=== PATIENT | female | born 1960 | race Caucasian/White ===

== ENCOUNTER → 2016-04-07 | Outpatient (CLI) | payer OTHER ==
[~2016-04-07] MED LIST: ALBU1AER9 INH; ASPI81TA28 PO; ATV1 PO; CYNI1000 IM; DICY10CA12 PO; HYDR12.56 PO; MELO7.5T5 PO; ONDA4TAB10 SL; POLY335019 PO; POLY335040 PO; SUCR1TAB PO; TOPI50TA16 PO; TRAZ50TA35 PO; VNTHFA/IN INH; WLLSR/200 PO; ZOLP10TA6 PO
--- NOTE | 2016-04-08 12:36 | MAMMOGRAPHY REPORT ---
BILATERAL DIGITAL SCREENING MAMMOGRAM TOMOSYNTHESIS WITH CAD: 04/07/2016 CLINICAL HISTORY: Routine screening examination. During this exam the patient reported intermittent soreness in the left breast to the wood technologist. TECHNIQUE: Breast tomosynthesis in addition to standard 2D mammography was performed. Current study was also evaluated with a Computer Aided Detection (CAD) system. COMPARISON: Comparison is made to exams dated: 08/13/2014 mammogram, 06/20/2013 mammogram, 03/17/2012 ma mmogram, 02/24/2010 mammogram, 08/23/2009 mammogram - [facility], and 04/14/2007. BREAST COMPOSITION: There are scattered areas of fibroglandular density in both breasts. FINDINGS: There are a few stable punctate microcode calcifications in the left breast, and a stable 8 mm focal asymmetry in the right upper outer quadrant, that appears similar dating back to at as t 04/14/2007, therefore likely benign. No new suspicious mass, architectural distortion or cluster of microcalcifications is seen. IMPRESSION: ACR BI-RADS CATEGORY 1: NEGATIVE There is no mammographic evidence of malignancy. A 1 year screening mammogram is recommended. The p atient will receive written notification of the results. Approximately 10% of breast cancers are not detected with mammography. A negative mammographic repor t should not delay biopsy if a clinically suggestive mass is present. Daylin Freeman M.D. ay/:04/07/2016 18:09:41 Professor Of Law: Divine LOPEZ)([place]), [facility] letter sent: Normal 1/2 BI-RADS Code: ACR BI-RADS Category 1: Negative
== END | disposition home or self-care (01) ==
LOC: C.MAMM 14:58
PROVIDERS: ATTEND Family Medicine
DX: Z12.31 Encounter for screening mammogram for malignant neoplasm of breast (principal)

== ENCOUNTER 2016-06-29 03:03 | Emergency (ER) | payer OTHER ==
[~2016-06-29] VITALS: Ht 160 cm; Wt 111.4 kg
[~2016-06-29 03:03] MED LIST changes: -ASPI81TA28 PO; -POLY335019 PO; -VNTHFA/IN INH
[2016-06-29 03:09] VITALS: TEMP 36.7; Ht 160 cm; Wt 111.4 kg
[2016-06-29] MEDS ORDERED: ONDANSETRON INJ 2 MG/ML 2 ML VIAL IV STA (03:29)
[2016-06-29] MEDS ORDERED: SODIUM CHLORIDE 0.9% 1000ML 1,000 ML IV ONE (03:30)
[2016-06-29] MEDS ORDERED: MoRPHine SULFATE 4 MG/ML 1 ML CARP\\VIAL IV ONE (03:30)
[2016-06-29 03:41] LABS: BASO % 0.4 %; BASO ABS # 0.03 K/uL (0-0.2); COMPLETE YES; EOS % 2.4 %; HEMATOCRIT 45.4 % (37-47); IG% 0.2 %; LYMPH ABS # 2.08 K/uL (1.2-3.4); MEAN CORPUSCULAR HEMOGLOBIN 29.1 pg (25-34); MEAN PLATELET VOLUME 9.1 fL (7.4-10.4); MONO % 7.7 %; NEUT % 64.3 %; PLATELET COUNT 287 K/uL (130-400); RED BLOOD COUNT 5.16 M/uL (4.2-5.4); WHITE BLOOD COUNT 8.32 K/uL (4.8-10.8)
[2016-06-29 03:57] LABS: URINE APPEARANCE CLEAR (CLEAR); URINE BILIRUBIN NEG (NEG); URINE COLOR YELLOW; URINE NITRITE NEG (NEG); URINE SPECIFIC GRAVITY 1.023 (1.000-1.030); UROBILINOGEN NEG (NEG); ZZUR CULT IF INDIC CLEAN CATCH NO
[2016-06-29 04:23] LABS: MANUAL MICROSCOPIC REQUIRED? NO; REVIEW REQ? NO
[2016-06-29 04:29] LABS: ALB/GLOB RATIO 0.8 (0.9-2); BUN/CREATININE RATIO 16.9 (10-20); CALCIUM 8.8 mg/dl (8.5-10.1); CREATININE 1.5 mg/dl (0.60-1.20); POTASSIUM 4.1 mmol/L (3.5-5.1)
[2016-06-29] MEDS ORDERED: POLY335019 PO (04:29)
[2016-06-29] MEDS ORDERED: VNTHFA/IN INH (04:29)
[2016-06-29] MEDS ORDERED: ASPI81TA28 PO (04:30)
[2016-06-29] MEDS ORDERED: IBUPROFEN 600 MG TAB PO STA (05:04)
[2016-06-29] MEDS ORDERED: ACETAMINOPHEN 500 MG TAB PO STA (05:04)
[2016-06-29 05:09] VITALS: BP 148/90; PULSE 78; O2SAT 96
--- NOTE | 2016-06-29 06:08 | EMERGENCY ROOM VISIT NOTE ---
History First contact with patient: 03:14 Chief Complaint: ABDOMINAL PAIN Stated Complaint: SHARP LOWER ABD PAIN Nursing Triage Summary: pt c/o lower sharp abd pain, started around 0030 it woke her up. History of Present Illness The patient is a 56 year old female who presents to the Emergency Room with complaints of low abdominal pain that began about 2 hours prior to arrival. The patient states that her discomfort woke her from sleep. He used the bathroom without difficulty, but this did not improve her symptoms. She has not had fever or chills. No chest pain, chest tightness, shortness of breath, or upper abdominal pain. She has been without nausea or vomiting. The patient relates a past history of diverticulitis, but her symptoms do not feel similar to this episode. She has not taken anything [id number] for her discomfort which she currently rates a 7/10. She does not relate any aggravating or alleviating factors. Review of Systems More than 10 systems were reviewed and otherwise negative with the exception of history of present illness. Past Medical/Surgical History Medical Problems: (1) Cholecystectomy (2) Chronic urinary tract infection (3) Constipation (4) Deliveries by (5) DIS OF GALLBLADDER NOS (6) Diverticulitis (7) DIVERTICULITIS COLON (W/O MENT OF HEMORRHAGE) (8) History of - bilateral oophorectomy (9) History of total hysterectomy (10) Partial hysterectomy (11) skin problems (12) stomach problems Family History Cancer Diabetes mellitus Gallbladder disease Heart disease Hypertension Social History Smoking Status: Never Smoker Alcohol Use: none Marital Status: Housing Status: lives with family Occupation Status: employed Current/Historical Medications Scheduled Aspirin (Aspirin Ec), 81 MG PO DAILY Bupropion Hcl (Wellbutrin Sr), 200 MG PO BID Cyanocobalamin (Cyanocobalamin), 1,000 MCG IM MONTHLY Hydrochlorothiazide (Hctz), 12.5 MG PO DAILY Meloxicam (Mobic), 7.5 MG PO QPM Meloxicam (Mobic), 15 MG PO QAM Sucralfate (Sucralfate), 1 GM PO BID Topiramate (Topamax), 50 MG PO BID Zolpidem Tartrate (Zolpidem Tartrate), 10 MG PO HS Scheduled PRN Albuterol Hfa (Ventolin Hfa), 2 PUFFS INH Q6H PRN for SOB/Wheezing Ondasetron Odt (Zofran Odt), 4 MG SL Q4H PRN for Nausea or Vomiting Polyethylene Glycol 3350 (Miralax), 17 GM PO DAILY PRN for Constipation Allergies Coded Allergies: Chocolate (Verified Allergy, Unknown, GI SYMPTOMS, 06/29/16) Honey (Verified Allergy, Unknown, HIVES, 06/29/16) Uncoded Allergies: MOST FRUITS (Allergy, Severe, BLOATING,SHARP STOMACH PAINS, 11/22/13) SOY, DAIRY, GLUTEN (Allergy, Severe, GI SYMPTOMS, 11/22/13) ARTIFICIAL SWEETENERS (Allergy, Unknown, unk, 05/01/14) CORN SURUP (Allergy, Unknown, UNKNOWN, 11/22/13) MOST VEGETABLES (Allergy, Unknown, GI SYMPTOMS, 05/01/14) Physical Exam Vital Signs Date Time Temp Pulse Resp B/P Pulse Ox O2 Delivery O2 Flow Rate FiO2 06/29/16 05:09 78 18 148/90 96 Room Air 06/29/16 03:51 76 16 165/84 98 Room Air 06/29/16 03:09 36.7 76 18 127/88 97 Room Air Pain Rating (0-10): 7.0 Physical Exam VITALS: Vitals are noted on the nurse's note and reviewed by myself. Vital signs stable. GENERAL: Well-developed, well-nourished, white female, who is in no acute distress and resting comfortably. Patient is cooperative with the examination. HEAD: Normocephalic atraumatic. HEART: Regular rate and rhythm without murmurs gallops or rubs. LUNGS: Clear to auscultation bilaterally without wheezes, rales or rhonchi. No retractions or accessory muscle use. ABDOMEN: Positive normal bowel sounds x 4. Soft, nontender, without masses or organomegaly. No guarding or rebound tenderness. MUSCULOSKELETAL: No muscle atrophy, erythema, or edema noted. Full range of motion without joint tenderness in all extremities. Medical Decision & Procedures ER Provider Diagnostic Interpretation: Preliminary Findings Only See Final Report For Complete Findings CT ABDOMEN & PELVIS: Comparison 08/13/15. Portions of the colon underdistended limiting evaluation for wall thickening. Diverticulosis. No diverticulitis appreciated. Gastric distention. No bowel obstruction. No evidence for acute pancreatitis. No evidence for appendicitis. Unchanged incidental findings include L5 pars defects with mild anterolisthesis L5 on S1 and cholecystectomy. Laboratory Results 06/29/16 03:28 Red Blood Count 5.16, Mean Corpuscular Volume 88.0, Mean Corpuscular Hemoglobin 29.1, Mean Corpuscular Hemoglobin Concent 33.0, Mean Platelet Volume 9.1, Neutrophils (%) (Auto) 64.3, Lymphocytes (%) (Auto) 25.0, Monocytes (%) (Auto) 7.7, Eosinophils (%) (Auto) 2.4, Basophils (%) (Auto) 0.4, Neutrophils # (Auto) 5.35, Lymphocytes # (Auto) 2.08, Monocytes # (Auto) 0.64, Eosinophils # (Auto) 0.20, Basophils # (Auto) 0.03 06/29/16 03:28 Test 06/29/16 03:25 06/29/16 03:28 Urine Color YELLOW Urine Appearance CLEAR (CLEAR) Urine pH 7.0 (4.5-7.5) Urine Specific [place] 1.023 (1.000-1.030) Urine Protein NEG (NEG) Urine Glucose (UA) NEG (NEG) Urine Ketones TRACE (NEG) Urine Occult Blood NEG (NEG) Urine Nitrite NEG (NEG) Urine Bilirubin NEG (NEG) Urine Urobilinogen NEG (NEG) Urine Leukocyte Esterase NEG (NEG) White Blood Count 8.32 K/uL (4.8-10.8) Red Blood Count 5.16 M/uL (4.2-5.4) Hemoglobin 15.0 g/dL (12.0-16.0) Hematocrit 45.4 % (37-47) Mean Corpuscular Volume 88.0 fL (80-100) Mean Corpuscular Hemoglobin 29.1 pg (25-34) Mean Corpuscular Hemoglobin Concent 33.0 g/dl (32-36) Platelet Count 287 K/uL (130-400) Mean Platelet Volume 9.1 fL (7.4-10.4) Neutrophils (%) (Auto) 64.3 % Lymphocytes (%) (Auto) 25.0 % Monocytes (%) (Auto) 7.7 % Eosinophils (%) (Auto) 2.4 % Basophils (%) (Auto) 0.4 % Neutrophils # (Auto) 5.35 K/uL (1.4-6.5) Lymphocytes # (Auto) 2.08 K/uL (1.2-3.4) Monocytes # (Auto) 0.64 K/uL (0.11-0.59) Eosinophils # (Auto) 0.20 K/uL (0-0.5) Basophils # (Auto) 0.03 K/uL (0-0.2) RDW Standard Deviation 44.4 fL (36.4-46.3) RDW Coefficient of Variation 13.6 % (11.5-14.5) Immature Granulocyte % (Auto) 0.2 % Immature Granulocyte # (Auto) 0.02 K/uL (0.00-0.02) Anion Gap 8.0 mmol/L (3-11) Est Creatinine Clear Calc Drug Dose 51.4 ml/min Estimated GFR () 45.3 Estimated GFR (Non- 39.1 BUN/Creatinine Ratio 16.9 (10-20) Calcium Level 8.8 mg/dl (8.5-10.1) Total Bilirubin 0.6 mg/dl (0.2-1) Aspartate Amino Transf (AST/SGOT) 19 U/L (15-37) Alanine Aminotransferase (ALT/SGPT) 24 U/L (12-78) Alkaline Phosphatase 88 U/L (45-117) Total Protein 7.8 gm/dl (6.4-8.2) Albumin 3.5 gm/dl (3.4-5.0) Globulin 4.3 gm/dl (2.5-4.0) Albumin/Globulin Ratio 0.8 (0.9-2) Lipase 232 U/L (73-393) Chemistry Specimen Hemolysis Medications Administered Medications (Trade) Dose Ordered Sig/Miguel Ángel Route Start Time Stop Time Status Last Admin Dose Admin Sodium Chloride (Nss 1000ml) 1,000 ml @ 999 mls/hr Q1H1M ONCE IV 06/29/16 03:30 06/29/16 04:30 DC 06/29/16 03:46 999 MLS/HR Morphine Sulfate (MoRPHine SULFATE INJ) 4 mg NOW ONCE IV 06/29/16 03:30 06/29/16 03:33 DC 06/29/16 03:46 4 MG Ondansetron HCl (Zofran Inj) 4 mg NOW STAT IV 06/29/16 03:29 06/29/16 03:33 DC 06/29/16 03:47 4 MG Acetaminophen (Tylenol Tab) 1,000 mg NOW STAT PO 06/29/16 05:04 06/29/16 05:05 DC 06/29/16 05:12 1,000 MG Ibuprofen (Motrin Tab) 600 mg NOW STAT PO 06/29/16 05:04 06/29/16 05:05 DC 06/29/16 05:13 600 MG ED Course Physical exam and history were performed. Nursing notes and EMR were reviewed. Patient appears to have very low abdominal pain for the past few hours. The patient does not have a fever or significant findings on examination. She does have a history of diverticulitis. IV access was established and labs were obtained. Patient was hydrated and medicated as above. Because of her discomfort I did elect to perform a CT scan. The patient's blood work is as above and was reviewed. She does not have a significantly elevated white blood cell count, gross anemia, bandemia, or significant electrolye imbalance. Lipase and transaminases are nondiagnostic. Urine is without evidence of infection. The patient did have some improvement of her symptoms after hydration and medication. CT scan returned as above and does not show evidence of acute intra-abdominal process. Serial repeat abdominal exam does not show evidence of peritoneal symptoms or evidence of an acute surgical abdomen. Overall I suspect the patient's symptoms may be food borne or viral in etiology. She will be treated conservatively with [id number] analgesics and fluids. I recommended the patient follow with her primary care physician in the next few days for recheck of her condition. She was otherwise invited back to the emergency department with any new, worsening, or concerning symptoms. The chart was completed utilizing [employer] Speech Voice Recognition Software. Grammatical errors, random word insertions, pronoun errors, and incomplete sentences are an occasional consequence of this system due to software limitations, ambient noise, and hardware issues. Any formal questions or concerns about the content, text, or information contained within the body of this dictation should be directly addressed to the provider for clarification. . Medical Decision Differential diagnosis: Etiologies such as appendicitis, diverticulitis, PUD, biliary pathology, UTI, pancreatitis, obstruction, mesenteric ischemia, aortic pathology, infections, inflammatory bowel disease, renal colic, as well as others were entertained. Impression Primary Impression: Lower abdominal pain Departure Information Dispostion Home / Self-Care Condition GOOD Forms Call Back Authorization, HOME CARE DOCUMENTATION FORM, IMPORTANT VISIT INFORMATION Patient Instructions [facility] Additional Instructions You were seen and evaluated today on an emergency basis only. This is not a substitute for, or an effort to provide, complete comprehensive medical care. It is not possible to recognize and treat all injuries or illnesses in a single emergency department visit. For this reason it is recommended that you followup with your primary care physician in the next 2-3 days for recheck of your condition. For baseline pain relief you may alternate ibuprofen and acetaminophen every 4 hours for pain control. Take 600 mg ibuprofen (Advil) and then 4 hours later take 1000 mg acetaminophen (Tylenol). Do not take more than 3000 mg acetaminophen in a single day. Drink plenty of fluids and remain well hydrated. You are welcome to return to the emergency department anytime with new, worsening, or concerning symptoms.
--- NOTE | 2016-06-29 07:39 | DIAGNOSTIC IMAGING REPORT ---
CT OF THE ABDOMEN AND PELVIS WITHOUT CONTRAST CLINICAL HISTORY: Lower abdominal pain. COMPARISON STUDY: CT of the abdomen and pelvis August 17, 2015. TECHNIQUE: Axial images of the abdomen and pelvis were obtained without IV contrast. Images were reviewed in the axial, sagittal, and coronal planes. FINDINGS: Evaluation of the abdomen and pelvis is suboptimal on this unenhanced exam. Unenhanced images of the liver, spleen, adrenal glands, kidneys and pancreas are unremarkable. There is no biliary ductal dilatation status post cholecystectomy. There is no hydronephrosis. No renal, ureteral or bladder calculi are present. There is colonic diverticulosis without evidence for acute diverticulitis. The appendix is normal. There is no evidence for a bowel obstruction. There is no lymphadenopathy. No suspicious skeletal lesions are identified. IMPRESSION: 1. No acute process within the abdomen or pelvis on unenhanced exam. 2. Colonic diverticulosis without evidence for acute diverticulitis. Electronically signed by: Francisco Keating M.D. 06/29/2016 7:37 AM Dictated Date/Time: 06/29/2016 7:32 AM
== END 2016-06-29 05:18 | disposition home or self-care (01) ==
LOC: C.EDB 03:05 → C.EDA 05:18
DX: R10.30 Lower abdominal pain, unspecified (principal); Z87.440 Personal history of urinary (tract) infections; K57.32 Diverticulitis of large intestine without perforation or abscess without bleeding; K82.9 Disease of gallbladder, unspecified; Z80.9 Family history of malignant neoplasm, unspecified; Z83.3 Family history of diabetes mellitus; Z82.49 Family history of ischemic heart disease and other diseases of the circulatory system; Z83.79 Family history of other diseases of the digestive system; Z79.82 Long term (current) use of aspirin; Z79.899 Other long term (current) drug therapy

== ENCOUNTER 2016-11-19 19:32 | Emergency (ER) | payer OTHER ==
[~2016-11-19] VITALS: Ht 160 cm; Wt 110.7 kg
[~2016-11-19 19:32] MED LIST changes: -ALBU1AER9 INH; +ASPI81TA28 PO; -ATV1 PO; -DICY10CA12 PO; +POLY335019 PO; -POLY335040 PO; -TRAZ50TA35 PO; +VNTHFA/IN INH
[2016-11-19 19:35] VITALS: TEMP 36.7; Ht 160 cm; Wt 110.7 kg
[2016-11-19] MEDS ORDERED: OPTIRAY 320 IV PRN (20:00)
--- NOTE | 2016-11-19 20:14 | DIAGNOSTIC IMAGING REPORT ---
CHEST ONE VIEW PORTABLE CLINICAL HISTORY: 56 years-old Female presenting with syncope . TECHNIQUE: Portable upright AP view of the chest was obtained. COMPARISON: 08/18/2014. FINDINGS: Cardiomediastinal silhouette normal. Lungs and pleural spaces clear. Osseous structures normal. Upper abdomen normal. IMPRESSION: 1. No acute cardiopulmonary disease. Electronically signed by: Ilan Weiss M.D. 11/19/2016 8:12 PM Dictated Date/Time: 11/19/2016 8:12 PM
--- NOTE | 2016-11-19 20:17 | DIAGNOSTIC IMAGING REPORT ---
L HAND MIN 3 VIEWS ROUTINE CLINICAL HISTORY: 56 years-old Female presenting with left first metacarpal pain. TECHNIQUE: Frontal, oblique, and lateral views of the left hand were obtained. COMPARISON: None. FINDINGS: Irregularity of the base of the first metacarpal and trapezium most likely relates to degenerative joint disease with extensive subchondral cystic change and joint space loss. Given the degree of cystic change, a nondisplaced fractures difficult to exclude. However, no displaced fracture or malalignment. IMPRESSION: Extensive changes of the first carpometacarpal articulation most suggestive of osteoarthritis with extensive subchondral cystic change. Electronically signed by: Ilan Weiss M.D. 11/19/2016 8:15 PM Dictated Date/Time: 11/19/2016 8:13 PM
[2016-11-19 20:33] LABS: URINE APPEARANCE CLEAR (CLEAR); URINE BILIRUBIN NEG (NEG); URINE COLOR YELLOW; URINE NITRITE NEG (NEG); URINE PH 6.5 (4.5-7.5); UROBILINOGEN NEG (NEG); ZZUR CULT IF INDIC CLEAN CATCH NO
[2016-11-19 20:35] LABS: MANUAL MICROSCOPIC REQUIRED? NO; REVIEW REQ? NO
[2016-11-19] MEDS ORDERED: TRAZ100T29 PO (20:47)
[2016-11-19 21:38] LABS: BASO % 0.4 %; BASO ABS # 0.04 K/uL (0-0.2); COMPLETE YES; IG% 0.1 %; LYMPH % 31.5 %; LYMPH ABS # 2.88 K/uL (1.2-3.4); MEAN CORPUSCULAR HEMOGLOBIN 28.4 pg (25-34); MEAN CORPUSCULAR HGB CONC 34.2 g/dl (32-36); MEAN PLATELET VOLUME 9.1 fL (7.4-10.4); MONO % 5.9 %; NEUT % 60.1 %; PLATELET COUNT 270 K/uL (130-400); RED BLOOD COUNT 5.42 M/uL (4.2-5.4); WHITE BLOOD COUNT 9.14 K/uL (4.8-10.8)
[2016-11-19] MEDS ORDERED: ONDANSETRON INJ 2 MG/ML 2 ML VIAL IV STA (21:50)
[2016-11-19] MEDS ORDERED: MoRPHine SULFATE 4 MG/ML 1 ML CARP\\VIAL IV STA (21:50)
[2016-11-19 21:56] LABS: ALT/SGPT 18 U/L (12-78); BLOOD UREA NITROGEN 17 mg/dl (7-18); BUN/CREATININE RATIO 17.8 (10-20); CALCIUM 9.6 mg/dl (8.5-10.1); CARBON DIOXIDE 26 mmol/L (21-32); CHLORIDE 105 mmol/L (98-107); CREATININE 0.98 mg/dl (0.60-1.20); GLUCOSE 76 mg/dl (70-99); POTASSIUM 3.4 mmol/L (3.5-5.1); SODIUM 138 mmol/L (136-145)
[2016-11-19] MEDS ORDERED: ONDANSETRON INJ 2 MG/ML 2 ML VIAL ONE (22:00)
[2016-11-19 22:01] LABS: ALKALINE PHOSPHATASE 81 U/L (45-117); AST/SGOT 17 U/L (15-37)
[2016-11-19] MEDS ORDERED: MoRPHine SULFATE 4 MG/ML 1 ML CARP\\VIAL ONE (22:01)
--- NOTE | 2016-11-19 22:22 | DIAGNOSTIC IMAGING REPORT ---
HEAD WITHOUT CONTRAST (CT) CLINICAL HISTORY: 56 years-old Female presenting with fall. TECHNIQUE: Multidetector CT imaging of the head was performed without the use of intravenous contrast. IV contrast: None. A dose lowering technique was used consistent with the principles of ALARA (as low as reasonably achievable). COMPARISON: 05/01/2014. CT DOSE (mGy.cm): The estimated cumulative dose is 537.48 mGy.cm. FINDINGS: [employer] Supervisor topogram: Unremarkable. Proportional ventricular and sulcal prominence, likely age-related parenchymal volume loss. Brain parenchyma normal in appearance with preserved cox-white differentiation. No mass effect or midline shift. No hemorrhage or acute territorial infarct. No extra-axial fluid collection. Paranasal sinuses and mastoid air cells clear. Calvarium intact. IMPRESSION: 1. No acute intracranial pathology. Electronically signed by: Ilan Weiss M.D. 11/19/2016 10:21 PM Dictated Date/Time: 11/19/2016 10:19 PM
[2016-11-19] MEDS ORDERED: GI COCKTAIL PO STA (22:30)
--- NOTE | 2016-11-19 22:30 | DIAGNOSTIC IMAGING REPORT ---
ABD/PELVIS IV CONTRAST ONLY CLINICAL HISTORY: 56 years-old Female presenting with fall, right-sided abdominal pain. TECHNIQUE: Multidetector CT of the abdomen and pelvis was performed after the administration of intravenous contrast. IV contrast: 91 mL of Optiray 320. A dose lowering technique was used consistent with the principles of ALARA (as low as reasonably achievable). COMPARISON: 06/29/2016. CT DOSE (mGy.cm): The estimated cumulative dose is 1181.29 mGy.cm. FINDINGS: Property Assessment Monitor topogram: Cholecystectomy clips. Lung bases: Minimal dependent changes likely atelectasis. Normal heart size. No pericardial or pleural effusion. Liver: Normal morphology. No liver lesion. Patent hepatic vasculature. Biliary: No intrahepatic or extrahepatic biliary ductal dilatation. Gallbladder surgically absent. Pancreas: Mild parenchymal atrophy. Spleen: Normal. Adrenal glands: Normal. Kidneys and ureters: Normal. No hydronephrosis. Bladder: Normal. Pelvic organs: Uterus surgically absent. No adnexal masses. Bowel: Diverticulosis of the descending and sigmoid colon. No pericolonic fat stranding. Scattered colonic diverticula noted elsewhere. Normal appendix. No bowel obstruction. Peritoneal cavity: No free fluid or intraperitoneal gas. Lymph nodes: Few prominent lymph nodes in the portacaval region, which are subcentimeter in the short axis. No pathologically enlarged lymph nodes. Vasculature: Aorta and IVC patent and normal in caliber. Abdominal wall: Small fat-containing umbilical hernia. Musculoskeletal: Degenerative changes of the spine. Bilateral pars defects of L5 with grade 1 anterolisthesis of L5 on S1. IMPRESSION: 1. No acute intra-abdominal pathology. 2. Diverticulosis. No evidence of diverticulitis. Electronically signed by: Ilan Weiss M.D. 11/19/2016 10:28 PM Dictated Date/Time: 11/19/2016 10:21 PM
[2016-11-19] MEDS ORDERED: LIDOCAINE HCL 2% VISC SOLN 20 ML UDC ONE (22:56)
[2016-11-19] MEDS ORDERED: ALUMINUM/MAGNESIUM SUSP 30 ML UDC ONE (22:56)
--- NOTE | 2016-11-20 | EMERGENCY ROOM VISIT NOTE ---
History Report prepared by Radha: Alec Mcguire Under the Supervision of: Dr. Dion Lynch D.O. First contact with patient: 19:41 Chief Complaint: ABDOMINAL PAIN Stated Complaint: ABD PAIN,RT SIDE OF FACE,EYE PAIN,HURT LT WRIST/VIDAL History of Present Illness The patient is a 56 year old female who presents to the Emergency Room with complaints of intermittent upper abdominal pain that began a couple of weeks ago. She rates her pain a 6/10 in severity. The patient has a history of diverticulitis, GERD, and a cholecystectomy. 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 The patient does not remember falling or what happened before. This happened to the patient a couple of years ago as well. At that time, she had just gotten out of the shower and bent down to pick something up, passing out again. After her fall today, she began having some left wrist pain. She also has a headache with right face pain. She denies any fevers, rhinorrhea, sore throat, nausea, vomiting, weakness, or abnormal urinary symptoms. She denies any new medications. She denies any tobacco use. She denies any diabetes , HTN, HLD, or CAD as well. Source of History: patient Onset: a couple of weeks ago Position: abdomen Symptom Intensity: 6/10 Quality: other (Soreness) Timing: intermittent Associated Symptoms: + LOC, + headache, + cough, No sorethroat, No nausea, No vomiting, No urinary symptoms, No weakness Review of Systems See HPI for pertinent positives & negatives. A total of 10 systems reviewed and were otherwise negative. Past Medical & Surgical Medical Problems: (1) Cholecystectomy (2) Chronic urinary tract infection (3) Constipation (4) Deliveries by (5) DIS OF GALLBLADDER NOS (6) Diverticulitis (7) DIVERTICULITIS COLON (W/O MENT OF HEMORRHAGE) (8) History of - bilateral oophorectomy (9) History of total hysterectomy (10) Partial hysterectomy (11) skin problems (12) stomach problems Family History Cancer Diabetes mellitus Gallbladder disease Heart disease Hypertension Social History Smoking Status: Former Smoker Alcohol Use: none Marital Status: Housing Status: lives with family Occupation Status: employed Current/Historical Medications Scheduled Aspirin (Aspirin Ec), 81 MG PO DAILY Bupropion Hcl (Wellbutrin Sr), 200 MG PO BID Cyanocobalamin (Cyanocobalamin), 1,000 MCG IM MONTHLY Hydrochlorothiazide (Hctz), 12.5 MG PO DAILY Meloxicam (Mobic), 15 MG PO BID Topiramate (Topamax), 50 MG PO BID Trazodone Hcl (Trazodone), 100 MG PO HS Scheduled PRN Albuterol Hfa (Ventolin Hfa), 2 PUFFS INH Q6H PRN for SOB/Wheezing Ondasetron Odt (Zofran Odt), 4 MG SL Q4H PRN for Nausea or Vomiting Polyethylene Glycol 3350 (Miralax), 17 GM PO DAILY PRN for Constipation Allergies Coded Allergies: Chocolate (Verified Allergy, Unknown, GI SYMPTOMS, 11/19/16) Honey (Verified Allergy, Unknown, HIVES, 11/19/16) Uncoded Allergies: MOST FRUITS (Allergy, Severe, BLOATING,SHARP STOMACH PAINS, 11/22/13) SOY, DAIRY, GLUTEN (Allergy, Severe, GI SYMPTOMS, 11/22/13) ARTIFICIAL SWEETENERS (Allergy, Unknown, unk, 05/01/14) CORN SURUP (Allergy, Unknown, UNKNOWN, 11/22/13) MOST VEGETABLES (Allergy, Unknown, GI SYMPTOMS, 05/01/14) Physical Exam Vital Signs Date Time Temp Pulse Resp B/P (MAP) Pulse Ox O2 Delivery O2 Flow Rate FiO2 11/20/16 00:01 75 20 143/94 98 11/19/16 21:39 70 20 150/87 97 Room Air 11/19/16 19:35 36.7 68 20 164/97 98 Room Air Physical Exam GENERAL: alert, well appearing, well nourished, no distress, non-toxic HEAD: normal cephalic, atraumatic EYE EXAM: normal conjunctiva, PERRL and EOM's grossly intact OROPHARYNX: no exudate, no erythema, lips, buccal mucosa, and tongue normal and mucous membranes are moist EARS: TMs clear b/l NECK: supple, no nuchal rigidity, no adenopathy, non-tender CHEST: stable to compression anteriorly and posteriorly LUNGS: clear to auscultation. Normal chest wall mechanics HEART: no murmurs, S1 normal and S2 normal ABDOMEN: abdomen soft, non-tender, normo-active bowel sounds, no masses, no rebound or guarding. PELVIS: stable to compression anteriorly and posteriorly BACK: Back is symmetrical on inspection and there is no deformity, no midline tenderness, no CVA tenderness. UPPER EXTREMITIES: full active and passive range of motion of all joints without tenderness to palpation with the exception of left proximal metacarpal/ scaphoid LOWER EXTREMITIES: full active and passive range of motion of all joints without tenderness to palpation NEURO EXAM: Normal sensorium, cranial nerves II-XII grossly intact, normal speech, no gross weakness of arms, no gross weakness of legs. No pronator drift. Finger to nose intact. Rapid alternating movements of the UE's intact. GCS: 15. Medical Decision & Procedures ER Provider Diagnostic Interpretation: Radiology results as stated below per my review and the radiologist's interpretation: CHEST ONE VIEW PORTABLE CLINICAL HISTORY: 56 years-old Female presenting with syncope . TECHNIQUE: Portable upright AP view of the chest was obtained. COMPARISON: 08/18/2014. FINDINGS: Cardiomediastinal silhouette normal. Lungs and pleural spaces clear. Osseous structures normal. Upper abdomen normal. IMPRESSION: 1. No acute cardiopulmonary disease. Electronically signed by: Ilan Weiss M.D. 11/19/2016 8:12 PM Dictated Date/Time: 11/19/2016 8:12 PM HEAD WITHOUT CONTRAST (CT) CLINICAL HISTORY: 56 years-old Female presenting with fall. TECHNIQUE: Multidetector CT imaging of the head was performed without the use of intravenous contrast. IV contrast: None. A dose lowering technique was used consistent with the principles of ALARA (as low as reasonably achievable). COMPARISON: 05/01/2014. CT DOSE (mGy.cm): The estimated cumulative dose is 537.48 mGy.cm. FINDINGS: Knurling Machine Tender topogram: Unremarkable. Proportional ventricular and sulcal prominence, likely age-related parenchymal volume loss. Brain parenchyma normal in appearance with preserved cox-white differentiation. No mass effect or midline shift. No hemorrhage or acute territorial infarct. No extra-axial fluid collection. Paranasal sinuses and mastoid air cells clear. Calvarium intact. IMPRESSION: 1. No acute intracranial pathology. Electronically signed by: Ilan Weiss M.D. 11/19/2016 10:21 PM Dictated Date/Time: 11/19/2016 10:19 PM L HAND MIN 3 VIEWS ROUTINE CLINICAL HISTORY: 56 years-old Female presenting with left first metacarpal pain. TECHNIQUE: Frontal, oblique, and lateral views of the left hand were obtained. COMPARISON: None. FINDINGS: Irregularity of the base of the first metacarpal and trapezium most likely relates to degenerative joint disease with extensive subchondral cystic change and joint space loss. Given the degree of cystic change, a nondisplaced fractures difficult to exclude. However, no displaced fracture or malalignment. IMPRESSION: Extensive changes of the first carpometacarpal articulation most suggestive of osteoarthritis with extensive subchondral cystic change. Electronically signed by: Ilan Weiss M.D. 11/19/2016 8:15 PM Dictated Date/Time: 11/19/2016 8:13 PM ABD/PELVIS IV CONTRAST ONLY CLINICAL HISTORY: 56 years-old Female presenting with fall, right-sided abdominal pain. TECHNIQUE: Multidetector CT of the abdomen and pelvis was performed after the administration of intravenous contrast. IV contrast: 91 mL of Optiray 320. A dose lowering technique was used consistent with the principles of ALARA (as low as reasonably achievable). COMPARISON: 06/29/2016. CT DOSE (mGy.cm): The estimated cumulative dose is 1181.29 mGy.cm. FINDINGS: Knurling Machine Tender topogram: Cholecystectomy clips. Lung bases: Minimal dependent changes likely atelectasis. Normal heart size. No pericardial or pleural effusion. Liver: Normal morphology. No liver lesion. Patent hepatic vasculature. Biliary: No intrahepatic or extrahepatic biliary ductal dilatation. Gallbladder surgically absent. Pancreas: Mild parenchymal atrophy. Spleen: Normal. Adrenal glands: Normal. Kidneys and ureters: Normal. No hydronephrosis. Bladder: Normal. Pelvic organs: Uterus surgically absent. No adnexal masses. Bowel: Diverticulosis of the descending and sigmoid colon. No pericolonic fat stranding. Scattered colonic diverticula noted elsewhere. Normal appendix. No bowel obstruction. Peritoneal cavity: No free fluid or intraperitoneal gas. Lymph nodes: Few prominent lymph nodes in the portacaval region, which are subcentimeter in the short axis. No pathologically enlarged lymph nodes. Vasculature: Aorta and IVC patent and normal in caliber. Abdominal wall: Small fat-containing umbilical hernia. Musculoskeletal: Degenerative changes of the spine. Bilateral pars defects of L5 with grade 1 anterolisthesis of L5 on S1. IMPRESSION: 1. No acute intra-abdominal pathology. 2. Diverticulosis. No evidence of diverticulitis. Electronically signed by: Ilan Weiss M.D. 11/19/2016 10:28 PM Dictated Date/Time: 11/19/2016 10:21 PM Laboratory Results 11/19/16 21:22 Red Blood Count 5.42, Mean Corpuscular Volume 83.0, Mean Corpuscular Hemoglobin 28.4, Mean Corpuscular Hemoglobin Concent 34.2, Mean Platelet Volume 9.1, Neutrophils (%) (Auto) 60.1, Lymphocytes (%) (Auto) 31.5, Monocytes (%) (Auto) 5.9, Eosinophils (%) (Auto) 2.0, Basophils (%) (Auto) 0.4, Neutrophils # (Auto) 5.49, Lymphocytes # (Auto) 2.88, Monocytes # (Auto) 0.54, Eosinophils # (Auto) 0.18, Basophils # (Auto) 0.04 11/19/16 21:22 Test 11/19/16 20:10 11/19/16 21:22 11/19/16 23:15 Urine Color YELLOW Urine Appearance CLEAR (CLEAR) Urine pH 6.5 (4.5-7.5) Urine Specific [place] 1.010 (1.000-1.030) Urine Protein NEG (NEG) Urine Glucose (UA) NEG (NEG) Urine Ketones NEG (NEG) Urine Occult Blood NEG (NEG) Urine Nitrite NEG (NEG) Urine Bilirubin NEG (NEG) Urine Urobilinogen NEG (NEG) Urine Leukocyte Esterase TRACE (NEG) Urine WBC (Auto) 1-5 /hpf (0-5) Urine RBC (Auto) 0-4 /hpf (0-4) Urine Hyaline Casts (Auto) 0 /lpf (0-5) Urine Epithelial Cells (Auto) 10-20 /lpf (0-5) Urine Bacteria (Auto) NEG (NEG) Urine Test NEG (NEG) White Blood Count 9.14 K/uL (4.8-10.8) Red Blood Count 5.42 M/uL (4.2-5.4) Hemoglobin 15.4 g/dL (12.0-16.0) Hematocrit 45.0 % (37-47) Mean Corpuscular Volume 83.0 fL (80-100) Mean Corpuscular Hemoglobin 28.4 pg (25-34) Mean Corpuscular Hemoglobin Concent 34.2 g/dl (32-36) Platelet Count 270 K/uL (130-400) Mean Platelet Volume 9.1 fL (7.4-10.4) Neutrophils (%) (Auto) 60.1 % Lymphocytes (%) (Auto) 31.5 % Monocytes (%) (Auto) 5.9 % Eosinophils (%) (Auto) 2.0 % Basophils (%) (Auto) 0.4 % Neutrophils # (Auto) 5.49 K/uL (1.4-6.5) Lymphocytes # (Auto) 2.88 K/uL (1.2-3.4) Monocytes # (Auto) 0.54 K/uL (0.11-0.59) Eosinophils # (Auto) 0.18 K/uL (0-0.5) Basophils # (Auto) 0.04 K/uL (0-0.2) RDW Standard Deviation 40.3 fL (36.4-46.3) RDW Coefficient of Variation 13.4 % (11.5-14.5) Immature Granulocyte % (Auto) 0.1 % Immature Granulocyte # (Auto) 0.01 K/uL (0.00-0.02) Anion Gap 7.0 mmol/L (3-11) Est Creatinine Clear Calc Drug Dose 78.4 ml/min Estimated GFR () 75.8 Estimated GFR (Non- 65.4 BUN/Creatinine Ratio 17.8 (10-20) Calcium Level 9.6 mg/dl (8.5-10.1) Total Bilirubin 0.6 mg/dl (0.2-1) Direct Bilirubin 0.1 mg/dl (0-0.2) Aspartate Amino Transf (AST/SGOT) 17 U/L (15-37) Alanine Aminotransferase (ALT/SGPT) 18 U/L (12-78) Alkaline Phosphatase 81 U/L (45-117) Total Protein 8.5 gm/dl (6.4-8.2) Albumin 4.1 gm/dl (3.4-5.0) Lipase 131 U/L (73-393) Troponin I < 0.015 ng/ml (0-0.045) Laboratory results per my review. Medications Administered Medications (Trade) Dose Ordered Sig/Miguel Ángel Route Start Time Stop Time Status Last Admin Dose Admin Morphine Sulfate (MoRPHine SULFATE INJ) 4 mg NOW STAT IV 11/19/16 21:50 11/19/16 22:02 DC 11/19/16 22:20 4 MG Ondansetron HCl (Zofran Inj) 4 mg NOW STAT IV 11/19/16 21:50 11/19/16 22:02 DC 11/19/16 22:19 4 MG ECG Indication: abdominal pain Rate (beats per minute): 66 Rhythm: sinus rhythm Findings: no ectopy, other (Normal axis, t-wave flattening inferiorly) Comparison ECG Date: 01 May 2014 Change: Resolution of depressions in the inferior and lateral leads. ED Course ED COURSE: Vital signs were reviewed and showed hypertension. The patients medical record was reviewed The above diagnostic studies were performed and reviewed. ED treatments and interventions as stated above. 1940: The patient was evaluated in room B2. A complete history and physical examination was performed. 2149: Ordered Zofran Inj 4 mg IV, Morphine Sulfate 4 mg IV 2199: Ordered Zofran Inj 4 mg .ROUTE 2200: Ordered Morphine Sulfate 4 mg .ROUTE 2244: Upon reevaluation, the patient is feeling better. We will be getting a repeat Troponin. 2340: Based on the patients age, coexisting illnesses, exam and lab findings the decision to treat as an outpatient was made. The patient remained stable while under my care. The patient appeared well at the time of discharge. Medical Decision Differential diagnoses include major intracranial, cervical, spinal, thoracic, abdominal, pelvic and neurologic injury. Fracture, contusion, sprain, strain, laceration, abrasions included as well. Patient is a 56-year-old female who presents to ER for abdominal pain which is located in the inder-umbilical region. This is been present off-and-on for 2 weeks. She notes that onions, correlate and dairy make it worse. Previous cholecystectomy. Abdominal exam is fairly benign. Vitals are unremarkable. CBC, BMP, LFTs, bilirubin and lipase was unremarkable. Troponins were negative 2. UA was unremarkable. was negative. CT of the head and abdomen shows no acute pathology. X-ray of the left wrist shows no obvious fracture. Patient has no anemia, chest pain or shortness of breath. Patient was updated at bedside. Patient was given IV morphine. She was feeling significantly better. Discussed with care management obtaining earlier PCP appointment tomorrow. Patient declined. She was to follow-up on . She will get repeat x-rays at that time. She almost always becomes near syncopal when bending over or chest notes this is nothing new for her. Symptoms been present for 1 year. She has passed out before from this. Do not feel this cardiac at this time. No symptoms to suggest PE. Not stroke. Neurologically intact. Discussed with Pt concerning signs and symptoms to watch out for. Pt was instructed to follow up with their PCP and discussed with the patient their option to return to the ED at anytime for persistent or worsening symptoms. The appropriate anticipatory guidance and out-patient management, including indications for return to the emergency department, were explained at length to the patient and understood. Medication Reconcilliation Current Medication List: was personally reviewed by me Blood Pressure Screening Patient's blood pressure: Elevated blood pressure Blood pressure disposition: Elevated BP felt to be situational Impression Primary Impression: Abdominal pain Additional Impression: Syncope Scribe Attestation The scribe's documentation has been prepared under my direction and personally reviewed by me in its entirety. I confirm that the note above accurately reflects all work, treatment, procedures, and medical decision making performed by me. Departure Information Dispostion Still a Patient Referrals Bhanu Mann M.D. (PCP) Forms Call Back Authorization, HOME CARE DOCUMENTATION FORM, IMPORTANT VISIT INFORMATION Patient Instructions Abdominal Pain - [facility], [facility], Syncope Causes Additional Instructions Please follow up with your primary care doctor with in the next 24 hours. Any worsening of your symptoms, please return to the ED immediately. This includes any fevers greater than 100.4, worsening pain, chest pain, shortness breath, persistent nausea, vomiting, unable to eat or drink, passing out again, or any other concerning signs or symptoms from your standpoint. You were found to have a blood pressure greater than 120 systolic over 90 diastolic. Due to the new Medicare guidelines, we are now recommending that you follow up with your primary care doctor in regards to this elevated blood pressure. Problem Qualifiers Primary Impression: Abdominal pain Abdominal location: generalized Qualified Codes: R10.84 - Generalized abdominal pain Additional Impression: Syncope Syncope type: unspecified Qualified Codes: R55 - Syncope and collapse
[2016-11-20 00:01] VITALS: BP 143/94; PULSE 75; O2SAT 98
== END 2016-11-20 00:02 | disposition still patient (30) ==
LOC: C.EDB 19:34
DX: R10.84 Generalized abdominal pain (principal); R55 Syncope and collapse; M25.532 Pain in left wrist; Z87.891 Personal history of nicotine dependence; Z87.440 Personal history of urinary (tract) infections; Z90.49 Acquired absence of other specified parts of digestive tract; Z90.722 Acquired absence of ovaries, bilateral; Z90.710 Acquired absence of both cervix and uterus; Z98.891 History of uterine scar from previous surgery; Z83.3 Family history of diabetes mellitus; Z82.49 Family history of ischemic heart disease and other diseases of the circulatory system; Z79.82 Long term (current) use of aspirin

== ENCOUNTER 2017-02-17 15:55 | Emergency (ER) | payer OTHER ==
[~2017-02-17 15:55] MED LIST changes: -CYNI1000 IM; -HYDR12.56 PO; -ONDA4TAB10 SL; -SUCR1TAB PO; -WLLSR/200 PO; -ZOLP10TA6 PO
[2017-02-17 16:05] VITALS: TEMP 36.7; Ht 160 cm
[2017-02-17] MEDS ORDERED: CYNI1000 IM (16:47)
[2017-02-17] MEDS ORDERED: ONDA4TAB10 SL (16:47)
[2017-02-17] MEDS ORDERED: ACETAMINOPHEN 500 MG TAB PO STA (17:10)
[2017-02-17] MEDS ORDERED: SODIUM CHLORIDE 0.9% 1000ML 1,000 ML IV STA (17:10)
[2017-02-17] MEDS ORDERED: ONDANSETRON INJ 2 MG/ML 2 ML VIAL IV STA (17:10)
--- NOTE | 2017-02-17 17:17 | EMERGENCY ROOM VISIT NOTE ---
History Report prepared by Radha: Zonia Hoffman Under the Supervision of: Dr. Pedro Pablo Bertrand M.D. First contact with patient: 17:03 Chief Complaint: FLANK PAIN Stated Complaint: FLANK PAIN,NAUSEA History of Present Illness The patient is a 56 year old female who presents to the Emergency Room with complaints of worsening flank pain beginning about a week ago. The patient states the pain starts in her side and radiates to her groin. She states her pain started on left side and is now present on both sides. The patient saw her PCP last week who thought her pain was due to her diverticulitis. She was put on Flagyl and Cipro Wednesday, three days ago. She reports she did not take her antibiotics this morning. She reports her pain is not where it normally is when she has diverticulitis. The patient reports normal bowel movements in appearance and regularity. She notes nausea but denies any blood in her urine or diarrhea. The patient was seen in the ED for similar symptoms in November. In November, her workup was unremarkable and her pain was attributed to her back. The patient has a history of scoliosis. Source of History: patient Onset: a week ago Position: other (flank) Quality: other (radiated to groin) Timing: worsening Associated Symptoms: + nausea, No diarrhea, No urinary symptoms Review of Systems See HPI for pertinent positives and negatives. A total of ten systems were reviewed and were otherwise negative. Past Medical & Surgical Medical Problems: (1) Cholecystectomy (2) Chronic urinary tract infection (3) Constipation (4) Deliveries by (5) DIS OF GALLBLADDER NOS (6) Diverticulitis (7) DIVERTICULITIS COLON (W/O MENT OF HEMORRHAGE) (8) History of - bilateral oophorectomy (9) History of total hysterectomy (10) Partial hysterectomy (11) skin problems (12) stomach problems Family History Cancer Diabetes mellitus Gallbladder disease Heart disease Hypertension Social History Smoking Status: Never Smoker Alcohol Use: none Marital Status: Housing Status: lives with family Occupation Status: employed Current/Historical Medications Scheduled Aspirin (Aspirin Ec), 81 MG PO DAILY Bupropion Hcl (Wellbutrin Sr), 200 MG PO BID Ciprofloxacin (Ciprofloxacin HCl), 500 MG PO BID Cyanocobalamin (Cyanocobalamin), 1,000 MCG IM MONTHLY Hydrochlorothiazide (Hctz), 12.5 MG PO DAILY Meloxicam (Meloxicam), 7.5 MG PO BID Metronidazole (Metronidazole), 500 MG PO TID Topiramate (Topamax), 50 MG PO BID Trazodone Hcl (Trazodone), 100 MG PO HS Scheduled PRN Albuterol Hfa (Ventolin Hfa), 2 PUFFS INH Q6H PRN for SOB/Wheezing Ondasetron Odt (Zofran Odt), 4 MG SL Q4H PRN for Nausea or Vomiting Polyethylene Glycol 3350 (Miralax), 17 GM PO DAILY PRN for Constipation Allergies Coded Allergies: Chocolate (Verified Allergy, Unknown, GI SYMPTOMS, 11/19/16) [place] Syrup (Verified Allergy, Unknown, UNKNOWN, 02/17/17) Honey (Verified Allergy, Unknown, HIVES, 11/19/16) Uncoded Allergies: MOST FRUITS (Allergy, Severe, BLOATING,SHARP STOMACH PAINS, 11/22/13) SOY, DAIRY, GLUTEN (Allergy, Severe, GI SYMPTOMS, 11/22/13) ARTIFICIAL SWEETENERS (Allergy, Unknown, unk, 05/01/14) MOST VEGETABLES (Allergy, Unknown, GI SYMPTOMS, 05/01/14) Physical Exam Vital Signs Date Time Temp Pulse Resp B/P (MAP) Pulse Ox O2 Delivery O2 Flow Rate FiO2 02/17/17 19:46 72 19 148/80 99 02/17/17 18:16 127/73 02/17/17 17:55 68 17 02/17/17 17:45 73 02/17/17 16:05 36.7 71 18 144/75 100 Physical Exam GENERAL: Awake, alert, uncomfortable-appearing, in no distress HENT: Normocephalic, atraumatic. Oropharynx unremarkable. Dry MM. EYES: Normal conjunctiva. Sclera non-icteric. NECK: Supple. No nuchal rigidity. FROM. No JVD. RESPIRATORY: Clear to auscultation. CARDIAC: Regular rate, normal rhythm. Extremities warm and well perfused. Pulses equal. ABDOMEN: Generalized abdominal pain which is most tender in the right lower quadrant and periumbilical region. Otherwise, soft, non-distended. No rebound or guarding. No masses. RECTAL: Deferred. MUSCULOSKELETAL: Chest examination reveals no tenderness. The back is symmetrical on inspection without obvious abnormality. There is no CVA tenderness to palpation. No joint edema. LOWER EXTREMITIES: Calves are equal size bilaterally and non-tender. No edema. No discoloration. NEURO: Normal sensorium. No sensory or motor deficits noted. SKIN: No rash or jaundice noted. Medical Decision & Procedures ER Provider Diagnostic Interpretation: Radiology results as stated below per my review and radiologist interpretation: CT ABD/PELVIS IV CONTRAST ONLY FINDINGS: Lower chest: The heart is normal in size and configuration, without pericardial effusion. The lung bases and pleural spaces are clear. Liver: There is mild hepatic steatosis. No focal hepatic masses are visualized. Gallbladder: Surgically absent Spleen: Top normal in size. Pancreas: Unremarkable. Adrenal glands: Unremarkable. Kidneys: There is symmetric renal cortical enhancement. The kidneys are normal in size without hydronephrosis. Bowel: There are no transition zones to indicate bowel obstruction. There is ball colonic diverticulosis. There is equivocal minimal peridiverticular stranding at the sigmoid level. There is no evidence of acute appendicitis Peritoneum: There is no intraperitoneal free air or abdominal ascites. Vasculature: The abdominal aorta is normal in course and caliber. Adenopathy: None. Pelvic viscera: The uterus is surgically absent Skeletal structures: No destructive osseous lesions are seen. There is bilateral L5 spondylolysis. There is a grade 1 spondylolisthesis of L5 and S1. IMPRESSION: 1. No evidence of bowel obstruction. No evidence of free air 2. Surgically absent gallbladder and uterus 3. Pandiverticulosis. Equivocal minimal peridiverticular inflammatory change at the sigmoid level Electronically signed by: Gorge Arana M.D. Laboratory Results 02/17/17 17:15 Red Blood Count 5.34, Mean Corpuscular Volume 84.1, Mean Corpuscular Hemoglobin 28.7, Mean Corpuscular Hemoglobin Concent 34.1, Mean Platelet Volume 9.3, Neutrophils (%) (Auto) 59.4, Lymphocytes (%) (Auto) 32.4, Monocytes (%) (Auto) 5.8, Eosinophils (%) (Auto) 2.0, Basophils (%) (Auto) 0.2, Neutrophils # (Auto) 5.06, Lymphocytes # (Auto) 2.76, Monocytes # (Auto) 0.49, Eosinophils # (Auto) 0.17, Basophils # (Auto) 0.02 02/17/17 17:15 Test 02/17/17 17:10 02/17/17 17:15 Urine Color YELLOW Urine Appearance CLEAR (CLEAR) Urine pH 5.5 (4.5-7.5) Urine Specific [place] 1.012 (1.000-1.030) Urine Protein NEG (NEG) Urine Glucose (UA) NEG (NEG) Urine Ketones NEG (NEG) Urine Occult Blood NEG (NEG) Urine Nitrite NEG (NEG) Urine Bilirubin NEG (NEG) Urine Urobilinogen NEG (NEG) Urine Leukocyte Esterase TRACE (NEG) Urine WBC (Auto) 1-5 /hpf (0-5) Urine RBC (Auto) 0-4 /hpf (0-4) Urine Hyaline Casts (Auto) 1-5 /lpf (0-5) Urine Epithelial Cells (Auto) 20-30 /lpf (0-5) Urine Bacteria (Auto) NEG (NEG) White Blood Count 8.52 K/uL (4.8-10.8) Red Blood Count 5.34 M/uL (4.2-5.4) Hemoglobin 15.3 g/dL (12.0-16.0) Hematocrit 44.9 % (37-47) Mean Corpuscular Volume 84.1 fL (80-100) Mean Corpuscular Hemoglobin 28.7 pg (25-34) Mean Corpuscular Hemoglobin Concent 34.1 g/dl (32-36) Platelet Count 267 K/uL (130-400) Mean Platelet Volume 9.3 fL (7.4-10.4) Neutrophils (%) (Auto) 59.4 % Lymphocytes (%) (Auto) 32.4 % Monocytes (%) (Auto) 5.8 % Eosinophils (%) (Auto) 2.0 % Basophils (%) (Auto) 0.2 % Neutrophils # (Auto) 5.06 K/uL (1.4-6.5) Lymphocytes # (Auto) 2.76 K/uL (1.2-3.4) Monocytes # (Auto) 0.49 K/uL (0.11-0.59) Eosinophils # (Auto) 0.17 K/uL (0-0.5) Basophils # (Auto) 0.02 K/uL (0-0.2) RDW Standard Deviation 42.2 fL (36.4-46.3) RDW Coefficient of Variation 13.6 % (11.5-14.5) Immature Granulocyte % (Auto) 0.2 % Immature Granulocyte # (Auto) 0.02 K/uL (0.00-0.02) Anion Gap 7.0 mmol/L (3-11) Estimated GFR () 86.3 Estimated GFR (Non- 74.5 BUN/Creatinine Ratio 20.8 (10-20) Lactic Acid Level 0.6 mmol/L (0.4-2.0) Calcium Level 9.5 mg/dl (8.5-10.1) Total Bilirubin 0.5 mg/dl (0.2-1) Direct Bilirubin 0.1 mg/dl (0-0.2) Aspartate Amino Transf (AST/SGOT) 30 U/L (15-37) Alanine Aminotransferase (ALT/SGPT) 33 U/L (12-78) Alkaline Phosphatase 80 U/L (45-117) Total Protein 8.7 gm/dl (6.4-8.2) Albumin 4.1 gm/dl (3.4-5.0) Lipase 148 U/L (73-393) Laboratory results reviewed by me Medications Administered Medications (Trade) Dose Ordered Sig/Miguel Ángel Route Start Time Stop Time Status Last Admin Dose Admin Sodium Chloride 1,000 ml @ 999 mls/hr Q1H1M STAT IV 02/17/17 17:10 02/17/17 18:10 DC 02/17/17 17:30 999 MLS/HR Ondansetron HCl (Zofran Inj) 4 mg NOW STAT IV 02/17/17 17:10 02/17/17 17:18 DC 02/17/17 17:28 4 MG Acetaminophen (Tylenol Tab) 1,000 mg NOW STAT PO 02/17/17 17:10 02/17/17 17:18 DC 02/17/17 17:29 1,000 MG Fentanyl Citrate (Fentanyl Inj) 50 mcg NOW STAT IV 02/17/17 18:20 02/17/17 18:21 DC 02/17/17 18:35 50 MCG Oxycodone HCl (Roxicodone Immediate Rel Tab) 5 mg NOW STAT PO 02/17/17 19:43 02/17/17 19:44 DC 02/17/17 19:46 5 MG ED Course 1709: The patient was evaluated in room A11B. A complete history and physical exam was performed. 1914: I updated the patient on her test results. She is ready to go home. 1939: I reevaluated the patient. Discussed results and discharge instructions: She verbalized understanding and agreement. The patient is ready for discharge. Medical Decision I reviewed the patient's past medical history, medications, and the nursing notes as described above. Differential diagnosis: Etiologies such as appendicitis, diverticulitis, PUD, biliary pathology, UTI, pancreatitis, obstruction, mesenteric ischemia, aortic pathology, infections, inflammatory bowel disease, renal colic, as well as others were entertained. The patient is a 56-year-old woman with a past medical history of diverticulitis presents emergency Department with initial the left-sided flank pain which evolved to lower abdominal pain per history of present illness. Arrival the patient is no acute distress, afebrile stable vital signs. Exam the patient has generalized abdominal pain most tender in the right lower quadrant. Labs unremarkable including WBC and lactate within normal limits. CT scan margin unremarkable but with question of possible sigmoid diverticular inflammatory changes that could be consistent with the patient's history of diverticulitis. She is currently already on Cipro and Flagyl by her doctor. Will have the patient continue her anabiotic course and follow-up with her PCP. Findings and plan for follow-up reviewed with patient. Patient agreeable and d/c 'd per discharge instructions. Medication Reconcilliation Current Medication List: was personally reviewed by me Blood Pressure Screening Patient's blood pressure: Normal blood pressure Impression Primary Impression: Acute diverticulitis Scribe Attestation The scribe's documentation has been prepared under my direction and personally reviewed by me in its entirety. I confirm that the note above accurately reflects all work, treatment, procedures, and medical decision making performed by me. Departure Information Dispostion Home / Self-Care Referrals Bhanu Mann M.D. (PCP) Forms HOME CARE DOCUMENTATION FORM, IMPORTANT VISIT INFORMATION Patient Instructions ED Diverticulitis, My [facility] Additional Instructions Please follow up with your primary care physician in the next 1-3 days for re- evaluation. Your symptoms are most likely due to mild diverticulitis. Otherwise, your exam, CT scan, and lab results did not show signs of an emergent condition at this time. Continue your current antibiotics. Acetaminophen for pain as needed. Ensure hydration. Return to the emergency department for worsening symptoms as described in the accompanying instructions.
[2017-02-17] MEDS ORDERED: OPTIRAY 320 IV PRN (17:30)
[2017-02-17 17:32] LABS: BASO % 0.2 %; BASO ABS # 0.02 K/uL (0-0.2); EOS ABS # 0.17 K/uL (0-0.5); HEMATOCRIT 44.9 % (37-47); HEMOGLOBIN 15.3 g/dL (12.0-16.0); IG# 0.02 K/uL (0.00-0.02); LYMPH % 32.4 %; LYMPH ABS # 2.76 K/uL (1.2-3.4); MEAN CELL VOLUME 84.1 fL (80-100); MEAN CORPUSCULAR HEMOGLOBIN 28.7 pg (25-34); MEAN CORPUSCULAR HGB CONC 34.1 g/dl (32-36); MEAN PLATELET VOLUME 9.3 fL (7.4-10.4); MONO % 5.8 %; MONO ABS # 0.49 K/uL (0.11-0.59); NEUT % 59.4 %; NEUT ABS # 5.06 K/uL (1.4-6.5); PLATELET COUNT 267 K/uL (130-400); RED CELL DISTRIBUTION WIDTH CV 13.6 % (11.5-14.5); RED CELL DISTRIBUTION WIDTH SD 42.2 fL (36.4-46.3); WHITE BLOOD COUNT 8.52 K/uL (4.8-10.8)
[2017-02-17] MEDS ORDERED: MELO15TA4 PO (17:35)
[2017-02-17] MEDS ORDERED: TPM/50 PO (17:35)
[2017-02-17] MEDS ORDERED: MTR500 PO (17:39)
[2017-02-17] MEDS ORDERED: CPR/500 PO (17:39)
[2017-02-17 18:02] LABS: ALBUMIN 4.1 gm/dl (3.4-5.0); ALT/SGPT 33 U/L (12-78); BLOOD UREA NITROGEN 18 mg/dl (7-18); CALCIUM 9.5 mg/dl (8.5-10.1); CARBON DIOXIDE 27 mmol/L (21-32); CREATININE 0.88 mg/dl (0.60-1.20); GLUCOSE 91 mg/dl (70-99); LIPASE 148 U/L (73-393); POTASSIUM 3.4 mmol/L (3.5-5.1); SODIUM 138 mmol/L (136-145)
[2017-02-17 18:05] LABS: ALKALINE PHOSPHATASE 80 U/L (45-117); AST/SGOT 30 U/L (15-37); TOTAL PROTEIN 8.7 gm/dl (6.4-8.2)
[2017-02-17] MEDS ORDERED: FENTANYL CITRATE INJ 50 MCG/1 ML 2 ML VIAL IV STA (18:20)
--- NOTE | 2017-02-17 18:43 | DIAGNOSTIC IMAGING REPORT ---
CT ABD/PELVIS IV CONTRAST ONLY CLINICAL HISTORY: Left flank pain and COMPARISON STUDY: 11/19/2016 TECHNIQUE: Following the IV administration of 116 mL of Optiray-320, CT scan of the abdomen and pelvis was performed from the lung bases to the proximal femurs. Images are reviewed in the axial, sagittal, and coronal planes. IV contrast was administered without complication. A dose lowering technique was utilized adhering to the principles of ALARA. CT DOSE: 1210.63 mGy.cm FINDINGS: Lower chest: The heart is normal in size and configuration, without pericardial effusion. The lung bases and pleural spaces are clear. Liver: There is mild hepatic steatosis. No focal hepatic masses are visualized. Gallbladder: Surgically absent Spleen: Top normal in size. Pancreas: Unremarkable. Adrenal glands: Unremarkable. Kidneys: There is symmetric renal cortical enhancement. The kidneys are normal in size without hydronephrosis. Bowel: There are no transition zones to indicate bowel obstruction. There is ball colonic diverticulosis. There is equivocal minimal peridiverticular stranding at the sigmoid level. There is no evidence of acute appendicitis Peritoneum: There is no intraperitoneal free air or abdominal ascites. Vasculature: The abdominal aorta is normal in course and caliber. Adenopathy: None. Pelvic viscera: The uterus is surgically absent Skeletal structures: No destructive osseous lesions are seen. There is bilateral L5 spondylolysis. There is a grade 1 spondylolisthesis of L5 and S1. IMPRESSION: 1. No evidence of bowel obstruction. No evidence of free air 2. Surgically absent gallbladder and uterus 3. Pandiverticulosis. Equivocal minimal peridiverticular inflammatory change at the sigmoid level Electronically signed by: Gorge Arana M.D. 02/17/2017 6:41 PM Dictated Date/Time: 02/17/2017 6:36 PM
[2017-02-17] MEDS ORDERED: OXYCODONE HCL IR 5 MG TAB (IMMEDIATE RELEASE) PO STA (19:43)
[2017-02-17 19:46] VITALS: BP 148/80; PULSE 72; O2SAT 99
[2017-02-17] MEDS ORDERED: TRAZ100T29 PO (20:47)
[2017-02-17] MEDS ORDERED: HYDR12.56 PO (22:02)
[2017-02-17] MEDS ORDERED: WLLSR/200 PO (22:57)
== END 2017-02-17 19:46 | disposition home or self-care (01) ==
LOC: C.EDB 15:56 → C.EDA 19:46
DX: K57.92 Diverticulitis of intestine, part unspecified, without perforation or abscess without bleeding (principal); Z87.440 Personal history of urinary (tract) infections; Z90.49 Acquired absence of other specified parts of digestive tract; Z98.891 History of uterine scar from previous surgery; Z90.710 Acquired absence of both cervix and uterus; Z90.722 Acquired absence of ovaries, bilateral; Z83.3 Family history of diabetes mellitus; Z82.49 Family history of ischemic heart disease and other diseases of the circulatory system; Z79.82 Long term (current) use of aspirin

== ENCOUNTER 2017-04-19 12:30 | Observation (INO) | payer OTHER ==
[~2017-04-19] VITALS: Ht 160 cm; Wt 105.0 kg
[~2017-04-19 12:30] MED LIST changes: +CPR/500 PO; +CYNI1000 IM; +HYDR12.56 PO; +MELO-83 PO; -MELO7.5T5 PO; +MTR500 PO; +ONDA4TAB10 SL; -TOPI50TA16 PO; +TPM/50 PO; +TRAZ100T29 PO; +WLLSR/200 PO
--- NOTE | 2017-04-19 12:56 | EMERGENCY ROOM VISIT NOTE ---
History Report prepared by Radha: Robson Ang Under the Supervision of: Dr. Joe Burks M.D. First contact with patient: 12:43 Chief Complaint: CHEST PAIN Stated Complaint: CHEST PAIN,PAIN BETWEEN SHOULDERS History of Present Illness The patient is a 56 year old female who presents to the Emergency Room with complaints of a constant pain in her central chest that began a couple of weeks ago. The patient describes the pain as a "sharp/stabbing" sensation. The patient states that when the pain first began a couple of weeks ago it was scarcely intermittent, in the middle of last week the pain started to become more frequent, and as of the past few days the pain is constant. She states that "I can tolerate the pain, it is not enough to make me cry." She also notes some unusual shortness of breath with walking. She walked across her shop today and became very short of breath, which is not normal for her. The pain did take Aspirin last night which seemed to relieve her symptoms slightly. She noted that she called her PCP office in [place] today who directed her to the ED immediately. The patient noted that she has swelling in her lower extremities at baseline, but that she has been having some increased pain in the right leg. She noted that her mother was diagnosed with a myocardial infarction at 49. Source of History: patient Onset: A few weeks ago Position: chest (Center) Symptom Intensity: I can tolerate the pain, it is not enough to make me cry Quality: sharp, stabbing Timing: worsening (increasing in frequency) Modifying Factors (Relieving): other (Aspirin) Associated Symptoms: + SOB Note: Lower extremity swelling, pain in right leg. Review of Systems See HPI for pertinent positives & negatives. A total of 10 systems reviewed and were otherwise negative. Past Medical & Surgical Medical Problems: (1) Cholecystectomy (2) Chronic urinary tract infection (3) Constipation (4) Deliveries by (5) DIS OF GALLBLADDER NOS (6) Diverticulitis (7) DIVERTICULITIS COLON (W/O MENT OF HEMORRHAGE) (8) History of - bilateral oophorectomy (9) History of total hysterectomy (10) Partial hysterectomy (11) skin problems (12) stomach problems Old medical records were reviewed. Nurse's notes were reviewed and I agree with. Family History Cancer Diabetes mellitus Gallbladder disease Heart disease Hypertension Social History Smoking Status: Never Smoker Alcohol Use: none Marital Status: Housing Status: lives with family Occupation Status: employed Current/Historical Medications Scheduled Aspirin (Aspirin Ec), 81 MG PO DAILY Bupropion Hcl (Wellbutrin Sr), 200 MG PO BID Cyanocobalamin (Cyanocobalamin), 1,000 MCG IM MONTHLY Hydrochlorothiazide (Hctz), 12.5 MG PO DAILY Meloxicam (Meloxicam), 7.5 MG PO BID Pantoprazole (Protonix), 40 MG PO DAILY Topiramate (Topamax), 50 MG PO BID Trazodone Hcl (Trazodone), 100 MG PO HS Scheduled PRN Albuterol Hfa (Ventolin Hfa), 2 PUFFS INH Q6H PRN for SOB/Wheezing Ondasetron Odt (Zofran Odt), 4 MG SL Q4H PRN for Nausea or Vomiting Polyethylene Glycol 3350 (Miralax), 17 GM PO DAILY PRN for Constipation Allergies Coded Allergies: Chocolate (Verified Allergy, Unknown, GI SYMPTOMS, 04/19/17) [place] Syrup (Verified Allergy, Unknown, UNKNOWN, 04/19/17) Honey (Verified Allergy, Unknown, HIVES, 04/19/17) Uncoded Allergies: MOST FRUITS (Allergy, Severe, BLOATING,SHARP STOMACH PAINS, 11/22/13) SOY, DAIRY, GLUTEN (Allergy, Severe, GI SYMPTOMS, 11/22/13) ARTIFICIAL SWEETENERS (Allergy, Unknown, unk, 05/01/14) MOST VEGETABLES (Allergy, Unknown, GI SYMPTOMS, 05/01/14) Physical Exam Vital Signs Date Time Temp Pulse Resp B/P (MAP) Pulse Ox O2 Delivery O2 Flow Rate FiO2 04/19/17 16:10 66 16 185/99 99 Room Air 04/19/17 15:01 67 16 193/108 98 Room Air 04/19/17 14:01 65 20 156/75 97 Room Air 04/19/17 12:55 68 04/19/17 12:52 95 Room Air 04/19/17 12:52 Room Air 04/19/17 12:39 36.8 61 20 175/92 100 Room Air Physical Exam General: Non-ill appearing middle-aged female in no acute distress. HEENT: Normal cephalic atraumatic. Pupils are equal round and reactive to light. Extraocular movements are intact. Oropharynx is pink with moist mucous membranes. No swelling of the mouth lips or tongue. Neck: Supple with a midline trachea. No meningeal signs or stiffness, no JVD or bruits. No Stridor. Chest: Clear to auscultation bilaterally. No wheezes or rhonchi. No increased work of breathing. Heart: regular rate and rhythm. Abdomen: Soft nontender, nondistended without rebound guarding or rigidity. Extremities: No cyanosis clubbing or edema. No calf tenderness or assymetry Spine/Back. Non tender to palpation. No CVA tenderness Skin: Good turgor without rashes. Neurologic exam: Cranial nerves two through 12 are intact. Motor and sensation are intact and symmetrical throughout. Medical Decision & Procedures ER Provider Diagnostic Interpretation: Radiology results as stated below per my review and radiologist interpretation: (CHEST FOR PE) ANGIO WITH CT DOSE: 493.97 mGycm HISTORY: 56 years-old Female with . Presents with acute atypical chest pain TECHNIQUE: Multiple CTA images of the chest were obtained after the intravenous administration of 94 ml Optiray 320. Coronal and sagittal MIPS were obtained from the axial data set and were submitted for review. A dose lowering technique was utilized adhering to the principles of ALARA. COMPARISON: Chest radiograph 04/19/2017, CT abdomen and pelvis 02/17/2017. FINDINGS: CTA: Heart is normal in size without pericardial effusion. The thoracic aorta is normal in course and caliber without aneurysm or dissection. The imaged great vessels appear to be patent. The pulmonary arterial tree is opacified to level of the segmental branches and demonstrates no focal filling defect to suggest pulmonary thromboembolic disease. CT CHEST: No dominant thyroid nodule is identified. No pathologic adenopathy of the chest. There is no pneumothorax or pleural effusion. Mild emphysema is suggested. Lungs are hyperinflated. There is minimal dependent bibasilar atelectasis with inferior most lung base is not imaged. Subcentimeter calcified granuloma of the left lower lobe. Minimal linear subsegmental opacities of the lingula and right middle lobe suggest areas of scarring/atelectasis. No lobar airspace consolidations or suspicious pulmonary nodules identified. The central airways appear to be patent. No acute abnormality of the imaged upper abdomen. Imaged soft tissues are unremarkable. The bones appear to be intact. There is a 2.3 cm circumscribed peripherally sclerotic lesion of the left sternal body with nonaggressive features suggesting a hemangioma. No sternal fracture. Multilevel endplate spurring of the spine. IMPRESSION: 1. No acute intrathoracic abnormality identified, specifically no acute aortic pathology or evidence of pulmonary thromboembolic disease. 2. No lobar airspace consolidations or pathologic adenopathy. The above report was generated using voice recognition software. It may contain grammatical, syntax or spelling errors. Electronically signed by: Brett Silva M.D. 04/19/2017 2:29 PM Dictated Date/Time: 04/19/2017 2:20 PM CHEST ONE VIEW PORTABLE HISTORY: 56 years-old Female CHEST PAIN acute atypical chest pain COMPARISON: Chest radiograph 11/19/2016 TECHNIQUE: Portable AP view of the chest FINDINGS: Cardiomediastinal and hilar silhouettes are within normal limits. There is no pneumothorax, pleural effusion, focal airspace consolidation or overt pulmonary edema. The bones of the chest appear grossly intact. IMPRESSION: No acute process. The above report was generated using voice recognition software. It may contain grammatical, syntax or spelling errors. Electronically signed by: Brett Silva M.D. 04/19/2017 1:14 PM Dictated Date/Time: 04/19/2017 1:13 PM Laboratory Results 04/19/17 13:00 Red Blood Count 5.16, Mean Corpuscular Volume 85.1, Mean Corpuscular Hemoglobin 28.3, Mean Corpuscular Hemoglobin Concent 33.3, Mean Platelet Volume 9.0, Neutrophils (%) (Auto) 62.6, Lymphocytes (%) (Auto) 29.9, Monocytes (%) (Auto) 5.0, Eosinophils (%) (Auto) 2.0, Basophils (%) (Auto) 0.4, Neutrophils # (Auto) 4.29, Lymphocytes # (Auto) 2.05, Monocytes # (Auto) 0.34, Eosinophils # (Auto) 0.14, Basophils # (Auto) 0.03 04/19/17 13:00 Test 04/19/17 13:00 04/19/17 14:27 White Blood Count 6.86 K/uL (4.8-10.8) Red Blood Count 5.16 M/uL (4.2-5.4) Hemoglobin 14.6 g/dL (12.0-16.0) Hematocrit 43.9 % (37-47) Mean Corpuscular Volume 85.1 fL (80-100) Mean Corpuscular Hemoglobin 28.3 pg (25-34) Mean Corpuscular Hemoglobin Concent 33.3 g/dl (32-36) Platelet Count 250 K/uL (130-400) Mean Platelet Volume 9.0 fL (7.4-10.4) Neutrophils (%) (Auto) 62.6 % Lymphocytes (%) (Auto) 29.9 % Monocytes (%) (Auto) 5.0 % Eosinophils (%) (Auto) 2.0 % Basophils (%) (Auto) 0.4 % Neutrophils # (Auto) 4.29 K/uL (1.4-6.5) Lymphocytes # (Auto) 2.05 K/uL (1.2-3.4) Monocytes # (Auto) 0.34 K/uL (0.11-0.59) Eosinophils # (Auto) 0.14 K/uL (0-0.5) Basophils # (Auto) 0.03 K/uL (0-0.2) RDW Standard Deviation 42.3 fL (36.4-46.3) RDW Coefficient of Variation 13.6 % (11.5-14.5) Immature Granulocyte % (Auto) 0.1 % Immature Granulocyte # (Auto) 0.01 K/uL (0.00-0.02) Prothrombin Time 10.3 SECONDS (9.0-12.0) Prothromb Time International Ratio 1.0 (0.9-1.1) Activated Partial Thromboplast Time 24.3 SECONDS (21.0-31.0) Partial Thromboplastin Ratio 0.9 D-Dimer 750 ug/L FEU (0-500) Anion Gap 7.0 mmol/L (3-11) Est Creatinine Clear Calc Drug Dose 75.8 ml/min Estimated GFR () 73.1 Estimated GFR (Non- 63.1 BUN/Creatinine Ratio 19.8 (10-20) Calcium Level 9.0 mg/dl (8.5-10.1) Total Bilirubin 0.7 mg/dl (0.2-1) Direct Bilirubin 0.2 mg/dl (0-0.2) Aspartate Amino Transf (AST/SGOT) 17 U/L (15-37) Alanine Aminotransferase (ALT/SGPT) 24 U/L (12-78) Alkaline Phosphatase 72 U/L (45-117) Total Creatine Kinase 84 U/L (26-192) Creatine Kinase MB 1.4 ng/ml (0.5-3.6) Creatine Kinase MB Ratio 1.7 (0-3.0) Troponin I < 0.015 ng/ml (0-0.045) Total Protein 8.1 gm/dl (6.4-8.2) Albumin 3.7 gm/dl (3.4-5.0) Lipase 140 U/L (73-393) Thyroid Stimulating Hormone (TSH) 1.780 uIu/ml (0.300-4.500) Bedside Troponin I < 0.030 ng/ml (0-0.045) Laboratory studies as stated above per my review. ECG Per My Interpretation Indication: chest pain Rate (beats per minute): 69 Rhythm: normal sinus Findings: nonspecific-ST abn, no acute ischemic change, other (No PVCs) Comparison ECG Date: 11/19/2016 Change: no significant change ED Course 1245: Past medical records reviewed. The patient was evaluated in room A2, and a complete history and physical examination were performed. 1440: I evaluated the patient at this time. She is comfortable and agreeable to an inpatient stay. 1603: I discussed the case with Dr[facility]. He will evaluate the patient for further treatment. Medical Decision Differential Diagnosis includes; Cardiac disease, pulmonary embolism, musculoskeletal pain, GERD, arrhythmia, electrolyte or metabolic abnormality. This patient comes in as described above. She was placed in room A2. She has been having intermittent chest pain for couple weeks and has gotten worse over the last couple days. she has a strong family history. Nothing seems to make her pain better or worse. She did take aspirin prior to arrival. She declines that she needs any pain medication at present. Her initial EKG shows some nonspecific ST and T-wave abnormalities but nothing to suggest an acute STEMI. She has not had a recent cardiac stress test. Multiple blood testing was obtained as well as chest x-ray. Chest x-ray does not show congestive heart failure, pneumonia, or pneumothorax. A second EKG shows no significant change compared EKG #1. Her cardiac biomarkers thus far are negative. Her d-dimer was mildly elevated and in light of this, I did a chest CT there is no evidence of PE or aortic pathology. I do think she needs to be observed/admitted for further cardiac rule out/workup I have consulted Dr. Aparicio to see in the ER for these measures. Medication Reconcilliation Current Medication List: was personally reviewed by me Blood Pressure Screening Patient's blood pressure: Elevated blood pressure Referred to Hospitalist. Consults Time Called: 1555 Consulting Physician: Dr. Alessandra Acharya Hospitalist Returned Call: 1603 I discussed the case with Dr. Alessandra Acharya [facility]. He will evaluate the patient for further treatment. Impression Primary Impression: Precordial chest pain Scribe Attestation The scribe's documentation has been prepared under my direction and personally reviewed by me in its entirety. I confirm that the note above accurately reflects all work, treatment, procedures, and medical decision making performed by me. Departure Information Dispostion Being Evaluated By Hospitalist Referrals Bhanu Mann M.D. (PCP) Patient Instructions My [facility]
[2017-04-19 13:09] LABS: BASO % 0.4 %; BASO ABS # 0.03 K/uL (0-0.2); EOS ABS # 0.14 K/uL (0-0.5); HEMATOCRIT 43.9 % (37-47); HEMOGLOBIN 14.6 g/dL (12.0-16.0); IG# 0.01 K/uL (0.00-0.02); LYMPH % 29.9 %; LYMPH ABS # 2.05 K/uL (1.2-3.4); MEAN CELL VOLUME 85.1 fL (80-100); MEAN CORPUSCULAR HEMOGLOBIN 28.3 pg (25-34); MEAN CORPUSCULAR HGB CONC 33.3 g/dl (32-36); MONO ABS # 0.34 K/uL (0.11-0.59); NEUT % 62.6 %; NEUT ABS # 4.29 K/uL (1.4-6.5); PLATELET COUNT 250 K/uL (130-400); RED CELL DISTRIBUTION WIDTH CV 13.6 % (11.5-14.5); RED CELL DISTRIBUTION WIDTH SD 42.3 fL (36.4-46.3); WHITE BLOOD COUNT 6.86 K/uL (4.8-10.8)
--- NOTE | 2017-04-19 13:15 | DIAGNOSTIC IMAGING REPORT ---
CHEST ONE VIEW PORTABLE HISTORY: 56 years-old Female CHEST PAIN acute atypical chest pain COMPARISON: Chest radiograph 11/19/2016 TECHNIQUE: Portable AP view of the chest FINDINGS: Cardiomediastinal and hilar silhouettes are within normal limits. There is no pneumothorax, pleural effusion, focal airspace consolidation or overt pulmonary edema. The bones of the chest appear grossly intact. IMPRESSION: No acute process. The above report was generated using voice recognition software. It may contain grammatical, syntax or spelling errors. Electronically signed by: Brett Silva M.D. 04/19/2017 1:14 PM Dictated Date/Time: 04/19/2017 1:13 PM
[2017-04-19 13:22] LABS: PTT PATIENT 24.3 SECONDS (21.0-31.0)
[2017-04-19 13:30] LABS: ALBUMIN 3.7 gm/dl (3.4-5.0); ALT/SGPT 24 U/L (12-78); AST/SGOT 17 U/L (15-37); BLOOD UREA NITROGEN 20 mg/dl (7-18); CARBON DIOXIDE 26 mmol/L (21-32); CREATININE 1.01 mg/dl (0.60-1.20); GLUCOSE 90 mg/dl (70-99); LIPASE 140 U/L (73-393); POTASSIUM 3.6 mmol/L (3.5-5.1); SODIUM 139 mmol/L (136-145)
[2017-04-19 13:41] LABS: ALKALINE PHOSPHATASE 72 U/L (45-117); CKMB 1.4 ng/ml (0.5-3.6); TOTAL PROTEIN 8.1 gm/dl (6.4-8.2)
[2017-04-19] MEDS ORDERED: OPTIRAY 320 IV PRN (13:45)
--- NOTE | 2017-04-19 14:30 | DIAGNOSTIC IMAGING REPORT ---
(CHEST FOR PE) ANGIO WITH CT DOSE: 493.97 mGycm HISTORY: 56 years-old Female with . Presents with acute atypical chest pain TECHNIQUE: Multiple CTA images of the chest were obtained after the intravenous administration of 94 ml Optiray 320. Coronal and sagittal MIPS were obtained from the axial data set and were submitted for review. A dose lowering technique was utilized adhering to the principles of ALARA. COMPARISON: Chest radiograph 04/19/2017, CT abdomen and pelvis 02/17/2017. FINDINGS: CTA: Heart is normal in size without pericardial effusion. The thoracic aorta is normal in course and caliber without aneurysm or dissection. The imaged great vessels appear to be patent. The pulmonary arterial tree is opacified to level of the segmental branches and demonstrates no focal filling defect to suggest pulmonary thromboembolic disease. CT CHEST: No dominant thyroid nodule is identified. No pathologic adenopathy of the chest. There is no pneumothorax or pleural effusion. Mild emphysema is suggested. Lungs are hyperinflated. There is minimal dependent bibasilar atelectasis with inferior most lung base is not imaged. Subcentimeter calcified granuloma of the left lower lobe. Minimal linear subsegmental opacities of the lingula and right middle lobe suggest areas of scarring/atelectasis. No lobar airspace consolidations or suspicious pulmonary nodules identified. The central airways appear to be patent. No acute abnormality of the imaged upper abdomen. Imaged soft tissues are unremarkable. The bones appear to be intact. There is a 2.3 cm circumscribed peripherally sclerotic lesion of the left sternal body with nonaggressive features suggesting a hemangioma. No sternal fracture. Multilevel endplate spurring of the spine. IMPRESSION: 1. No acute intrathoracic abnormality identified, specifically no acute aortic pathology or evidence of pulmonary thromboembolic disease. 2. No lobar airspace consolidations or pathologic adenopathy. The above report was generated using voice recognition software. It may contain grammatical, syntax or spelling errors. Electronically signed by: Brett Silva M.D. 04/19/2017 2:29 PM Dictated Date/Time: 04/19/2017 2:20 PM
--- NOTE | 2017-04-19 16:42 | History and Physical ---
History & Physical Date & Time of Service: Apr 19, 2017 at 16:42 . Chief Complaint: chest pain . Primary Care Physician: Bhanu Mann M.D. . History of Present Illness Source: patient, clinic records, hospital records 56-year-old female followed by Dr. Mann for Family Medicine. History of asthma, dyslipidemia, and other problems noted below. Strong family history of heart disease. Over the last 2 weeks she has been experiencing chest discomfort and dyspnea with exertion. Notes shortness of breath after climbing a flight of stairs and the dyspnea is sometimes associated with chest tightness. Today she noted more severe substernal chest pressure that occurred at rest; it was sharp and radiated to her back and jaw. She took 2 low-dose aspirin tablets with some relief. History of asthma, but she feels like her pulmonary status is stable. Occasional nonproductive cough. History of suspected GERD treated with pantoprazole. Tried a TUMS a few days ago with some relief of her chest discomfort. Experiencing intermittent dysphagia to solids. Intermittent nausea, no emesis. No melena or hematochezia. Recently experiencing a lot of stress. . Family History FATHER Prostate cancer Myocardial infarction Abdominal aortic aneurysm MOTHER Myocardial infarction Hypertension Diabetes mellitus Stroke SISTER Breast cancer GRANDFATHER Heart disease Diabetes mellitus GRANDMOTHER Heart disease Social History Smoking Status: Never Smoker Alcohol Use: none Marital Status: Housing status: lives with family Occupational Status: employed Allergies Coded Allergies: Chocolate (Verified Allergy, Unknown, GI SYMPTOMS, 04/19/17) Baring Syrup (Verified Allergy, Unknown, UNKNOWN, 04/19/17) Honey (Verified Allergy, Unknown, HIVES, 04/19/17) Uncoded Allergies: MOST FRUITS (Allergy, Severe, BLOATING,SHARP STOMACH PAINS, 11/22/13) SOY, DAIRY, GLUTEN (Allergy, Severe, GI SYMPTOMS, 11/22/13) ARTIFICIAL SWEETENERS (Allergy, Unknown, unk, 05/01/14) MOST VEGETABLES (Allergy, Unknown, GI SYMPTOMS, 05/01/14) Home Medications Scheduled Aspirin (Aspirin Ec), 81 MG PO DAILY Bupropion Hcl (Wellbutrin Sr), 200 MG PO BID Cyanocobalamin (Cyanocobalamin), 1,000 MCG IM MONTHLY Hydrochlorothiazide (Hctz), 12.5 MG PO DAILY Meloxicam (Meloxicam), 7.5 MG PO BID Pantoprazole (Protonix), 40 MG PO DAILY Topiramate (Topamax), 50 MG PO BID Trazodone Hcl (Trazodone), 100 MG PO HS Scheduled PRN Albuterol Hfa (Ventolin Hfa), 2 PUFFS INH Q6H PRN for SOB/Wheezing Ondasetron Odt (Zofran Odt), 4 MG SL Q4H PRN for Nausea or Vomiting Polyethylene Glycol 3350 (Miralax), 17 GM PO DAILY PRN for Constipation Review of Systems CONSTITUTIONAL no fever no weight loss EYES blurred vision, no acute visual changes EARS, NOSE, MOUTH, AND THROAT no sinus symptoms no pharyngitis CARDIOVASCULAR as noted above in HPI RESPIRATORY as noted above in HPI GASTROINTESTINAL as noted above in HPI GENITOURINARY no dysuria no hematuria MUSCULOSKELETAL no myalgias bilateral knee pain INTEGUMENTARY no rash no new / changing lesions NEUROLOGIC chronic headaches PSYCHIATRIC plenty of stress ENDOCRINE no polyuria or polydipsia HEMATOLOGIC / LYMPHATIC bruises easily no adenopathy . Physical Exam Vital Signs Date Time Temp Pulse Resp B/P (MAP) Pulse Ox O2 Delivery O2 Flow Rate FiO2 04/19/17 16:10 66 16 185/99 99 Room Air 04/19/17 15:01 67 16 193/108 98 Room Air 04/19/17 14:01 65 20 156/75 97 Room Air 04/19/17 12:55 68 04/19/17 12:52 95 Room Air 04/19/17 12:52 Room Air 04/19/17 12:39 36.8 61 20 175/92 100 Room Air CONSTITUTIONAL vital signs as noted above adult female, obese, no acute distress EYES conjunctivae clear; lids normal pupils equal and reactive to light EARS, NOSE, MOUTH AND THROAT external inspection of ears and nose unremarkable hearing grossly intact to spoken voice oropharynx clear NECK no masses; trachea midline thyroid normal RESPIRATORY normal respiratory effort; no respiratory distress clear to percussion clear to auscultation CARDIOVASCULAR regular rate and rhythm no murmur, gallop, rub appreciated carotid arteries 2/2 abdominal aorta not palpable pedal pulses intact and symmetric capillary refill toes < 2 seconds trace pretibial edema GASTROINTESTINAL normal bowel sounds, soft, nontender; no palpable masses no hepatomegaly or splenomegaly appreciated LYMPHATIC no cervical adenopathy MUSCULOSKELETAL no cyanosis; no digital clubbing no calf tenderness motor strength extremities grossly intact SKIN no rash warm and dry NEUROLOGIC PERRL, EOMI, no facial palsy, no dysarthria, tongue midline patellar DTR's 2/2 PSYCHIATRIC oriented to person, place, time mood and affect appropriate . Diagnostics Laboratory Results Results Past 24 Hours Test 04/19/17 12:53 04/19/17 13:00 04/19/17 13:06 04/19/17 14:27 Range/Units Creatine Kinase MB Ratio 1.7 0-3.0 White Blood Count 6.86 4.8-10.8 K/uL Red Blood Count 5.16 4.2-5.4 M/uL Hemoglobin 14.6 12.0-16.0 g/dL Hematocrit 43.9 37-47 % Mean Corpuscular Volume 85.1 80-100 fL Mean Corpuscular Hemoglobin 28.3 25-34 pg Mean Corpuscular Hemoglobin Concent 33.3 32-36 g/dl Platelet Count 250 130-400 K/uL Mean Platelet Volume 9.0 7.4-10.4 fL Neutrophils (%) (Auto) 62.6 % Lymphocytes (%) (Auto) 29.9 % Monocytes (%) (Auto) 5.0 % Eosinophils (%) (Auto) 2.0 % Basophils (%) (Auto) 0.4 % Neutrophils # (Auto) 4.29 1.4-6.5 K/uL Lymphocytes # (Auto) 2.05 1.2-3.4 K/uL Monocytes # (Auto) 0.34 0.11-0.59 K/uL Eosinophils # (Auto) 0.14 0-0.5 K/uL Basophils # (Auto) 0.03 0-0.2 K/uL RDW Standard Deviation 42.3 36.4-46.3 fL RDW Coefficient of Variation 13.6 11.5-14.5 % Immature Granulocyte % (Auto) 0.1 % Immature Granulocyte # (Auto) 0.01 0.00-0.02 K/uL Prothrombin Time 10.3 9.0-12.0 SECONDS Prothromb Time International Ratio 1.0 0.9-1.1 Activated Partial Thromboplast Time 24.3 21.0-31.0 SECONDS Partial Thromboplastin Ratio 0.9 D-Dimer 750 0-500 ug/L FEU Sodium Level 139 136-145 mmol/L Potassium Level 3.6 3.5-5.1 mmol/L Chloride Level 106 98-107 mmol/L Carbon Dioxide Level 26 21-32 mmol/L Anion Gap 7.0 3-11 mmol/L Blood Urea Nitrogen 20 7-18 mg/dl Creatinine 1.01 0.60-1.20 mg/dl Est Creatinine Clear Calc Drug Dose 75.8 ml/min Estimated GFR () 73.1 Estimated GFR (Non- 63.1 BUN/Creatinine Ratio 19.8 10-20 Random Glucose 90 70-99 mg/dl Calcium Level 9.0 8.5-10.1 mg/dl Total Bilirubin 0.7 0.2-1 mg/dl Direct Bilirubin 0.2 0-0.2 mg/dl Aspartate Amino Transf (AST/SGOT) 17 15-37 U/L Alanine Aminotransferase (ALT/SGPT) 24 12-78 U/L Alkaline Phosphatase 72 45-117 U/L Total Creatine Kinase 84 26-192 U/L Creatine Kinase MB 1.4 0.5-3.6 ng/ml Troponin I < 0.015 0-0.045 ng/ml Total Protein 8.1 6.4-8.2 gm/dl Albumin 3.7 3.4-5.0 gm/dl Lipase 140 73-393 U/L Thyroid Stimulating Hormone (TSH) 1.780 0.300-4.500 uIu/ml Bedside Troponin I < 0.030 < 0.030 0-0.045 ng/ml Diagnostic Radiology CHEST ONE VIEW PORTABLE FINDINGS: Cardiomediastinal and hilar silhouettes are within normal limits. There is no pneumothorax, pleural effusion, focal airspace consolidation or overt pulmonary edema. The bones of the chest appear grossly intact. IMPRESSION: No acute process. The above report was generated using voice recognition software. It may contain grammatical, syntax or spelling errors. Electronically signed by: Brett Silva M.D. 04/19/2017 1:14 PM (CT CHEST FOR PE) ANGIO WITH FINDINGS: CTA: Heart is normal in size without pericardial effusion. The thoracic aorta is normal in course and caliber without aneurysm or dissection. The imaged great vessels appear to be patent. The pulmonary arterial tree is opacified to level of the segmental branches and demonstrates no focal filling defect to suggest pulmonary thromboembolic disease. CT CHEST: No dominant thyroid nodule is identified. No pathologic adenopathy of the chest. There is no pneumothorax or pleural effusion. Mild emphysema is suggested. Lungs are hyperinflated. There is minimal dependent bibasilar atelectasis with inferior most lung base is not imaged. Subcentimeter calcified granuloma of the left lower lobe. Minimal linear subsegmental opacities of the lingula and right middle lobe suggest areas of scarring/atelectasis. No lobar airspace consolidations or suspicious pulmonary nodules identified. The central airways appear to be patent. No acute abnormality of the imaged upper abdomen. Imaged soft tissues are unremarkable. The bones appear to be intact. There is a 2.3 cm circumscribed peripherally sclerotic lesion of the left sternal body with nonaggressive features suggesting a hemangioma. No sternal fracture. Multilevel endplate spurring of the spine. IMPRESSION: 1. No acute intrathoracic abnormality identified, specifically no acute aortic pathology or evidence of pulmonary thromboembolic disease. 2. No lobar airspace consolidations or pathologic adenopathy. The above report was generated using voice recognition software. It may contain grammatical, syntax or spelling errors. Electronically signed by: Brett Silva M.D. 04/19/2017 2:29 PM Dictated Date/Time: 04/19/2017 2:20 PM . EKG EKG performed at 1237 reviewed and demonstrated normal sinus rhythm at 70/minute , minimal ST depression and biphasic T waves in the lateral precordial leads. Repeat EKG performed at 1419 reviewed and demonstrated normal sinus rhythm at 64 /minute, similar lateral ST and T-wave changes. . Impression Assessment and Plan CHEST PAIN / OVIEDO Personal history of dyslipidemia. Strong family history of ischemic heart disease. Seems to be experiencing 2 types of chest discomfort at this time, one with exertion and one with rest. D-dimer elevated. CTA chest negative for pulmonary embolism. Check venous duplex lower extremities. Check serial cardiac markers. Tentative dobutamine stress echocardiogram in the morning if acute VA ruled out (won't be able to walk on treadmill secondary to knee pain). GI and / or pulmonary evaluations as discussed below. GERD / DYSPHAGIA History of GERD, treated with pantoprazole. Also experiencing dysphagia to solids. Check comparison esophagram once cardiac evaluation complete. ASTHMA Appears to be stable. Continue albuterol rescue inhaler PRN. Consider outpatient PFT's if unexplained dyspnea on exertion persists. DYSLIPIDEMIA Check fasting lipid profile. MORBID OBESITY Wt 110 kg, BMI 43. TSH normal. AHA diet. DEPRESSION Patient has been under significant stress. Continue bupropion and trazodone. Advised to discuss further with her PCP. VTE PROPHYLAXIS Low risk for VTE per IMPROVE VTE risk assessment score. Prophylaxis none indicated at this time. Ambulate. RESUSCITATION STATUS Discussed with patient. She does not have a living will. She would like resuscitation attempted in the event of a cardiopulmonary arrest if there is a reasonable chance of a meaningful recovery, but does not want prolonged extraordinary measures if prognosis is poor. Therefore, code status = "Level 1" (full resuscitation). She was encouraged to complete a living will and share her thoughts with her family at her convenience. DISPOSITION Observation status on Telemetry Unit. Expected discharge to home. Family Medicine follow-up with Dr. Mann. . Resuscitation Status VTE Prophylaxis Will order VTE Prophylaxis: No Reason for no VTE drug order: Treatment not indicated Reason no Mechanical VTE Order: Treatment not indicated
[2017-04-19] MEDS ORDERED: NITROGLYCERIN 0.4 MG SL PER TAB CHARGE SL PRN (16:45)
[2017-04-19] MEDS ORDERED: PANT40TA PO (18:37)
[2017-04-19] MEDS ORDERED: ALBUTEROL HFA 8 GM INHALER INH PRN (18:45)
[2017-04-19] MEDS ORDERED: ONDANSETRON 4MG OD TAB SL PRN (18:45)
[2017-04-19] MEDS ORDERED: PANTOprazole INJ 40 MG in SYRINGE 0 ML IV ONE (19:00)
[2017-04-19 19:02] VITALS: BP 150/88; PULSE 67; TEMP 36.7; O2SAT 98; Ht 160 cm; Wt 105.0 kg
[2017-04-19 19:27] VITALS: BP 136/69; PULSE 71
[2017-04-19 20:22] VITALS: O2SAT 98
[2017-04-19] MEDS ORDERED: PNEUMOCOCCAL ADMINISTRATION CHARGE ONE (20:45)
[2017-04-19] MEDS ORDERED: INFLUENZA ADMINISTRATION CHARGE ONE (20:45)
[2017-04-19] MEDS ORDERED: INFLUENZA VIRUS QUAD VACCINE 0.5 ML SYR IM. ONE (20:45)
[2017-04-19] MEDS ORDERED: PNEUMOCOCCAL POLYSACCHARIDES 25 MCG/0.5 ML VIAL/SYR IM. ONE (20:45)
--- NOTE | 2017-04-19 20:49 | DIAGNOSTIC IMAGING REPORT ---
BILATERAL LOWER EXTREMITY VENOUS DOPPLER HISTORY: elevated D-dimer, bilat lower extremity edema COMPARISON STUDY: None. FINDINGS: There is normal compressibility, flow, and augmentation within the bilateral lower extremity deep venous systems. IMPRESSION: No DVT within the right or left lower extremity. Electronically signed by: Prasad Lin M.D. 04/19/2017 8:47 PM Dictated Date/Time: 04/19/2017 8:47 PM
[2017-04-19] MEDS: BuPROPion SR 100 MG TABCR PO SCH (20:58)
[2017-04-19] MEDS: TRAZODONE HCL 100 MG TAB PO SCH (20:58)
[2017-04-19] MEDS: TOPIRAMATE 50 MG TAB PO SCH (20:59)
[2017-04-19] MEDS ORDERED: IV FLUIDS COMPLETED PRN (21:00)
[2017-04-20] VITALS (8 sets, daily range): BP systolic 96–137; BP diastolic 49–81; PULSE 61–72; TEMP 36.7–37; O2SAT 93–98
[2017-04-20] MEDS: TOPIRAMATE 50 MG TAB PO SCH ×2 (09:00→20:10)
[2017-04-20] MEDS: PANTOprazole SOD 40 MG TAB PO SCH (09:00)
[2017-04-20] MEDS: BuPROPion SR 100 MG TABCR PO SCH ×2 (09:00→20:11)
[2017-04-20] MEDS: HYDROCHLOROTHIAZIDE 25 MG TAB PO SCH (09:00)
[2017-04-20] MEDS ORDERED: METOPROLOL TARTRATE 1 MG/ML VIAL ONE (14:19)
[2017-04-20] MEDS ORDERED: DOBUTamine HCL 12.5 MG/ML 20 ML VIAL ONE (14:19)
[2017-04-20] MEDS ORDERED: ATROPINE SULFATE 0.1 MG/ML 5ML SYR ONE (14:19)
[2017-04-20] MEDS ORDERED: PERFLUTREN LIPID MICROSPHERE (DEFINITY) IV ONE (15:25)
[2017-04-20] MEDS ORDERED: ATORVASTATIN 40 MG TAB PO ONE (15:41)
--- NOTE | 2017-04-20 15:41 | Cardiology Consultation ---
Cardiology Consultation Date of Consultation: Apr 20, 2017 History of Present Illness Johnna Nicholas is a 56 year old female seen in cardiology consultation per the request of Dr Baez for the evaluation of chest discomfort. The patient's primary care provider is Dr. Bhanu Mann of [facility]. She does not follow routinely with cardiology, although she describes having had a normal cardiac catheterization about 10 years ago in [place]. Over the last 2 weeks the patient describes having been experiencing on and off again chest discomfort as well as dyspnea with exertion. She denies shortness of breath recently after climbing a flight of stairs. Yesterday she woke up she had been going through her morning routine getting ready for work when she had chest discomfort that radiated between her shoulder blades and also into her jaw. In the emergency department her initial EKG revealed sinus rhythm with no significant ST segment depression. She underwent a lower extremity venous duplex which was negative for DVT and CT angiogram revealed normal aorta and no evidence of pulmonary embolism. Serial troponin measurements have been negative. The patient was therefore referred for dobutamine stress echocardiogram today. Prior to reaching target heart rate, when her heart rate was in the 60-70% of age-predicted maximum range , the patient described feeling a pinching pressure in her chest that reproduced her presenting symptoms. She was quite alarmed by this. At the same time, new subtle ST segment depression was noted on EKG as well as several PVCs and a 3 beat run of nonsustained ventricular tachycardia. Echocardiogram images were obtained revealing an appropriate increase in her left ventricular ejection fraction. In one view there is a very subtle area of concern in the anteroseptal segment and otherwise the wall motion was normal. The patient received IV metoprolol and her heart rate and blood pressure returned to baseline post pharmacologic stress with improvement in symptoms. History Past Medical History: 1. History of asthma 2. 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 Non-smoker Family History: Her father had his first myocardial infarction in his 60s and required cardiac stents. He had a pacemaker, and ultimately in his 80s Mother had first myocardial infarction age 49 and also has history of cerebrovascular disease strokes Review Of Systems See above for pertinent positives & negatives. A total of 10 systems reviewed and were otherwise negative. Allergies Coded Allergies: Chocolate (Verified Allergy, Unknown, GI SYMPTOMS, 04/19/17) Walker Syrup (Verified Allergy, Unknown, UNKNOWN, 04/19/17) Honey (Verified Allergy, Unknown, HIVES, 04/19/17) Uncoded Allergies: MOST FRUITS (Allergy, Severe, BLOATING,SHARP STOMACH PAINS, 11/22/13) SOY, DAIRY, GLUTEN (Allergy, Severe, GI SYMPTOMS, 11/22/13) ARTIFICIAL SWEETENERS (Allergy, Unknown, unk, 05/01/14) MOST VEGETABLES (Allergy, Unknown, GI SYMPTOMS, 05/01/14) Medications Reported Home Medications Medications Dose Route/Sig Max Daily Dose Days Date Category Protonix (Pantoprazole) 40 Mg Tab 40 Mg PO DAILY 04/19/17 Reported Meloxicam 15 Mg Tab 7.5 Mg PO BID 02/17/17 Reported Topamax (Topiramate) 50 Mg Tab 50 Mg PO BID 02/17/17 Reported Trazodone (Trazodone HCl) 100 Mg Tab 100 Mg PO HS 11/19/16 Reported Aspirin Ec (Aspirin) 81 Mg Tab 81 Mg PO DAILY 06/29/16 Reported Miralax (Polyethylene Glycol 3350) 1 Pow Pow 17 Gm PO DAILY PRN 06/29/16 Reported Ventolin Hfa (Albuterol) 200 Puffs/38754 Mcg Aers 2 Puffs INH Q6H PRN 06/29/16 Reported Cyanocobalamin 1,000 Mcg/Ml Inj 1,000 Mcg IM MONTHLY 12/02/14 Reported Zofran Odt (Ondansetron HCl) 4 Mg Tab 4 Mg SL Q4H PRN 12/02/14 Reported Wellbutrin Sr (Bupropion Hcl) 200 Mg Tabcr 200 Mg PO BID 04/09/14 Reported Hctz (Hydrochlorothiazide) 12.5 Mg Cap 12.5 Mg PO DAILY 10/09/11 Reported Physical Exam Vital Signs (Last 8hrs): Last 8 Hrs Date Time Temp Pulse Resp B/P (MAP) Pulse Ox O2 Delivery O2 Flow Rate FiO2 04/20/17 12:00 Room Air 04/20/17 11:22 36.7 64 18 124/78 (93) 96 04/20/17 08:00 Room Air 04/20/17 07:53 36.7 61 16 121/81 (94) 96 General Appearance: Alert and Oriented x3. NAD. Head: Normocephalic Atraumatic. Eyes: PERRLA, EOMI, conjunctiva and sclera clear Neck: Supple. No carotid bruits noted. No JVD. No HJD. Respiratory: Breath sounds clear to auscultation bilaterally. No w/r/r. Cardiovascular: Reg rate and rhythm. S1 and S2 noted. No murmurs, rubs, gallops. PMI non displace. Abdomen: Normal bowel sounds, soft nontender. no abdominal bruits. Extremities: No edema, no clubbing or cyanosis. distal pulses 2/4 bilaterally. Neuro: No focal deficits. Psychiatric: Normal affect. Data Last 24 Hours Test 04/19/17 22:48 04/20/17 06:36 04/20/17 07:21 04/20/17 11:44 Troponin I < 0.015 ng/ml Triglycerides Level 124 mg/dl Cholesterol Level 192 mg/dl HDL Cholesterol 50 mg/dl LDL Cholesterol, Calculated 117 mg/dl VLDL Cholesterol, Calculated 25 mg/dl Cholesterol/HDL Ratio 3.8 Bedside Glucose 89 mg/dl 85 mg/dl EKG performed on arrival and again this morning revealed sinus rhythm with no significant ST segment depression Debridement stress echocardiogram: Normal resting wall motion. Patient developed chest pressure at a low level of pharmacologic stress with associated subtle new ST segment depression and a subtle anteroseptal wall motion abnormality. The test was therefore terminated. Symptoms resolved in the post pharmacologic stress recovery interval Assessment & Plan Impression: 56-year-old female 1. Chest discomfort, abnormal stress test, terminated prematurely due to reproduction of her symptoms with dobutamine infusion and subtle EKG changes, subtle anteroseptal wall motion abnormality on echo 2. History of dyslipidemia 3. Strong family history of premature coronary artery disease Recommendations: Continue aspirin. Start metoprolol and atorvastatin. Plan for cardiac catheterization tomorrow 04/21/17.
--- NOTE | 2017-04-20 16:15 | DOBUTAMINE ECHO ---
*NOTICE TO RECEIVING DEMOCRAT AGENCY This information is strictly Confidential and protected under [place] law. [place] law prohibits you from making any further disclosure of this information unless further disclosure is expressly permitted by the written consent of the person to whom it pertains or is authorized by law. A general authorization for the release of medical or other information is not sufficient for this purpose. Hospital accepts no responsibility if the information is made available to any other person, INCLUDING THE PATIENT. Interpretation Summary * Name: SHAYY SANCHEZ Study Date: 04/20/2017 01:28 PM BP: 162/82 mmHg * Patient Location: [facility]\S\N282\S\2 HR: 66 * : 1960 (M/d/yyyy) Gender: Female Height: 63 in * Age: 56 yrs Ethnicity: [place] Weight: 242 lb * Ordering Physician: Vikash Aparicio * Referring Physician: Self, Referred * Performed By: Ifrah Schaefer RDCS * * Reason For Study: CHEST PAIN * BSA: 2.1 m2 * -- Conclusions -- * STRESS STUDY: * Abnormal dobutamine stress echocardiogram. * The test was terminated prematurely having achieved a maximum heart rate of 104 bpm. * This value represents 67% of the maximal age-predicted heart rate. * The patient reported chest pressure that reproduced her presenting symptom, and there are associated ischemic EKG changes with [address] segment depression noted in the inferior leads that persisted in the post pharmacologic stress recovery interval. * A subtle small sized anteroseptal wall motion abnormality was noted on the post stress images with normal augmentation of the remaining myocardial segments. * The patient's symptoms resolved in the post pharmacologic stress recovery interval after administration of IV metoprolol. * RESTING STUDY: * There is normal left ventricular wall thickness. * The LV ejection Fraction = 60-65%. * There is no significant valvular heart disease. * The proximal ascending thoracic aorta is not visualized sufficiently to allow measurement of the diameter. Procedure Details * DOBUTAMINE ECHO, CPT#71159 * A contrast injection of Definity was performed to improve assessment of LV function. * Contrast was injected into an intravenous site in the right arm. * One vial of Definity ultrasound contrast was diluted in normal saline to a total volume of 10 ml. A total of '7' ml of solution was administered during imaging. * Lot # [id number] of Definity utilized for procedure. * Expiration date MAR 29. * ECHOEX, CPT #68038 * ECHO DOPPLER, CPT #[id number] * ECHO COLOR FLOW, CPT #37577 Left Ventricle * The left ventricle is normal in size. * There is normal left ventricular wall thickness. * Left ventricular systolic function is normal. * Ejection Fraction = 60-65%. * Resting left ventricular wall motion: Normal Stress left ventricular wall motion: Subtle small sized anteroseptal wall motion abnormality with hypokinesis of a single segment. Right Ventricle * The right ventricle is normal in size and function. Atria * The left atrial size is normal. * Right atrial size is normal. * No ASD detected; PFO is not assessed. Mitral Valve * The mitral valve is normal. * There is no mitral valve stenosis. * Significant mitral regurgitation is absent. Tricuspid Valve * The tricuspid valve is normal. * There is no tricuspid stenosis. * Significant tricuspid regurgitation is absent. * Doppler findings do not suggest pulmonary hypertension. Aortic Valve * The aortic valve is trileaflet. * No hemodynamically significant valvular aortic stenosis. * No aortic regurgitation is present. Pulmonic Valve * The pulmonic valve is not well visualized. Great Vessels * The aortic root is normal size. Pericardium * There is no pericardial effusion. Stress Parameters * Normal baseline electrocardiogram. * Stress EKG response was abnormal with [address] segment depression noted in the inferior leads that persisted into the post pharmacologic stress recovery interval. The onset of the ST segment depression correlated with the patient's subjective complaint of chest pressure. * The stress portion of this study was personally supervised by the undersigned interpreting physician. * Rest heart rate was '66' BPM. * Rest blood pressure was '162/82' * Maximum heart rate achieved was 112 bpm. * Maximum heart rate was 67 % of maximum age-predicted heart rate. * Maximum blood pressure was '216/53' * Maximum Dobutamine infusion rate was '30' mcg/kg/min. * Dobutamine infusion was terminated due to symptoms * A total of 5 mg of IV Metoprolol was administered to reverse Dobutamine-induced tachycardia. Left Ventricular Diastolic Function * Grade I diastolic dysfunction, (abnormal relaxation pattern). MMode 2D Measurements and Calculations IVSd 0.87 cm IVSs 1.2 cm LVIDd 4.6 cm LVIDs 3.2 cm LVPWd 0.91 cm LVPWs 1.1 cm IVS/LVPW 0.95 FS 31.1 % EDV(Teich) 96.1 ml ESV(Teich) 39.5 ml EF(Teich) 58.9 % EDV(cubed) 95.7 ml ESV(cubed) 31.4 ml EF(cubed) 67.2 % % IVS thick 41.4 % % LVPW thick 25.8 % LV mass(C)d 134.2 grams LV mass(C)dI 64.0 grams/m\S\2 LV mass(C)s 114.8 grams LV mass(C)sI 54.7 grams/m\S\2 SV(Teich) 56.6 ml SI(Teich) 27.0 ml/m\S\2 SV(cubed) 64.4 ml SI(cubed) 30.7 ml/m\S\2 Ao root diam 3.0 cm Ao root area 6.9 cm\S\2 LA dimension 3.2 cm LA/Ao 1.1 LVAd ap4 25.1 cm\S\2 LVLd ap4 7.9 cm EDV(MOD-sp4) 64.5 ml EDV(sp4-el) 68.0 ml LVAs ap4 14.8 cm\S\2 LVLs ap4 6.5 cm ESV(MOD-sp4) 28.9 ml ESV(sp4-el) 28.5 ml EF(MOD-sp4) 55.1 % EF(sp4-el) 58.1 % LVAd ap2 25.2 cm\S\2 LVLd ap2 7.7 cm EDV(MOD-sp2) 69.7 ml EDV(sp2-el) 69.5 ml LVAs ap2 15.2 cm\S\2 LVLs ap2 6.6 cm ESV(MOD-sp2) 29.7 ml ESV(sp2-el) 29.6 ml EF(MOD-sp2) 57.4 % EF(sp2-el) 57.4 % LVLd %diff -2.02 % EDV(MOD-bp) 68.0 ml LVLs %diff 1.2 % ESV(MOD-bp) 29.6 ml EF(MOD-bp) 56.5 % SV(MOD-sp4) 35.6 ml SI(MOD-sp4) 17.0 ml/m\S\2 SV(MOD-sp2) 40.0 ml SI(MOD-sp2) 19.1 ml/m\S\2 SV(MOD-bp) 38.4 ml SI(MOD-bp) 18.3 ml/m\S\2 SV(sp4-el) 39.5 ml SI(sp4-el) 18.8 ml/m\S\2 SV(sp2-el) 39.9 ml SI(sp2-el) 19.0 ml/m\S\2 Doppler Measurements and Calculations MV E max sweta 104.8 cm/sec MV A max sweta 96.0 cm/sec MV E/A 1.1 MV dec time 0.27 sec Ao V2 max 135.7 cm/sec Ao max PG 7.4 mmHg Ao max PG (full) 4.1 mmHg LV V1 max PG 3.2 mmHg LV V1 max 89.7 cm/sec
--- NOTE | 2017-04-20 17:06 | Progress Note ---
Subjective Date of Service: Apr 20, 2017. Subjective Pt evaluation today including: conversation w/ patient, physical exam, lab review, review of studies, review of inpatient medication list Saw/examined the patient in room 282 patient had a stress test which she failed due to chest pain and EKG changes currently, she is laying in bed with minimal chest pain substernally No palpitations/shortness of breath Problem List Medical Problems: (1) Abdominal pain Status: Acute (2) Abdominal pain Status: Acute (3) Abdominal pain Status: Acute (4) LLQ abdominal pain Status: Acute (5) Lower abdominal pain Status: Acute (6) Precordial chest pain Status: Acute Review of Systems Respiratory: + dyspnea on exertion, No cough, No sputum, No wheezing, No shortness of breath, No dyspnea at rest, No hemoptysis Cardiac: + chest pain, No edema, No palpitations Abdomen: No pain, No nausea, No vomiting, No diarrhea Medications Current Inpatient Medications Medications (Trade) Dose Ordered Sig/Miguel Ángel Route Start Time Stop Time Status Last Admin Dose Admin Ioversol (Optiray 320) 100 ml UD PRN IV 04/19/17 13:45 04/23/17 13:44 Acetaminophen (Tylenol Tab) 650 mg Q4H PRN PO 04/19/17 16:45 05/19/17 16:44 Nitroglycerin (Nitrostat Tab) 0.4 mg UD PRN SL 04/19/17 16:45 05/19/17 16:44 Albuterol (Ventolin Hfa Inhaler) 2 puffs Q6H PRN INH 04/19/17 18:45 05/19/17 18:44 Aspirin (Ecotrin Tab) 81 mg DAILY PO 04/20/17 09:00 05/20/17 08:59 Bupropion HCl (Wellbutrin-Sr Tab) 200 mg BID PO 04/19/17 21:00 05/19/17 20:59 04/19/17 20:58 200 MG Hydrochlorothiazide (Hydrochlorothiazide Tab) 12.5 mg DAILY PO 04/20/17 09:00 05/20/17 08:59 Ondansetron HCl (Zofran Odt) 4 mg Q4H PRN SL 04/19/17 18:45 05/19/17 18:44 Pantoprazole Sodium (Protonix Tab) 40 mg DAILY PO 04/20/17 09:00 05/20/17 08:59 Topiramate (Topamax Tab) 50 mg BID PO 04/19/17 21:00 05/19/17 20:59 04/19/17 20:59 50 MG Trazodone HCl (Desyrel Tab) 100 mg HS PO 04/19/17 21:00 05/19/17 20:59 04/19/17 20:58 100 MG Miscellaneous (Iv Fluids Completed) 1 ea PRN PRN N/A 04/19/17 21:00 04/19/18 20:59 Metoprolol Tartrate (Lopressor Tab) 25 mg BID PO 04/20/17 21:00 05/20/17 20:59 Atorvastatin Calcium (Lipitor Tab) 40 mg QAM PO 04/21/17 09:00 05/21/17 08:59 Objective Vital Signs Date Time Temp Pulse Resp B/P (MAP) Pulse Ox O2 Delivery O2 Flow Rate FiO2 04/20/17 15:55 36.9 66 18 137/55 (82) 96 Room Air 04/20/17 12:00 Room Air 04/20/17 11:22 36.7 64 18 124/78 (93) 96 04/20/17 08:00 Room Air 04/20/17 07:53 36.7 61 16 121/81 (94) 96 04/20/17 04:00 36.7 72 20 96/60 (72) 96 Room Air 04/20/17 04:00 Room Air 04/20/17 00:21 36.9 68 18 110/73 (85) 95 Room Air 04/20/17 00:10 Room Air 04/19/17 20:22 98 Room Air 04/19/17 19:27 71 136/69 (91) 04/19/17 19:02 36.7 67 18 150/88 98 Room Air 04/19/17 17:50 71 16 181/95 97 04/19/17 16:59 66 Physical Exam General Appearance: no apparent distress, + obese Respiratory/Chest: lungs clear, normal breath sounds, no respiratory distress, no accessory muscle use Cardiovascular: regular rate, rhythm, no edema, no murmur Extremities: normal inspection, no pedal edema Neurologic/Psychiatric: no motor/sensory deficits, alert, normal mood/affect Laboratory Results Last 24 Hours Test 04/19/17 22:48 3/13/18 06:36 04/20/17 07:21 04/20/17 11:44 Troponin I < 0.015 ng/ml Triglycerides Level 124 mg/dl Cholesterol Level 192 mg/dl HDL Cholesterol 50 mg/dl LDL Cholesterol, Calculated 117 mg/dl VLDL Cholesterol, Calculated 25 mg/dl Cholesterol/HDL Ratio 3.8 Bedside Glucose 89 mg/dl 85 mg/dl Assessment and Plan This is a 56 year old female with a PMH of obesity, HTN, HLD, mood disorder, asthma - presents with substernal chest pain Substernal Chest Pain Dyspnea on Exertion * hx. of hypertension, hyperlipidemia, family hx. 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
[2017-04-20] MEDS: ASPIRIN 81 MG ECTAB PO SCH (20:10)
[2017-04-20] MEDS: METOPROLOL TARTRATE 25 MG TAB PO SCH (20:10)
[2017-04-20] MEDS: TRAZODONE HCL 100 MG TAB PO SCH (20:11)
[2017-04-21] VITALS (8 sets, daily range): BP systolic 98–163; BP diastolic 60–85; PULSE 58–99; TEMP 36.6–37.3; O2SAT 93–97
[2017-04-21 07:27] LABS: HEMATOCRIT 41.4 % (37-47); HEMOGLOBIN 14.1 g/dL (12.0-16.0); MEAN CELL VOLUME 85.5 fL (80-100); MEAN CORPUSCULAR HEMOGLOBIN 29.1 pg (25-34); MEAN CORPUSCULAR HGB CONC 34.1 g/dl (32-36); MEAN PLATELET VOLUME 9.1 fL (7.4-10.4); PLATELET COUNT 210 K/uL (130-400); RED CELL DISTRIBUTION WIDTH CV 13.6 % (11.5-14.5); RED CELL DISTRIBUTION WIDTH SD 42.7 fL (36.4-46.3); WHITE BLOOD COUNT 7.42 K/uL (4.8-10.8)
[2017-04-21] MEDS: HYDROCHLOROTHIAZIDE 25 MG TAB PO SCH (07:41)
[2017-04-21] MEDS: METOPROLOL TARTRATE 25 MG TAB PO SCH ×2 (07:43→21:38)
[2017-04-21] MEDS: ATORVASTATIN 40 MG TAB PO SCH (07:43)
[2017-04-21] MEDS: BuPROPion SR 100 MG TABCR PO SCH ×2 (07:44→21:38)
[2017-04-21] MEDS: PANTOprazole SOD 40 MG TAB PO SCH (07:44)
[2017-04-21] MEDS: TOPIRAMATE 50 MG TAB PO SCH ×2 (07:44→21:38)
[2017-04-21 07:59] LABS: CREATININE 0.86 mg/dl (0.60-1.20); POTASSIUM 3.5 mmol/L (3.5-5.1)
[2017-04-21] MEDS: ASPIRIN 81 MG ECTAB PO SCH (08:19)
--- NOTE | 2017-04-21 09:31 | Cardiology Follow-Up ---
Subjective General Date of Service: Apr 21, 2017. Pt evaluation today including: conversation w/ patient, conversation w/ family , physical exam, chart review, lab review, review of studies, review of inpatient medication list History of Present Illness The patient is a 56 year old female seen in follow-up. Describes chest pinching and pressure-like sensation with activity. Symptoms present for more than 2 weeks. Reports worsening symptoms as well as interscapular pain which prompted ER evaluation. Dobutamine stress echo borderline positive for inducible ischemia with reproduction of anginal symptoms. Currently chest pain-free. No dysrhythmias on telemetry. Allergies Coded Allergies: Chocolate (Verified Allergy, Unknown, GI SYMPTOMS, 04/19/17) Uncoded Allergies: MOST FRUITS (Allergy, Severe, BLOATING,SHARP STOMACH PAINS, 11/22/13) SOY, DAIRY, GLUTEN (Allergy, Severe, GI SYMPTOMS, 11/22/13) ARTIFICIAL SWEETENERS (Allergy, Unknown, unk, 05/01/14) MOST VEGETABLES (Allergy, Unknown, GI SYMPTOMS, 05/01/14) Social History Smoking Status: Never Smoker Hx Alcohol Use - Type And Amou: No Hx Substance Use - Type And Am: No Problem List Medical Problems: (1) Abdominal pain Status: Acute (2) Abdominal pain Status: Acute (3) Abdominal pain Status: Acute (4) LLQ abdominal pain Status: Acute (5) Lower abdominal pain Status: Acute (6) Precordial chest pain Status: Acute Review of Systems Respiratory: No cough, No sputum, No wheezing, No shortness of breath, No dyspnea on exertion, No dyspnea at rest, No hemoptysis Cardiac: + chest pain, No orthopnea, No PND, No edema, No claudication, No palpitations Physical Exam Vital Signs Last Vital Signs Documentation Date Time Temp Pulse Resp B/P (MAP) Pulse Ox O2 Delivery O2 Flow Rate FiO2 04/21/17 07:57 97 Room Air 04/21/17 07:06 36.8 60 16 121/81 (94) Physical Exam Constitutional: General Apperance: obese Level of Distress: NAD Ambulation: ambulating normally Head: normocephalic, atraumatic ENMT: normal ENT inspection, hearing grossly normal Neck: supple, trachea midline Lungs: Auscultation: breath sounds normal, no wheezing, no rales/crackles, no rhonchi Cardiovascular: Heart Auscultation: RRR, normal S1, normal S2, no murmurs Peripheral Pulses: Radial Pulse: normal on the right Femoral Pulse: normal on the right Abdomen: Bowel Sounds: normal Inspection & Palpation: soft, non-distended, no tenderness, guarding & rebound Musculoskeletal: normal, normal strength (5/5 throughout) Extremities: no cyanosis, no edema, no clubbing, no ulcers Neurologic: Gait & Station: pertinent finding (No focal deficit) Cranial Nerves: grossly intact Assessment and Plan Assessment and Plan Impression: 1. 56-year-old female admitted with chest discomfort and abnormal dobutamine stress echocardiography suggesting underlying ischemic heart disease. 2. Dyslipidemia -atorvastatin added 3. Family history of premature coronary artery disease - mother Plan/recommendations: I had a long discussion with the patient regarding results of her dobutamine stress echo and concerns for underlying ischemic heart disease. Recommend cardiac catheterization with coronary angiography. The risks, benefits, alternatives to procedure were discussed in detail. Patient agreeable to procedure and possible percutaneous intervention if indicated at [facility]. She is a drug-eluting stent candidate. Continue current medications. All questions answered to her satisfaction. Further recommendations pending result of cardiac catheterization. Laboratory Results Last 24 Hours Test 04/20/17 11:44 04/21/17 06:43 Bedside Glucose 85 mg/dl White Blood Count 7.42 K/uL Red Blood Count 4.84 M/uL Hemoglobin 14.1 g/dL Hematocrit 41.4 % Mean Corpuscular Volume 85.5 fL Mean Corpuscular Hemoglobin 29.1 pg Mean Corpuscular Hemoglobin Concent 34.1 g/dl RDW Standard Deviation 42.7 fL RDW Coefficient of Variation 13.6 % Platelet Count 210 K/uL Mean Platelet Volume 9.1 fL Sodium Level 140 mmol/L Potassium Level 3.5 mmol/L Chloride Level 107 mmol/L Carbon Dioxide Level 26 mmol/L Anion Gap 7.0 mmol/L Blood Urea Nitrogen 19 mg/dl Creatinine 0.86 mg/dl Est Creatinine Clear Calc Drug Dose 88.2 ml/min Estimated GFR () 88.8 Estimated GFR (Non- 76.6 BUN/Creatinine Ratio 21.9 Random Glucose 90 mg/dl Calcium Level 9.0 mg/dl
--- NOTE | 2017-04-21 17:49 | Progress Note ---
Subjective Date of Service: Apr 21, 2017. Subjective Pt evaluation today including: conversation w/ patient, physical exam, lab review, review of studies, review of inpatient medication list Saw/examined the patient in room 251 She's doing okay low grade fever and a sore throat intermittent chest pain - none during my exam Problem List Medical Problems: (1) Abdominal pain Status: Acute (2) Abdominal pain Status: Acute (3) Abdominal pain Status: Acute (4) LLQ abdominal pain Status: Acute (5) Lower abdominal pain Status: Acute (6) Precordial chest pain Status: Acute Review of Systems Constitutional: No fever, No chills Respiratory: No cough, No sputum, No shortness of breath Cardiac: No chest pain, No edema, No palpitations Medications Current Inpatient Medications Medications (Trade) Dose Ordered Sig/Miguel Ángel Route Start Time Stop Time Status Last Admin Dose Admin Ioversol (Optiray 320) 100 ml UD PRN IV 04/19/17 13:45 04/23/17 13:44 Acetaminophen (Tylenol Tab) 650 mg Q4H PRN PO 04/19/17 16:45 05/19/17 16:44 Nitroglycerin (Nitrostat Tab) 0.4 mg UD PRN SL 04/19/17 16:45 05/19/17 16:44 Albuterol (Ventolin Hfa Inhaler) 2 puffs Q6H PRN INH 04/19/17 18:45 05/19/17 18:44 Aspirin (Ecotrin Tab) 81 mg DAILY PO 04/20/17 09:00 05/20/17 08:59 04/21/17 08:19 81 MG Bupropion HCl (Wellbutrin-Sr Tab) 200 mg BID PO 04/19/17 21:00 05/19/17 20:59 04/21/17 07:44 200 MG Hydrochlorothiazide (Hydrochlorothiazide Tab) 12.5 mg DAILY PO 04/20/17 09:00 05/20/17 08:59 04/21/17 07:41 12.5 MG Ondansetron HCl (Zofran Odt) 4 mg Q4H PRN SL 04/19/17 18:45 05/19/17 18:44 Pantoprazole Sodium (Protonix Tab) 40 mg DAILY PO 04/20/17 09:00 05/20/17 08:59 04/21/17 07:44 40 MG Topiramate (Topamax Tab) 50 mg BID PO 04/19/17 21:00 05/19/17 20:59 04/21/17 07:44 50 MG Trazodone HCl (Desyrel Tab) 100 mg HS PO 04/19/17 21:00 05/19/17 20:59 04/20/17 20:11 100 MG Miscellaneous (Iv Fluids Completed) 1 ea PRN PRN N/A 04/19/17 21:00 04/19/18 20:59 Metoprolol Tartrate (Lopressor Tab) 25 mg BID PO 04/20/17 21:00 05/20/17 20:59 04/21/17 07:43 25 MG Atorvastatin Calcium (Lipitor Tab) 40 mg QAM PO 04/21/17 09:00 05/21/17 08:59 04/21/17 07:43 40 MG Objective Vital Signs Date Time Temp Pulse Resp B/P (MAP) Pulse Ox O2 Delivery O2 Flow Rate FiO2 04/21/17 15:06 37.3 62 18 119/68 (85) 94 Room Air 04/21/17 12:41 97 Room Air 04/21/17 11:08 36.8 58 16 126/84 (98) 94 04/21/17 07:57 97 Room Air 04/21/17 07:06 36.8 60 16 121/81 (94) 97 04/21/17 04:00 Room Air 04/21/17 03:27 36.8 64 18 98/60 (73) 95 Room Air 04/21/17 00:17 36.6 64 18 107/69 (82) 94 Room Air 04/21/17 00:05 Room Air 04/20/17 20:15 37.0 65 18 106/49 (68) 93 Room Air 04/20/17 20:06 98 Room Air Physical Exam General Appearance: no apparent distress Respiratory/Chest: chest non-tender, lungs clear, normal breath sounds, no respiratory distress, no accessory muscle use Cardiovascular: regular rate, rhythm, no edema, no gallop, no JVD, no murmur Laboratory Results Last 24 Hours Test 04/21/17 06:43 White Blood Count 7.42 K/uL Red Blood Count 4.84 M/uL Hemoglobin 14.1 g/dL Hematocrit 41.4 % Mean Corpuscular Volume 85.5 fL Mean Corpuscular Hemoglobin 29.1 pg Mean Corpuscular Hemoglobin Concent 34.1 g/dl RDW Standard Deviation 42.7 fL RDW Coefficient of Variation 13.6 % Platelet Count 210 K/uL Mean Platelet Volume 9.1 fL Sodium Level 140 mmol/L Potassium Level 3.5 mmol/L Chloride Level 107 mmol/L Carbon Dioxide Level 26 mmol/L Anion Gap 7.0 mmol/L Blood Urea Nitrogen 19 mg/dl Creatinine 0.86 mg/dl Est Creatinine Clear Calc Drug Dose 88.2 ml/min Estimated GFR () 88.8 Estimated GFR (Non- 76.6 BUN/Creatinine Ratio 21.9 Random Glucose 90 mg/dl Calcium Level 9.0 mg/dl Assessment and Plan This is a 56 year old female with a PMH of obesity, HTN, HLD, mood disorder, asthma - presents with substernal chest pain Substernal Chest Pain Dyspnea on Exertion 04/21 * unfortunately, cardiac cath could not be performed * plan for cath in AM (04/22) * continue current medications - aspirin, b-candie, Lipitor 04/20 * hx. of hypertension, hyperlipidemia, family hx. 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
[2017-04-21] MEDS: ACETAMINOPHEN 325 MG TAB PO PRN ×2 (18:04→22:19)
[2017-04-21] MEDS: TRAZODONE HCL 100 MG TAB PO SCH (21:38)
[2017-04-22] VITALS (8 sets, daily range): BP systolic 97–126; BP diastolic 59–91; PULSE 58–69; TEMP 36.5–37.3; O2SAT 91–96
[2017-04-22 08:25] LABS: HEMATOCRIT 41.9 % (37-47); HEMOGLOBIN 14.4 g/dL (12.0-16.0); MEAN CELL VOLUME 83.6 fL (80-100); MEAN CORPUSCULAR HEMOGLOBIN 28.7 pg (25-34); MEAN CORPUSCULAR HGB CONC 34.4 g/dl (32-36); MEAN PLATELET VOLUME 8.9 fL (7.4-10.4); PLATELET COUNT 202 K/uL (130-400); RED CELL DISTRIBUTION WIDTH CV 13.6 % (11.5-14.5); RED CELL DISTRIBUTION WIDTH SD 41.2 fL (36.4-46.3); WHITE BLOOD COUNT 10.78 K/uL (4.8-10.8)
[2017-04-22 08:48] LABS: CALCIUM 9.1 mg/dl (8.5-10.1); CREATININE 0.93 mg/dl (0.60-1.20); POTASSIUM 3.4 mmol/L (3.5-5.1)
[2017-04-22] MEDS: ATORVASTATIN 40 MG TAB PO SCH (09:51)
[2017-04-22] MEDS: BuPROPion SR 100 MG TABCR PO SCH ×2 (09:51→21:43)
--- NOTE | 2017-04-22 09:51 | Cardiology Follow-Up ---
Subjective General Date of Service: Apr 22, 2017. Pt evaluation today including: conversation w/ patient, conversation w/ family , physical exam, chart review, lab review, review of studies, review of inpatient medication list History of Present Illness The patient is a 56 year old female seen in follow-up. Denies chest discomfort overnight. No dysrhythmias on telemetry. Reports sinus congestion and low-grade fever. Offers no other complaints. Allergies Coded Allergies: Chocolate (Verified Allergy, Unknown, GI SYMPTOMS, 04/19/17) Uncoded Allergies: MOST FRUITS (Allergy, Severe, BLOATING,SHARP STOMACH PAINS, 11/22/13) SOY, DAIRY, GLUTEN (Allergy, Severe, GI SYMPTOMS, 11/22/13) ARTIFICIAL SWEETENERS (Allergy, Unknown, unk, 05/01/14) MOST VEGETABLES (Allergy, Unknown, GI SYMPTOMS, 05/01/14) Social History Smoking Status: Never Smoker Hx Alcohol Use - Type And Amou: No Hx Substance Use - Type And Am: No Problem List Medical Problems: (1) Abdominal pain Status: Acute (2) Abdominal pain Status: Acute (3) Abdominal pain Status: Acute (4) LLQ abdominal pain Status: Acute (5) Lower abdominal pain Status: Acute (6) Precordial chest pain Status: Acute Review of Systems Respiratory: + cough, + dyspnea on exertion, No sputum, No wheezing, No shortness of breath, No dyspnea at rest Cardiac: No chest pain, No orthopnea, No PND, No edema, No claudication, No palpitations Physical Exam Vital Signs Last Vital Signs Documentation Date Time Temp Pulse Resp B/P (MAP) Pulse Ox O2 Delivery O2 Flow Rate FiO2 04/22/17 08:56 Room Air 04/22/17 08:17 36.8 58 18 106/76 (86) 93 Physical Exam Constitutional: General Apperance: obese Level of Distress: NAD Ambulation: ambulating normally Head: normocephalic, atraumatic ENMT: normal ENT inspection, hearing grossly normal Neck: supple, trachea midline Lungs: Auscultation: no wheezing Peripheral Pulses: Radial Pulse: normal on the right Femoral Pulse: normal on the right Abdomen: Bowel Sounds: normal Inspection & Palpation: soft, non-distended, no tenderness, guarding & rebound Extremities: no cyanosis, no edema, no clubbing, no ulcers Neurologic: Gait & Station: pertinent finding (No focal deficit) Cranial Nerves: grossly intact Assessment and Plan Assessment and Plan Impression: 1. 56-year-old female admitted with chest discomfort and abnormal dobutamine stress echocardiography suggesting underlying ischemic heart disease. 2. Dyslipidemia - atorvastatin added this admission 3. Family history of premature coronary artery disease - mother Plan/recommendations: Cardiac catheterization scheduled today. Patient and are agreeable. Further recommendations pending result of procedure. Patient is a drug-eluting stent candidate. Laboratory Results Last 24 Hours Test 04/22/17 07:39 White Blood Count 10.78 K/uL Red Blood Count 5.01 M/uL Hemoglobin 14.4 g/dL Hematocrit 41.9 % Mean Corpuscular Volume 83.6 fL Mean Corpuscular Hemoglobin 28.7 pg Mean Corpuscular Hemoglobin Concent 34.4 g/dl RDW Standard Deviation 41.2 fL RDW Coefficient of Variation 13.6 % Platelet Count 202 K/uL Mean Platelet Volume 8.9 fL Sodium Level 138 mmol/L Potassium Level 3.4 mmol/L Chloride Level 106 mmol/L Carbon Dioxide Level 24 mmol/L Anion Gap 8.0 mmol/L Blood Urea Nitrogen 20 mg/dl Creatinine 0.93 mg/dl Est Creatinine Clear Calc Drug Dose 81.5 ml/min Estimated GFR () 80.8 Estimated GFR (Non- 69.7 BUN/Creatinine Ratio 21.4 Random Glucose 94 mg/dl Calcium Level 9.1 mg/dl Magnesium Level 2.2 mg/dl
[2017-04-22] MEDS: METOPROLOL TARTRATE 25 MG TAB PO SCH (09:52)
[2017-04-22] MEDS: PANTOprazole SOD 40 MG TAB PO SCH (09:52)
[2017-04-22] MEDS: TOPIRAMATE 50 MG TAB PO SCH ×2 (09:52→21:42)
[2017-04-22] MEDS: HYDROCHLOROTHIAZIDE 25 MG TAB PO SCH (09:53)
--- NOTE | 2017-04-22 09:56 | Pre Sedation Assessment ---
Pre Sedation Assessment General Date of Sedation: Apr 22, 2017. Vital Signs Past 12 Hours Date Time Temp Pulse Resp B/P (MAP) Pulse Ox O2 Delivery O2 Flow Rate FiO2 04/22/17 08:56 Room Air 04/22/17 08:17 36.8 58 18 106/76 (86) 93 04/22/17 04:35 36.8 59 18 108/75 (86) 93 Room Air 04/22/17 04:00 Room Air 04/22/17 00:06 37.3 69 18 126/81 (96) 94 Room Air 04/22/17 00:01 Room Air Review Cardiovascular: regular rate, rhythm, no edema, no gallop Lungs: chest non-tender, lungs clear Pre-Sedation Airway Assessment Smoking Status: Never Smoker Hx of Sleep Apnea: No Short Thick Neck: No Oral Cavity: WNL Mallampati Classification: Class III ASA Classification: Class II NPO Status Date of Last Intake of Fluids: Apr 21, 2017 Time of Last Intake of Fluids: 12:00 Date of Last Intake of Solids: Apr 21, 2017 Time of Last Intake of Solids: 12:00 Procedure Planning Contraindications for Sedation: None Current Medications Reviewed: Yes Notes The planned sedation has been discussed with the patient. Informed Consent was obtained. I have identified the patient, determined the appropriateness of sedation and have assessed the patient immediately prior to the procedure. All medicine(s) and interventions are by my order.
[2017-04-22] MEDS: ASPIRIN 81 MG ECTAB PO SCH (11:08)
[2017-04-22] MEDS ORDERED: LIDOCAINE HCL 1% 20 ML VIAL ONE (11:13)
[2017-04-22] MEDS ORDERED: HEPARIN SOD (PORCINE) 1000 UNIT/ML 10 ML VIAL ONE (11:17)
[2017-04-22] MEDS ORDERED: NiCARDipine HCL INJ 2.5 MG/ML 10 ML AMP ONE (11:17)
[2017-04-22] MEDS ORDERED: MIDAZOLAM HCL 1 MG/ML 2ML VIAL ONE (11:18)
[2017-04-22] MEDS ORDERED: FENTANYL CITRATE INJ 50 MCG/1 ML 2 ML VIAL ONE (11:18)
--- NOTE | 2017-04-22 12:19 | Post Sedation Assessment ---
Post Sedation Assessment General Date of Sedation Apr 22, 2017. Vital Signs: Vital Signs Past 12 Hours Date Time Temp Pulse Resp B/P (MAP) Pulse Ox O2 Delivery O2 Flow Rate FiO2 04/22/17 12:10 66 16 144/83 (103) 95 Room Air 04/22/17 11:41 36.8 61 16 123/91 (102) 96 04/22/17 10:00 64 112/64 (80) 93 04/22/17 08:56 Room Air 04/22/17 08:17 36.8 58 18 106/76 (86) 93 04/22/17 04:35 36.8 59 18 108/75 (86) 93 Room Air 04/22/17 04:00 Room Air Post Procedure Recovery Score Activity: (2) Moves 4 extremities * Respiration: (2) Deep breath/cough Circulation: (2) +/-20% PreAnes Value Consciousness: (2) Fully Awake Oxygen Saturation: (2) > 92% On Room Air Post Anesthesia Score: 10 Discharge Sedation Level of Care: Fast Track Phase II Post Sedation Plan On clinical assessment, the patient appears to have tolerated the sedation without complications. Patient is recovering as anticipated. Patient will continue to be monitored by nursing and may be discharged when sedation discharge criteria are met per below protocol. Upon Completions of procedure and additional 15 minutes continue every 5 minute vital signs and the P.A.R. score; then discharge to a Phase I or Fast Track to Phase II per the following guidelines: * Discharge Patient to appropriate Phase II area if PAR is 8 or greater or return to pre- procedure baseline. The post - procedure orders will be as directed. * If PAR score is less than 8 or not return to pre-procedure baseline then patient will follow Phase I monitoring till PAR is reached for Phase II. The Phase I may be done in procedure room or may call to secure a Phase I area. * If naloxone or flumazenil are used for reversal, hold in Phase I for an additional 60 -120 minutes before discharge to Phase II. Please call the Sedation Physician to re-evaluate and complete post-note for discharge to Phase II area. Do NOT discharge from procedure sedation or Phase 1 until post- sedation evaluation note is complete by procedure /sedation MD Sedation Discharge Instructions to be given to the patient at discharge to home.
[2017-04-22] MEDS ORDERED: SODIUM CHLORIDE 0.9% 1000ML 250 ML IV PRN (12:21)
[2017-04-22] MEDS ORDERED: ACETAMINOPHEN 325 MG TAB PO PRN (12:30)
[2017-04-22] MEDS ORDERED: ATROPINE SULFATE 0.1 MG/ML 5ML SYR IV PRN (12:30)
[2017-04-22] MEDS ORDERED: ONDANSETRON INJ 2 MG/ML 2 ML VIAL IV PRN (12:30)
--- NOTE | 2017-04-22 12:35 | Cardiac Catheterization ---
Procedure Note Procedure Date Apr 22, 2017. Pre-Procedure Diagnosis Positive Stress Test AUC Score 7 Post-Procedure Diagnosis Normal Coronary Arteries, Normal LV Systolic Function, Normal Intracardiac Pressures Procedure(s) Performed Coronary Angiography, Left Heart Cath, LV Angiography Workforce Planning Analyst Dr. [employer] Manager(s) [employer]ICE SERVICE TECHNICIAN Estimated Blood Loss 5cc Medication(s) Fentanyl, Heparin, Nicardipine, Nitroglycerin, Versed, Lidocaine 1% Summary of Findings Normal coronary arteries Patient experienced right arm discomfort secondary to radial arterial spasm. Transient chest pain reported on initial coronary angiography injections without ECG changes or evidence of obstructive CAD. Hemodynamics Rest Ao: 141/91/114 Final Ao: 137/84/107 LV: 135/1/8 Recommendations Medical therapy and/or Counseling Specimens None Radiation Exposure (mGy) 941 Contrast (mls) 90 Anesthesia Moderate sedation. Start 1129. End 1209 Procedural Complication(s) None Disposition Hopper Filler Holding/Recovery ACC Data Cardiac Status Clinical evaluation leading to the procedure CAD Presntation: Positive Stress Test Anginal Classification: CCS II Heart Failure: No Cardiogenic Shock w/in 24Hrs: No Cardiac Arrest w/in 24Hrs: No Imaging studies past 6 months: Yes Stress studies past 6 months: Yes Stress Echocardiogram: Yes - Indeterminant Coronary Anatomy Dominant: Right Left Main (% Stenosis): Normal LAD (% Stenosis): Normal (small vessel that tapers down to a 1mm at apex) D1 (% Stenosis): Normal Circumflex (% Stenosis): Normal RCA (% Stenosis): Normal R PDA (% Stenosis): Normal R PL1 (% Stenosis): Normal AM (% Stenosis): Normal Left Ventricular Angiography EF (%): 55% suboptimal opacification of the LV. Mitral Regurgitation: None (unable to evaluate MR due to suboptimal injection) Diagnostic Status: Elective Closure Device Percutaneous Entry Location: Radial Closure Device: Radial Band Recommendations: Medical therapy and/or Counseling Intraprocedure Events Significant Dissection: No Perforation: No
[2017-04-22] MEDS ORDERED: AMLODIPINE BESYLATE 5 MG TAB PO ONE (13:15)
--- NOTE | 2017-04-22 17:31 | Cardiology Progress Note ---
Cardiology Progress Note Date of Service Apr 22, 2017. Cardiology Progress Note Pt reassessed in labor mediator recovery. Awaiting bed. Twinges of CP , atypical for angina. Less severe than during cath. NO distress. Comfortable. Add amlodipine for possible microvascular dysfunction. Observe overnight.
--- NOTE | 2017-04-22 19:06 | Progress Note ---
Subjective Date of Service: Apr 22, 2017. Subjective Pt evaluation today including: conversation w/ patient, physical exam, lab review, review of studies, review of inpatient medication list Saw/examined the patient in room 238 Doing well after the cath Minor chest pains afterwards, but no significant issues Problem List Medical Problems: (1) Abdominal pain Status: Acute (2) Abdominal pain Status: Acute (3) Abdominal pain Status: Acute (4) LLQ abdominal pain Status: Acute (5) Lower abdominal pain Status: Acute (6) Precordial chest pain Status: Acute Review of Systems Constitutional: No fever, No chills Respiratory: No cough, No sputum, No shortness of breath Cardiac: No chest pain Medications Current Inpatient Medications Medications (Trade) Dose Ordered Sig/Miguel Ángel Route Start Time Stop Time Status Last Admin Dose Admin Ioversol (Optiray 320) 100 ml UD PRN IV 04/19/17 13:45 04/23/17 13:44 Acetaminophen (Tylenol Tab) 650 mg Q4H PRN PO 04/19/17 16:45 05/19/17 16:44 04/21/17 22:19 650 MG Nitroglycerin (Nitrostat Tab) 0.4 mg UD PRN SL 04/19/17 16:45 05/19/17 16:44 Albuterol (Ventolin Hfa Inhaler) 2 puffs Q6H PRN INH 04/19/17 18:45 05/19/17 18:44 Aspirin (Ecotrin Tab) 81 mg DAILY PO 04/20/17 09:00 05/20/17 08:59 04/22/17 11:08 81 MG Bupropion HCl (Wellbutrin-Sr Tab) 200 mg BID PO 04/19/17 21:00 05/19/17 20:59 04/22/17 09:51 200 MG Hydrochlorothiazide (Hydrochlorothiazide Tab) 12.5 mg DAILY PO 04/20/17 09:00 05/20/17 08:59 04/22/17 09:53 12.5 MG Ondansetron HCl (Zofran Odt) 4 mg Q4H PRN SL 04/19/17 18:45 05/19/17 18:44 Pantoprazole Sodium (Protonix Tab) 40 mg DAILY PO 04/20/17 09:00 05/20/17 08:59 04/22/17 09:52 40 MG Topiramate (Topamax Tab) 50 mg BID PO 04/19/17 21:00 05/19/17 20:59 04/22/17 09:52 50 MG Trazodone HCl (Desyrel Tab) 100 mg HS PO 04/19/17 21:00 05/19/17 20:59 04/21/17 21:38 100 MG Miscellaneous (Iv Fluids Completed) 1 ea PRN PRN N/A 04/19/17 21:00 04/19/18 20:59 Atorvastatin Calcium (Lipitor Tab) 40 mg QAM PO 04/21/17 09:00 05/21/17 08:59 04/22/17 09:51 40 MG Acetaminophen (Tylenol Tab) 650 mg Q4H PRN PO 04/22/17 12:30 05/22/17 12:29 Sodium Chloride 250 ml @ 999 mls/hr Q16M PRN IV 04/22/17 12:21 05/22/17 12:20 Atropine Sulfate (Atropine Sulfate 0.1mg/ml Inj) 0.6 mg PRN PRN IV 04/22/17 12:30 05/22/17 12:29 Ondansetron HCl (Zofran Inj) 4 mg Q6H PRN IV 04/22/17 12:30 05/22/17 12:29 Amlodipine Besylate (Norvasc Tab) 2.5 mg QAM PO 04/23/17 09:00 05/23/17 08:59 Objective Vital Signs Date Time Temp Pulse Resp B/P (MAP) Pulse Ox O2 Delivery O2 Flow Rate FiO2 04/22/17 18:36 36.7 64 20 112/75 (87) 95 Room Air 04/22/17 18:00 63 16 128/47 (74) 95 Room Air 04/22/17 17:00 63 16 134/47 (76) 95 Room Air 04/22/17 15:55 66 16 124/72 (89) 95 Room Air 04/22/17 14:55 70 16 128/82 (97) 95 Room Air 04/22/17 14:40 68 16 122/80 (94) 95 Room Air 04/22/17 14:25 66 16 111/84 (93) 95 Room Air 04/22/17 14:10 70 16 130/77 (94) 95 Room Air 04/22/17 13:55 67 16 128/68 (88) 95 Room Air 04/22/17 13:40 65 16 130/70 (90) 95 Room Air 04/22/17 13:31 Room Air 04/22/17 13:25 67 16 125/66 (85) 95 Room Air 04/22/17 13:10 66 16 130/70 (90) 95 Room Air 04/22/17 12:55 64 16 128/66 (86) 95 Room Air 04/22/17 12:40 70 16 124/64 (84) 95 Room Air 04/22/17 12:25 66 16 129/64 (85) 95 Room Air 04/22/17 12:10 66 16 144/83 (103) 95 Room Air 04/22/17 11:41 36.8 61 16 123/91 (102) 96 04/22/17 10:00 64 112/64 (80) 93 04/22/17 08:56 Room Air 04/22/17 08:17 36.8 58 18 106/76 (86) 93 04/22/17 04:35 36.8 59 18 108/75 (86) 93 Room Air 04/22/17 04:00 Room Air 04/22/17 00:06 37.3 69 18 126/81 (96) 94 Room Air 04/22/17 00:01 Room Air 04/21/17 20:00 Room Air Physical Exam General Appearance: no apparent distress, + obese Respiratory/Chest: chest non-tender, lungs clear, normal breath sounds, no respiratory distress, no accessory muscle use Cardiovascular: regular rate, rhythm, no edema, no murmur Extremities: normal range of motion, non-tender, normal inspection, no pedal edema, no calf tenderness Neurologic/Psychiatric: no motor/sensory deficits, alert, normal mood/affect Laboratory Results Last 24 Hours Test 04/22/17 07:39 White Blood Count 10.78 K/uL Red Blood Count 5.01 M/uL Hemoglobin 14.4 g/dL Hematocrit 41.9 % Mean Corpuscular Volume 83.6 fL Mean Corpuscular Hemoglobin 28.7 pg Mean Corpuscular Hemoglobin Concent 34.4 g/dl RDW Standard Deviation 41.2 fL RDW Coefficient of Variation 13.6 % Platelet Count 202 K/uL Mean Platelet Volume 8.9 fL Sodium Level 138 mmol/L Potassium Level 3.4 mmol/L Chloride Level 106 mmol/L Carbon Dioxide Level 24 mmol/L Anion Gap 8.0 mmol/L Blood Urea Nitrogen 20 mg/dl Creatinine 0.93 mg/dl Est Creatinine Clear Calc Drug Dose 81.5 ml/min Estimated GFR () 80.8 Estimated GFR (Non- 69.7 BUN/Creatinine Ratio 21.4 Random Glucose 94 mg/dl Calcium Level 9.1 mg/dl Magnesium Level 2.2 mg/dl Assessment and Plan This is a 56 year old female with a PMH of obesity, HTN, HLD, mood disorder, asthma - presents with substernal chest pain Substernal Chest Pain Dyspnea on Exertion 04/22 * s/p cardiac cath, normal coronary arteries * possible microvascular spasms - amlodipine started * likely d/c home on 04/23 04/21 * unfortunately, cardiac cath could not be performed * plan for cath in AM (04/22) * continue current medications - aspirin, b-candie, Lipitor 04/20 * hx. of hypertension, hyperlipidemia, family hx. of ischemic heart disease * cardiac enzymes negative x3, EKG during rest, no changes noted * patient had a stress test - failed due to chest pain and EKG changes during the test * patient started on aspirin, b-candie, Lipitor * plan for cardiac catheterization on 04/21 - appreciate cardiology input GERD Dysphagia * continue with Protonix * outpatient w/up for dysphagia Asthma * stable, continue home inhaler Dyslipidemia * started on Lipitor Morbid Obesity * counseled on improved diet and weight loss * may need outpatient environmental director input Mood Disorder * continue current medications DVT ppx * Ambulation FULL CODE
[2017-04-22] MEDS: TRAZODONE HCL 100 MG TAB PO SCH (21:43)
[2017-04-23 04:27] VITALS: BP 97/56; PULSE 68; TEMP 36.8; O2SAT 94
[2017-04-23 06:15] LABS: HEMATOCRIT 44.8 % (37-47); HEMOGLOBIN 15.2 g/dL (12.0-16.0); MEAN CELL VOLUME 84.2 fL (80-100); MEAN CORPUSCULAR HEMOGLOBIN 28.6 pg (25-34); MEAN CORPUSCULAR HGB CONC 33.9 g/dl (32-36); MEAN PLATELET VOLUME 9.1 fL (7.4-10.4); PLATELET COUNT 220 K/uL (130-400); RED CELL DISTRIBUTION WIDTH CV 13.6 % (11.5-14.5); RED CELL DISTRIBUTION WIDTH SD 41.5 fL (36.4-46.3); WHITE BLOOD COUNT 11.11 K/uL (4.8-10.8)
[2017-04-23 06:53] LABS: CALCIUM 9.4 mg/dl (8.5-10.1); CREATININE 1.02 mg/dl (0.60-1.20)
[2017-04-23] MEDS: PANTOprazole SOD 40 MG TAB PO SCH (07:14)
[2017-04-23] MEDS: TOPIRAMATE 50 MG TAB PO SCH (07:15)
[2017-04-23] MEDS: BuPROPion SR 100 MG TABCR PO SCH (07:15)
[2017-04-23] MEDS: ATORVASTATIN 40 MG TAB PO SCH (07:15)
[2017-04-23] MEDS: ASPIRIN 81 MG ECTAB PO SCH (07:15)
[2017-04-23] MEDS: HYDROCHLOROTHIAZIDE 25 MG TAB PO SCH (07:16)
[2017-04-23 08:00] VITALS: O2SAT 94
[2017-04-23 08:02] VITALS: BP 102/62; PULSE 67; TEMP 36.8; O2SAT 92
[2017-04-23] MEDS ORDERED: AMLODIPINE BESYLATE 5 MG TAB PO SCH (09:00)
[2017-04-23] MEDS ORDERED: POTASSIUM CHLORIDE 20 MEQ TABCR PO STA (10:11)
[2017-04-23] MEDS ORDERED: KETOROLAC TROMETHAMINE 30 MG/ML VIAL IV STA (10:49)
[2017-04-23 11:55] VITALS: BP 108/68; PULSE 73; TEMP 36.9; O2SAT 93
--- NOTE | 2017-04-23 12:49 | Progress Note ---
Subjective Date of Service: Apr 23, 2017. Subjective Pt evaluation today including: conversation w/ patient, physical exam, lab review, review of studies, review of inpatient medication list Saw/examined the patient in room 238 Patient states her pain was around a 5-6 out of 10 this morning She received IV Toradol and pain has resolved Denies shortness of breath/palpitations. Problem List Medical Problems: (1) Abdominal pain Status: Acute (2) Abdominal pain Status: Acute (3) Abdominal pain Status: Acute (4) LLQ abdominal pain Status: Acute (5) Lower abdominal pain Status: Acute (6) Precordial chest pain Status: Acute Review of Systems Respiratory: No cough, No sputum, No shortness of breath Cardiac: + chest pain (improving) Heme: No abnormal bleeding/bruising Medications Current Inpatient Medications Medications (Trade) Dose Ordered Sig/Miguel Ángel Route Start Time Stop Time Status Last Admin Dose Admin Ioversol (Optiray 320) 100 ml UD PRN IV 04/19/17 13:45 04/23/17 13:44 Acetaminophen (Tylenol Tab) 650 mg Q4H PRN PO 04/19/17 16:45 05/19/17 16:44 04/21/17 22:19 650 MG Nitroglycerin (Nitrostat Tab) 0.4 mg UD PRN SL 04/19/17 16:45 05/19/17 16:44 Albuterol (Ventolin Hfa Inhaler) 2 puffs Q6H PRN INH 04/19/17 18:45 05/19/17 18:44 Aspirin (Ecotrin Tab) 81 mg DAILY PO 04/20/17 09:00 05/20/17 08:59 04/23/17 07:15 81 MG Bupropion HCl (Wellbutrin-Sr Tab) 200 mg BID PO 04/19/17 21:00 05/19/17 20:59 04/23/17 07:15 200 MG Ondansetron HCl (Zofran Odt) 4 mg Q4H PRN SL 04/19/17 18:45 05/19/17 18:44 Pantoprazole Sodium (Protonix Tab) 40 mg DAILY PO 04/20/17 09:00 05/20/17 08:59 04/23/17 07:14 40 MG Topiramate (Topamax Tab) 50 mg BID PO 04/19/17 21:00 05/19/17 20:59 04/23/17 07:15 50 MG Trazodone HCl (Desyrel Tab) 100 mg HS PO 04/19/17 21:00 05/19/17 20:59 04/22/17 21:43 100 MG Miscellaneous (Iv Fluids Completed) 1 ea PRN PRN N/A 04/19/17 21:00 04/19/18 20:59 Atorvastatin Calcium (Lipitor Tab) 40 mg QAM PO 04/21/17 09:00 05/21/17 08:59 04/23/17 07:15 40 MG Acetaminophen (Tylenol Tab) 650 mg Q4H PRN PO 04/22/17 12:30 05/22/17 12:29 Sodium Chloride 250 ml @ 999 mls/hr Q16M PRN IV 04/22/17 12:21 05/22/17 12:20 Atropine Sulfate (Atropine Sulfate 0.1mg/ml Inj) 0.6 mg PRN PRN IV 04/22/17 12:30 05/22/17 12:29 Ondansetron HCl (Zofran Inj) 4 mg Q6H PRN IV 04/22/17 12:30 05/22/17 12:29 Amlodipine Besylate (Norvasc Tab) 2.5 mg QAM PO 04/23/17 09:00 05/23/17 08:59 04/23/17 07:14 2.5 MG Objective Vital Signs Date Time Temp Pulse Resp B/P (MAP) Pulse Ox O2 Delivery O2 Flow Rate FiO2 04/23/17 12:00 Room Air 04/23/17 11:55 36.9 73 16 108/68 (81) 93 Room Air 04/23/17 08:02 36.8 67 16 102/62 (75) 92 Room Air 04/23/17 08:00 94 Room Air 04/23/17 04:27 36.8 68 18 97/56 (70) 94 Room Air 04/23/17 04:00 Room Air 04/23/17 00:01 Room Air 04/22/17 23:20 36.5 63 18 97/59 (72) 91 Room Air 04/22/17 20:50 36.9 68 16 106/64 (78) 92 Room Air 04/22/17 20:00 Room Air 04/22/17 18:36 36.7 64 20 112/75 (87) 95 Room Air 04/22/17 18:00 63 16 128/47 (74) 95 Room Air 04/22/17 17:00 63 16 134/47 (76) 95 Room Air 04/22/17 15:55 66 16 124/72 (89) 95 Room Air 04/22/17 14:55 70 16 128/82 (97) 95 Room Air 04/22/17 14:40 68 16 122/80 (94) 95 Room Air 04/22/17 14:25 66 16 111/84 (93) 95 Room Air 04/22/17 14:10 70 16 130/77 (94) 95 Room Air 04/22/17 13:55 67 16 128/68 (88) 95 Room Air 04/22/17 13:40 65 16 130/70 (90) 95 Room Air 04/22/17 13:31 Room Air 04/22/17 13:25 67 16 125/66 (85) 95 Room Air 04/22/17 13:10 66 16 130/70 (90) 95 Room Air 04/22/17 12:55 64 16 128/66 (86) 95 Room Air Physical Exam General Appearance: no apparent distress, + obese Respiratory/Chest: chest non-tender, lungs clear, normal breath sounds, no respiratory distress, no accessory muscle use Cardiovascular: regular rate, rhythm, no edema, no murmur Extremities: + pertinent finding (trace edema on the R LE) Neurologic/Psychiatric: no motor/sensory deficits, alert, normal mood/affect Laboratory Results Last 24 Hours Test 04/23/17 06:03 04/23/17 07:05 White Blood Count 11.11 K/uL Red Blood Count 5.32 M/uL Hemoglobin 15.2 g/dL Hematocrit 44.8 % Mean Corpuscular Volume 84.2 fL Mean Corpuscular Hemoglobin 28.6 pg Mean Corpuscular Hemoglobin Concent 33.9 g/dl RDW Standard Deviation 41.5 fL RDW Coefficient of Variation 13.6 % Platelet Count 220 K/uL Mean Platelet Volume 9.1 fL Sodium Level 137 mmol/L Potassium Level mmol/L 3.3 mmol/L Chloride Level 104 mmol/L Carbon Dioxide Level 24 mmol/L Anion Gap 9.0 mmol/L Blood Urea Nitrogen 17 mg/dl Creatinine 1.02 mg/dl Est Creatinine Clear Calc Drug Dose 73.1 ml/min Estimated GFR () 72.2 Estimated GFR (Non- 62.3 BUN/Creatinine Ratio 16.9 Random Glucose 93 mg/dl Calcium Level 9.4 mg/dl Assessment and Plan This is a 56 year old female with a PMH of obesity, HTN, HLD, mood disorder, asthma - presents with substernal chest pain Substernal Chest Pain Dyspnea on Exertion 04/23 * chest pain improved after Toradol * patient uses Mobic at home, which we can continue for now - will need to discuss with PCP to stop long-term NSAID use - spoke with patient regarding this * patient also knows about weight loss - she is agreeable to try to see a casino cage cashier as an outpatient * will stop HCTZ on discharge; continue Amlodipine 2.5mg 04/22 * s/p cardiac cath, normal coronary arteries * possible microvascular spasms - amlodipine started * likely d/c home on 04/23 04/21 * unfortunately, cardiac cath could not be performed * plan for cath in AM (04/22) * continue current medications - aspirin, b-candie, Lipitor 04/20 * hx. of hypertension, hyperlipidemia, family hx. of ischemic heart disease * cardiac enzymes negative x3, EKG during rest, no changes noted * patient had a stress test - failed due to chest pain and EKG changes during the test * patient started on aspirin, b-candie, Lipitor * plan for cardiac catheterization on 04/21 - appreciate cardiology input GERD Dysphagia * continue with Protonix * outpatient w/up for dysphagia Asthma * stable, continue home inhaler Dyslipidemia * started on Lipitor Morbid Obesity * counseled on improved diet and weight loss * may need outpatient civil clerk input Mood Disorder * continue current medications DVT ppx * Ambulation FULL CODE
[2017-04-23] MEDS ORDERED: LPT40 PO (12:50)
[2017-04-23] MEDS ORDERED: NRV5 PO (12:50)
[2017-04-23] MEDS ORDERED: NTRSLP4 SL (12:50)
--- NOTE | 2017-04-23 12:56 | Discharge Instructions ---
Discharge Instructions Date of Service Apr 23, 2017. Admission Reason for Admission: Precordial Chest Pain Discharge Discharge Diagnosis / Problem: Chest Pain, likely a combination of reflux and muscle pain Discharge Goals Goal(s): Decrease discomfort, Improve function, Diagnostic testing, Therapeutic intervention Activity Recommendations Activity Limitations: resume your previous activity . Instructions / Follow-Up Instructions / Follow-Up Please follow-up with Dr. Mann on May 03 at 12:45PM * You had a cardiac catheterization - which showed normal coronary arteries * You will be started on Lipitor for cholesterol * You will be started on Amlodipine for blood pressure and possible coronary spasms * Stop taking hydrochlorothiazide (HCTZ) * Discuss with primary care regarding cessation of Mobic * Follow-up with cardiology and gastroenterology as outpatient * You will need to lose weight - exercise 5 times a week for 30 minutes and possibly see a waste collection driver Current Hospital Diet Patient's current hospital diet: AHA Diet (Heart Healthy), Low Lactose Diet Discharge Diet Recommended Diet: AHA Diet (Heart Healthy), Low Lactose Diet Pending Studies Studies pending at discharge: no Laboratory Results Lipid Panel Test 04/20/17 06:36 Range/Units Triglycerides Level 124 0-150 mg/dl Cholesterol Level 192 0-200 mg/dl HDL Cholesterol 50 mg/dl Cholesterol/HDL Ratio 3.8 LDL Cholesterol, Calculated 117 mg/dl Medical Emergencies . Who to Call and When: Medical Emergencies: If at any time you feel your situation is an emergency, please call 911 immediately. . Non-Emergent Contact Non-Emergency issues call your: Primary Care Provider, Cardiopulmonary Technician, Potato Spotter . . "Provider Documentation" section prepared by Louise Baez. .
--- NOTE | 2017-04-23 12:59 | Discharge Summary ---
Discharge Summary Date of Service Apr 23, 2017. Discharge Summary Admission Date: Apr 19, 2017 at 16:42 Discharge Date: Apr 23, 2017 Discharge Disposition: Home Principal Diagnosis: Chest Pain, likely GERD and Musculoskeletal Hypertension Morbid Obesity Depression/Anxiety Medication Reconciliation New Medications: Amlodipine Besylate (Amlodipine Besylate) 5 Mg Tab 2.5 MG PO QAM for 30 Days, #15 TAB Atorvastatin (Lipitor) 40 Mg Tab 40 MG PO QAM for 30 Days, #30 TAB Nitroglycerin (Nitrostat) 0.4 Mg/1 Tab Subl 0.4 MG SL UD PRN for Chest Pain for 10 Days, #10 TABS Continued Medications: Albuterol Hfa (Ventolin Hfa) 200 Puffs/72834 Mcg Aers 2 PUFFS INH Q6H PRN for SOB/Wheezing, INHALER Aspirin (Aspirin Ec) 81 Mg Tab 81 MG PO DAILY Bupropion Hcl (Wellbutrin Sr) 200 Mg Tabcr 200 MG PO BID, #60 Cyanocobalamin (Cyanocobalamin) 1,000 Mcg/Ml Inj 1000 MCG IM MONTHLY Meloxicam (Meloxicam) 15 Mg Tab 7.5 MG PO BID Ondasetron Odt (Zofran Odt) 4 Mg Tab 4 MG SL Q4H PRN for Nausea or Vomiting, TAB Pantoprazole (Protonix) 40 Mg Tab 40 MG PO DAILY Polyethylene Glycol 3350 (Miralax) 1 Pow Pow 17 GM PO DAILY PRN for Constipation, GM Topiramate (Topamax) 50 Mg Tab 50 MG PO BID Trazodone Hcl (Trazodone) 100 Mg Tab 100 MG PO HS, TAB Discontinued Medications: Hydrochlorothiazide (Hctz) 12.5 Mg Cap 12.5 MG PO DAILY, CAP Admission Information HPI (per Admitting provider): 56-year-old female followed by Dr. Mann for Family Medicine. History of asthma, dyslipidemia, and other problems noted below. Strong family history of heart disease. Over the last 2 weeks she has been experiencing chest discomfort and dyspnea with exertion. Notes shortness of breath after climbing a flight of stairs and the dyspnea is sometimes associated with chest tightness. Today she noted more severe substernal chest pressure that occurred at rest; it was sharp and radiated to her back and jaw. She took 2 low-dose aspirin tablets with some relief. History of asthma, but she feels like her pulmonary status is stable. Occasional nonproductive cough. History of suspected GERD treated with pantoprazole. Tried a TUMS a few days ago with some relief of her chest discomfort. Experiencing intermittent dysphagia to solids. Intermittent nausea, no emesis. No melena or hematochezia. Recently experiencing a lot of stress. . Physical Exam (per Admitting): CONSTITUTIONAL vital signs as noted above adult female, obese, no acute distress EYES conjunctivae clear; lids normal pupils equal and reactive to light EARS, NOSE, MOUTH AND THROAT external inspection of ears and nose unremarkable hearing grossly intact to spoken voice oropharynx clear NECK no masses; trachea midline thyroid normal RESPIRATORY normal respiratory effort; no respiratory distress clear to percussion clear to auscultation CARDIOVASCULAR regular rate and rhythm no murmur, gallop, rub appreciated carotid arteries 2/2 abdominal aorta not palpable pedal pulses intact and symmetric capillary refill toes < 2 seconds trace pretibial edema GASTROINTESTINAL normal bowel sounds, soft, nontender; no palpable masses no hepatomegaly or splenomegaly appreciated LYMPHATIC no cervical adenopathy MUSCULOSKELETAL no cyanosis; no digital clubbing no calf tenderness motor strength extremities grossly intact SKIN no rash warm and dry NEUROLOGIC PERRL, EOMI, no facial palsy, no dysarthria, tongue midline patellar DTR's 2/2 PSYCHIATRIC oriented to person, place, time mood and affect appropriate . Hospital Course This is a 56 year old female with a PMH of obesity, HTN, HLD, mood disorder, asthma - presents with substernal chest pain Substernal Chest Pain Dyspnea on Exertion 04/23 * chest pain improved after Toradol * patient uses Mobic at home, which we can continue for now - will need to discuss with PCP to stop long-term NSAID use - spoke with patient regarding this * patient also knows about weight loss - she is agreeable to try to see a historic interpreter as an outpatient * will stop HCTZ on discharge; continue Amlodipine 2.5mg 04/22 * s/p cardiac cath, normal coronary arteries * possible microvascular spasms - amlodipine started * likely d/c home on 04/23 04/21 * unfortunately, cardiac cath could not be performed * plan for cath in AM (04/22) * continue current medications - aspirin, b-candie, Lipitor 04/20 * hx. of hypertension, hyperlipidemia, family hx. of ischemic heart disease * cardiac enzymes negative x3, EKG during rest, no changes noted * patient had a stress test - failed due to chest pain and EKG changes during the test * patient started on aspirin, b-candie, Lipitor * plan for cardiac catheterization on 04/21 - appreciate cardiology input GERD Dysphagia * continue with Protonix * outpatient w/up for dysphagia Asthma * stable, continue home inhaler Dyslipidemia * started on Lipitor Morbid Obesity * counseled on improved diet and weight loss * may need outpatient multi spindle operator input Mood Disorder * continue current medications DVT ppx * Ambulation FULL CODE Total time spent on discharge = 40 minutes This includes examination of the patient, discharge planning, medication reconciliation, and communication with other providers. Discharge Instructions Please follow-up with Dr. Mann on May 03 at 12:45PM * You had a cardiac catheterization - which showed normal coronary arteries * You will be started on Lipitor for cholesterol * You will be started on Amlodipine for blood pressure and possible coronary spasms * Stop taking hydrochlorothiazide (HCTZ) * Discuss with primary care regarding cessation of Mobic * Follow-up with cardiology and gastroenterology as outpatient * You will need to lose weight - exercise 5 times a week for 30 minutes and possibly see a historic interpreter
[2017-04-23 14:41] VITALS: BP 108/68; PULSE 73; TEMP 36.9; O2SAT 93
== END 2017-04-23 15:58 | disposition home or self-care (01) ==
LOC: C.EDB 12:31 → C.MED 16:42 → ENRESERV 17:07 → C.MS2W 04-21 04:20 → ENRESERV 04-22 18:01 → C.2T 04-22 18:24
PROVIDERS: ADMIT Hospitalist; ATTEND Family Medicine
DX: R07.2 Precordial pain (principal); K21.9 Gastro-esophageal reflux disease without esophagitis; J45.909 Unspecified asthma, uncomplicated; E78.5 Hyperlipidemia, unspecified; E66.01 Morbid (severe) obesity due to excess calories; F32.9 Major depressive disorder, single episode, unspecified; Z79.82 Long term (current) use of aspirin; Z87.440 Personal history of urinary (tract) infections; Z80.42 Family history of malignant neoplasm of prostate; Z82.49 Family history of ischemic heart disease and other diseases of the circulatory system; Z83.3 Family history of diabetes mellitus; Z82.3 Family history of stroke; Z91.018 Allergy to other foods; Z91.011 Allergy to milk products; Z90.49 Acquired absence of other specified parts of digestive tract; Z90.710 Acquired absence of both cervix and uterus

== ENCOUNTER → 2017-08-26 | Outpatient (CLI) | payer OTHER ==
[~2017-08-26] MED LIST changes: -CPR/500 PO; -HYDR12.56 PO; +LPT40 PO; -MTR500 PO; +NRV5 PO; +NTRSLP4 SL; +PANT40TA PO
--- NOTE | 2017-08-30 07:43 | MAMMOGRAPHY REPORT ---
BILATERAL DIGITAL SCREENING MAMMOGRAM TOMOSYNTHESIS WITH CAD: 08/26/2017 CLINICAL HISTORY: Asymmetry Routine screening. Patient has no complaints. TECHNIQUE: The study was acquired using full field digital technology and interpreted from soft copy. Breast tomosynthesis in addition to standard 2D mammography was performed. Current study was also ev aluated with a Computer Aided Detection (CAD) system. COMPARISON: Comparison is made to exams dated: 04/07/2016 mammogram, 08/13/2014 mammogram, 06/20/2013 ma mmogram, 03/17/2012 mammogram, 02/24/2010 mammogram, and 08/23/2009 mammogram - [facility]. BREAST COMPOSITION: There are scattered areas of fibroglandular density in both breasts. FINDINGS: No suspicious masses, calcifications, or areas of architectural distortion are noted in either breast . There has been no significant interval change compared to prior exams. Bilateral benign-appearing calcifications are not significantly changed, including a small cluster of calcifications in the righ t upper outer quadrant which are stable compared to multiple prior exams including the 2014 and 2010 exams. IMPRESSION: There is no mammographic evidence of malignancy. A 1 year screening mammogram is recommended.( 019) The patient will receive written notification of the results. Some breast cancers are not detected with mammography. A negative mammographic report should not jewel y biopsy if a clinically suggestive mass is present. Mallory Chamberlain M.D. /:08/26/2017 16:47:42 Soil Chemist: Franny See RT(R)(M), [facility] letter sent: Normal 1/2 BI-RADS Code: ACR BI-RADS Category 2: Benign
== END | disposition home or self-care (01) ==
LOC: C.MAMM 16:09
PROVIDERS: ATTEND Family Medicine
DX: Z12.31 Encounter for screening mammogram for malignant neoplasm of breast (principal)

== ENCOUNTER 2017-09-30 22:52 | Observation (INO) | payer OTHER ==
[~2017-09-30] VITALS: Ht 160 cm; Wt 106.6 kg
[~2017-09-30 22:52] MED LIST changes: -CYNI1000 IM; +CYNI1000 INJ
[2017-09-30] MEDS ORDERED: NITROGLYCERIN 2% OINTMENT 30GM TUBE EXT STA (23:30)
[2017-09-30] MEDS ORDERED: ASPIRIN 81 MG CHEW PO STA (23:30)
--- NOTE | 2017-09-30 23:37 | EMERGENCY ROOM VISIT NOTE ---
History Report prepared by Radha: Jose Juan Flores Under the Supervision of: Dr. Ty Shepherd M.D. First contact with patient: 23:04 Chief Complaint: CARDIAC ASSESSMENT Stated Complaint: CHEST PAIN Nursing Triage Summary: patient c/o chest pain to center of chest described as squeezing pain beginning at 2130. patient states at that time she took one nitro tab at that time with no relief. patient states half an hour later at 2200 she took a second nitro tab and pain went from a 9/10 to a 3/10. patient had her normal baby aspirin this morning. History of Present Illness The patient is a 57 year old female who presents to the Emergency Room with complaints of constant left-sided chest pain beginning this evening. The patient states she was watching TV when her symptoms began. She reports she took nitroglycerin, and it did not help. The patient notes she took another one in route, and it mildly helped her symptoms. She states is it a pinching and squeezing sensation. The patient reports she had mild pain down her left arm, but that has resolved. She notes she was evaluated in April and had a catheterization performed. The patient states she did not need stents placed. She reports a history of chest pain since her catheterization, and it normally goes away with nitroglycerin. The patient notes she follows up with [facility]. She states the last time she ate was around 630-700PM. The patient reports she took aspirin this morning, and she takes it daily. She denies abdominal pain and taking a blood thinner. Source of History: patient Onset: this evening Position: chest (left) Quality: other (pinching and squeezing) Timing: constant Modifying Factors (Relieving): other (nitroglycerin) Associated Symptoms: No abdominal pain Note: Associated symptoms: mild pain down the left arm Review of Systems See HPI for pertinent positives & negatives. A total of 10 systems reviewed and were otherwise negative. Past Medical & Surgical Medical Problems: (1) Asthma (2) CKD (chronic kidney disease), stage III (3) Depression (4) Diverticular disease of colon (5) Dyslipidemia (6) Morbid obesity (7) Nonalcoholic fatty liver disease (8) Osteoarthritis (9) Vitamin B12 deficiency Surgical Problems: (1) Status post cholecystectomy (2) Status post hysterectomy Family History Abdominal aortic aneurysm FATHER Breast cancer SISTER Diabetes mellitus MOTHER GRANDFATHER Heart disease GRANDFATHER GRANDMOTHER Hypertension MOTHER Myocardial infarction FATHER MOTHER Prostate cancer FATHER Stroke MOTHER Social History Smoking Status: Never Smoker Alcohol Use: none Marital Status: Housing Status: lives with family Occupation Status: employed Current/Historical Medications Scheduled Aspirin (Aspirin Ec), 81 MG PO QAM Bupropion Hcl (Wellbutrin Sr), 200 MG PO BID Cyanocobalamin (Cyanocobalamin), 1,000 MCG INJ MONTHLY Hydrochlorothiazide (Hydrochlorothiazide), 12.5 MG PO DAILY Isosorbide Mononitrate (Isosorbide Mononitrate ER), 30 MG PO QAM Nitroglycerin (Nitrostat), 0.4 MG UT PRN Pantoprazole (Protonix), 40 MG PO DAILY Topiramate (Topamax), 50 MG PO BID Trazodone Hcl (Trazodone), 100 MG PO HS Scheduled PRN Albuterol Hfa (Ventolin Hfa), 2 PUFFS INH Q6H PRN for SOB/Wheezing Ondasetron Odt (Zofran Odt), 4 MG SL Q4H PRN for Nausea or Vomiting Allergies Coded Allergies: Chocolate (Verified Allergy, Unknown, GI SYMPTOMS, 04/19/17) Uncoded Allergies: MOST FRUITS (Allergy, Severe, BLOATING,SHARP STOMACH PAINS, 11/22/13) SOY, DAIRY, GLUTEN (Allergy, Severe, GI SYMPTOMS, 11/22/13) ARTIFICIAL SWEETENERS (Allergy, Unknown, unk, 05/01/14) MOST VEGETABLES (Allergy, Unknown, GI SYMPTOMS, 05/01/14) Physical Exam Vital Signs Date Time Temp Pulse Resp B/P (MAP) Pulse Ox O2 Delivery O2 Flow Rate FiO2 10/01/17 02:52 70 18 132/66 95 Room Air 10/01/17 01:39 72 20 127/48 96 Room Air 09/30/17 23:50 79 18 152/75 98 Room Air 09/30/17 23:39 Room Air 09/30/17 23:12 72 09/30/17 22:59 96 Room Air 09/30/17 22:59 36.7 86 18 147/82 96 Room Air Physical Exam GENERAL: Awake, alert, well-appearing, in no acute distress HENT: Normocephalic, atraumatic. Oropharynx unremarkable. EYES: Normal conjunctiva. Sclera non-icteric. NECK: Supple. No nuchal rigidity. FROM. No JVD. RESPIRATORY: Clear to auscultation. CARDIAC: Regular rate, normal rhythm. Extremities warm and well perfused. Pulses equal. ABDOMEN: Soft, non-distended. No tenderness to palpation. No rebound or guarding. No masses. RECTAL: Deferred. MUSCULOSKELETAL: Chest examination reveals no tenderness. The back is symmetrical on inspection without obvious abnormality. There is no CVA tenderness to palpation. No joint edema. LOWER EXTREMITIES: Calves are equal size bilaterally and non-tender. No edema. No discoloration. NEURO: Normal sensorium. No sensory or motor deficits noted. SKIN: No rash or jaundice noted. Medical Decision & Procedures ER Provider Diagnostic Interpretation: X-ray results as stated below per interpretation by me: Chest one view: No pneumothorax, congestion, or pneumonia. Radiology results as stated below per my review and [facility] radiologist interpretation: CTA CHEST: No evidence of pulmonary emboli. No aortica dissection or aneurysm. No acute airspace opacities, pleural effusion, or pneumothorax. Radiologist: Jesi Larose MD Study ready at 0114 and initial results transmitted at 0134 Laboratory Results 09/30/17 23:15 Red Blood Count 5.09, Mean Corpuscular Volume 85.3, Mean Corpuscular Hemoglobin 28.5, Mean Corpuscular Hemoglobin Concent 33.4, Mean Platelet Volume 9.4, Neutrophils (%) (Auto) 60.3, Lymphocytes (%) (Auto) 30.2, Monocytes (%) (Auto) 6.7, Eosinophils (%) (Auto) 2.3, Basophils (%) (Auto) 0.3, Neutrophils # (Auto) 5.63, Lymphocytes # (Auto) 2.81, Monocytes # (Auto) 0.62, Eosinophils # (Auto) 0.21, Basophils # (Auto) 0.03 09/30/17 23:15 Test 09/30/17 23:15 09/30/17 23:45 White Blood Count 9.32 K/uL (4.8-10.8) Red Blood Count 5.09 M/uL (4.2-5.4) Hemoglobin 14.5 g/dL (12.0-16.0) Hematocrit 43.4 % (37-47) Mean Corpuscular Volume 85.3 fL (80-100) Mean Corpuscular Hemoglobin 28.5 pg (25-34) Mean Corpuscular Hemoglobin Concent 33.4 g/dl (32-36) Platelet Count 239 K/uL (130-400) Mean Platelet Volume 9.4 fL (7.4-10.4) Neutrophils (%) (Auto) 60.3 % Lymphocytes (%) (Auto) 30.2 % Monocytes (%) (Auto) 6.7 % Eosinophils (%) (Auto) 2.3 % Basophils (%) (Auto) 0.3 % Neutrophils # (Auto) 5.63 K/uL (1.4-6.5) Lymphocytes # (Auto) 2.81 K/uL (1.2-3.4) Monocytes # (Auto) 0.62 K/uL (0.11-0.59) Eosinophils # (Auto) 0.21 K/uL (0-0.5) Basophils # (Auto) 0.03 K/uL (0-0.2) RDW Standard Deviation 41.5 fL (36.4-46.3) RDW Coefficient of Variation 13.3 % (11.5-14.5) Immature Granulocyte % (Auto) 0.2 % Immature Granulocyte # (Auto) 0.02 K/uL (0.00-0.02) Anion Gap 8.0 mmol/L (3-11) Est Creatinine Clear Calc Drug Dose 70.3 ml/min Estimated GFR () 68.5 Estimated GFR (Non- 59.1 BUN/Creatinine Ratio 13.5 (10-20) Calcium Level 9.2 mg/dl (8.5-10.1) Total Bilirubin 0.5 mg/dl (0.2-1) Direct Bilirubin 0.1 mg/dl (0-0.2) Aspartate Amino Transf (AST/SGOT) 15 U/L (15-37) Alanine Aminotransferase (ALT/SGPT) 22 U/L (12-78) Alkaline Phosphatase 75 U/L (45-117) Total Creatine Kinase 95 U/L (26-192) Creatine Kinase MB 1.5 ng/ml (0.5-3.6) Creatine Kinase MB Ratio 1.6 (0-3.0) Total Protein 8.1 gm/dl (6.4-8.2) Albumin 3.7 gm/dl (3.4-5.0) Lipase 152 U/L (73-393) Bedside D-Dimer > 450 ng/mlFEU (0-450) Labs reviewed by ED physician. Medications Administered Medications (Trade) Dose Ordered Sig/Miugel Ángel Route Start Time Stop Time Status Last Admin Dose Admin Aspirin (Aspirin Chew) 324 mg NOW STAT PO 09/30/17 23:30 09/30/17 23:33 DC 09/30/17 23:48 324 MG Nitroglycerin (Nitroglycerin 2% Oint) 1 inch NOW STAT EXT 09/30/17 23:30 10/01/17 10:36 DC 09/30/17 23:48 1 INCH ECG Per My Interpretation Indication: chest pain Rate (beats per minute): 72 Rhythm: normal sinus Findings: prolonged QT, other (No ST elevation or depression.) Comparison ECG Date: 04/21/17 Change: no significant change ED Course 2326: Past medical records reviewed. The patient was evaluated in room C08. A complete history and physical examination was performed. 2330: Ordered Nitroglycerin 1in EXT, Aspirin 324mg PO 0146: Upon reexamination the patient is resting. I discussed results and treatment plan with the patient. She verbalizes agreement and understanding. The patient will be evaluated for further management. 0212: I spoke with Dr. Barnett from the [facility]. The patient will be evaluated for further management. Medical Decision Differential diagnosis: Etiologies such as cardiac ischemia, aortic dissection, pulmonary embolism, pneumonia, pneumothorax, musculoskeletal, infections, pericarditis, myocarditis , esophageal rupture, gastrointestinal, as well as others were entertained. This is a 57-year-old female who presents emergency department complaining of chest pain. Patient took nitro with relief of the pain. She was therefore given Nitropaste. Repeat examination revealed improvement the patient's symptoms. Patient has normal EKG as well as CK-MB and troponin. I did discuss her case with the hospitalist service who agreed to admit the patient. Patient and family were in agreement with the treatment plan. Medication Reconcilliation Current Medication List: was personally reviewed by me Blood Pressure Screening Patient's blood pressure: Elevated blood pressure Blood pressure disposition: Elevated BP felt to be situational Consults Time Called: 0159 Consulting Physician: Dr. Barnett from the [facility] Returned Call: [address] Barnett from the [facility]. The patient will be evaluated for further management. Impression Primary Impression: Chest pain Scribe Attestation The scribe's documentation has been prepared under my direction and personally reviewed by me in its entirety. I confirm that the note above accurately reflects all work, treatment, procedures, and medical decision making performed by me. Departure Information Dispostion Being Evaluated By Hospitalist Prescriptions Isosorbide Mononitrate (Isosorbide Mononitrate ER) 30 Mg Tabcr 30 MG PO QAM for 30 Days, #30 TABS 3 Refills Prov: Akila Norton M.D. 10/01/17 Topiramate (TOPAMAX) 50 Mg Tab 50 MG PO BID, #30 TAB Prov: Nader Barnett MD 10/01/17 Pantoprazole (Protonix) 40 Mg Tab 40 MG PO DAILY, #30 TAB Prov: Nader Barnett MD 10/01/17 Referrals Bhanu Mann M.D. (PCP) Patient Instructions My [facility] Health Problem Qualifiers Primary Impression: Chest pain Chest pain type: unspecified Qualified Codes: R07.9 - Chest pain, unspecified
[2017-09-30 23:49] LABS: BASO % 0.3 %; BASO ABS # 0.03 K/uL (0-0.2); EOS % 2.3 %; EOS ABS # 0.21 K/uL (0-0.5); HEMATOCRIT 43.4 % (37-47); HEMOGLOBIN 14.5 g/dL (12.0-16.0); IG# 0.02 K/uL (0.00-0.02); LYMPH % 30.2 %; LYMPH ABS # 2.81 K/uL (1.2-3.4); MEAN CELL VOLUME 85.3 fL (80-100); MEAN CORPUSCULAR HEMOGLOBIN 28.5 pg (25-34); MEAN CORPUSCULAR HGB CONC 33.4 g/dl (32-36); MEAN PLATELET VOLUME 9.4 fL (7.4-10.4); MONO % 6.7 %; MONO ABS # 0.62 K/uL (0.11-0.59); NEUT % 60.3 %; NEUT ABS # 5.63 K/uL (1.4-6.5); PLATELET COUNT 239 K/uL (130-400); RED CELL DISTRIBUTION WIDTH CV 13.3 % (11.5-14.5); RED CELL DISTRIBUTION WIDTH SD 41.5 fL (36.4-46.3); WHITE BLOOD COUNT 9.32 K/uL (4.8-10.8)
[2017-10-01] MEDS ORDERED: HYDR12.55 PO (00:02)
[2017-10-01] MEDS ORDERED: NTRGSL/4 UT (00:03)
[2017-10-01 00:12] LABS: ALBUMIN 3.7 gm/dl (3.4-5.0); ALKALINE PHOSPHATASE 75 U/L (45-117); ALT/SGPT 22 U/L (12-78); AST/SGOT 15 U/L (15-37); BLOOD UREA NITROGEN 14 mg/dl (7-18); CALCIUM 9.2 mg/dl (8.5-10.1); CARBON DIOXIDE 30 mmol/L (21-32); CKMB 1.5 ng/ml (0.5-3.6); CREATININE 1.06 mg/dl (0.60-1.20); GLUCOSE 70 mg/dl (70-99); LIPASE 152 U/L (73-393); POTASSIUM 3.3 mmol/L (3.5-5.1); SODIUM 142 mmol/L (136-145); TOTAL PROTEIN 8.1 gm/dl (6.4-8.2)
[2017-10-01] MEDS ORDERED: OPTIRAY 320 IV PRN (00:15)
[2017-10-01] MEDS ORDERED: TOPI50TA24 PO (02:53)
[2017-10-01] MEDS ORDERED: PANT40TA PO (02:53)
[2017-10-01] MEDS ORDERED: POLYETHYLENE (MIRALAX) 17 GM PACK PO PRN (03:00)
[2017-10-01] MEDS ORDERED: ONDANSETRON INJ 2 MG/ML 2 ML VIAL IV PRN (03:00)
[2017-10-01] MEDS ORDERED: NITROGLYCERIN 0.4 MG SL PER TAB CHARGE UT PRN (03:00)
[2017-10-01] MEDS ORDERED: ALUMINUM/MAGNESIUM/SIMETH (MAALOX MAX) 30 ML UDC PO PRN (03:00)
[2017-10-01] MEDS ORDERED: NITROGLYCERIN 0.4 MG SL PER TAB CHARGE SL PRN (03:00)
[2017-10-01] MEDS ORDERED: ALBUTEROL HFA 8 GM INHALER INH PRN (03:00)
[2017-10-01] MEDS ORDERED: MoRPHine SULFATE 2 MG/ML CARP IV PRN (03:00)
[2017-10-01] MEDS ORDERED: ONDANSETRON 4MG OD TAB SL PRN (03:00)
--- NOTE | 2017-10-01 03:54 | HISTORY & PHYSICAL EXAMINATION ---
DATE OF ADMISSION: 10/01/2017 CHIEF COMPLAINT: Chest pain. HISTORY OF PRESENT ILLNESS: This is a 57-year-old female with past medical history significant for asthma, fatty liver, chronic kidney disease stage III, hyperlipidemia, morbid obesity, depression, irritable bowel syndrome, generalized osteoarthritis, presents with chest pain. The patient was here in April with chest pain. At that time, cardiac catheterization showed normal coronaries. Her symptoms were thought to be from microvascular spasms and amlodipine was started and also she was discharged on Lipitor but she is not taking these medications as she did not tolerated them The patient states today around 9 p.m., she noticed chest pain radiating to the right side of the neck and right upper extremity, [id number] in severity, associated with some nausea and she took nitro, did not help her pain and she decided to come to the ER, on the way she took another nitro and that revealed some of the pain. Currently, she has minimal chest tightness. Hemodynamically stable. She wanted to go home, but agreed to stay. She has some headache from nitro. She is always dizzy. No blurred visions. No earache, no difficulty swallowing. No shortness of breath. She always feels hot and cold. Appetite is okay. Normal bowel and bladder movements. She has chronic edema in right lower extremity for whcih she is on hydrochlorothiazide. No erythema seen. ALLERGIES: FLU VACCINES, PNEUMONIA VACCINE AND POLLEN. PAST MEDICAL HISTORY: As mentioned above. PAST SURGICAL HISTORY: Status post cardiac catheterization, , endometrial ablation, partial hysterectomy, cholecystectomy. MEDICATIONS: The patient is on meloxicam 15 mg p.o. daily for pain, trazodone 100 mg p.o. daily, Protonix 40 mg p.o. daily, hydrochlorothiazide 12.5 mg p.o. daily, Topamax 50 mg p.o. b.i.d., nitroglycerin 0.4 mg sublingual p.r.n., Wellbutrin-SR 200 mg p.o. b.i.d., aspirin 81 mg p.o. daily, ProAir 2 puffs p.r.n., Citrucel p.r.n., vitamin B12 1000 mcg shots as directed, Zofran 4 mg p.o. q. 6 hours p.r.n. FAMILY HISTORY: Significant for father had AAA, arthritis, cancer, heart disorder. Mother has dyslipidemia, thyroid disorder, heart disorder, hypertension. SOCIAL HISTORY: . No smoking, no alcohol, no drug use. REVIEW OF SYMPTOMS: As per HPI. Rest of review of symptoms negative. PHYSICAL EXAMINATION: GENERAL: The patient is obese, not in distress. VITAL SIGNS: Temperature 36.7, pulse 70, respiratory rate 18, blood pressure 132/66, oxygen 95% room air. HEENT: No pallor, no icterus. Pupils equal, round, and react to light. NECK: No JVD, no neck masses, no carotid bruits. CARDIOVASCULAR: S1, S2 heard, regular rate and rhythm, no murmur, no gallop. RESPIRATORY SYSTEM: Normal AP diameter. No accessory muscle use. No wheezing, no crackles. ABDOMEN: Soft, bowel sounds present. Nontender. No distention. CENTRAL NERVOUS SYSTEM: Cranial nerves II-XII grossly intact. Nonfocal. EXTREMITIES: Right lower extremity and some mild edema, no erythema seen. LABORATORIES: WBC 9.3, hemoglobin 14.5, hematocrit 43.4, platelets 239. Sodium 142, potassium 3.3, chloride 104, bicarbonate 30, BUN 14, creatinine 1.06, serum glucose 70, calcium 9.2, total bilirubin 0.4, direct bilirubin 0.1, AST 15, ALT 22, alkaline phosphatase 75. Troponin I less than 0.015. Lipase 152. Point of care D-dimer greater than 450. Chest x-ray, no acute findings seen. CT of the chest, no PE, no aortic dissection. unofficial report. EKG: Normal sinus rhythm with rate of 72, no acute ST changes seen. ASSESSMENT AND PLAN: This is a 57-year-old female who presents with chest pain. 1. Chest pain.History of chest pain cardiac catheterization in 04/2017, which showed normal coronaries, thought to be microvascular spasms. She was supposed to be on amlodipine but not taking as it was dropping her blood pressure.. We will follow serial enzymes and EKG. We will consult cardiology in morning and echo as per cardio. Further recommendation as per cardio. We will also follow fasting lipid profile. 2. History of hypertension. Continue hydrochlorothiazide. Monitor the blood pressure. 3. History of chronic kidney stage III. We will follow the labs. 4. History of depression. Continue Wellbutrin. 5. Asthma. Albuterol as-needed. 6. Deep venous thrombosis prophylaxis, sequential compression devices for now. DISPOSITION: Observation tele floor. Expect to discharge home and follow with family doctor. Level 1 full code. MTDD
[2017-10-01 04:10] VITALS: BP 139/85; PULSE 70; TEMP 36.6; O2SAT 95; Ht 160 cm; Wt 106.6 kg
[2017-10-01] MEDS ORDERED: IV FLUIDS COMPLETED PRN (07:00)
[2017-10-01 07:21] VITALS: BP 121/81; PULSE 62; TEMP 36.4; O2SAT 97
--- NOTE | 2017-10-01 07:24 | DIAGNOSTIC IMAGING REPORT ---
(CHEST FOR PE) ANGIO WITH CLINICAL HISTORY: 57 years-old Female presenting with ^Pt c/o chest pain. TECHNIQUE: Multidetector CT angiography of the chest was performed after administration of intravenous contrast. 3-D volumetric and/or maximum intensity projection (MIP) images were subsequently reconstructed for review. IV contrast: 117 mL of Optiray 320. A dose lowering technique was used consistent with the principles of ALARA (as low as reasonably achievable). COMPARISON: 04/19/2017. CT DOSE (mGy.cm): The estimated cumulative dose is 579.39 mGy.cm. FINDINGS: Margarine Maker topogram: Cholecystectomy clips noted. Pulmonary vasculature: The study is adequate for assessment of the pulmonary vascular tree. No filling defect within the pulmonary arteries to suggest embolus. Main pulmonary artery is not enlarged. No flattening of the interventricular septum. No intracardiac filling defect. No reflux of contrast into the hepatic veins. Remaining chest: On soft tissue windows, normal thyroid and thoracic inlet. No axillary, supraclavicular, hilar, or mediastinal lymphadenopathy. Normal aorta. Normal heart size. No pericardial or pleural effusion. Cholecystectomy clips. On lung windows, minimal dependent changes likely atelectasis. Calcified granuloma noted in the left lower lobe. No other focal nodule or infiltrate. Airways patent. No pneumothorax. On bone windows, normal osseous structures. IMPRESSION: 1. No evidence of pulmonary embolus. No acute intrathoracic pathology. Electronically signed by: Ilan Weiss M.D. 10/01/2017 7:22 AM Dictated Date/Time: 10/01/2017 7:17 AM
--- NOTE | 2017-10-01 07:58 | DIAGNOSTIC IMAGING REPORT ---
CHEST ONE VIEW PORTABLE CLINICAL HISTORY: Chest pain. COMPARISON STUDY: Chest radiograph and chest CT April 19, 2017. FINDINGS: Lung volumes are normal. There is no pneumothorax or pleural effusion. There is no evidence for pulmonary edema. No consolidation is identified. Cardiac size is normal. Mediastinal contours are normal. IMPRESSION: No acute cardiopulmonary findings. Electronically signed by: Francisco Keating M.D. 10/01/2017 7:57 AM Dictated Date/Time: 10/01/2017 7:56 AM
[2017-10-01 08:00] VITALS: O2SAT 97
[2017-10-01 08:51] LABS: CHOLESTEROL 178 mg/dl (0-200); LDL CHOLESTEROL CALCULATED 104 mg/dl
[2017-10-01] MEDS ORDERED: TOPIRAMATE 50 MG TAB PO SCH (09:00)
[2017-10-01] MEDS ORDERED: HYDROCHLOROTHIAZIDE 25 MG TAB PO SCH (09:00)
[2017-10-01] MEDS ORDERED: BuPROPion SR 100 MG TABCR PO SCH (09:00)
[2017-10-01] MEDS ORDERED: ASPIRIN 81 MG ECTAB PO SCH (09:00)
[2017-10-01] MEDS ORDERED: PANTOprazole SOD 40 MG TAB PO SCH (09:00)
[2017-10-01] MEDS: ACETAMINOPHEN 325 MG TAB PO PRN ×2 (09:07→15:37)
--- NOTE | 2017-10-01 10:46 | Cardiology Consultation ---
Cardiology Consultation Date of Consultation: Oct 01, 2017 Requesting Physician: Anibal Attending Product Management Internship: Shane (Bc Donahue PA-C) History of Present Illness Mrs. Nicholas is a 57 year old female who is being seen at request of Dr. Barnett. Reason for consultation is chest pain. The patient describes developing chest discomfort last night around 9 PM while sitting watching television. She describes the discomfort as a tightness, stabbing, sharp, digging in type of chest heaviness. She notes letting the symptoms go for approximately 20 minutes then taking one sublingual nitroglycerin at home without benefit. Approximately 20 minutes later she started over the amount from [place] to the [facility] Emergency Room. In route she developed worsening discomfort, taking a second sublingual nitroglycerin with some improvement. She had continued discomfort on presentation that radiated into the right side of her neck and down the right upper extremity. EKG showed no acute changes. Initial troponin was negative. Second troponin was negative. Chest x-ray showed no acute cardiopulmonary findings per radiological interpretation. An elevated d-dimer led to a CT scan of the chest which was negative for PE. The aorta was described as normal with normal heart size and no evidence of pericardial or pleural effusion. She was given aspirin and Nitropaste tehn admitted by Dr. Barnett for further evaluation and treatment. It should be noted that the patient presented to [facility] April 2017 with the same chest discomfort although it was more more severe at that time. Following abnormal stress testing the patient underwent diagnostic cardiac catheterization by Dr. Bernal on April 22, 2017 that revealed angiographically normal coronary arteries with normal left ventricular systolic function, and normal intracardiac pressures. Per documentation, patient experienced right arm discomfort secondary to radial artery spasm. She also experienced transient chest discomfort on initial coronary angiography injections without EKG changes or evidence of obstructive coronary artery disease. Patient discharged from a hospitalization on amlodipine 2.5 mg/day for possible microvascular dysfunction. The patient was unable to tolerate amlodipine 2.5 mg per day, describing feeling as if she were a zombie. She was also advised to take atorvastatin however she was unable to tolerate statin medication due to upset stomach, cramping, and diarrhea. She currently complains of significant headache that she attributes to the Nitropaste. Last night the patient ate ham, green beans, potatoes for dinner. 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 Both of these activities are outside her norm. (Bc Donahue PA-C) Past Medical/Surgical History Problem List: Medical Problems: (1) Asthma (2) CKD (chronic kidney disease), stage III (3) Depression (4) Diverticular disease of colon (5) Dyslipidemia (6) Morbid obesity (7) Nonalcoholic fatty liver disease (8) Osteoarthritis (9) Vitamin B12 deficiency Surgical Problems: (1) Status post cholecystectomy (2) Status post hysterectomy (Bc Donahue PA-C) Family History Abdominal aortic aneurysm FATHER Breast cancer SISTER Diabetes mellitus MOTHER GRANDFATHER Heart disease GRANDFATHER GRANDMOTHER Hypertension MOTHER Myocardial infarction FATHER MOTHER Prostate cancer FATHER Stroke MOTHER The patient's father has a history of CAD, status post GA. He is also status post permanent pacemaker implantation. He passed at the age of 85. Both the patient's mother and paternal grandfather had coronary artery disease. Mother passed at the age of 76. Patient has 1 sister, three 1/2 sisters, and one half brother - all without coronary artery disease. (Bc Donahue PA-C) Abdominal aortic aneurysm FATHER Breast cancer SISTER Diabetes mellitus MOTHER GRANDFATHER Heart disease GRANDFATHER GRANDMOTHER Hypertension MOTHER Myocardial infarction FATHER MOTHER Prostate cancer FATHER Stroke MOTHER (Brayan Lynn, D.O.) Social History Non-smoker. No significant alcohol consumption. No illegal drug use. . Three grown sons, multiple grandchildren. 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 Smoking Status: Never Smoker Marital Status: Housing Status: lives with family Occupation: employed (Bc Donahue PA-C) Review Of Systems Complete review of system is otherwise as stated above, negative, noncontributory. (Bc Donahue PA-C) Allergies Coded Allergies: Chocolate (Verified Allergy, Unknown, GI SYMPTOMS, 04/19/17) Uncoded Allergies: MOST FRUITS (Allergy, Severe, BLOATING,SHARP STOMACH PAINS, 11/22/13) SOY, DAIRY, GLUTEN (Allergy, Severe, GI SYMPTOMS, 11/22/13) ARTIFICIAL SWEETENERS (Allergy, Unknown, unk, 05/01/14) MOST VEGETABLES (Allergy, Unknown, GI SYMPTOMS, 05/01/14) Medications Reported Home Medications Medications Dose Route/Sig Max Daily Dose Days Date Category Dose Instructions Topamax (Topiramate) 50 Mg Tab 50 Mg PO BID 10/01/17 Rx Protonix (Pantoprazole Sodium) 40 Mg Tab 40 Mg PO DAILY 10/01/17 Rx Nitrostat (Nitroglycerin) 0.4 Mg Tab 0.4 Mg UT PRN 10/01/17 Reported NEEDED FOR CHEST PAIN: ONE TABLET UNDER THE TONGUE EVERY 5MINUTES UP TO 3 DOSES. Hydrochlorothiazide 12.5 Mg Tab 12.5 Mg PO DAILY 10/01/17 Reported Trazodone (Trazodone HCl) 100 Mg Tab 100 Mg PO HS 11/19/16 Reported Aspirin Ec (Aspirin) 81 Mg Tab 81 Mg PO QAM 06/29/16 Reported Ventolin Hfa (Albuterol) 200 Puffs/33612 Mcg Aers 2 Puffs INH Q6H PRN 06/29/16 Reported Cyanocobalamin 1,000 Mcg/Ml Inj 1,000 Mcg INJ MONTHLY 12/02/14 Reported Zofran Odt (Ondansetron HCl) 4 Mg Tab 4 Mg SL Q4H PRN 12/02/14 Reported Wellbutrin Sr (Bupropion Hcl) 200 Mg Tabcr 200 Mg PO BID 04/09/14 Reported (Bc Donahue PA-C) Physical Exam Vital Signs (Last 8hrs): Last 8 Hrs Date Time Temp Pulse Resp B/P (MAP) Pulse Ox O2 Delivery O2 Flow Rate FiO2 10/01/17 07:21 36.4 62 18 121/81 (94) 97 Room Air 10/01/17 04:10 36.6 70 18 139/85 95 Room Air 10/01/17 04:07 69 15 161/71 97 10/01/17 03:12 69 10/01/17 02:52 70 18 132/66 95 Room Air General: Alert and Oriented x3. NAD. Elevated BMI HEENT: Normocephalic Atraumatic. PER, EOMI, conjunctiva and sclera clear Neck: Supple. No carotid bruits. No JVD. No HJD. Respiratory: No w/r/r. Cardiovascular: Reg rate and rhythm. S1 and S2 noted. No murmurs, rubs, gallops. PMI non displace. Abdomen: Normal bowel sounds, soft nontender. no abdominal bruits. Extremities: No edema, no clubbing or cyanosis. distal pulses 2/4 bilaterally. Neuro: No focal deficits. Psychiatric: Normal affect. (Bc Donahue, DANIELA) Data Last 24 Hours Test 09/30/17 23:15 09/30/17 23:45 10/01/17 07:45 White Blood Count 9.32 K/uL Red Blood Count 5.09 M/uL Hemoglobin 14.5 g/dL Hematocrit 43.4 % Mean Corpuscular Volume 85.3 fL Mean Corpuscular Hemoglobin 28.5 pg Mean Corpuscular Hemoglobin Concent 33.4 g/dl Platelet Count 239 K/uL Mean Platelet Volume 9.4 fL Neutrophils (%) (Auto) 60.3 % Lymphocytes (%) (Auto) 30.2 % Monocytes (%) (Auto) 6.7 % Eosinophils (%) (Auto) 2.3 % Basophils (%) (Auto) 0.3 % Neutrophils # (Auto) 5.63 K/uL Lymphocytes # (Auto) 2.81 K/uL Monocytes # (Auto) 0.62 K/uL Eosinophils # (Auto) 0.21 K/uL Basophils # (Auto) 0.03 K/uL RDW Standard Deviation 41.5 fL RDW Coefficient of Variation 13.3 % Immature Granulocyte % (Auto) 0.2 % Immature Granulocyte # (Auto) 0.02 K/uL Sodium Level 142 mmol/L Potassium Level 3.3 mmol/L Chloride Level 104 mmol/L Carbon Dioxide Level 30 mmol/L Anion Gap 8.0 mmol/L Blood Urea Nitrogen 14 mg/dl Creatinine 1.06 mg/dl Est Creatinine Clear Calc Drug Dose 70.3 ml/min Estimated GFR () 68.5 Estimated GFR (Non- 59.1 BUN/Creatinine Ratio 13.5 Random Glucose 70 mg/dl Calcium Level 9.2 mg/dl Total Bilirubin 0.5 mg/dl Direct Bilirubin 0.1 mg/dl Aspartate Amino Transf (AST/SGOT) 15 U/L Alanine Aminotransferase (ALT/SGPT) 22 U/L Alkaline Phosphatase 75 U/L Total Creatine Kinase 95 U/L Creatine Kinase MB 1.5 ng/ml Creatine Kinase MB Ratio 1.6 Troponin I < 0.015 ng/ml < 0.015 ng/ml Total Protein 8.1 gm/dl Albumin 3.7 gm/dl Lipase 152 U/L Bedside D-Dimer > 450 ng/mlFEU Triglycerides Level 147 mg/dl Cholesterol Level 178 mg/dl HDL Cholesterol 45 mg/dl LDL Cholesterol, Calculated 104 mg/dl VLDL Cholesterol, Calculated 29 mg/dl Cholesterol/HDL Ratio 4.0 Hepatitis C Antibody Screen NEG EKG revealed sinus bradycardia with sinus arrhythmia, nonspecific ST-T wave abnormality. QTc was 463 ms. When compared to prior EKG from April 21, 2017 there was no significant change. Continuous telemetry monitoring reveals sinus in the 60-70's. No significant atrial or ventricular arrhythmias observed. (Bc Donahue PA-C) Assessment & Plan Atypical chest discomfort suggestive of noncardiac etiology. EKG without acute change. Cardiac enzymes negative 2. Resting echocardiography pending. Continue aspirin 81 mg per day. Retry statin. Trial Imdur 30 mg/day given the possibility of microvascular dysfunction and inability to tolerate low-dose amlodipine. Resting bradycardia will not allow for AV alma candie therapy at this point. Aggressive risk factor modification recommended. Outpatient cardiology follow-up in [place]. (Bc Donahue PA-C) Pt seen and examined, agree with findings and assessment as per Bc Hall. Musculoskeletal chest pain after attempting to start a pull mower. EKG, enzymes and echocardiogram all unremarkable with a recent cardiac cath showing normal coronaries. Ok to d/c to home from cardiac standpoint. (Brayan Lynn, Markell.O.)
[2017-10-01 11:17] VITALS: BP 125/81; PULSE 58; TEMP 36.9; O2SAT 97
[2017-10-01] MEDS ORDERED: PNEUMOCOCCAL POLYSACCHARIDES 25 MCG/0.5 ML VIAL/SYR IM. ONE (12:45)
[2017-10-01] MEDS ORDERED: PNEUMOCOCCAL ADMINISTRATION CHARGE ONE (12:45)
[2017-10-01] MEDS ORDERED: POTASSIUM CHLORIDE 20 MEQ TABCR PO ONE (13:00)
--- NOTE | 2017-10-01 15:04 | ECHOCARDIOGRAM REPORT ---
*NOTICE TO RECEIVING CONSTITUTION PARTY AGENCY This information is strictly Confidential and protected under [place] law. [place] law prohibits you from making any further disclosure of this information unless further disclosure is expressly permitted by the written consent of the person to whom it pertains or is authorized by law. A general authorization for the release of medical or other information is not sufficient for this purpose. Hospital accepts no responsibility if the information is made available to any other person, INCLUDING THE PATIENT. Interpretation Summary * Name: SHAYY SANCHEZ Study Date: 10/01/2017 01:42 PM BP: 121/81 mmHg * Patient Location: [facility]\S\N279\S\1 HR: 68 * : 1960 (M/d/yyyy) Gender: Female Height: 63 in * Age: 57 yrs Ethnicity: CA Weight: 235 lb * Ordering Physician: Bc Donahue * Referring Physician: Self, Referred * Performed By: Tracey Marin [facility] * * Reason For Study: CHEST PAIN * BSA: 2.1 m2 * -- Conclusions -- * Limited study for wall motion. * Normal LV chamber size wth mild concentric LVH. * Normal LV systolic function, EF 60-65%. * No segmental left ventricular wall motion abnormalities are noted. Procedure Details * Limited views were obtained. Left Ventricle * The left ventricle is normal in size. * There is mild concentric left ventricular hypertrophy. * Left ventricular systolic function is normal. * No segmental left ventricular wall motion abnormalities are noted. * Ejection Fraction = 60-65%. * The left ventricular wall motion is normal. Right Ventricle * The right ventricular cavity size is normal (basal dimension <4.2 cm in right ventricular apical 4-chamber view). * The right ventricular systolic function is normal as assessed by tricuspid annular plane systolic excursion (TAPSE) (normal >1.5 cm). Atria * The left atrial size is normal. * Right atrial size is normal. * No ASD detected; PFO is not assessed. MMode 2D Measurements and Calculations IVSd 1.4 cm IVSs 1.6 cm LVIDd 4.7 cm LVIDs 3.2 cm LVPWd 1.3 cm LVPWs 1.7 cm IVS/LVPW 1.1 FS 31.8 % EDV(Teich) 100.4 ml ESV(Teich) 40.3 ml EF(Teich) 59.9 % EDV(cubed) 101.2 ml ESV(cubed) 32.1 ml EF(cubed) 68.3 % % IVS thick 9.8 % % LVPW thick 31.7 % LV mass(C)d 251.4 grams LV mass(C)dI 121.4 grams/m\S\2 LV mass(C)s 197.6 grams LV mass(C)sI 95.4 grams/m\S\2 SV(Teich) 60.1 ml SI(Teich) 29.0 ml/m\S\2 SV(cubed) 69.1 ml SI(cubed) 33.4 ml/m\S\2 Ao root diam 2.8 cm Ao root area 6.4 cm\S\2 LA dimension 4.0 cm LA/Ao 1.4 LVOT diam 1.9 cm LVOT area 2.8 cm\S\2 LVAd ap4 29.1 cm\S\2 LVLd ap4 7.5 cm EDV(MOD-sp4) 91.9 ml EDV(sp4-el) 96.6 ml LVAs ap4 16.3 cm\S\2 LVLs ap4 5.7 cm ESV(MOD-sp4) 39.9 ml ESV(sp4-el) 39.6 ml EF(MOD-sp4) 56.6 % EF(sp4-el) 59.0 % LVAd ap2 30.8 cm\S\2 LVLd ap2 7.4 cm EDV(MOD-sp2) 104.6 ml EDV(sp2-el) 108.8 ml LVAs ap2 17.2 cm\S\2 LVLs ap2 6.0 cm ESV(MOD-sp2) 40.1 ml ESV(sp2-el) 42.1 ml EF(MOD-sp2) 61.7 % EF(sp2-el) 61.3 % LVLd %diff -0.75 % EDV(MOD-bp) 98.4 ml LVLs %diff 4.4 % ESV(MOD-bp) 40.8 ml EF(MOD-bp) 58.6 % SV(MOD-sp4) 52.0 ml SI(MOD-sp4) 25.1 ml/m\S\2 SV(MOD-sp2) 64.6 ml SI(MOD-sp2) 31.2 ml/m\S\2 SV(MOD-bp) 57.7 ml SI(MOD-bp) 27.9 ml/m\S\2 SV(sp4-el) 57.0 ml SI(sp4-el) 27.5 ml/m\S\2 SV(sp2-el) 66.7 ml SI(sp2-el) 32.2 ml/m\S\2
[2017-10-01 15:58] VITALS: BP 139/87; PULSE 61; TEMP 37; O2SAT 91
[2017-10-01] MEDS ORDERED: IMDSR30 PO (17:58)
--- NOTE | 2017-10-01 17:58 | Discharge Instructions ---
Discharge Instructions Date of Service Oct 01, 2017. Admission Reason for Admission: Chest Pain Discharge Discharge Diagnosis / Problem: CHEST PAIN /NON CARDIAC Discharge Goals Goal(s): Decrease discomfort, Improve function, Increase independence, Improve disease control, Diagnostic testing Activity Recommendations Activity Limitations: resume your previous activity . Instructions / Follow-Up Instructions / Follow-Up HOSPITAL FOLLOW UP : 10/07/2017 10:40 AM Daylin Crump, [address], [place] Current Hospital Diet Patient's current hospital diet: AHA Diet (Heart Healthy), Low Sodium Diet (2gm Na) Discharge Diet Recommended Diet: AHA Diet (Heart Healthy), Low Sodium Diet (2gm Na) Pending Studies Studies pending at discharge: no Laboratory Results Lipid Panel Test 10/01/17 07:45 Range/Units Triglycerides Level 147 0-150 mg/dl Cholesterol Level 178 0-200 mg/dl HDL Cholesterol 45 mg/dl Cholesterol/HDL Ratio 4.0 LDL Cholesterol, Calculated 104 mg/dl Medical Emergencies . Who to Call and When: Medical Emergencies: If at any time you feel your situation is an emergency, please call 911 immediately. . Non-Emergent Contact Non-Emergency issues call your: Primary Care Provider . . "Provider Documentation" section prepared by Akila Norton. .
--- NOTE | 2017-10-01 18:03 | Discharge Summary ---
Discharge Summary Date of Service Oct 01, 2017. Discharge Summary Admission Date: Oct 01, 2017 at 02:52 Discharge Date: Oct 01, 2017 Discharge Disposition: Home Principal Diagnosis: CHEST PAIN /NON CARDIAC Procedures: ECHO : Limited study for wall motion. * Normal LV chamber size wth mild concentric LVH. * Normal LV systolic function, EF 60-65%. * No segmental left ventricular wall motion abnormalities are noted. Consultations: [facility] Medication Reconciliation New Medications: Isosorbide Mononitrate (Isosorbide Mononitrate ER) 30 Mg Tabcr 30 MG PO QAM for 30 Days, #30 TABS 3 Refills Continued Medications: Albuterol Hfa (Ventolin Hfa) 200 Puffs/45400 Mcg Aers 2 PUFFS INH Q6H PRN for SOB/Wheezing, INHALER Aspirin (Aspirin Ec) 81 Mg Tab 81 MG PO QAM Bupropion Hcl (Wellbutrin Sr) 200 Mg Tabcr 200 MG PO BID Cyanocobalamin (Cyanocobalamin) 1,000 Mcg/Ml Inj 1000 MCG INJ MONTHLY Hydrochlorothiazide (Hydrochlorothiazide) 12.5 Mg Tab 12.5 MG PO DAILY, TAB Nitroglycerin (Nitrostat) 0.4 Mg Tab 0.4 MG UT PRN, BTL NEEDED FOR CHEST PAIN: ONE TABLET UNDER THE TONGUE EVERY 5MINUTES UP TO 3 DOSES. Ondasetron Odt (Zofran Odt) 4 Mg Tab 4 MG SL Q4H PRN for Nausea or Vomiting, TAB Pantoprazole (Protonix) 40 Mg Tab 40 MG PO DAILY, #30 TAB Topiramate (Topamax) 50 Mg Tab 50 MG PO BID, #30 TAB Trazodone Hcl (Trazodone) 100 Mg Tab 100 MG PO HS, TAB Admission Information HPI (per Admitting provider): DATE OF ADMISSION: 10/01/2017 CHIEF COMPLAINT: Chest pain. HISTORY OF PRESENT ILLNESS: This is a 57-year-old female with past medical history significant for asthma, fatty liver, chronic kidney disease stage III, hyperlipidemia, morbid obesity, depression, irritable bowel syndrome, generalized osteoarthritis, presents with chest pain. The patient was here in April with chest pain. At that time, cardiac catheterization showed normal coronaries. Her symptoms were thought to be from microvascular spasms and amlodipine was started and also she was discharged on Lipitor but she is not taking these medications as she did not tolerated them The patient states today around 9 p.m., she noticed chest pain radiating to the right side of the neck and right upper extremity, [id number] in severity, associated with some nausea and she took nitro, did not help her pain and she decided to come to the ER, on the way she took another nitro and that revealed some of the pain. Currently, she has minimal chest tightness. Hemodynamically stable. She wanted to go home, but agreed to stay. She has some headache from nitro. She is always dizzy. No blurred visions. No earache, no difficulty swallowing. No shortness of breath. She always feels hot and cold. Appetite is okay. Normal bowel and bladder movements. She has chronic edema in right lower extremity for whcih she is on hydrochlorothiazide. No erythema seen. ALLERGIES: FLU VACCINES, PNEUMONIA VACCINE AND POLLEN. PAST MEDICAL HISTORY: As mentioned above. PAST SURGICAL HISTORY: Status post cardiac catheterization, , endometrial ablation, partial hysterectomy, cholecystectomy. MEDICATIONS: The patient is on meloxicam 15 mg p.o. daily for pain, trazodone 100 mg p.o. daily, Protonix 40 mg p.o. daily, hydrochlorothiazide 12.5 mg p.o. daily, Topamax 50 mg p.o. b.i.d., nitroglycerin 0.4 mg sublingual p.r.n., Wellbutrin-SR 200 mg p.o. b.i.d., aspirin 81 mg p.o. daily, ProAir 2 puffs p.r.n., Citrucel p.r.n., vitamin B12 1000 mcg shots as directed, Zofran 4 mg p.o. q. 6 hours p.r.n. FAMILY HISTORY: Significant for father had AAA, arthritis, cancer, heart disorder. Mother has dyslipidemia, thyroid disorder, heart disorder, hypertension. SOCIAL HISTORY: . No smoking, no alcohol, no drug use. Physical Exam (per Admitting): REVIEW OF SYMPTOMS: As per HPI. Rest of review of symptoms negative. PHYSICAL EXAMINATION: GENERAL: The patient is obese, not in distress. VITAL SIGNS: Temperature 36.7, pulse 70, respiratory rate 18, blood pressure 132/66, oxygen 95% room air. HEENT: No pallor, no icterus. Pupils equal, round, and react to light. NECK: No JVD, no neck masses, no carotid bruits. CARDIOVASCULAR: S1, S2 heard, regular rate and rhythm, no murmur, no gallop. RESPIRATORY SYSTEM: Normal AP diameter. No accessory muscle use. No wheezing, no crackles. ABDOMEN: Soft, bowel sounds present. Nontender. No distention. CENTRAL NERVOUS SYSTEM: Cranial nerves II-XII grossly intact. Nonfocal. EXTREMITIES: Right lower extremity and some mild edema, no erythema seen. Hospital Course No complaint of chest pain or shortness of breath Denies of any syncope or palpitation Blood pressure stable Physical exam: General: No sign of distress comfortable HEENT: Sclera nonicteric, pupils bilateral equal reactive to light extraocular muscle intact Lungs: Clear to auscultate no wheeze or rales Abdomen: Soft nontender, active bowel sounds Extremity: No lower extremity edema, no calf tenderness no rash neuro: No focal neurological deficit Date Time Temp Pulse Resp B/P (MAP) Pulse Ox O2 Delivery O2 Flow Rate FiO2 10/01/17 18:24 37.0 61 18 91 Room Air 10/01/17 15:58 37.0 61 18 139/87 (104) 91 Room Air 10/01/17 15:45 Room Air . CHEST PAIN/ NONCARDIAC/NO EVIDENCE OF ACUTE CORONARY EVENT The patient presented with chest heaviness, central chest discomfort as tightness Symptoms lasted for approximately 20 minutes, with no relief with sublingual nitro her symptoms was resolved after arriving to ER Twelve-lead EKG showed no acute change, Serial cardiac markers negative chest x-ray shows no acute cardiopulmonary findings Patient had elevated d-dimer CT chest with contrast was negative for PE -Appreciate input from cardiology patient was admitted At [facility] on 04/2017 with similar symptoms Following abnormal cardiac stress test, underwent diagnostic cardiac cath by Dr. Finnegan on 04/22/2017 Showed angiographically normal coronary arteries with normal left ventricular systolic function, normal in intracardiac pressure. Patient was intolerant with trial of 2.5 mg of Norvasc in past/caused frequent hypotensive episodes Cardiology started him to 30 mg p.o. daily For possible microvascular dysfunction causing intermittent chest discomfort/ angina patient had no adverse side effect from Imdur 30 mg daily Patient will continue with aspirin 81 mg daily Per cardiology patient is stable to be discharged home HYPERTENSION: Blood pressure stable, CKD STAGE III: Renal function at baseline CODE STATUS: Full code DVT prophylaxis: Low risk SCD and teds, ambulate DISPOSITION: Stable to be discharged home today Discharge Instructions Discharge Instructions Date of Service Oct 01, 2017. Admission Reason for Admission: Chest Pain Discharge Discharge Diagnosis / Problem: CHEST PAIN /NON CARDIAC Discharge Goals Goal(s): Decrease discomfort, Improve function, Increase independence, Improve disease control, Diagnostic testing Activity Recommendations Activity Limitations: resume your previous activity . Instructions / Follow-Up Instructions / Follow-Up HOSPITAL FOLLOW UP : 10/07/2017 10:40 AM Daylin Crump [address], [place] Current Hospital Diet Patient's current hospital diet: AHA Diet (Heart Healthy), Low Sodium Diet (2gm Na) Discharge Diet Recommended Diet: AHA Diet (Heart Healthy), Low Sodium Diet (2gm Na) Pending Studies Studies pending at discharge: no Laboratory Results Lipid Panel Test 10/01/17 07:45 Range/Units Triglycerides Level 147 0-150 mg/dl Cholesterol Level 178 0-200 mg/dl HDL Cholesterol 45 mg/dl Cholesterol/HDL Ratio 4.0 LDL Cholesterol, Calculated 104 mg/dl Medical Emergencies . Who to Call and When: Medical Emergencies: If at any time you feel your situation is an emergency, please call 911 immediately. . Non-Emergent Contact Non-Emergency issues call your: Primary Care Provider . . "Provider Documentation" section prepared by Akila Norton. .
[2017-10-01 18:24] VITALS: BP 139/87; PULSE 61; TEMP 37; O2SAT 91
[2017-10-01] MEDS ORDERED: TRAZODONE HCL 100 MG TAB PO SCH (21:00)
[2017-10-02] MEDS ORDERED: ISOSORBIDE MONONITRATE 30 MG TABCR PO SCH (09:00)
== END 2017-10-01 18:59 | disposition home or self-care (01) ==
LOC: C.EDB 22:53 → C.MED 10-01 02:52 → ENRESERV 10-01 03:52
PROVIDERS: ADMIT Internal Medicine; ATTEND Hospitalist
DX: R07.89 Other chest pain (principal); Z79.82 Long term (current) use of aspirin; Z79.899 Other long term (current) drug therapy; Z88.7 Allergy status to serum and vaccine; N18.3 Chronic kidney disease, stage 3 (moderate); F32.9 Major depressive disorder, single episode, unspecified; E78.5 Hyperlipidemia, unspecified; J45.909 Unspecified asthma, uncomplicated; E66.01 Morbid (severe) obesity due to excess calories; M19.90 Unspecified osteoarthritis, unspecified site; Z82.49 Family history of ischemic heart disease and other diseases of the circulatory system

== ENCOUNTER 2021-09-17 10:49 | Observation (INO) ==
[2021-09-17 12:02] LABS: Basophils # (auto) 0.06 K/uL (0-0.2); Basophils % (auto) 0.6 %; Eosinophils # (auto) 0.11 K/uL (0-0.50); Eosinophils % (auto) 1.1 %; Hematocrit (blood only) 43.8 % (34.1-44.9); Hemoglobin 14.5 g/dl (12.0-16.0); Immature Granulocytes # (auto) 0.04 K/uL (0.00-0.02); Immature Granulocytes % (auto) 0.4 %; Lymphocytes # (auto) 2.15 K/uL (1.2-3.4); Lymphocytes % (auto) 22.4 %; Mean Corpuscular Hemoglobin 27.8 pg (25.0-34.0); Mean Corpuscular Hgb Conc 33.1 g/dL (32.0-36.0); Mean Corpuscular Volume 83.9 fL (80.0-100.0); Mean Platelet Volume 9.4 fL (9.4-12.3); Monocytes # (auto) 0.56 K/uL (0.24-0.82); Monocytes % (auto) 5.8 %; Neutrophils # (auto) 6.68 K/uL (1.4-6.5); Neutrophils % (auto) 69.7 %; Platelet Count 304 K/uL (130-400); RDW Coefficient of Variation 13.6 % (11.5-14.5); RDW Standard Deviation 41.7 fL (36.4-46.3); Red Blood Count 5.22 M/uL (3.93-5.22)
[2021-09-17 12:14] LABS: Partial Thromboplastin Ratio 0.9; Prothrombin Time 10.9 Seconds (9.0-12.0)
[2021-09-17 12:34] LABS: Albumin Globulin Ratio 1.1 (0.9-2); Albumin Level 4.2 gm/dl (3.4-5.0); BUN Creatinine Ratio 20.7 (10-20); Bilirubin,Total 0.8 mg/dl (0.2-1.0); Calcium 9.6 mg/dl (8.5-10.1); Creatinine Clr Calc Pharmacy 83.8 ml/min; Est GFR (African American) 84.5 ml/min; Est GFR (Non-African American) 72.9 ml/min; Globulin 3.7 gm/dl (2.5-4.0); Potassium 3.5 mmol/L (3.5-5.1); Total Protein 7.9 gm/dl (6.0-8.3)
[2021-09-17 12:35] LABS: Troponin I High Sensitivity 4.9 pg/ml (0-14)
--- NOTE | 2021-09-17 13:08 | XRay Report ---
XR chest 1V portable CLINICAL HISTORY: chest pain. COMPARISON STUDY: 08/22/2018 TECHNIQUE: 1 view of the chest FINDINGS: Single frontal view of the chest demonstrates the cardiomediastinal silhouette to be within normal li mits. The lungs are clear of alveolar opacities. There is no evidence for pleural effusion. There is no evidence for vascular congestion. There is no acute osseous pathology. IMPRESSION: 1. No acute cardiopulmonary disease. ACT 112: Negative or not required by law. Electronically signed by: Fredy Ramirez M.D. 09/17/2021 1:06 PM
[2021-09-17] MEDS ORDERED: NITROGLYCERIN 2% OINTMENT 30GM TUBE EXT STA (13:10)
[2021-09-17] MEDS ORDERED: NITROGLYCERIN SL 0.4 MG/TAB TAB SL STA (13:10)
--- NOTE | 2021-09-17 13:45 | History & Physical Report ---
Date of Service September 17, 2021 Assessment & Plan (1) Chest pain: (2) Abnormal ECG: (3) HTN (hypertension): (4) Dyslipidemia: (5) Morbid obesity with BMI of 40.0-44.9, adult: Plan This is a 61-year-old female who has a significant past medical history of HTN, HLD, asthma, obesity, PEREZ, vitamin B12 and D deficiency, IBS, CKD stage III, essential tremor, depression who presents to ED secondary to chest pain off and on for the past 2 days. Pt presents to ED w/ cc: of CP off and on past 2 days. This is a similar presentation to 2018 when she required cardiac cath and was dx with coronary vasospasm. Recent URI illness 2 weeks ago. Also weight gain of 10lb over last 2 months that resolved with increasing HCTZ to 2 pills daily. Still has mild swelling. Initial trop negative. Initial ecg with 0.5mm ST depression in V4-5, this mostly resolved on repeat ecg during my eval ~ 1430 after receiving nitro paste and additional SL ntg. Sx not associated with SOB, OVIEDO, Palpitations, diaphoresis or nausea. Denies inspiratory sx. Admit for further ACS r/o. Chest Pain Abnormal ECG admit to PCU cycle trops, obtain echo obtain bnp given pt hx of recent weight gain, nonpitting lower ext edema repeat ecg will continue nitropaste for now consult cardiology to determine if pt would benefit from repeat angiography vs. stress test (prior stress echo showed small anteroseptal wall motion abnormality which prompted cath) has previously hospitalization x 2 in 2018 for similar sx, trialed imdur and amlodipine at the time and didn't tolerate so discontinued Doubt PE given lack of hypoxia, sob, tachycardia obtain b/l lower ext dopplers if ACS r/o and continues to have chest discomfort could consider CTA sx are not reproducible; however over last 2 days she has been doing a lot of heavy cleaning a1c, lipid panel in a.m. will make npo after midnight HTN bp above ideal in ED will continue to monitor on hctz HLD continue atorvastatin CKD-3 pt has dx in Epic; however renal function good today will monitor Depression recently d/c wellbutrin due to muscle pains and start escitalopram feels this has really improved this and working well so far DVT ppx: SQ Lovenox Dispo: PCU, ACS r/o FULL CODE PCP: Alisia Pt was seen and examined in collaboration with History of Present Illness Chief Complaint: Chest pain x 1 day. Primary Care Provider: Daylin Crump DO This is a 61-year-old female who has a significant past medical history of HTN, HLD, asthma, obesity, PEREZ, vitamin B12 and D deficiency, IBS, CKD stage III, essential tremor, depression who presents to ED secondary to chest pain off and on for the past 2 days. Symptoms started on Wednesday evening. She states Wednesday she spent most of the day cleaning. In the evening when she was resting she developed a substernal chest pressure. The pressure would occasionally radiate to her shoulder blades. Symptoms would last several minutes and then resolve on their own. It was not made better or worse with deep breathing or movement. It is not reproducible with movement. Symptoms would come and go the past 2 days. They would occur both at rest and with exertion. She states yesterday when she was doing cleaning and going up and down stairs several times she would notice the chest pressure. She did not think much of it as she had a lot to do. This morning when she was getting ready to go to her shop the chest pressure started again and this time becoming more intense. She started driving to her shop when she turned around to come home to take nitro. She took a total of 4 nitro. The nitro was a-year-old, but the fourth 1 did give her some relief. She states when she would take a nitro it would improve her symptoms but then come right back. She also reports over the last 2 months having approximately a 10 pound weight gain. She doubled up on her hydrochlorothiazide because of this and states she was able to lose the 10 pounds. She still has increased swelling to her lower extremities. When her symptoms come on she denies any shortness of breath, OVIEDO, hemoptysis, lightheadedness, dizziness, syncope, nausea or vomiting. When walking back from the waiting room when she stood up she did get a little lightheaded. She occasionally does have dizziness, lightheadedness and nausea on a regular basis, but feels this was unchanged. Her appetite is otherwise been normal. She did have a recent respiratory illness approximately 2 weeks ago with sinus congestion and cough. This has since resolved. She took 2 at home COVID test which were negative. Of significance in 2018 patient had a similar presentation with chest pain. She underwent cardiac catheterization which showed normal coronary arteries. It was felt she was suffering from vasospasm. At that time she was started on Imdur but did not tolerate this medication and had since discontinued it. They also trialed her on amlodipine, but this was also discontinued due to hypotension. She does have family history with father having DC in his 70s and mother deceasing of DC at the age of 75. She does have coronary artery disease on her maternal family side. Her maternal grandfather had CAD and CHF. She denies any tobacco use or significant alcohol use. In ED patient made hemodynamically stable. Her blood pressure was elevated 147/86. Her CBC and CMP was completely unremarkable. Her initial troponin was normal. Her EKG did show subtle nonspecific ST and T wave changes in leads V4 and V5. She was started on Nitropaste as well as additional sublingual nitro in ED. Currently she is chest pain-free. Allergies Allergy/AdvReac Type Severity Reaction Status Date / Time chocolate flavor Allergy Intermediate GI SYMPTOMS Verified 12/30/18 16:06 ARTIFICIAL SWEETENERS Allergy Severe HEADACHE, Uncoded 12/30/18 16:06 GI SYMPTOMS SOY, DAIRY, GLUTEN Allergy Severe GI SYMPTOMS Uncoded 12/30/18 16:06 MOST FRUITS Allergy Intermediate BLOATING,SHARP Uncoded 12/30/18 16:06 STOMACH PAINS MOST VEGETABLES Allergy Intermediate GI SYMPTOMS Uncoded 12/30/18 16:06 Home Medications Medication Instructions Recorded Confirmed Type albuterol sulfate 90 mcg/actuation 2 puff inhalation Q6H PRN Wheezing 08/22/18 09/17/21 History aerosol inhaler aspirin 81 mg tablet,delayed 81 mg PO HS 08/22/18 09/17/21 History release (Laila Low Dose Aspirin) cyanocobalamin (vitamin B-12) 1,000 mcg subcut MONTHLY 08/22/18 09/17/21 History 1,000 mcg/mL injection solution hydrochlorothiazide 25 mg tablet 25 mg PO DAILY 08/22/18 09/17/21 History nitroglycerin 0.4 mg sublingual 0.4 mg sublingual UD 08/22/18 09/17/21 History tablet ondansetron 4 mg disintegrating 4 mg PO Q4H PRN Nausea 08/22/18 09/17/21 History tablet trazodone 100 mg tablet 100 mg PO HS 08/22/18 09/17/21 History escitalopram oxalate 10 mg tablet 5 mg PO HS 09/17/21 09/17/21 History Past Med/Surg History Medical History Asthma CKD (chronic kidney disease), stage III Depression Diverticular disease of colon Dyslipidemia HTN (hypertension) Morbid obesity Nonalcoholic fatty liver disease Osteoarthritis Surgical History Hx of cholecystectomy Status post cholecystectomy Status post hysterectomy Family History Other Cancer Diabetes Gallbladder disease Heart disease Hypertension Social History Smoking Status: Unknown if ever smoked Hx Alcohol Use: No Hx Substance Use: No Preferred Language: Latvian Communication Ability: Effective Green Feed Attendant Required: Yes Beliefs That Will Affect Care: None marital status: Current Living Situation: Spouse current occupational status: employed 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[place], [place] Feels Safe at Home: Yes Safety Concerns: Feels Safe At This Time Review of Systems Review of Systems: All systems reviewed & are unremarkable except as noted in HPI & below Physical Exam Physical Exam: Constitutional: WD/WN, vitals as above, NAD, sitting up in bed, pleasant, conversing easily Head: Normocephalic, Atraumatic Eyes: PERRL, conjunctivae normal, anicteric sclerae ENMT: external ear and nose normal, oropharynx normal Neck: trachea midline, no thyromegaly normal visual inspection Respiratory: normal respiratory effort, lungs clear to auscultation, no wheeze, rales, rhonchi. Normal insp/exp effort, no accessory muscle use Cardiovascular: RRR, no murmur, b/l lower ext nonpitting edema Vessels: no JVD or carotid bruit Chest: normal inspection of chest , CP is not reproducible to palpation or active ROM Abdomen: normal bowel sounds, soft, nontender, no hepatosplenomegaly Musculoskeletal: no cyanosis or clubbing, extremities motor strength 5/5 Skin: no rashes, warm and dry normal turgor Neurologic: PERRL, EOMI, accommodation nl, no face palsy, no dysarthria CN's II-XI intact bilaterally and moves all extremities Psychiatric: A+Ox3, euthymic affect Lymphatic: no cervical or axillary lymphadenopathy : deferred Results & Data Results & Data ([facility]) Vital Signs (Past 12 Hours) Vital Signs Temp Pulse Pulse Resp BP BP Pulse Ox 09/17/21 13:26 71 18 147/86 H 95 09/17/21 13:02 68 16 152/89 H 97 09/17/21 12:40 09/17/21 12:38 09/17/21 10:55 36.8 C 65 20 122/80 96 O2 Del Method 09/17/21 13:26 Room Air 09/17/21 13:02 Room Air 09/17/21 12:40 Room Air 09/17/21 12:38 Room Air 09/17/21 10:55 Room Air Diagnostic Findings Chest X-Ray 09/17/21 11:58 XR chest 1V portable CLINICAL HISTORY: chest pain. COMPARISON STUDY: 08/22/2018 TECHNIQUE: 1 view of the chest FINDINGS: Single frontal view of the chest demonstrates the cardiomediastinal silhouette to be within normal limits. The lungs are clear of alveolar opacities. There is no evidence for pleural effusion. There is no evidence for vascular congestion. There is no acute osseous pathology. IMPRESSION: 1. No acute cardiopulmonary disease. ACT 112: Negative or not required by law. Electronically signed by: Fredy Ramirez M.D. 09/17/2021 1:06 PM Medications Administered Medication List Discontinued Medications Nitroglycerin (Nitroglycerin 2% Ointment 30gm Tube) 0.5 inch EXT NOW STA Stop: 09/17/21 13:11 Last Admin: 09/17/21 13:23 Dose: 0.5 inch Documented By: SR Nitroglycerin (Nitroglycerin Sl 0.4 Mg/Tab Tab) 0.4 mg SL NOW STA Stop: 09/17/21 13:11 Last Admin: 09/17/21 13:23 Dose: 0.4 mg Documented By: SR ECG Rate (beats per minute): 60 Rhythm: normal sinus Additional Comments: QTC 402ms, nonspecific ST t wave changes v3-5 which appear worse from ecg in 2019. COVID-19 Results Results COVID-19 Adm Lab Results: RBC 5.22 M/uL (3.93-5.22) 09/17/21 WBC 9.60 K/ul (4.8-10.8) 09/17/21 Hgb 14.5 g/dl (12.0-16.0) 09/17/21 Hct 43.8 % (34.1-44.9) 09/17/21 Plt Count 304 K/uL (130-400) 09/17/21 Neutrophils (%) (Auto) 69.7 % 09/17/21 Lymphocytes (%) (Auto) 22.4 % 09/17/21 Monocytes # (Auto) 0.56 K/uL (0.24-0.82) 09/17/21 Eosinophils # (Auto) 0.11 K/uL (0-0.50) 09/17/21 Immature Granulocyte % (Auto) 0.4 % 09/17/21 Neutrophils # (Auto) 6.68 K/uL (1.4-6.5) H 09/17/21 Lymphocytes # (Auto) 2.15 K/uL (1.2-3.4) 09/17/21 Monocytes # (Auto) 0.56 K/uL (0.24-0.82) 09/17/21 Eosinophils # (Auto) 0.11 K/uL (0-0.50) 09/17/21 Basophils # (Auto) 0.06 K/uL (0-0.2) 09/17/21 Immature Granulocyte # (Auto) 0.04 K/uL (0.00-0.02) H 09/17 Na 140 mmol/L (136-145) 09/17/21 K 3.5 mmol/L (3.5-5.1) 09/17/21 Cl 101 mmol/L (98-107) 09/17/21 CO2 33 mmol/L (21-32) H 09/17/21 Anion Gap 6 (3-11) 09/17/21 BUN 18 mg/dl (6-23) 09/17/21 Creatinine 0.87 mg/dl (0.6-1.2) 09/17/21 BUN/Creatinine Ratio 20.7 (10-20) H 09/17/21 Glucose Level 96 mg/dl (70-99(Fasting)) 09/17/21 Ca 9.6 mg/dl (8.5-10.1) 09/17/21 Total Bilirubin 0.8 mg/dl (0.2-1.0) 09/17/21 AST/SGOT 19 U/L (13-39) 09/17/21 ALT/SGPT 17 U/L (7-52) 09/17/21 Alkaline Phosphatase 70 U/L (34-104) 09/17/21 Total Protein 7.9 gm/dl (6.0-8.3) 09/17/21 Albumin 4.2 gm/dl (3.4-5.0) 09/17/21 Globulin 3.7 gm/dl (2.5-4.0) 09/17/21 Albumin/Globulin Ratio 1.1 (0.9-2) 09/17/21 PTT 25.0 Seconds (21.0-31.0) 09/17/21 INR 1.0 (0.9-1.1) 09/17/21 SARS-CoV-2, RNA, NAAT NEGATIVE (NEGATIVE) 09/17/21 Chest X-Ray 09/17/21 Code Status & VTE Plan Code Status FULL CODE VTE Prophylaxis Plan VTE Prophylaxis will be ordered: Yes Supervising Physician Co-Signing Physician Notes Attending Addendum: care coordinated with SEAN Quezada. please refer to her notes for full details, I agree with her notes patient seen and examined, records reviewed by myself as well on exam, patient seen resting in bed, comfortable, states she feels better since admission chest pain mostly resolved no other symptoms diagnoses and plan of care as per SEAN Quezada's notes Gopal Olmos MD
[2021-09-17] MEDS ORDERED: ASPIRIN 81 MG CHEW PO STA (14:04)
[2021-09-17] MEDS ORDERED: POTASSIUM CHLORIDE CRTAB 20 MEQ TABCR PO STA ×2 (14:52→17:11)
--- NOTE | 2021-09-17 15:17 | Emergency Department Note ---
Impression & Plan Left-sided chest pain, Abnormal ECG ED Provider Note INFORMANT: Patient and spouse ED PROVIDER(S): Vikash Hunter MD CHIEF COMPLAINT: Chest pain PLAN: Disposition: Admitted Condition: Good Outpatient prescription management: none Referral: None MEDICAL DECISION MAKING: Patient presented because of left-sided chest pain. She did have some relief with nitroglycerin at home. Patient was still having pain and her ECG did not reveal any acute significant changes although her nonspecific ST-T wave abnormalities were slightly worse when compared to 3 years ago. The patient had an unremarkable CBC, chemistry panel, LFTs and troponin. Patient was in a sinus rhythm. She was treated with sublingual as well as Nitropaste. On reassessment she was feeling much better with near resolution of her chest symptoms. In light of her history and his current event further management in the hospital was deemed appropriate. The patient and significant other were in agreement. [facility] Patient will be evaluated by internal medicine and further work-up will be pursued in the hospital. Triage Nursing notes reviewed and agree them. Vital Signs: reviewed and remarkable for no significant abnormalities Differential diagnosis: Cardiac ischemia, aortic dissection, pulmonary embolism, pneumothorax, pneumonia, pericarditis, myocarditis, esophageal rupture, GERD, cholecystitis, pancreatitis, musculoskeletal, as well as other pathologies. Diagnostics interpreted by me: EC Lead ECG performed and revealed Normal sinus rhythm at [address]-T wave change which is slightly worse than 22 August 2018., normal [place], QRS normal. No elevation or depression. No PACs or PVCs Cardiac Monitoring: Cardiac monitoring ordered by me: The patient was placed on continuous cardiac monitoring and observed. It revealed a normal sinus rhythm at 62 beats per minute without ectopy or evidence of dysrhythmia. Imaging studies: Chest x-ray. Findings: A chest x-ray was performed and revealed no pneumothorax, effusion, infiltrate, pulmonary edema, free air under the diaphragm, or wide mediastinum. Impression: No acute disease. HPI: The patient is a 61 year old female who presents to the Emergency Room with complaints of left-sided chest pain. This started last night and is intermittent and somewhat associated with exertion. The patient also notes the following associated symptoms, mildly short of breath and heaviness in the ches t. The patient has used for nitroglycerin successfully for relieving factors. Current pain is rated as 6/10. Patient has a history of coronary vasospasm. Pt denies LOC, headache, fevers, chills, diaphoresis, visual changes, neck pain, nausea, vomiting, abdominal pain, back pain, melena, hematochezia, urinary symptoms, numbness, weakness, lymphadenopathy, rash, or other complaints. ROS: See above HPI for pertinent positives & negatives. A total of 10 systems reviewed and were otherwise negative. PAST MEDICAL HISTORY:See Below , coronary vasospasm, hypertension PAST SURGICAL HISTORY:See Below, FAMILY HISTORY:See Below SOCIAL HISTORY:See Below, HOME MEDICATIONS:See Below ALLERGIES:See Below VITALS:See Below PHYSICAL EXAMINATION: GENERAL: Awake, alert, well-appearing, in no distress HENT: Normocephalic, atraumatic. Oropharynx unremarkable. EYES: Normal conjunctiva. Sclera non-icteric. NECK: Inspection normal. Non-tender. Supple. No nuchal rigidity. FROM. No masses. RESPIRATORY: Clear to auscultation. No wheezes. No rales. Normal respiratory effort. CARDIAC: Normal rate. Normal rhythm. No murmurs. No rubs. Extremities warm and well perfused. Pulses equal. No JVD. GI: Soft, non-distended. No tenderness to palpation. No rebound or guarding. No masses. RECTAL: Deferred. MUSCULOSKELETAL: Atraumatic. Chest examination reveals no tenderness. The back is symmetrical on inspection without obvious abnormality. There is no CVA tenderness to palpation. No joint edema. LOWER EXTREMITIES: Calves are equal size bilaterally and non-tender. Trace bilateral edema. No discoloration. NEURO: Normal sensorium. No sensory or motor deficits noted. SKIN: No rash or jaundice noted. Vikash Hunter MD Past Med/Surg History Medical History Asthma CKD (chronic kidney disease), stage III Depression Diverticular disease of colon Dyslipidemia HTN (hypertension) Morbid obesity Nonalcoholic fatty liver disease Osteoarthritis Surgical History Hx of cholecystectomy Status post cholecystectomy Status post hysterectomy Family History Other Cancer Diabetes Gallbladder disease Heart disease Hypertension Social History (Reviewed 09/17/21 @ 16:00 by ANUM Lee Smoking Status: Unknown if ever smoked Hx Alcohol Use: No Hx Substance Use: No Preferred Language: Indonesian Communication Ability: Effective 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 Required: Yes Beliefs That Will Affect Care: None marital status: Current Living Situation: Spouse current occupational status: employed 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[place], [place] Feels Safe at Home: Yes Safety Concerns: Feels Safe At This Time Allergies Allergies Allergy/AdvReac Type Severity Reaction Status Date / Time chocolate flavor Allergy Intermediate GI SYMPTOMS Verified 12/30/18 16:06 ARTIFICIAL SWEETENERS Allergy Severe HEADACHE, Uncoded 12/30/18 16:06 GI SYMPTOMS SOY, DAIRY, GLUTEN Allergy Severe GI SYMPTOMS Uncoded 12/30/18 16:06 MOST FRUITS Allergy Intermediate BLOATING,SHARP Uncoded 12/30/18 16:06 STOMACH PAINS MOST VEGETABLES Allergy Intermediate GI SYMPTOMS Uncoded 12/30/18 16:06 Home Meds Home Medications Medication Instructions Recorded Confirmed albuterol sulfate 90 mcg/actuation 2 puff inhalation Q6H PRN Wheezing 08/22/18 09/17/21 aerosol inhaler aspirin 81 mg tablet,delayed 81 mg PO HS 08/22/18 09/17/21 release (Laila Low Dose Aspirin) cyanocobalamin (vitamin B-12) 1,000 mcg subcut MONTHLY 08/22/18 09/17/21 1,000 mcg/mL injection solution hydrochlorothiazide 25 mg tablet 25 mg PO DAILY 08/22/18 09/17/21 nitroglycerin 0.4 mg sublingual 0.4 mg sublingual UD 08/22/18 09/17/21 tablet ondansetron 4 mg disintegrating 4 mg PO Q4H PRN Nausea 08/22/18 09/17/21 tablet trazodone 100 mg tablet 100 mg PO HS 08/22/18 09/17/21 escitalopram oxalate 10 mg tablet 5 mg PO HS 09/17/21 09/17/21 Results & Data (ED) Vital Signs Vital Signs - 24 hr 09/17/21 10:55 09/17/21 12:38 09/17/21 12:40 Temperature 36.8 C Temperature Source Temporal Artery Scan Pulse Rate 65 Pulse Rate [Apical] Pulse Rhythm Regular Pulse Rhythm [Apical] Pulse Strength Normal Pulse Strength [Apical] Respiratory Rate 20 Respiratory Effort / Characteristics Non-Labored Spontaneous Respiratory Depth Normal Respiratory Pattern Agonal Blood Pressure 122/80 Blood Pressure [Left Arm] Blood Pressure Mean 94 Blood Pressure Mean [Left Arm] Blood Pressure Position Sitting Blood Pressure Position [Left Arm] Pulse Oximetry 96 Oxygen Delivery Method Room Air Room Air Room Air Sepsis Recent Fever Within 48 Hours No Sepsis New/Unexplained Change in Mental Status N/A Sepsis Action Taken by Nursing No Action Required 09/17/21 13:02 09/17/21 13:26 Temperature Temperature Source Pulse Rate Pulse Rate [Apical] 68 71 Pulse Rhythm Pulse Rhythm [Apical] Regular Regular Pulse Strength Pulse Strength [Apical] Normal Normal Respiratory Rate 16 18 Respiratory Effort / Characteristics Non-Labored Non-Labored Respiratory Depth Normal Normal Respiratory Pattern Regular Regular Blood Pressure Blood Pressure [Left Arm] 152/89 H 147/86 H Blood Pressure Mean Blood Pressure Mean [Left Arm] 110 106 Blood Pressure Position Blood Pressure Position [Left Arm] Lying Lying Pulse Oximetry 97 95 Oxygen Delivery Method Room Air Room Air Sepsis Recent Fever Within 48 Hours Sepsis New/Unexplained Change in Mental Status Sepsis Action Taken by Nursing Laboratory Data Result diagrams: 09/17/21 11:45 09/17/21 11:45 Lab Results 09/17/21 09/17/21 09/17/21 Range/Units 11:45 11:45 11:45 WBC 9.60 (4.8-10.8) K/ul RBC 5.22 (3.93-5.22) M/uL Hgb 14.5 (12.0-16.0) g/dl Hct 43.8 (34.1-44.9) % MCV 83.9 (80.0-100.0) fL MCH 27.8 (25.0-34.0) pg MCHC 33.1 (32.0-36.0) g/dL RDW Std Deviation 41.7 (36.4-46.3) fL RDW Coeff of Vita 13.6 (11.5-14.5) % Plt Count 304 (130-400) K/uL MPV 9.4 (9.4-12.3) fL Immature Gran % (Auto) 0.4 % Neut % (Auto) 69.7 % Lymph % (Auto) 22.4 % Boyle % (Auto) 5.8 % Eos % (Auto) 1.1 % Baso % (Auto) 0.6 % Neut # (Auto) 6.68 H (1.4-6.5) K/uL Lymph # (Auto) 2.15 (1.2-3.4) K/uL Boyle # (Auto) 0.56 (0.24-0.82) K/uL Eos # (Auto) 0.11 (0-0.50) K/uL Baso # (Auto) 0.06 (0-0.2) K/uL Immature Gran # (Auto) 0.04 H (0.00-0.02) K/uL PT 10.9 (9.0-12.0) Seconds INR 1.0 (0.9-1.1) APTT 25.0 (21.0-31.0) Seconds PTT Ratio 0.9 Sodium 140 (136-145) mmol/L Potassium 3.5 (3.5-5.1) mmol/L Chloride 101 (98-107) mmol/L Carbon Dioxide 33 H (21-32) mmol/L Anion Gap 6 (3-11) BUN 18 (6-23) mg/dl Creatinine 0.87 (0.6-1.2) mg/dl Est Cr Clr Drug Dosing 83.8 ml/min Est GFR ( Amer) 84.5 ml/min Est GFR (Non-Af Amer) 72.9 ml/min BUN/Creatinine Ratio 20.7 H (10-20) Glucose 96 (70-99(Fasting)) mg/dl Calcium 9.6 (8.5-10.1) mg/dl Total Bilirubin 0.8 (0.2-1.0) mg/dl AST 19 (13-39) U/L ALT 17 (7-52) U/L Alkaline Phosphatase 70 (34-104) U/L Troponin I High Sens 4.9 (0-14) pg/ml Total Protein 7.9 (6.0-8.3) gm/dl Albumin 4.2 (3.4-5.0) gm/dl Globulin 3.7 (2.5-4.0) gm/dl Albumin/Globulin Ratio 1.1 (0.9-2) SARS-CoV-2, RNA, NAAT (NEGATIVE) 09/17/21 Range/Units 13:28 WBC (4.8-10.8) K/ul RBC (3.93-5.22) M/uL Hgb (12.0-16.0) g/dl Hct (34.1-44.9) % MCV (80.0-100.0) fL MCH (25.0-34.0) pg MCHC (32.0-36.0) g/dL RDW Std Deviation (36.4-46.3) fL RDW Coeff of Vita (11.5-14.5) % Plt Count (130-400) K/uL MPV (9.4-12.3) fL Immature Gran % (Auto) % Neut % (Auto) % Lymph % (Auto) % Boyle % (Auto) % Eos % (Auto) % Baso % (Auto) % Neut # (Auto) (1.4-6.5) K/uL Lymph # (Auto) (1.2-3.4) K/uL Boyle # (Auto) (0.24-0.82) K/uL Eos # (Auto) (0-0.50) K/uL Baso # (Auto) (0-0.2) K/uL Immature Gran # (Auto) (0.00-0.02) K/uL PT (9.0-12.0) Seconds INR (0.9-1.1) APTT (21.0-31.0) Seconds PTT Ratio Sodium (136-145) mmol/L Potassium (3.5-5.1) mmol/L Chloride (98-107) mmol/L Carbon Dioxide (21-32) mmol/L Anion Gap (3-11) BUN (6-23) mg/dl Creatinine (0.6-1.2) mg/dl Est Cr Clr Drug Dosing ml/min Est GFR ( Amer) ml/min Est GFR (Non-Af Amer) ml/min BUN/Creatinine Ratio (10-20) Glucose (70-99(Fasting)) mg/dl Calcium (8.5-10.1) mg/dl Total Bilirubin (0.2-1.0) mg/dl AST (13-39) U/L ALT (7-52) U/L Alkaline Phosphatase (34-104) U/L Troponin I High Sens (0-14) pg/ml Total Protein (6.0-8.3) gm/dl Albumin (3.4-5.0) gm/dl Globulin (2.5-4.0) gm/dl Albumin/Globulin Ratio (0.9-2) SARS-CoV-2, RNA, NAAT NEGATIVE (NEGATIVE) Administered Medications Acetaminophen (Acetaminophen 325 Mg Tab) 650 mg PO Q4H PRN PRN Reason: Pain or Fever Stop: 10/17/21 16:47 Last Admin: 09/17/21 17:37 Dose: 650 mg Documented By: SR Discontinued Medications Aspirin (Aspirin 81 Mg Chew) 324 mg PO NOW STA Stop: 09/17/21 14:05 Last Admin: 09/17/21 14:16 Dose: 324 mg Documented By: SR Nitroglycerin (Nitroglycerin 2% Ointment 30gm Tube) 0.5 inch EXT NOW STA Stop: 09/17/21 13:11 Last Admin: 09/17/21 13:23 Dose: 0.5 inch Documented By: SR Nitroglycerin (Nitroglycerin Sl 0.4 Mg/Tab Tab) 0.4 mg SL NOW STA Stop: 09/17/21 13:11 Last Admin: 09/17/21 13:23 Dose: 0.4 mg Documented By: SR Potassium Chloride (Potassium Chloride Crtab 20 Meq Tabcr) 40 meq PO NOW STA Stop: 09/17/21 17:12 Last Admin: 09/17/21 17:35 Dose: 40 meq Documented By: SR Imaging Data Radiologist's Impression: Chest X-Ray 09/17/21 11:58 XR chest 1V portable CLINICAL HISTORY: chest pain. COMPARISON STUDY: 08/22/2018 TECHNIQUE: 1 view of the chest FINDINGS: Single frontal view of the chest demonstrates the cardiomediastinal silhouette to be within normal limits. The lungs are clear of alveolar opacities. There is no evidence for pleural effusion. There is no evidence for vascular congestion. There is no acute osseous pathology. IMPRESSION: 1. No acute cardiopulmonary disease. ACT 112: Negative or not required by law. Electronically signed by: Fredy Ramirez M.D. 09/17/2021 1:06 PM Discharge Plan Visit Data Chief Complaint: Chest Pain Stated Complaint: CHEST PAIN ED Provider: Vikash Hunter Discharge Problem: Left-sided chest pain, Abnormal ECG
--- NOTE | 2021-09-17 16:05 | Cardiology Consultation ---
Date of Consultation September 17, 2021 Assessment & Plan (1) Chest pain: Patient has had 2 EKGs with mild nonspecific repolarization changes, but are actually relatively unchanged compared to historical tracings per my review. At HS troponin levels are negative x2, proBNP screen within normal notes, chest x-r ay without acute cardiopulmonary abnormality. Per review of record, patient was actually seen by the undersigned for chest discomfort in 2018. At that time serial troponin measurements were within n ormal limits. A dobutamine stress echocardiogram was performed which was borderline positive with noted mild EKG changes, reproduction of chest pain with heart rates 60 to 70% of age-predicted maximum, and subtle stress-induced wall motion abnormality. The patient went on to undergo cardiac catheterization during that admission with noted radial artery spasm. Chest discomfort was reported for the patient with injection of the coronary arteries, with no documented coronary artery spasm. The coronary arteries are reported as being angiographically normal at that time. Patient went on to have ongoing chest discomfort in the absence of EKG changes, prompting addition of amlodipine. Ultimately patient did not tolerate this due to generalized side effects of feeling "lazy ". She has had a prescription for sublingual nitroglycerin but really has not used it in the last few years and she states her tablets are likely . She notes no new stressors, has not lifted anything heavy recently. At present, recommend ongoing observation with telemetry, serial troponin measurements, resting echocardiogram, further recommendations be forthcoming tomorrow. History of Present Illness History of Present Illness Johnna Nicholas is a 61-year-old female seen in cardiology consultation per the request of Elicia Cazares PA-C of the [facility] service for the evaluation of chest discomfort. Patient seen in emergency department room B5. She is accompanied by her , Nirmal. She describes chest discomfort onset 2 days ago which she describes as a heaviness in her chest. It waxed and waned yesterday, and then came back today. She states it was reminiscent of the discomfort that prompted her hospital stay in 2018, and was 7/10 in intensity. At the time my evaluation she was asymptomatic, with nitroglycerin topical ointment in place. Blood pressure stable. Telemetry reveals sinus bradycardia in the 50s. Allergies Allergy/AdvReac Type Severity Reaction Status Date / Time chocolate flavor Allergy Intermediate GI SYMPTOMS Verified 12/30/18 16:06 ARTIFICIAL SWEETENERS Allergy Severe HEADACHE, Uncoded 12/30/18 16:06 GI SYMPTOMS SOY, DAIRY, GLUTEN Allergy Severe GI SYMPTOMS Uncoded 12/30/18 16:06 MOST FRUITS Allergy Intermediate BLOATING,SHARP Uncoded 12/30/18 16:06 STOMACH PAINS MOST VEGETABLES Allergy Intermediate GI SYMPTOMS Uncoded 12/30/18 16:06 Home Medications Medication Instructions Recorded Confirmed Type albuterol sulfate 90 mcg/actuation 2 puff inhalation Q6H PRN Wheezing 08/22/18 09/17/21 History aerosol inhaler aspirin 81 mg tablet,delayed 81 mg PO HS 08/22/18 09/17/21 History release (Laila Low Dose Aspirin) cyanocobalamin (vitamin B-12) 1,000 mcg subcut MONTHLY 08/22/18 09/17/21 History 1,000 mcg/mL injection solution hydrochlorothiazide 25 mg tablet 25 mg PO DAILY 08/22/18 09/17/21 History nitroglycerin 0.4 mg sublingual 0.4 mg sublingual UD 08/22/18 09/17/21 History tablet ondansetron 4 mg disintegrating 4 mg PO Q4H PRN Nausea 08/22/18 09/17/21 History tablet trazodone 100 mg tablet 100 mg PO HS 08/22/18 09/17/21 History escitalopram oxalate 10 mg tablet 5 mg PO HS 09/17/21 09/17/21 History Patient History Medical History Asthma CKD (chronic kidney disease), stage III Depression Diverticular disease of colon Dyslipidemia HTN (hypertension) Morbid obesity Nonalcoholic fatty liver disease Osteoarthritis Surgical History Hx of cholecystectomy Status post cholecystectomy Status post hysterectomy Family History Other Cancer Diabetes Gallbladder disease Heart disease Hypertension Social History Smoking Status: Never smoker Hx Alcohol Use: No Hx Substance Use: No Preferred Language: Bhutanese Communication Ability: Effective marital status: Current Living Situation: Spouse current occupational status: employed 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[place], [place] Feels Safe at Home: Yes Review of Systems Review of Systems: All systems reviewed & are unremarkable except as noted in HPI & below Physical Exam Physical Exam: Temp Pulse Resp BP Pulse Ox O2 Del Method 36.8 C 57 L 16 139/77 95 09/17/21 10:55 09/17/21 15:00 09/17/21 15:00 09/17/21 15:00 09/17/21 15:00 09/17/21 14:04 Constitutional: + obese; no acute distress Respiratory: normal respiratory effort, lungs clear to auscultation Cardiovascular: RRR, no murmur, no edema Chest (Breasts): normal inspection/palpation of breasts Gastrointestinal (Abdomen): normal bowel sounds, soft, nontender, no hepatosplenomegaly Neurologic: PERRL, EOMI, accommodation nl, no face palsy, no dysarthria Results & Data ([facility]) Laboratory Results Cardiac Enzymes 09/17/21 09/17/21 09/17/21 Range/Units 11:45 14:39 14:39 AST 19 (13-39) U/L Troponin I High Sens 4.9 5.4 (0-14) pg/ml B-Natriuretic Peptide 22 (0-100) pg/ml Coagulation 09/17/21 09/17/21 Range/Units 11:45 14:39 PT 10.9 (9.0-12.0) Seconds APTT 25.0 (21.0-31.0) Seconds B-Natriuretic Peptide 22 (0-100) pg/ml CBC 09/17/21 Range/Units 11:45 WBC 9.60 (4.8-10.8) K/ul RBC 5.22 (3.93-5.22) M/uL Hgb 14.5 (12.0-16.0) g/dl Hct 43.8 (34.1-44.9) % Plt Count 304 (130-400) K/uL Neut # (Auto) 6.68 H (1.4-6.5) K/uL Lymph # (Auto) 2.15 (1.2-3.4) K/uL [place] # (Auto) 0.56 (0.24-0.82) K/uL Eos # (Auto) 0.11 (0-0.50) K/uL Baso # (Auto) 0.06 (0-0.2) K/uL Comprehensive Metabolic Panel 09/17/21 Range/Units 11:45 Sodium 140 (136-145) mmol/L Potassium 3.5 (3.5-5.1) mmol/L Chloride 101 (98-107) mmol/L Carbon Dioxide 33 H (21-32) mmol/L BUN 18 (6-23) mg/dl Creatinine 0.87 (0.6-1.2) mg/dl Glucose 96 (70-99(Fasting)) mg/dl Calcium 9.6 (8.5-10.1) mg/dl AST 19 (13-39) U/L ALT 17 (7-52) U/L Alkaline Phosphatase 70 (34-104) U/L Total Protein 7.9 (6.0-8.3) gm/dl Albumin 4.2 (3.4-5.0) gm/dl Diagnostic Findings EKG tracings performed x2 revealed normal sinus rhythm at 60 bpm, with mild nonspecific repolarization changes in the precordial leads, relatively unchanged compared to previous outpatient tracings (2019) and tracings performed here in 2018.
[2021-09-17] MEDS ORDERED: POLYETHYLENE (MIRALAX) 17 GM PACK PO PRN (16:48)
[2021-09-17] MEDS ORDERED: ACETAMINOPHEN 325 MG TAB PO PRN (16:48)
[2021-09-17] MEDS ORDERED: ONDANSETRON INJ 2 MG/ML 2 ML VIAL IV PRN (16:48)
[2021-09-17] MEDS ORDERED: ALUMINUM/MAGNESIUM SUSP 30 ML UDC PO PRN (16:48)
--- NOTE | 2021-09-17 16:53 | Ultrasound Report ---
US venous doppler LE BI CLINICAL HISTORY: Bilateral leg edema COMPARISON: 04/19/2017 TECHNIQUE: Bilateral lower extremity real-time compression venous ultrasound with Color Doppler imagi ng. Utilizing real-time ultrasonic imaging multiple real time high-resolution ultrasonic images with comp ression and noncompression maneuvers of the deep venous system in addition to color doppler imaging w ere performed from the common femoral vein through the proximal calf veins. FINDINGS: Currently there is normal compressibility of the deep venous system from the common femoral vein thro ugh the proximal calf veins. No current evidence of acute thrombosis is identified. Impression: 1. No evidence of deep venous thrombus. ACT 112: Negative or not required by law. Electronically signed by: Fredy Ramirez M.D. 09/17/2021 4:52 PM
[2021-09-17] MEDS: NITROGLYCERIN 2% OINTMENT 30GM TUBE EXT SCH (21:24)
[2021-09-17] MEDS ORDERED: traZODone HCL 100 MG TAB PO SCH (21:50)
[2021-09-17] MEDS ORDERED: ESCITALOPRAM OXALATE 10 MG TAB PO SCH (21:50)
[2021-09-17] MEDS ORDERED: ENOXAPARIN INJ 40 MG/0.4 ML SYR SQ SCH (22:00)
[2021-09-18 02:06] LABS: Basophils # (auto) 0.06 K/uL (0-0.2); Basophils % (auto) 0.7 %; Eosinophils % (auto) 2.3 %; Hematocrit (blood only) 42.1 % (34.1-44.9); Hemoglobin 13.6 g/dl (12.0-16.0); Immature Granulocytes # (auto) 0.02 K/uL (0.00-0.02); Immature Granulocytes % (auto) 0.2 %; Lymphocytes # (auto) 3.28 K/uL (1.2-3.4); Lymphocytes % (auto) 38.1 %; Mean Corpuscular Hemoglobin 27.5 pg (25.0-34.0); Mean Corpuscular Hgb Conc 32.3 g/dL (32.0-36.0); Mean Corpuscular Volume 85.1 fL (80.0-100.0); Mean Platelet Volume 9.4 fL (9.4-12.3); Monocytes % (auto) 5.8 %; Neutrophils # (auto) 4.56 K/uL (1.4-6.5); Neutrophils % (auto) 52.9 %; Platelet Count 283 K/uL (130-400); RDW Coefficient of Variation 13.6 % (11.5-14.5); RDW Standard Deviation 42.2 fL (36.4-46.3); Red Blood Count 4.95 M/uL (3.93-5.22); White Blood Count 8.62 K/ul (4.8-10.8)
[2021-09-18 03:02] LABS: Albumin Globulin Ratio 1.2 (0.9-2); Albumin Level 3.8 gm/dl (3.4-5.0); Bilirubin,Total 0.6 mg/dl (0.2-1.0); Calcium 9.1 mg/dl (8.5-10.1); Chol HDL Ratio 4.7 (0-5); Est GFR (African American) 81.1 ml/min; Globulin 3.3 gm/dl (2.5-4.0); Magnesium 1.9 mg/dl (1.7-2.4); Potassium 3.7 mmol/L (3.5-5.1); Total Protein 7.1 gm/dl (6.0-8.3)
[2021-09-18 08:28] LABS: Estimated Average Glucose 114 mg/dl; Hemoglobin A1C 5.6 % (4.5-5.6)
[2021-09-18] MEDS: NITROGLYCERIN 2% OINTMENT 30GM TUBE EXT SCH (09:29)
[2021-09-18] MEDS ORDERED: ISOSORBIDE MONO EXTENDED REL 30 MG TABCR PO SCH (09:30)
--- NOTE | 2021-09-18 09:33 | Cardiology Progress Note ---
Date of Service September 18, 2021 Assessment & Plan (1) Left-sided chest pain: Plan: -HS troponin negative x 4 which is reassuring. -EKG repeated this am with stable findings, chronic non specific repolarization changes -h/o false positive stress test in 2018 with angiographically coronaries at that time. -doubt pt has developed new CAD in interim. Symptoms similar to 2018. Possible microvascular dysfunction as noted then. Work up thus far is reassurine. LDL 115 , continue diet and exercise. -Did not tolerate trial of amlodipine in 2018. -proceed with trial of Imdur. -Cardiology follow up at [facility] in 1-4 weeks. -Stable for discharge. (2) HTN (hypertension): Plan: -discharge on [employer] HCTZ 25 mg add KCl 10 mequ daily Admission and Anticipated Discharge Date Admission Date: September 17, 2021 Subjective Patient seen in follow up. Feels better. CP has resolved. Telemetry reveals SR in the 70s. Review of Systems Review of Systems: All systems reviewed & are unremarkable except as noted in HPI & below Physical Exam Constitutional: WD/WN, vitals as above Respiratory: normal respiratory effort, lungs clear to auscultation Cardiovascular: RRR, no murmur, no edema Gastrointestinal (Abdomen): normal bowel sounds, soft, nontender, no hepatosplenomegaly Neurologic: PERRL, EOMI, accommodation nl, no face palsy, no dysarthria Results & Data ([facility]) Vital Signs (Past 12 Hours) Vital Signs Temp Pulse Pulse Resp BP Pulse Ox O2 Del Method 09/18/21 08:25 36.8 C 60 16 153/90 H 96 Room Air 09/18/21 01:35 67 Laboratory Results Cardiac Enzymes 09/17/21 09/17/21 09/17/21 Range/Units 11:45 14:39 14:39 AST 19 (13-39) U/L Troponin I High Sens 4.9 5.4 (0-14) pg/ml B-Natriuretic Peptide 22 (0-100) pg/ml 09/17/21 09/18/21 09/18/21 Range/Units 20:03 01:51 01:51 AST 19 (13-39) U/L Troponin I High Sens 5.8 5.6 (0-14) pg/ml B-Natriuretic Peptide (0-100) pg/ml Coagulation 09/17/21 09/17/21 Range/Units 11:45 14:39 PT 10.9 (9.0-12.0) Seconds APTT 25.0 (21.0-31.0) Seconds B-Natriuretic Peptide 22 (0-100) pg/ml Lipids 09/18/21 Range/Units 01:51 Triglycerides 173 H (0-150) mg/dl Cholesterol 191 (0-200) mg/dl HDL Cholesterol 41 mg/dl Cholesterol/HDL Ratio 4.7 (0-5) CBC 09/17/21 09/18/21 Range/Units 11:45 01:51 WBC 9.60 8.62 (4.8-10.8) K/ul RBC 5.22 4.95 (3.93-5.22) M/uL Hgb 14.5 13.6 (12.0-16.0) g/dl Hct 43.8 42.1 (34.1-44.9) % Plt Count 304 283 (130-400) K/uL Neut # (Auto) 6.68 H 4.56 (1.4-6.5) K/uL Lymph # (Auto) 2.15 3.28 (1.2-3.4) K/uL [place] # (Auto) 0.56 0.50 (0.24-0.82) K/uL Eos # (Auto) 0.11 0.20 (0-0.50) K/uL Baso # (Auto) 0.06 0.06 (0-0.2) K/uL Comprehensive Metabolic Panel 09/17/21 09/18/21 Range/Units 11:45 01:51 Sodium 140 138 (136-145) mmol/L Potassium 3.5 3.7 (3.5-5.1) mmol/L Chloride 101 104 (98-107) mmol/L Carbon Dioxide 33 H 27 (21-32) mmol/L BUN 18 18 (6-23) mg/dl Creatinine 0.87 0.90 (0.6-1.2) mg/dl Glucose 96 95 (70-99(Fasting)) mg/dl Calcium 9.6 9.1 (8.5-10.1) mg/dl AST 19 19 (13-39) U/L ALT 17 15 (7-52) U/L Alkaline Phosphatase 70 63 (34-104) U/L Total Protein 7.9 7.1 (6.0-8.3) gm/dl Albumin 4.2 3.8 (3.4-5.0) gm/dl
[2021-09-18] MEDS ORDERED: POTASSIUM CHLORIDE 10 MEQ TABCR PO STA (09:41)
--- NOTE | 2021-09-18 12:23 | Discharge Summary ---
Date of Service September 18, 2021 Admission HPI Per Admitting Provider This is a 61-year-old female who has a significant past medical history of HTN, HLD, asthma, obesity, PEREZ, vitamin B12 and D deficiency, IBS, CKD stage III, essential tremor, depression who presents to ED secondary to chest pain off and on for the past 2 days. Symptoms started on Wednesday evening. She states Wednesday she spent most of the day cleaning. In the evening when she was resting she developed a substernal chest pressure. The pressure would occasionally radiate to her shoulder blades. Symptoms would last several minutes and then resolve on their own. It was not made better or worse with deep breathing or movement. It is not reproducible with movement. Symptoms would come and go the past 2 days. They would occur both at rest and with exertion. She states yesterday when she was doing cleaning and going up and down stairs several times she would notice the chest pressure. She did not think much of it as she had a lot to do. This morning when she was getting ready to go to her shop the chest pressure started again and this time becoming more intense. She started driving to her shop when she turned around to come home to take nitro. She took a total of 4 nitro. The nitro was a-year-old, but the fourth 1 did give her some relief. She states when she would take a nitro it would improve her symptoms but then come right back. She also reports over the last 2 months having approximately a 10 pound weight gain. She doubled up on her hydrochlorothiazide because of this and states she was able to lose the 10 pounds. She still has increased swelling to her lower extremities. When her symptoms come on she denies any shortness of breath, OVIEDO, hemoptysis, lightheadedness, dizziness, syncope, nausea or vomiting. When walking back from the waiting room when she stood up she did get a little lightheaded. She occasionally does have dizziness, lightheadedness and nausea on a regular basis, but feels this was unchanged. Her appetite is otherwise been normal. She did have a recent respiratory illness approximately 2 weeks ago with sinus congestion and cough. This has since resolved. She took 2 at home COVID test which were negative. Of significance in 2018 patient had a similar presentation with chest pain. She underwent cardiac catheterization which showed normal coronary arteries. It was felt she was suffering from vasospasm. At that time she was started on Imdur but did not tolerate this medication and had since discontinued it. They also trialed her on amlodipine, but this was also discontinued due to hypotension. She does have family history with father having MS in his 70s and mother deceasing of MS at the age of 75. She does have coronary artery disease on her maternal family side. Her maternal grandfather had CAD and CHF. She denies any tobacco use or significant alcohol use. In ED patient made hemodynamically stable. Her blood pressure was elevated 147/86. Her CBC and CMP was completely unremarkable. Her initial troponin was normal. Her EKG did show subtle nonspecific ST and T wave changes in leads V4 and V5. She was started on Nitropaste as well as additional sublingual nitro in ED. Currently she is chest pain-free. Admission Exam Per Admitting Provider Constitutional: WD/WN, vitals as above, NAD, sitting up in bed, pleasant, conversing easily Head: Normocephalic, Atraumatic Eyes: PERRL, conjunctivae normal, anicteric sclerae ENMT: external ear and nose normal, oropharynx normal Neck: trachea midline, no thyromegaly normal visual inspection Respiratory: normal respiratory effort, lungs clear to auscultation, no wheeze, rales, rhonchi. Normal insp/exp effort, no accessory muscle use Cardiovascular: RRR, no murmur, b/l lower ext nonpitting edema Vessels: no JVD or carotid bruit Chest: normal inspection of chest , CP is not reproducible to palpation or active ROM Abdomen: normal bowel sounds, soft, nontender, no hepatosplenomegaly Musculoskeletal: no cyanosis or clubbing, extremities motor strength 5/5 Skin: no rashes, warm and dry normal turgor Neurologic: PERRL, EOMI, accommodation nl, no face palsy, no dysarthria CN's II-XI intact bilaterally and moves all extremities Psychiatric: A+Ox3, euthymic affect Lymphatic: no cervical or axillary lymphadenopathy : deferred Principal Diagnosis Chest pain rule out ACS Discharge Exam GENERAL: Alert and oriented x3. NAD, on RA. Morbid obese. HEENT: No pallor, no icterus. Pupils equal, round and reactive to light. Oral mucosa moist. NECK: No JVD, no neck masses. HEART: S1 and S2 heard. Regular rate and rhythm. No murmur, no gallop. RESPIRATORY SYSTEM: Normal AP diameter. No accessory muscle use. No wheezing, no crackles. ABDOMEN: Soft, bowel sounds present, nontender, no distention. CENTRAL NERVOUS SYSTEM: No facial droop. Speech is clear. Obeys simple c ommands. Moves extremities. EXTREMITIES: No edema, no erythema seen. Discharge Data Allergies Allergy/AdvReac Type Severity Reaction Status Date / Time chocolate flavor Allergy Intermediate GI SYMPTOMS Verified 12/30/18 16:06 ARTIFICIAL SWEETENERS Allergy Severe HEADACHE, Uncoded 12/30/18 16:06 GI SYMPTOMS SOY, DAIRY, GLUTEN Allergy Severe GI SYMPTOMS Uncoded 12/30/18 16:06 MOST FRUITS Allergy Intermediate BLOATING,SHARP Uncoded 12/30/18 16:06 STOMACH PAINS MOST VEGETABLES Allergy Intermediate GI SYMPTOMS Uncoded 12/30/18 16:06 Consultations 09/17/21 14:46 Consult Cardiology Routine 09/17/21 18:00 ED Decision to Admit Stat Ordered Studies 09/17/21 14:59 US venous doppler LE Routine Hospital Course (1) Chest pain: (2) Abnormal ECG: (3) HTN (hypertension): (4) Dyslipidemia: (5) Morbid obesity with BMI of 40.0-44.9, adult: Plan 61-year-old female who has a significant past medical history of HTN, HLD, asthma, obesity, PEREZ, vitamin B12 and D deficiency, IBS, CKD stage III, essential tremor, depression presented to ED 09/17 secondary to chest pain off an d on for the past 2 days. 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 She was managed for the following while in hospital: Chest Pain Abnormal ECG Admitted to PCU, troponin trends x4 were negative, EKG without acute ST or T changes, no further chest pain while in the hospital, cardiology evaluated, okay to discharge, being discharged on Imdur and potassium supplement. Patient to follow-up with PCP and cardiology as an outpatient, patient to get blood work CMP done in 1 week time. Other chronic medical conditions: HTN, HLD, CKD stage III, depression: Continue with home meds. DVT ppx: SQ Lovenox FULL CODE PCP: Alisia Patient being discharged home with following instruction at the point of discharge: Follow-up with your primary care physician within 1 week time. Follow-up with your cardiology as an outpatient in 1 to 4 weeks time. Cardiology evaluated you, you are being discharged on a new medication Imdur. Get your blood work CMP done in a week time and have the results forwarded to your primary care physician. Take your medications as prescribed. Total Time Total Time Spent Total Time Spent (In Minutes): 35 Discharge Plan Discharge Items Patient Disposition: Home - Self-Care Reason For Visit: CHEST PAIN Discharge Diagnosis: Chest pain rule out ACS Activity: Resume your previous activity Non-emergency contact: Primary Care Provider Call non-emergency contact if: you have any medication questions, your symptoms worsen and your temperature is above 101 Follow-up/Referrals: Daylin Crump, [Primary Care Provider] - Diet: Heart Healthy Addtl Attending Provider Instructions: Follow-up with your primary care physician within 1 week time. Follow-up with your cardiology as an outpatient in 1 to 4 weeks time. Cardiology evaluated you, you are being discharged on a new medication Imdur. Get your blood work CMP done in a week time and have the results forwarded to your primary care physician. Take your medications as prescribed. Pending Studies at Discharge: No Stand-Alone Forms: [employer], Smoking Cessation Medications and DC Order Prescriptions: New isosorbide mononitrate 30 mg Tablet Extended Release 24 Hr 30 mg PO QAM Qty: 30 0RF potassium chloride 10 mEq capsule, extended release 10 meq PO DAILY Qty: 30 0RF Continued aspirin [Laila Low Dose Aspirin] 81 mg Tablet,Delayed Release (Dr/Ec) 81 mg PO HS trazodone 100 mg tablet 100 mg PO HS cyanocobalamin (vitamin B-12) 1,000 mcg/mL solution 1,000 mcg subcut MONTHLY nitroglycerin 0.4 mg Tablet, Sublingual 0.4 mg sublingual UD hydrochlorothiazide 25 mg tablet 25 mg PO DAILY albuterol sulfate 90 mcg/actuation Hfa Aerosol Inhaler 2 puff INHALATION Q6H PRN (Reason: Wheezing) ondansetron 4 mg Tablet,Disintegrating 4 mg PO Q4H PRN (Reason: Nausea) escitalopram oxalate 10 mg tablet 5 mg PO HS Discharge Orders: Discharge Order (Routine); Ordered 09/18/21 Ordered By: Lamont Adam Admission Data Admit Date/Time: 09/17/21 13:42 Attending Provider: Lamont Adam Admit Provider: Gopal Olmos Primary Care Provider: Daylin Crump Other Providers: Gopal Olmos ; Aki Hernandez
[2021-09-18] MEDS ORDERED: ESCITALOPRAM OXALATE 10 MG TAB PO SCH (21:00)
[2021-09-18] MEDS ORDERED: traZODone HCL 100 MG TAB PO SCH (21:00)
--- NOTE | 2021-09-19 05:33 | Electrocardiogram Report ---
Test Reason : Blood Pressure : / mmHG Vent. Rate : 060 BPM Atrial Rate : 060 BPM P-R Int : 130 ms QRS Dur : 076 ms QT Int : 442 ms P-R-T Axes : 049 058 -50 degrees QTc Int : 442 ms Normal sinus rhythm Nonspecific ST and T wave abnormality Abnormal ECG When compared with ECG of 30-DEC-2018 16:58, Premature supraventricular complexes are no longer Present Confirmed by Rishabh Simon ([id number]) on 09/19/2021 5:33:09 AM Referred By: Confirmed By:Rishabh Simon
--- NOTE | 2021-09-19 05:50 | Electrocardiogram Report ---
Test Reason : Blood Pressure : / mmHG Vent. Rate : 056 BPM Atrial Rate : 056 BPM P-R Int : 164 ms QRS Dur : 072 ms QT Int : 484 ms P-R-T Axes : 063 017 003 degrees QTc Int : 467 ms Poor data quality, interpretation may be adversely affected Sinus bradycardia Nonspecific ST and T wave abnormality Abnormal ECG When compared with ECG of 17-SEP-2021 10:52, No significant change Confirmed by Rishabh Simon ([id number]) on 09/19/2021 5:49:51 AM Referred By: REFERRED SELF Confirmed By:Rishabh Simon
--- NOTE | 2021-09-19 06:07 | Electrocardiogram Report ---
Test Reason : Blood Pressure : / mmHG Vent. Rate : 060 BPM Atrial Rate : 060 BPM P-R Int : 158 ms QRS Dur : 078 ms QT Int : 446 ms P-R-T Axes : 067 041 046 degrees QTc Int : 446 ms Normal sinus rhythm Nonspecific ST and T wave abnormality Abnormal ECG When compared with ECG of 17-SEP-2021 14:26, No significant change Confirmed by Rishabh Simon ([id number]) on 09/19/2021 6:07:27 AM Referred By: REFERRED SELF Confirmed By:Rishabh Simon
--- NOTE | 2021-09-19 22:23 | Electrocardiogram Report ---
Test Reason : Blood Pressure : / mmHG Vent. Rate : 060 BPM Atrial Rate : 060 BPM P-R Int : 156 ms QRS Dur : 080 ms QT Int : 464 ms P-R-T Axes : 070 031 055 degrees QTc Int : 464 ms Normal sinus rhythm Nonspecific ST and T wave abnormality Abnormal ECG When compared with ECG of 17-SEP-2021 20:34, No significant change was found Confirmed by Rishabh Simon ([id number]) on 09/19/2021 10:23:24 PM Referred By: REFERRED SELF Confirmed By:Rishabh Simon
== END 2021-09-18 12:59 | disposition home or self-care (01) ==
LOC: ED 10:49 → EDINP 10:49 → SUATTDRO 13:42 → EDINP 16:39

== ENCOUNTER 2023-09-22 20:25 | Observation (INO) ==
[2023-09-22 21:20] LABS: Albumin Globulin Ratio 1.2 (0.9-2); Albumin Level 4.6 gm/dl (3.4-5.0); BUN Creatinine Ratio 15.8 (10-20); Bilirubin,Total 0.7 mg/dl (0.2-1.0); Calcium 10.4 mg/dl (8.6-10.3); Creatinine Clr Calc Pharmacy 81.5 ml/min; Est GFR (African American) 74.9 ml/min; Est GFR (Non-African American) 64.6 ml/min; Globulin 3.8 gm/dl (2.5-4.0); Potassium 3.5 mmol/L (3.5-5.1); Total Protein 8.4 gm/dl (6.0-8.3)
--- NOTE | 2023-09-22 21:23 | Emergency Department Note ---
Impression & Plan Chest pain ED Provider Note HISTORY OF PRESENT ILLNESS: Patient is a 63-year-old female presenting with chest pain. Patient reports that she was seated at rest when she developed sudden onset of substernal chest pain that radiated into her right shoulder and down her right arm and into her right jaw. Reports the pain lasted for about 30 minutes. On arrival to the ER, she still having some very mild pain, but reports it is significantly improved as compared to earlier. She denies ever having pain like this before. Reports some associated shortness of breath with the chest pain when it was at its worst. Denies any history of cardiac stents. She is on a baby aspirin daily. Denies any significant nausea or vomiting with the chest pain. She reports her last stress test was a couple months ago. Denies any DVT or PE history. Reports over the last few days she has been having sensation of her heart racing. Denies any recent travel or recent sick contact exposures. Reports she has had a persistent dry cough and feels like she cannot cough anything up. ROS: as above PHYSICAL EXAM: Constitutional: Patient appears in no acute distress. Morbidly obese HENT: Head: Normocephalic and atraumatic. Eyes: EOMI, PERRL Mouth/Throat: Mucous membranes moist. Neck: Trachea midline. Neck supple. Cardiovascular: RRR, No murmurs, rubs or gallops. Intact distal pulses. Pulmonary/Chest: No respiratory distress. Breath sounds clear and equal bilaterally. No wheezes or rales. Abdominal: Abdomen soft, no tenderness, rebound or guarding. Musculoskeletal: No edema, tenderness or deformity noted. Skin: Warm and dry. No rash, erythema, pallor or cyanosis Psychiatric: Appropriate mood and affect for situation. Neurological: Alert and keenly responsive. CN II-XII grossly intact, moving all extremities equally and fully. MDM: - Vitals signs stable. - History obtained via patient. History as above. - Chronic conditions affecting care: HTN; morbid obesity; HLD; CKD - Differential diagnoses include, but are not limited to: Acute coronary syndrome; pulmonary embolism; dissection; tension pneumothorax; esophageal rupture; pneumonia - Order placed for continuous cardiac monitoring. At this time, monitor showed rate of 87 bpm with normal sinus rhythm, per my interpretation. - External medical records reviewed. Cardiology visit note dated 09/18/2021 was reviewed. Patient follows in their clinic for left-sided chest pain. She had a reported history of a false positive stress test in 2018 with angiographically normal coronaries at that time per the note. Cardiology notes that left-sided chest pain may be secondary to microvascular dysfunction. - EKG interpreted by myself showed normal sinus rhythm. Rate 91 bpm. QT 366. No acute ischemic changes. Noted to have some ST depressions in leads V4 and V5. - Laboratory workup interpreted by myself showed slight leukocytosis (WBC 12.75); eric PT/INR; stable electrolytes; normal troponin; normal lipase - CXR negative for pneumonia - CT PE negative for PE. - At 22:25, I was alerted by nursing staff the patient was having sharp substernal chest pain. Repeat EKG obtained and interpreted by myself showed [] - 0.4 mg SL nitro ordered. On reassessment, patient reports pain has improved, but is still present. - HEART score 5 (History +1 moderately suspicious; EKG +1; Age +1; Risk factors +2; Initial troponin +0), amounting to a moderate score. - Discussion was had with case management rn about patient's case and need for admission - Hospitalist, Dr. Cordon, consulted for admission - [facility] ASSESSMENT AND PLAN: Diagnosis: Chest pain Plan: Admit Past Med/Surg History Problem List (Updated 09/23/23 @ 00:39 by Eleanor Penn MD) Chest pain (Acute) Left-sided chest pain (Acute) Abnormal ECG (Acute) Morbid obesity with BMI of 40.0-44.9, adult HTN (hypertension) Abnormal ECG Chest pain Status post hysterectomy (Chronic) Status post cholecystectomy (Chronic) Morbid obesity (Chronic) CKD (chronic kidney disease), stage III (Chronic) Depression (Chronic) Diverticular disease of colon (Chronic) Osteoarthritis (Chronic) Dyslipidemia (Chronic) Nonalcoholic fatty liver disease (Chronic) Asthma (Chronic) Vitamin B12 deficiency (Chronic) Medical History Asthma CKD (chronic kidney disease), stage III Depression Diverticular disease of colon Dyslipidemia HTN (hypertension) Morbid obesity Nonalcoholic fatty liver disease Osteoarthritis Surgical History Hx of cholecystectomy Status post cholecystectomy Status post hysterectomy Family History Other Cancer Diabetes Gallbladder disease Heart disease Hypertension Social History Smoking Status: Never smoker Hx Alcohol Use: No Hx Substance Use: No Preferred Language: Kiswahili Communication Ability: Effective 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: 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 Beliefs That Will Affect Care: None marital status: Current Living Situation: Spouse current occupational status: employed 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[place], [place] Feels Safe at Home: Yes Assistive Devices: None Allergies Allergies Allergy/AdvReac Type Severity Reaction Status Date / Time chocolate flavor Allergy Intermediate GI SYMPTOMS Verified 12/22/21 20:57 ARTIFICIAL SWEETENERS Allergy Severe HEADACHE, Uncoded 12/22/21 20:57 GI SYMPTOMS SOY, DAIRY, GLUTEN Allergy Severe GI SYMPTOMS Uncoded 12/22/21 20:57 MOST FRUITS Allergy Intermediate BLOATING,SHARP Uncoded 12/22/21 20:57 STOMACH PAINS MOST VEGETABLES Allergy Intermediate GI SYMPTOMS Uncoded 12/22/21 20:57 Home Meds Home Medications Medication Instructions Recorded Confirmed albuterol sulfate 90 mcg/actuation 2 puff inhalation Q6H PRN Wheezing 08/22/18 12/22/21 aerosol inhaler aspirin 81 mg tablet,delayed 81 mg PO HS 08/22/18 12/22/21 release (Laila Low Dose Aspirin) cyanocobalamin (vitamin B-12) 1,000 mcg subcut MONTHLY 08/22/18 12/22/21 1,000 mcg/mL injection solution hydrochlorothiazide 25 mg tablet 25 mg PO DAILY 08/22/18 12/22/21 nitroglycerin 0.4 mg sublingual 0.4 mg sublingual UD 08/22/18 12/22/21 tablet ondansetron 4 mg disintegrating 4 mg PO Q4H PRN Nausea 08/22/18 12/22/21 tablet trazodone 100 mg tablet 100 mg PO HS 08/22/18 12/22/21 escitalopram oxalate 10 mg tablet 10 mg PO HS 09/17/21 12/22/21 Previous Rx's Medication Instructions Recorded isosorbide mononitrate 30 mg 30 mg PO QAM #30 tabs 09/18/21 tablet,extended release 24 hr potassium chloride 10 mEq 10 meq PO DAILY #30 caps 09/18/21 capsule,extended release amoxicillin 875 mg-potassium 1 tab PO BID #20 tabs 12/23/21 clavulanate 125 mg tablet oxycodone 5 mg tablet 5 mg PO Q6H PRN pain #20 tabs 12/23/21 Results & Data (ED) Vital Signs Vital Signs - 24 hr 09/22/23 20:29 09/22/23 20:45 09/22/23 20:46 Temperature 36.5 C Temperature Source Temporal Artery Scan Pulse Rate 86 86 Pulse Rate [Apical] 89 Pulse Rhythm [Apical] Regular Pulse Strength [Apical] Normal Respiratory Rate 20 20 Respiratory Effort / Characteristics Non-Labored Spontaneous Non-Labored Respiratory Depth Normal Normal Respiratory Pattern Regular Blood Pressure 164/90 H Blood Pressure [Right Arm] 133/92 Blood Pressure Mean 114 Blood Pressure Mean [Right Arm] 105 Blood Pressure Position [Right Arm] Lying Pulse Oximetry 94 94 Oxygen Delivery Method Room Air Room Air Sepsis Recent Fever Within 48 Hours No Sepsis New/Unexplained Change in Mental Status No Sepsis Action Taken by Nursing No Action Required 09/22/23 22:00 Temperature Temperature Source Pulse Rate Pulse Rate [Apical] 83 Pulse Rhythm [Apical] Regular Pulse Strength [Apical] Normal Respiratory Rate 22 Respiratory Effort / Characteristics Non-Labored Respiratory Depth Normal Respiratory Pattern Regular Blood Pressure Blood Pressure [Right Arm] 127/99 Blood Pressure Mean Blood Pressure Mean [Right Arm] 108 Blood Pressure Position [Right Arm] Lying Pulse Oximetry 96 Oxygen Delivery Method Room Air Sepsis Recent Fever Within 48 Hours Sepsis New/Unexplained Change in Mental Status Sepsis Action Taken by Nursing Laboratory Data 09/22/23 20:45 09/22/23 20:45 Lab Results 09/22/23 Range/Units 20:45 WBC 12.75 H (4.8-10.8) K/ul RBC 5.55 H (4.20-5.40) M/uL Hgb 15.3 (12.0-16.0) g/dl Hct 46.1 (37.0-47.0) % MCV 83.1 (80.0-100.0) fL MCH 27.6 (25.0-34.0) pg MCHC 33.2 (32.0-36.0) g/dL RDW Std Deviation 40.9 (36.4-46.3) fL RDW Coeff of Vita 13.4 (11.5-14.5) % Plt Count 335 (130-400) K/uL MPV 9.7 (9.4-12.4) fL Immature Gran % (Auto) 0.2 % Neut % (Auto) 65.1 % Lymph % (Auto) 27.3 % [place] % (Auto) 5.3 % Eos % (Auto) 1.6 % Baso % (Auto) 0.5 % Neut # (Auto) 8.30 H (1.40-6.50) K/uL Lymph # (Auto) 3.48 H (1.20-3.40) K/uL [place] # (Auto) 0.67 H (0.11-0.59) K/uL Eos # (Auto) 0.21 (0.00-0.50) K/uL Baso # (Auto) 0.06 (0.00-0.20) K/uL Immature Gran # (Auto) 0.03 (0.01-0.20) K/uL PT 10.9 (9.0-12.0) Seconds INR 1.0 (0.9-1.1) Sodium 137 (136-145) mmol/L Potassium 3.5 (3.5-5.1) mmol/L Chloride 98 (98-107) mmol/L Carbon Dioxide 29 (21-32) mmol/L Anion Gap 10 (3-11) BUN 15 (6-23) mg/dl Creatinine 0.95 (0.6-1.2) mg/dl Est Cr Clr Drug Dosing 81.5 ml/min Est GFR ( Amer) 74.9 ml/min Est GFR (Non-Af Amer) 64.6 ml/min BUN/Creatinine Ratio 15.8 (10-20) Glucose 133 H (70-99(Fasting)) mg/dl Calcium 10.4 H (8.6-10.3) mg/dl Total Bilirubin 0.7 (0.2-1.0) mg/dl AST 25 (13-39) U/L ALT 24 (7-52) U/L Alkaline Phosphatase 85 (34-104) U/L Troponin I High Sens 10.2 (0-14) pg/ml Total Protein 8.4 H (6.0-8.3) gm/dl Albumin 4.6 (3.4-5.0) gm/dl Globulin 3.8 (2.5-4.0) gm/dl Albumin/Globulin Ratio 1.2 (0.9-2) Lipase 32 (11-82) U/L Administered Medications Discontinued Medications Ioversol (Optiray 320 125ml) 92 ml IV ONCE ONE Stop: 09/22/23 21:53 Last Admin: 09/22/23 21:56 Dose: 92 ml Documented By: PLW Nitroglycerin (Nitroglycerin Sl 0.4 Mg/Tab Tab) 0.4 mg SL NOW STA Stop: 09/22/23 22:26 Last Admin: 09/22/23 22:39 Dose: 0.4 mg Documented By: Imaging Data Radiologist's Impression: Chest CTA 09/22/23 21:20 Exam(s): CTA CHEST IV Amt: 92 ml opti 320 EXAM: CT Angiography Chest With Intravenous Contrast CLINICAL HISTORY: Evaluate for PE. TECHNIQUE: Axial computed tomographic angiography images of the chest with intravenous contrast. CTDI is 40 mGy and DLP is 945.67 mGy-cm. Automated exposure control was utilized for the study. A dose lowering technique was utilized adhering to the principles of ALARA. MIP reconstructed images were created and reviewed. COMPARISON: CTA chest dated 10/01/2017 FINDINGS: Limitations: There is mild respiratory artifact, which minimally degrades image quality on multiple image slices. Pulmonary arteries: No evidence for pulmonary embolism. Aorta: No acute findings. No thoracic aortic aneurysm or dissection. Lungs: Unremarkable. No mass. No consolidation. Pleural space: Unremarkable. No significant effusion. No pneumothorax. Heart: Unremarkable. No cardiomegaly. No significant pericardial effusion. Bones/joints: No acute fracture. No dislocation. Soft tissues: Unremarkable. Lymph nodes: Unremarkable. No enlarged lymph nodes. IMPRESSION: Negative examination. No evidence for pulmonary embolism. Electronically signed by: Aamir Garcia MD 09/22/23 22:44 PM Discharge Plan Visit Data Chief Complaint: Cardiac Assessment Stated Complaint: CHEST PAIN, TACHYCARDIA, NECK/ARM PAIN, NAUSEA ED Provider: Eleanor Penn Discharge Problem: Chest pain Forms Stand Alone Forms: [facility] [place] Prescriptions Prescriptions: No Action aspirin [Laila Low Dose Aspirin] 81 mg Tablet,Delayed Release (Dr/Ec) 81 mg PO HS trazodone 100 mg tablet 100 mg PO HS cyanocobalamin (vitamin B-12) 1,000 mcg/mL solution 1,000 mcg subcut MONTHLY nitroglycerin 0.4 mg Tablet, Sublingual 0.4 mg sublingual UD hydrochlorothiazide 25 mg tablet 25 mg PO DAILY albuterol sulfate 90 mcg/actuation Hfa Aerosol Inhaler 2 puff INHALATION Q6H PRN (Reason: Wheezing) ondansetron 4 mg Tablet,Disintegrating 4 mg PO Q4H PRN (Reason: Nausea) escitalopram oxalate 10 mg tablet 10 mg PO HS isosorbide mononitrate 30 mg Tablet Extended Release 24 Hr 30 mg PO QAM Qty: 30 0RF potassium chloride 10 mEq capsule, extended release 10 meq PO DAILY Qty: 30 0RF amoxicillin-pot clavulanate 875-125 mg tablet 1 tab PO BID Qty: 20 0RF oxycodone 5 mg tablet 5 mg PO Q6H PRN (Reason: pain) Qty: 20 0RF Referrals Referrals: Deanna Kim DO [Primary Care Provider] -
[2023-09-22 21:27] LABS: Troponin I High Sensitivity 10.2 pg/ml (0-14)
[2023-09-22 21:31] LABS: Basophils # (auto) 0.06 K/uL (0.00-0.20); Basophils % (auto) 0.5 %; Eosinophils # (auto) 0.21 K/uL (0.00-0.50); Eosinophils % (auto) 1.6 %; Hematocrit (blood only) 46.1 % (37.0-47.0); Hemoglobin 15.3 g/dl (12.0-16.0); Immature Granulocytes # (auto) 0.03 K/uL (0.01-0.20); Immature Granulocytes % (auto) 0.2 %; Lymphocytes # (auto) 3.48 K/uL (1.20-3.40); Lymphocytes % (auto) 27.3 %; Mean Corpuscular Hemoglobin 27.6 pg (25.0-34.0); Mean Corpuscular Hgb Conc 33.2 g/dL (32.0-36.0); Mean Corpuscular Volume 83.1 fL (80.0-100.0); Mean Platelet Volume 9.7 fL (9.4-12.4); Monocytes # (auto) 0.67 K/uL (0.11-0.59); Monocytes % (auto) 5.3 %; Neutrophils % (auto) 65.1 %; Platelet Count 335 K/uL (130-400); Prothrombin Time 10.9 Seconds (9.0-12.0); RDW Coefficient of Variation 13.4 % (11.5-14.5); RDW Standard Deviation 40.9 fL (36.4-46.3); Red Blood Count 5.55 M/uL (4.20-5.40); White Blood Count 12.75 K/ul (4.8-10.8)
[2023-09-22] MEDS: OPTIRAY 320 125ml IV ONE (21:56)
[2023-09-22] MEDS: NITROGLYCERIN SL 0.4 MG/TAB TAB SL STA (22:39)
--- NOTE | 2023-09-22 22:46 | CT Scan Report ---
Exam(s): CTA CHEST IV Amt: 92 ml opti 320 EXAM: CT Angiography Chest With Intravenous Contrast CLINICAL HISTORY: Evaluate for PE. TECHNIQUE: Axial computed tomographic angiography images of the chest with intravenous contrast. CTDI is 40 mGy and DLP is 945.67 mGy-cm. Automated exposure control was utilized for the study. A dose lowering technique was utilized adhering to the principles of ALARA. MIP reconstructed images were created and reviewed. COMPARISON: CTA chest dated 10/01/2017 FINDINGS: Limitations: There is mild respiratory artifact, which minimally degrades image quality on multiple image slices. Pulmonary arteries: No evidence for pulmonary embolism. Aorta: No acute findings. No thoracic aortic aneurysm or dissection. Lungs: Unremarkable. No mass. No consolidation. Pleural space: Unremarkable. No significant effusion. No pneumothorax. Heart: Unremarkable. No cardiomegaly. No significant pericardial effusion. Bones/joints: No acute fracture. No dislocation. Soft tissues: Unremarkable. Lymph nodes: Unremarkable. No enlarged lymph nodes. IMPRESSION: Negative examination. No evidence for pulmonary embolism. Electronically signed by: Aamir Garcia MD 09/22/23 22:44 PM
[2023-09-23 01:10] LABS: Partial Thromboplastin Ratio 0.9; Partial Thromboplastin Time 25 Seconds (21-31)
[2023-09-23 01:19] LABS: Magnesium 1.9 mg/dl (1.7-2.4); Phosphorus 3.7 mg/dl (2.5-4.9)
--- NOTE | 2023-09-23 01:25 | History & Physical Report ---
Date of Service September 23, 2023 Assessment & Plan (1) Chest pain: Plan: Rule out ACS bronchial asthma, not in exacerbation Hyperglycemia with DM mood disorder, stable past tobacco abuse OBS PCU Continue home aspirin for CAD prevention Follow troponin Cardiology consult re: chest pain N.p.o. in anticipation of ischemic workup Check hemoglobin A1c DVT prophylaxis. Lovenox subcu Full code Text document was generated using [employer] voice recognition software. It may contain grammatical or spelling errors. Kindly contact undersigned for clarification of any documentation item in question. History of Present Illness Chief Complaint: Chest pain Primary Care Provider: Deanna Kim DO History obtained from patient, family, and records. Medical history significant for bronchial asthma, GERD, NAFLD, IBS, mood disorder, past tobacco abuse. Last confinement 2021 for chest pain. Patient discharged with Imdur trial. Few months ago, patient noted exertional SOB symptoms with some fluid retention. Outpatient Lexiscan stress test 3 months ago moderately abnormal but low risk for ischemia as per report Patient had sudden onset substernal achy chest pain going to her right neck and right arm last night with some shortness of breath. No cough symptoms. SBP 160s upon arrival at the ER. Discomfort relieved by nitroglycerin at the ER. 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 Allergies Allergy/AdvReac Type Severity Reaction Status Date / Time chocolate flavor Allergy Intermediate GI SYMPTOMS Verified 09/23/23 01:16 Beef Containing Products AdvReac Gastrointestinal Verified 09/23/23 01:18 Upset Pork/Porcine Containing AdvReac Gastrointestinal Verified 09/23/23 01:19 Products Upset ARTIFICIAL SWEETENERS AdvReac Severe HEADACHE, Uncoded 09/23/23 01:18 GI SYMPTOMS SOY, DAIRY, GLUTEN AdvReac Severe GI SYMPTOMS Uncoded 09/23/23 01:18 MOST FRUITS AdvReac Intermediate BLOATING,SHARP Uncoded 09/23/23 01:18 STOMACH PAINS MOST VEGETABLES AdvReac Intermediate GI SYMPTOMS Uncoded 09/23/23 01:18 Home Medications Medication Instructions Recorded Confirmed Type albuterol sulfate 90 mcg/actuation 2 puff inhalation Q6H PRN Wheezing 08/22/18 09/23/23 History aerosol inhaler aspirin 81 mg tablet,delayed 81 mg PO HS 08/22/18 09/23/23 History release (Laila Low Dose Aspirin) cyanocobalamin (vitamin B-12) 1,000 mcg subcut MONTHLY 08/22/18 09/23/23 History 1,000 mcg/mL injection solution hydrochlorothiazide 25 mg tablet 25 mg PO DAILY 08/22/18 09/23/23 History nitroglycerin 0.4 mg sublingual 0.4 mg sublingual UD 08/22/18 09/23/23 History tablet trazodone 100 mg tablet 100 mg PO HS 08/22/18 09/23/23 History cholecalciferol (vitamin D3) 250 250 mcg PO .EVERY OTHER WEEK 09/23/23 09/23/23 History mcg (10,000 unit) tablet polyethylene glycol 3350 17 17 g PO DAILY PRN Constipation 09/23/23 09/23/23 History gram/dose oral powder (Miralax) Past Med/Surg History Problem List Suspected sleep apnea Palpitations Chest pain at rest Chest pain (Acute) Left-sided chest pain (Acute) Abnormal ECG (Acute) Morbid obesity with BMI of 40.0-44.9, adult HTN (hypertension) Abnormal ECG Chest pain Status post hysterectomy (Chronic) Status post cholecystectomy (Chronic) Morbid obesity (Chronic) CKD (chronic kidney disease), stage III (Chronic) Depression (Chronic) Diverticular disease of colon (Chronic) Osteoarthritis (Chronic) Dyslipidemia (Chronic) Nonalcoholic fatty liver disease (Chronic) Asthma (Chronic) Vitamin B12 deficiency (Chronic) Surgical History Hx of cholecystectomy Family History Other Cancer Diabetes Gallbladder disease Heart disease Hypertension Social History Smoking Status: Never smoker Hx Alcohol Use: No Hx Substance Use: No Preferred Language: Belgian Communication Ability: Effective Training Facilitator Required: No Beliefs That Will Affect Care: None marital status: Current Living Situation: Family Current Living Situation Comment: and son current occupational status: employed 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[place], [place] Feels Safe at Home: Yes Safety Concerns: Feels Safe At This Time Assistive Devices: Glasses Review of Systems Review of Systems: As per HPI, all other systems reviewed and negative Physical Exam Physical Exam: GENERAL: Comfortable, pleasant, morbidly obese, no respiratory distress SKIN: Normal color, warm HEENT: [place] palpebral conjunctivae, no ptosis, dry buccal mucosa NECK : Supple, short neck, no tenderness CHEST : CTA, no tenderness HEART : RRR, no obvious murmurs ABDOMEN: Some distention, nontender EXTREMITIES : Minimal LE swelling, no LE tenderness, no other conspicuous deformities noted NEUROLOGIC : Coherent, no facial asymmetry, no other gross focality Results & Data Results & Data Vital Signs (Past 12 Hours) Vital Signs Temp Pulse Pulse Resp BP BP Pulse Ox 09/23/23 00:51 85 09/22/23 22:00 83 22 127/99 96 09/22/23 20:46 86 09/22/23 20:45 89 20 133/92 94 09/22/23 20:29 36.5 C 86 20 164/90 H 94 O2 Del Method 09/23/23 00:51 09/22/23 22:00 Room Air 09/22/23 20:46 09/22/23 20:45 Room Air 09/22/23 20:29 Room Air Laboratory Results Laboratory Results WBC 12.75 K/ul (4.8-10.8) H 09/22/23 20:45 RBC 5.55 M/uL (4.20-5.40) H 09/22/23 20:45 Hgb 15.3 g/dl (12.0-16.0) 09/22/23 20:45 Hct 46.1 % (37.0-47.0) 09/22/23 20:45 MCV 83.1 fL (80.0-100.0) 09/22/23 20:45 MCH 27.6 pg (25.0-34.0) 09/22/23 20:45 MCHC 33.2 g/dL (32.0-36.0) 09/22/23 20:45 RDW Std Deviation 40.9 fL (36.4-46.3) 09/22/23 20:45 RDW Coeff of Vita 13.4 % (11.5-14.5) 09/22/23 20:45 Plt Count 335 K/uL (130-400) 09/22/23 20:45 MPV 9.7 fL (9.4-12.4) 09/22/23 20:45 Immature Gran % (Auto) 0.2 % 09/22/23 20:45 Neut % (Auto) 65.1 % 09/22/23 20:45 Lymph % (Auto) 27.3 % 09/22/23 20:45 [place] % (Auto) 5.3 % 09/22/23 20:45 Eos % (Auto) 1.6 % 09/22/23 20:45 Baso % (Auto) 0.5 % 09/22/23 20:45 Neut # (Auto) 8.30 K/uL (1.40-6.50) H 09/22/23 20:45 Lymph # (Auto) 3.48 K/uL (1.20-3.40) H 09/22/23 20:45 [place] # (Auto) 0.67 K/uL (0.11-0.59) H 09/22/23 20:45 Eos # (Auto) 0.21 K/uL (0.00-0.50) 09/22/23 20:45 Baso # (Auto) 0.06 K/uL (0.00-0.20) 09/22/23 20:45 Immature Gran # (Auto) 0.03 K/uL (0.01-0.20) 09/22/23 20:45 PT 10.9 Seconds (9.0-12.0) 09/22/23 20:45 INR 1.0 (0.9-1.1) 09/22/23 20:45 APTT 25 Seconds (21-31) 09/22/23 20:45 PTT Ratio 0.9 09/22/23 20:45 Sodium 137 mmol/L (136-145) 09/22/23 20:45 Potassium 3.5 mmol/L (3.5-5.1) 09/22/23 20:45 Chloride 98 mmol/L (98-107) 09/22/23 20:45 Carbon Dioxide 29 mmol/L (21-32) 09/22/23 20:45 Anion Gap 10 (3-11) 09/22/23 20:45 BUN 15 mg/dl (6-23) 09/22/23 20:45 Creatinine 0.95 mg/dl (0.6-1.2) 09/22/23 20:45 Est Cr Clr Drug Dosing 81.5 ml/min 09/22/23 20:45 Est GFR ( Amer) 74.9 ml/min 09/22/23 20:45 Est GFR (Non-Af Amer) 64.6 ml/min 09/22/23 20:45 BUN/Creatinine Ratio 15.8 (10-20) 09/22/23 20:45 Glucose 133 mg/dl (70-99(Fasting)) H 09/22/23 20:45 Calcium 10.4 mg/dl (8.6-10.3) H 09/22/23 20:45 Phosphorus 3.7 mg/dl (2.5-4.9) 09/22/23 20:45 Magnesium 1.9 mg/dl (1.7-2.4) 09/22/23 20:45 Total Bilirubin 0.7 mg/dl (0.2-1.0) 09/22/23 20:45 AST 25 U/L (13-39) 09/22/23 20:45 ALT 24 U/L (7-52) 09/22/23 20:45 Alkaline Phosphatase 85 U/L (34-104) 09/22/23 20:45 Troponin I High Sens 10.2 pg/ml (0-14) 09/22/23 20:45 Total Protein 8.4 gm/dl (6.0-8.3) H 09/22/23 20:45 Albumin 4.6 gm/dl (3.4-5.0) 09/22/23 20:45 Globulin 3.8 gm/dl (2.5-4.0) 09/22/23 20:45 Albumin/Globulin Ratio 1.2 (0.9-2) 09/22/23 20:45 Lipase 32 U/L (11-82) 09/22/23 20:45 Impressions Chest CTA 09/22/23 21:20 Exam(s): CTA CHEST IV Amt: 92 ml opti 320 EXAM: CT Angiography Chest With Intravenous Contrast CLINICAL HISTORY: Evaluate for PE. TECHNIQUE: Axial computed tomographic angiography images of the chest with intravenous contrast. CTDI is 40 mGy and DLP is 945.67 mGy-cm. Automated exposure control was utilized for the study. A dose lowering technique was utilized adhering to the principles of ALARA. MIP reconstructed images were created and reviewed. COMPARISON: CTA chest dated 10/01/2017 FINDINGS: Limitations: There is mild respiratory artifact, which minimally degrades image quality on multiple image slices. Pulmonary arteries: No evidence for pulmonary embolism. Aorta: No acute findings. No thoracic aortic aneurysm or dissection. Lungs: Unremarkable. No mass. No consolidation. Pleural space: Unremarkable. No significant effusion. No pneumothorax. Heart: Unremarkable. No cardiomegaly. No significant pericardial effusion. Bones/joints: No acute fracture. No dislocation. Soft tissues: Unremarkable. Lymph nodes: Unremarkable. No enlarged lymph nodes. IMPRESSION: Negative examination. No evidence for pulmonary embolism. Electronically signed by: Aamir Garcia MD 09/22/23 22:44 PM Diagnostic Findings EKG as per my interpretation : Rate 80, NSR, normal axis, nonspecific T wave abnormalities
[2023-09-23] MEDS ORDERED: MoRPHine SULFATE 4 MG/ML 1 ML CARP\\VIAL IV PRN (01:31)
[2023-09-23] MEDS ORDERED: PROMETHAZINE 12.5 MG/50.5 ML BAG IV PRN (01:31)
[2023-09-23] MEDS ORDERED: LORazepam 0.5 MG TAB PO PRN (01:31)
[2023-09-23] MEDS ORDERED: oxyCODONE HCL IR 5 MG TAB (IMMEDIATE RELEASE) PO PRN (01:31)
[2023-09-23] MEDS ORDERED: POLYETHYLENE (MIRALAX) 17 GM PACK PO PRN (02:43)
[2023-09-23] MEDS: NSS + 20MEQ KCL 20 MEQ/1,000 ML BAG IV ONE (04:06)
--- OUTSIDE RECORDS SUMMARY | 2023-09-23 04:46 | External Medical Summary | Summary of Care ---
Author Name Unknown Organization [facility] Address [address] [place] [address] Phone [phone] Care Team Providers Care Contact Center Professional Name Role Phone Unavailable Primary Care Provider Unavailabl e Reason for Visit * Reason Comments eRx-Medication Refill Encounter Details Date Type Department Care Team (Late st Contact Info) Description 07/30/2023 Refill Family Practice [facility] [address] [place] [address] Deanna Kim, [address] [place] [address] Depression; Strain of lumbar region, initial encounter; Persistent insomnia; Dyslipidemia, goal LDL below 100 Allergies Active Allergy Reactions Criticality Noted Date Comments Food (See Comments) Abdominal pain 02/27/2016 FODMAP diet due to digestive sensitivity causes diarrhea, nausea, and abdominal pain Gluten, dairy, most vegetables Influenza Virus Vaccine Abdominal pain,Muscle pain,Nausea/vomitin g 01/10/2016 Pneumococcal Vaccines Fever,Muscle pain,Nausea/vomitin g,Cough 01/10/2016 Pollen 01/04/2013 documented as of this encounter (statuses as of 07/30/2023) Medications Medication Sig Dispensed Refills Start Date End Date Status Methylcellulose, Laxative, (CITRUCEL) oral powder One heaping tablespoon in 8 oz of water or juice 1 Bottle 3 05/30/2015 Active Aspirin 81 MG Tablet Take 1 Tablet by mouth in the morning. Active Diclofenac Sodium (VOLTAREN) 1 % gel Place 2 g topically on the skin 2 times a day. To affected area as directed. 100 g 5 03/30/2018 Active Nitroglycerin 0.4 MG Sublingual Tablet Sublingual (Nitrostat)Indicat ions:Dyslipidemia, goal LDL below 100 Place under the tongue 1 Tablet every 5 minutes as needed for Pain, Chest. As directed 25 Tablet 1 09/19/2021 Active Albuterol Sulfate HFA 108 (90 Base) MCG/ACT Inhalation Aerosol SolutionIndication s:Moderate persistent asthma with acute exacerbation INHALE TWO PUFFS EVERY 4 HOURS NEEDED FOR SHORTNESS OF BREATH 8.5 g 3 01/21/2022 Active Ondansetron HCl 4 MG Oral Tablet (Zofran)Indication s:IBS (irritable bowel syndrome) TAKE ONE TABLET BY MOUTH EVERY SIX HOURS NEEDED FOR NAUSEA 30 Tablet 12/03/2022 Active Cyanocobalamin 1000 MCG/ML Injection Solution (Cyanocobalamin)In dications:Vitamin B 12 deficiency inject 1ml as directed every 30 days. 1 mL 11 02/03/2023 Active BD Syringe Slip Tip 25G X 5/8" 1 ML (Tuberculin Syringe)Indication s:Vitamin B 12 deficiency Use monthly with Vitamin B12 injections 10 Each 1 03/30/2023 Active traZODone HCl 100 MG Oral Tablet (Desyrel)Indicatio ns:Depression,Stra in of lumbar region, initial encounter,Persiste nt insomnia,Dyslipide bruce, goal LDL below 100 Take 1 Tablet by mouth at bedtime. 90 Tablet 1 07/30/2023 Active hydroCHLOROthiazid e 25 MG Oral Tablet (Hydrodiuril)Indic ations:Depression, Strain of lumbar region, initial encounter,Persiste nt insomnia,Dyslipide bruce, goal LDL below 100 TAKE ONE TABLET BY MOUTH EVERY MORNING. 90 Tablet 2 07/30/2023 Active hydroCHLOROthiazid e 25 MG Oral Tablet (Hydrodiuril)Indic ations:Depression, Strain of lumbar region, initial encounter,Persiste nt insomnia,Dyslipide bruce, goal LDL below 100 TAKE 1 TABLET BY MOUTH EVERY MORNING 90 Tablet 1 10/09/2022 4 Discontinued documented as of this encounter (statuses as of 07/30/2023) Active Problems Problem Noted Date Diagnosed Date Refused influenza vaccine 12/27/2017 Pars defect of lumbar spine 06/09/2017 Overview: L5 Generalized osteoarthritis 06/09/2017 Overview: Knees and back. Morbid obesity due to excess calories 11/25/2016 Recurrent major depressive disorder, in partial remission 11/25/2016 Irritable bowel syndrome without diarrhea 2016 Kidney disease, chronic, stage III (GFR 30-59 ml /min) 06/15/2016 Overview: Per CKD protocol #1 Primary osteoarthritis involving multiple joints 12/20/2014 Persistent insomnia 02/29/2012 Asthma, moderate persistent 06/18/2011 Fatty liver disease, nonalcoholic 06/18/2011 Vitamin D deficiency 06/18/2011 Vitamin B 12 deficiency 06/18/2011 Dyslipidemia, goal LDL below 100 06/18/2011 Tremor, essential 04/09/2010 documented as of this encounter (statuses as of 07/30/2023) Resolved Problems Problem Noted Date Diagnosed Date Resolved Date Stage 3b chronic kidney disease 10/14/2022 10/22/2022 COVID-19 virus infection 03/04/2021 Overview: 02/22/2021 not tested positive 02/20. Acid reflux 09/21/2018 09/21/2018 Strain of lumbar region 05/21/201712/09 Acute bacterial conjunctivitis of right eye 04/26/2017 05/03/2017 Abdominal pain, right upper quadrant 02/25/2017 05/03/2017 Body mass index (BMI) of 40. 0 to 44.9 in adult 11/09/2016 11/25/2016 Overview: Per Obesity protocol #1 Controlled substance agreement signed 04/18/2016 07/29/2016 Dyslipidemia 01/10/2016 08/21/2016 LLQ abdominal pain 05/30/2015 6 IBS (irritable bowel syndrome) 05/30/2015 11/25/2016 Slow transit constipation 05/30/2015 Incisional hernia, without o bstruction or gangrene 05/17/2015 05/30/2015 C. difficile enteritis 12/20/201401/09 Pseudomembranous colitis 12/20/201403/2015 Encounter for examination fo r normal comparison and control in clinical research program 02/29/2012 03/21/2012 Overview: Diagnosis changed due to Research Module. Go to Snapshot for study details. Recurrent and persistent hematuria 02/12/2012 01/10/2016 Body mass index (BMI) of 40.0-44.9 in adult 02/12/2012 07/26/2013 Overview: ICD-10 update of inactive term Ovarian cyst, right 11/04/2011 02/28/19 13 Hematuria 11/04/2011 02/12/2012 IBS (irritable bowel syndrome) 06/18/2011 08/27/2014 Depression 06/18/2011 11/25/2016 Biliary dyskinesia 06/18/2011 2 Obesity, Class II, BMI 35-39 .9, no comorbidity 06/18/2011 02/12/2012 Family history of ischemic heart disease 06/18/2011 01/10/2016 Dyslipidemia, goal LDL below 100 06/18/2011 01/10/2016 Edema 06/18/2011 02/29/2012 Osteoarthritis 06/18/2011 12/20/2014 documented as of this encounter (statuses as of 07/30/2023) Immunizations Name Administration Dates Next Due TDAP, Age 7 and older, IM (Adacel) 06/19/2011 documented as of this encounter Social History Tobacco Use Types Packs/Day Years Used Date Smoking Tobacco: Never Smokeless Tobacco: Never Comments:social Alcohol Use Standard Drinks/Week Comments No 0 (1 standard drink = 0.6 oz pur e alcohol) PHQ-2 Answer Date Recorded PHQ Adult Total Score 0 08/27/2020 Hunger Vital Sign Answer Date Recorded Within the past 12 months, y ou worried that your food would run out before you got the money to buy more. Never true 05/22/19 24 Within the past 12 months, t he food you bought just didn't last and you didn't have money to get more. Never true 05/22/2023 Childcare Answer Date Recorded Do you feel overwhelmed with taking care of a child, family member or friend? No 05/22/2023 Does your family need help f inding childcare? (Household - for ages 0-17 years) Not on file 05/22/2023 Clothing Answer Date Recorded Have you been unable to get clothing when it was really needed? No 05/22/2023 Is your family able to get c lothes or diapers when needed? (Household - for ages 0-17 years) Not on file 05/22/2023 Personal Safety Answer Date Recorded Do you feel unsafe or have concerns for your saf ety? No 05/22/2023 Do you have concerns for you r family's safety? (Household - for ages 0-17 years) Not on file 05/22/2023 Utilities Answer Date Recorded Do you have trouble paying y our heating, water, or electric bill? No 05/22/2023 Is your family able to pay t he heat, water, or electric bill? (Household - for ages 0-17 years) Not on file 05/22/2023 Does your family have access to good internet? (Household - for ages 0-17 years) Not on file 05/22/2023 Employment Status Answer Date Recorded Are you unemployed or without regular income? Ye s 05/22/2023 Does the household have a re gular source of income? (Household - for ages 0-17 years) Not on file 05/22/2023 Social Connections Answer Date Recorded How often do you feel lonely or isolated from th ose around you? Never 05/22/2023 Financial Resource Strain Answer Date R ecorded Do you have any trouble payi ng for your medications, or do you think you might in the future? No 05/22/2023 Does your family have troubl e paying for medicine? (Household - for ages 0-17 years) Not on file 05/22/2023 Transportation Needs Answer Date Record ed READ ONLY Do you have troubl e getting a ride to medical visits or work? Never True 05/22/2023 Does your family have a hard time getting a ride to doctors visits? (Household - for ages 0-17 years) Not on file 05/22/2023 Has lack of transportation k ept you from medical appointments, meetings, work, or from getting things needed for daily living? Check all that apply. (Adult - for ages 18 years and over) Not on file 05/22/2023 Do you (or your family) have trouble finding or paying for a ride (transportation)? (Household - for ages 0-17 years) Not on file 05/22/2023 Housing Stability Answer Date Recorded Do you currently live in a s helter or have no steady place to sleep at night? No 05/22/2023 READ ONLY Do you think you a re at risk of becoming homeless? No 05/22/2023 Does your family worry about paying for your home or becoming homeless? (Household - for ages 0-17 years) Not on file 0 05/22/2023 Are you homeless or worried that you might be in the future? (Adult - for ages 18 years and over) Not on file Are you (or your family) noel eless or worried that you might be in the future? (Household - for ages 0-17 years) Not on file Food Insecurity Answer Date Recorded Do you need food for this week? No 05/22/2023 Are you able to get enough f ood for your family? (Household - for ages 0-17 years) Not on file 05/22/2023 Does your family need food t his week? (Household - for ages 0-17 years) Not on file 05/22/2023 Do you always have enough fo od for your family? (Household - for ages 0-17 years) Not on file 05/22/2023 Sex and Gender Information Value Date Recorded Sex Assigned at Female 05/22/2023 9:07 PM EDT Gender Identity Female 05/22/2023 9:07 PM EDT Sexual Orientation Straight 05/22/2023 9: 07 PM EDT Job Start Date Occupation Industry Not on file Not on file Not on file documented as of this encounter Miscellaneous Notes * Telephone Encounter - Terri Sharp RPh - 07/30/2023 1:30 PM EDTSigned Prescriptions: Disp Refills hydroCHLOROthiazide 25 MG Oral Tablet (Hyd*90 Tab*2 Sig: TAKE ONE TABLET BY MOUTH EVERY MORNING.Authorizing Provider: DEANNA KIM User: OZIEL SHARP documented in this encounter Plan of Treatment Health Maintenance Due Date Last Done Comments Cologuard 05/06/2007 Fecal Occult Blood Test 05/06/2007 Sigmoidoscopy 05/06/2007 Zoster Vaccines (1 of 2) 2012 DTaP,Tdap,and Td Vaccines (2 - Td or Tdap) 06/18/2021 06/19/2011 Depression Monitoring 08/27/2021 08/27/2020 COVID-19 Vaccine ( - 24 season) 2022 Mammogram 07/22/2023 07/21/2022, 05/09, 08/26/2017, Additional history exists GFR 12/08/2023 06/08/2023, 07/2022, 12/26/2021, Additional history exists Albumin/Creatinine Ratio 06/07/2024 024, 12/26/2021, 01/10/2019, Additional history exists CKD HGB USE SMARTSET 46356 06/07/202406/07, 06/08/2023, 10/14/2022, Additional history exists CKD PHOS USE SMARTSET 82900 06/07/202405/11, 12/26/2021, 07/17/2020, Additional history exists Diabetes Screening 06/07/2026 06/08/2023, 0 10/14/2022, 12/26/2021, Additional history exists Colonoscopy 07/07/2026 07/07/2016, 04/28/2011 Colorectal Cancer Screening 07/07/2026 Lipid Panel 10/15/2027 10/14/2022, 12/09, 07/17/2020, Additional history exists GARDASIL-HPV IMMUNIZATION SERIES Aged Out No longer eligible based on patient's age to complete this topic Hepatitis B Aged Out No longer eligi ble based on patient's age to complete this topic MENINGOCOCCAL (MENACTRA/MENVEO) Aged Out No longer eligible based on patient's age to complete this topic documented as of this encounter Medical Devices Not on filedocumented as of this encounter Visit Diagnoses Diagnosis Depression Depressive disorder, not elsewhere classified Strain of lumbar region, initial encounter Persistent insomnia Persistent disorder of initiating or maintaining sleep Dyslipidemia, goal LDL below 100 Other and unspecified hyperlipidemia documented in this encounter
--- OUTSIDE RECORDS SUMMARY | 2023-09-23 04:46 | External Medical Summary | Summary of Care ---
Author Name Unknown Organization [facility] Address [address] [place] [address] Phone [phone] Care Team Providers Care Honest John Rocket Crew Member Name Role Phone Unavailable Primary Care Provider Unavailabl e Reason for Visit * Reason Onset Date Comments Appointment 06/09/2023 Mammo Encounter Details Date Type Department Care Team (Late Contact Info) Description 06/09/2023 Telephone Family Practice [facility] [address] [place] [address] Deanna Kim DO [address] [place] [address] Appointment (Mammo) Allergies Active Allergy Reactions Criticality Noted Date Comments Food (See Comments) Abdominal pain 02/27/2016 FODMAP diet due to digestive sensitivity causes diarrhea, nausea, and abdominal pain Gluten, dairy, most vegetables Influenza Virus Vaccine Abdominal pain,Muscle pain,Nausea/vomitin g 01/10/2016 Pneumococcal Vaccines Fever,Muscle pain,Nausea/vomitin g,Cough 01/10/2016 Pollen 01/04/2013 documented as of this encounter (statuses as of 06/09/2023) Medications Medication Sig Dispensed Refills Start Date End Date Status Methylcellulose, Laxative, (CITRUCEL) oral powder One heaping tablespoon in 8 oz of water or juice 1 Bottle 3 05/30/2015 Active Aspirin 81 MG Tablet Take 1 Tablet by mouth in the morning. 0 Active Diclofenac Sodium (VOLTAREN) 1 % gel Place 2 g topically on the skin 2 times a day. To affected area as directed. 100 g 5 03/30/2018 Active Nitroglycerin 0.4 MG Sublingual Tablet Sublingual (Nitrostat)Indicatio ns:Dyslipidemia, goal LDL below 100 Place under the tongue 1 Tablet every 5 minutes as needed for Pain, Chest. As directed 25 Tablet 1 09/19/2021 Active Albuterol Sulfate HFA 108 (90 Base) MCG/ACT Inhalation Aerosol SolutionIndications: Moderate persistent asthma with acute exacerbation INHALE TWO PUFFS EVERY 4 HOURS NEEDED FOR SHORTNESS OF BREATH 8.5 g 3 01/21/2022 Active hydroCHLOROthiazide 25 MG Oral Tablet (Hydrodiuril)Indicat ions:Depression,Stra in of lumbar region, initial encounter,Persistent insomnia,Dyslipidemi a, goal LDL below 100 TAKE 1 TABLET BY MOUTH EVERY MORNING 90 Tablet 1 10/09/2022 Active Ondansetron HCl 4 MG Oral Tablet (Zofran)Indications: IBS (irritable bowel syndrome) TAKE ONE TABLET BY MOUTH EVERY SIX HOURS NEEDED FOR NAUSEA 30 Tablet 0 12/03/2022 Active traZODone HCl 100 MG Oral Tablet (Desyrel)Indications :Depression,Strain of lumbar region, initial encounter,Persistent insomnia,Dyslipidemi a, goal LDL below 100 Take 1 Tablet by mouth at bedtime. 90 Tablet 1 01/28/2023 Active Cyanocobalamin 1000 MCG/ML Injection Solution (Cyanocobalamin)Anastasia cations:Vitamin B 12 deficiency inject 1ml as directed every 30 days. 1 mL 11 02/03/2023 Active BD Syringe Slip Tip 25G X 5/8" 1 ML (Tuberculin Syringe)Indications: Vitamin B 12 deficiency Use monthly with Vitamin B12 injections 10 Each 1 03/30/2023 Active documented as of this encounter (statuses as of 06/09/2023) Active Problems Problem Noted Date Diagnosed Date [...] as of this encounter (statuses as of 06/09/2023) Resolved Problems Problem Noted Date Diagnosed Date [...] as of this encounter (statuses as of 06/09/2023) Immunizations Name Administration Dates Next Due TDAP (age 11 and older)(Adacel) 06/19/2011 documented as of this encounter Social [...] money to get more. Never true 05/22/2023 Sex and Gender Information Value Date Recorded Sex Assigned at Female 05/22/2023 9:07 PM EDT Gender Identity Female 05/22/2023 9:07 PM EDT Sexual Orientation Straight 05/22/2023 9: 07 PM EDT Job Start Date Occupation Industry Not on file Not on file Not on file documented as of this encounter Miscellaneous Notes * Telephone Encounter - Ember Reeves OSA - 06/09/2023 12:14 PM EDT Mammo order/demo/ins info faxed to scheduling to schedule after 07/22/23. They will contact pt directly. documented in this encounter Plan of Treatment Upcoming Encounters Date Type Department Care Team (Late st Contact Info) Description 08/17/2023 10:30 AM EDT Cardiac Studies Cardiac Studies [place] [facility] [address] [place] [address] Health Maintenance Due Date Last Done Comments Cologuard 05/06/2007 Fecal Occult Blood Test 05/06/2007 Sigmoidoscopy 05/06/2007 Zoster Vaccines (1 of 2) 2012 DTaP,Tdap,and Td Vaccines (2 - Td or Tdap) 06/18/2021 06/19/2011 COVID-19 Vaccine (1 - season) 2022 Mammogram 07/22/2023 07/21/2022, 05/09, 08/26/2017, Additional history exists GFR 12/08/2023 06/08/2023, 09/0 07/2022, 12/26/2021, Additional history exists Albumin/Creatinine Ratio 06/07/2024 024, 12/26/2021, 01/10/2019, Additional history exists CKD HGB USE SMARTSET 17073 06/07/202406/07, 06/08/2023, 10/14/2022, Additional history exists CKD PHOS USE SMARTSET 96362 06/07/2024 04/, 12/26/2021, 07/17/2020, Additional history exists Diabetes Screening [...]
--- OUTSIDE RECORDS SUMMARY | 2023-09-23 04:46 | External Medical Summary | Summary of Care ---
Author Name Unknown Organization [facility] Address [address] [place] [address] Phone [phone] Care Team Providers Care Recreational Resort Manager Name Role Phone Unavailable Primary Care Provider Unavailabl e Reason for Referral * Evaluate & Treat - Unlimited Visits (Within 10 days (routine)) - Pending Review Specialty Diagnoses / Procedures Referred By Contact Referred To Contact Cardiovascular Medicine / Cardiology Diagnoses Abnormal stress test Deanna Kim DO [address] [facility] [address] Referral ID Status Reason Start Date Expiration Date Visits Requested Visits Authorized [id number] Pending Review Specialty Services Required 06/15/[phone] Question Answer Referral Priority Within 10 days (routine) Where should this appointment be scheduled? [facility] To which of the following clinics are you referring your patient? General Cardiology Clinic Encounter Details Date Type Department Care Team (Late st Contact Info) Description 06/[facility] [address] [place] [address] Deanna Kim DO [address] [facility] [place] [address] Allergies Active Allergy Reactions Criticality Noted Date Comments Food (See Comments) Abdominal pain 02/27/2016 FODMAP diet due to digestive sensitivity causes diarrhea, nausea, and abdominal pain Gluten, dairy, most vegetables Influenza Virus Vaccine Abdominal pain,Muscle pain,Nausea/vomitin g 01/10/2016 Pneumococcal Vaccines Fever,Muscle pain,Nausea/vomitin g,Cough 01/10/2016 Pollen 01/04/2013 documented as of this encounter (statuses as of 06/15/2023) Medications Medication Sig Dispensed Refills Start Date [...] as of this encounter (statuses as of 06/15/2023) Active Problems Problem Noted Date Diagnosed Date [...] as of this encounter (statuses as of 06/15/2023) Resolved Problems Problem Noted Date Diagnosed Date [...] as of this encounter (statuses as of 06/15/2023) Immunizations Name Administration Dates Next Due TDAP [...] encounter Miscellaneous Notes * Telephone Encounter - Paloma Cordova LPN - 06/15/2023 4:43 PM EDT Message sent * Telephone Encounter - Deanna Kim DO - 06/15/2023 4:18 PM EDT Overall stress test doesn't appear to show any acute issues However with her symptoms I want to refer to cardiology documented in this encounter Plan of Treatment Upcoming Encounters Date Type Department Care Team (Late st Contact Info) Description 08/17/2023 10:30 AM EDT Cardiac Studies Cardiac Studies [facility] [address] [place], [place] [id number] Scheduled Referrals Name Type Priority Associated Diagnoses Orde r Schedule CARDIOLOGY REFERRAL OP Referral Within 10 days (routine) Abnormal stress test Ordered: 06/15/2023 Health Maintenance Due Date Last Done Comments Cologuard 05/06/2007 Fecal Occult Blood Test 05/06/2007 Sigmoidoscopy 05/06/2007 Zoster Vaccines (1 of 2) 2012 DTaP,Tdap,and Td Vaccines (2 - Td or Tdap) 06/18/2021 06/19/2011 COVID-19 Vaccine (1 - 2022-24 season) 2022 Mammogram 07/22/2023 07/21/2022, 05/09, 08/26/2017, Additional history exists GFR 12/08/2023 06/08/2023, 07/2022, 12/26/2021, Additional history exists Albumin/Creatinine Ratio 06/07/2024 024, 12/26/2021, 01/10/2019, Additional history exists CKD HGB USE SMARTSET 47826 06/07/202406/07, 06/08/2023, 10/14/2022, Additional history exists CKD PHOS USE SMARTSET 09722 06/07/202405/11, 12/26/2021, 07/17/2020, Additional history exists Diabetes [...] as of this encounter Visit Diagnoses Diagnosis Abnormal stress test- Primary Other nonspecific abnormal cardiovascular system function study documented in this encounter
--- OUTSIDE RECORDS SUMMARY | 2023-09-23 04:46 | External Medical Summary | Summary of Care ---
Author Name Unknown Organization [facility] Address [address] [place] [address] Phone [phone] Care Team Providers Care Obstetrician And Gynaecologist Name Role Phone Unavailable Primary Care Provider Unavailabl e Reason for Referral * Evaluate & Treat - Unlimited Visits (Within 10 days (routine)) - Pending Review Specialty Diagnoses / Procedures Referred By Contact Referred To Contact Cardiovascular Medicine / Cardiology Diagnoses Abnormal stress test Deanna Kim DO [address] [facility] [address] Referral ID Status Reason Start Date Expiration Date Visits Requested Visits Authorized [id number] Pending Review Specialty Services Required 06/15/[phone] Question Answer Referral Priority Within 10 days (routine) Where should this appointment be scheduled? [facility] To which of the following clinics are you referring your patient? General Cardiology Clinic Encounter Details Date Type Department Care Team (Late st Contact Info) Description 06/15/[address] [address] [facility] [place] [address] Deanna Kim DO [address] [facility] [place] [address] Allergies Active Allergy Reactions Criticality Noted Date [...] encounter Miscellaneous Notes * Telephone Encounter - Deanna Kim DO - 06/15/2023 4:18 PM EDT Overall stress test doesn't appear to show any acute issues However with her symptoms I want to refer to cardiology documented in this encounter Plan of Treatment Upcoming Encounters Date Type Department Care Team (Late st Contact Info) Description 08/17/2023 10:30 AM EDT Cardiac Studies Cardiac Studies [facility] [place] [facility] [address] [facility] [place] [address] Scheduled Referrals Name Type Priority Associated Diagnoses Orde r Schedule CARDIOLOGY REFERRAL OP Referral Within 10 days (routine) Abnormal stress test Ordered: 06/15/2023 Health Maintenance Due Date Last Done Comments Cologuard 05/06/2007 Fecal Occult Blood Test 05/06/2007 Sigmoidoscopy 05/06/2007 Zoster Vaccines (1 of 2) 2012 DTaP,Tdap,and Td Vaccines (2 - Td or Tdap) 06/18/2021 06/19/2011 COVID-19 Vaccine ( - 2022-24 season) 2022 Mammogram 07/22/2023 07/21/2022, 05/09, 08/26/2017, Additional history exists GFR 12/08/2023 06/08/2023, 0907/2022, 12/26/2021, Additional history exists Albumin/Creatinine Ratio 06/07/2024 04/2 024, 12/26/2021, 01/10/2019, Additional history exists CKD HGB USE SMARTSET 63332 06/07/202406/07, 06/08/2023, 10/14/2022, Additional history exists CKD PHOS USE SMARTSET 97827 06/07/202405/11, 12/26/2021, 07/17/2020, Additional history exists Diabetes [...]
--- OUTSIDE RECORDS SUMMARY | 2023-09-23 04:46 | External Medical Summary ---
Author Name Unknown Address Unknown Organization K01[place] [place] [address] [place] [address] Laboratory Report Ordering Provider Test Date Status AYAKACAROL 06/08/2023 08:26:41 Final Normal: <30 mg/g creatinine< br/>High: 30-300 mg/g creatinine
Very High: >300 mg/g creatinine
Nephrotic: >2200 mg/g creatinine Observation Date Value Abnormality Reference (Units ) Status Albumin, Urine 06/08/2023 08:26:41 3.19 (mg/dL) Final Creatinine, Urine 06/08/2023 08:26:41 214 (mg/dL) Final Albumin/Creatinine [Mass Ratio] in Urine 06/08/2023 08:26:41 15 <30 (mg/g Creat) Final Performing Location [facility] [place] [address] [place] [id number]
--- OUTSIDE RECORDS SUMMARY | 2023-09-23 04:46 | External Medical Summary | Summary of Care ---
Author Name Unknown Organization [facility] Address [address] [place] [address] Phone [phone] Care Team Providers Care Fur Trimmer Name Role Phone Unavailable Primary Care Provider Unavailabl e Encounter Details Date Type Department Care Team (Late st Contact Info) Description 06/10/[address] [facility] [place] [address] [place] [address] Deanna Kim DO [address] [place] [address] OVIEDO (dyspnea on exertion); Chest pressure; Angina pectoris (HCC); Abnormal EKG Allergies Active Allergy Reactions Criticality Noted Date Comments Food (See Comments) Abdominal pain 02/27/2016 FODMAP diet due to digestive sensitivity causes diarrhea, nausea, and abdominal pain Gluten, dairy, most vegetables Influenza Virus Vaccine Abdominal pain,Muscle pain,Nausea/vomitin g 01/10/2016 Pneumococcal Vaccines Fever,Muscle pain,Nausea/vomitin g,Cough 01/10/2016 Pollen 01/04/2013 documented as of this encounter (statuses as of 06/10/2023) Medications Medication Sig Dispensed Refills Start Date [...] as of this encounter (statuses as of 06/10/2023) Active Problems Problem Noted Date Diagnosed Date [...] as of this encounter (statuses as of 06/10/2023) Resolved Problems Problem Noted Date Diagnosed Date [...] as of this encounter (statuses as of 06/10/2023) Immunizations Name Administration Dates Next Due TDAP [...] on file documented as of this encounter Plan of Treatment Upcoming Encounters Date Type Department Care Team (Late st Contact Info) Description 08/17/2023 10:30 AM EDT Cardiac Studies Cardiac Studies [address] [place] [address] Health Maintenance Due Date Last Done Comments [...] Additional history exists CKD HGB USE SMARTSET 44185 06/07/202406/07, 06/08/2023, 10/14/2022, Additional history exists CKD PHOS USE SMARTSET 85724 06/07/2024/, 12/26/2021, 07/17/2020, Additional history exists Diabetes Screening [...] Not on filedocumented as of this encounter Procedures Procedure Name Priority Date/Time Associated Diagnosis Comments NM MYOCARDIAL PERFUSION IMAGING SPECT MULTIPLE STUDIES WITH PHARMACOLOGIC INTERVENTION Routine 06/09/2023 OVIEDO (dyspnea on exertion) Chest pressure Angina pectoris (HCC) Abnormal EKG documented in this encounter Results * NM MYOCARD PERF IMG SPECT MULT STUDIES WITH PHARM INTERV (06/09/2023) 06/09/2023 Deanna Kim DO RAD NUCLEAR MED documented in this encounter Visit Diagnoses Diagnosis OVIEDO (dyspnea on exertion) Other dyspnea and respiratory abnormality Chest pressure Other chest pain Angina pectoris (HCC) Other and unspecified angina pectoris Abnormal EKG Nonspecific abnormal electrocardiogram (ECG) (EKG) documented in this encounter
--- OUTSIDE RECORDS SUMMARY | 2023-09-23 04:46 | External Medical Summary | Summary of Care ---
Author Name Unknown Organization [facility] Address [address] [place] [address] Phone [phone] Care Team Providers Care Occ Med Physician Name Role Phone Unavailable Primary Care Provider Unavailabl e Reason for Visit * Reason Comments eRx-Medication Refill Encounter Details Date Type Department Care Team (Late st Contact Info) Description 07/29/2023 Refill Family Practice [facility] [address] [place] [address] Deanna Kim, [address] [place] [address] Depression; Strain of lumbar region, initial encounter; [...] OF BREATH 8.5 g 3 01/21/2022 Active hydroCHLOROthiazid e 25 MG Oral Tablet [...] at bedtime. 90 Tablet 1 07/30/2023 Active traZODone HCl 100 MG Oral Tablet (Desyrel)Indicatio ns:Depression,Stra in of lumbar region, initial encounter,Persiste nt insomnia,Dyslipide bruce, goal LDL below 100 Take 1 Tablet by mouth at bedtime. 90 Tablet 1 01/28/2023 4 Discontinued documented as of this encounter [...] encounter Miscellaneous Notes * Telephone Encounter - Carlotta Whitman [facility] - 07/30/2023 10:07 AM EDT Signed Prescriptions: Disp Refills traZODone HCl 100 MG Oral Tablet (Desyrel) 90 Tab*1 Sig: Take 1 Tablet by mouth at bedtime.Authorizing Provider: DEANNA KIM User: CARLOTTA WHITMAN documented in this encounter Plan of Treatment Health Maintenance Due Date Last Done Comments Cologuard 05/06/2007 Fecal Occult Blood Test 05/06/2007 Sigmoidoscopy 05/06/2007 Zoster Vaccines (1 of 2) 2012 DTaP,Tdap,and Td Vaccines (2 - Td or Tdap) 06/18/2021 06/19/2011 Depression Monitoring 08/27/2021 08/27/2020 COVID-19 Vaccine ( - 2022- season) 2022 Mammogram 07/22/2023 07/21/2022, 05/09, 08/26/2017, Additional history exists GFR 12/08/2023 06/08/2023, 0907/2022, 12/26/2021, Additional history exists Albumin/Creatinine Ratio 06/07/2024 024, 12/26/2021, 01/10/2019, Additional history exists CKD HGB USE SMARTSET 85030 06/07/202406/07, 06/08/2023, 10/14/2022, Additional history exists CKD PHOS USE SMARTSET 80464 06/07/2024 04, 12/26/2021, 07/17/2020, Additional history exists Diabetes Screening [...]
--- OUTSIDE RECORDS SUMMARY | 2023-09-23 04:46 | External Medical Summary | Summary of Care ---
Author Name Unknown Organization [facility] Address [address] [place] [address] Phone [phone] Care Team Providers Care Nail Making Machine Setter Name Role Phone Unavailable Primary Care Provider Unavailabl e Reason for Referral * Evaluate & Treat - Unlimited Visits (Within 10 days (routine)) - Pending Review Specialty Diagnoses / Procedures Referred By Contact Referred To Contact Cardiovascular Medicine / Cardiology Diagnoses Abnormal stress test Deanna Kim DO [address] [facility] [address] Referral ID Status Reason Start Date Expiration Date Visits Requested Visits Authorized [id number] Pending Review Specialty Services Required 06/15/[phone] Question Answer Referral Priority Within 10 days (routine) Where should this appointment be scheduled? [facility] To which of the following clinics are you referring your patient? General Cardiology Clinic Encounter Details Date Type Department Care Team (Late st Contact Info) Description 06/15/2023 [facility] [address] [facility] [place] [address] Deanna Kim DO [address] [facility] [place] [address] Allergies Active Allergy Reactions Criticality Noted Date Comments Food (See Comments) Abdominal pain 02/27/2016 FODMAP diet due to digestive sensitivity causes diarrhea, nausea, and abdominal pain Gluten, dairy, most vegetables Influenza Virus Vaccine Abdominal pain,Muscle pain,Nausea/vomitin g 01/10/2016 Pneumococcal Vaccines Fever,Muscle pain,Nausea/vomitin g,Cough 01/10/2016 Pollen 01/04/2013 documented as of this encounter (statuses as of 06/18/2023) Medications Medication Sig Dispensed Refills Start Date [...] as of this encounter (statuses as of 06/18/2023) Active Problems Problem Noted Date Diagnosed Date [...] as of this encounter (statuses as of 06/18/2023) Resolved Problems Problem Noted Date Diagnosed Date [...] as of this encounter (statuses as of 06/18/2023) Immunizations Name Administration Dates Next Due TDAP [...] documented in this encounter Plan of Treatment Scheduled Referrals Name Type Priority Associated Diagnoses Orde r Schedule CARDIOLOGY REFERRAL OP Referral Within 10 days (routine) Abnormal stress test Ordered: 06/15/2023 Health Maintenance Due Date Last Done Comments Cologuard 05/06/2007 Fecal Occult Blood Test 05/06/2007 Sigmoidoscopy 05/06/2007 Zoster Vaccines (1 of 2) 2012 DTaP,Tdap,and Td Vaccines (2 - Td or Tdap) 06/18/2021 06/19/2011 COVID-19 Vaccine ( - 24 season) 2022 Mammogram 07/22/2023 07/21/2022, 05/09, 08/26/2017, Additional history exists GFR 12/08/2023 06/08/2023, 09/0 07/2022, 12/26/2021, Additional history exists Albumin/Creatinine Ratio 06/07/2024 04/2 024, 12/26/2021, 01/10/2019, Additional history exists CKD HGB USE SMARTSET 32172 06/07/202406/07, 06/08/2023, 10/14/2022, Additional history exists CKD PHOS USE SMARTSET 60131 06/07/202405/11, 12/26/2021, 07/17/2020, Additional history exists Diabetes [...]
--- OUTSIDE RECORDS SUMMARY | 2023-09-23 04:46 | External Medical Summary | Summary of Care ---
Author Name Unknown Organization [facility] Address [address] [place] [address] Phone [phone] Care Team Providers Care Operations Accountant Name Role Phone Unavailable Primary Care Provider Unavailabl e Encounter Details Date Type Department Care Team (Late st Contact Info) Description 08/03/2023 Orders Only Family Practice [facility] [place] [address] [place] [address] Deanna Kim DO [address] [place] [address] Encounter for screening mammogram for breast cancer Allergies Active Allergy Reactions Criticality Noted Date Comments Food (See Comments) Abdominal pain 02/27/2016 FODMAP diet due to digestive sensitivity causes diarrhea, nausea, and abdominal pain Gluten, dairy, most vegetables Influenza Virus Vaccine Abdominal pain,Muscle pain,Nausea/vomitin g 01/10/2016 Pneumococcal Vaccines Fever,Muscle pain,Nausea/vomitin g,Cough 01/10/2016 Pollen 01/04/2013 documented as of this encounter (statuses as of 08/03/2023) Medications Medication Sig Dispensed Refills Start Date [...] 12/03/2022 Active Cyanocobalamin 1000 MCG/ML Injection Solution (Cyanocobalamin)Anastasia [...] at bedtime. 90 Tablet 1 07/30/2023 Active hydroCHLOROthiazide 25 MG Oral Tablet (Hydrodiuril)Indicat ions:Depression,Stra in of lumbar region, initial encounter,Persistent insomnia,Dyslipidemi a, goal LDL below 100 TAKE ONE TABLET BY MOUTH EVERY MORNING. 90 Tablet 2 07/30/2023 Active documented as of this encounter (statuses as of 08/03/2023) Active Problems Problem Noted Date Diagnosed Date [...] as of this encounter (statuses as of 08/03/2023) Resolved Problems Problem Noted Date Diagnosed Date [...] as of this encounter (statuses as of 08/03/2023) Immunizations Name Administration Dates Next Due TDAP, [...] as of this encounter Plan of Treatment Health Maintenance Due Date Last Done Comments Cologuard 05/06/2007 Fecal Occult Blood Test 05/06/2007 Sigmoidoscopy 05/06/2007 Zoster Vaccines (1 of 2) 2012 DTaP,Tdap,and Td Vaccines (2 - Td or Tdap) 06/18/2021 06/19/2011 Depression Monitoring 08/27/2021 08/27/2020 COVID-19 Vaccine ( - season) 2022 Mammogram 07/22/2023 08/02/2023, 07/09, 05/21/2020, Additional history exists GFR 12/08/2023 06/08/2023, 0907/2022, 12/26/2021, Additional history exists Albumin/Creatinine Ratio 06/07/202406/07/ 024, 12/26/2021, 01/10/2019, Additional history exists CKD HGB USE SMARTSET 14173 06/07/202406/07, 06/08/2023, 10/14/2022, Additional history exists CKD PHOS USE SMARTSET 34111 06/07/2024 04/, 12/26/2021, 07/17/2020, Additional history exists [...] Procedure Name Priority Date/Time Associated Diagnosis Comments MAMMOGRAM SCREENING BILATERAL Routine 08/02/2023 Encounter for screening mammogram for breast cancer documented in this encounter Results * MAMMOGRAM SCREENING BILATERAL (08/02/2023) Anatomical Region Laterality Modality Breast Bilateral Other 08/02/2023 Deanna Kim DO RAD MAMMOGRAPHY documented in this encounter Visit Diagnoses Diagnosis Encounter for screening mammogram for breast cancer documented in this encounter
--- OUTSIDE RECORDS SUMMARY | 2023-09-23 04:46 | External Medical Summary | Summary of Care ---
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 Name Role Phone Unavailable Primary Care Provider Unavailabl e Reason for Referral * Evaluate & Treat - Unlimited Visits (Within 10 days (routine)) - Pending Review Specialty Diagnoses / Procedures Referred By Contact Referred To Contact Cardiovascular Medicine / Cardiology Diagnoses Abnormal stress test Deanna Kim DO [address] [place] [address] Referral ID Status Reason Start Date Expiration Date Visits Requested Visits Authorized [id number] Pending Review Specialty Services Required 06/15/[phone] Question Answer Referral Priority Within 10 days (routine) Where should this appointment be scheduled? [facility] To which of the following clinics are you referring your patient? General Cardiology Clinic Reason for Visit * Reason Onset Date Comments Referral 06/15/2023 Cardio Encounter Details Date Type Department Care Team (Late Contact Info) Description [facility] [address] [place] [address] Deanna Kim DO [address] [place] [address] Referral (Cardio) Allergies Active Allergy Reactions Criticality Noted Date [...] 07/2022, 12/26/2021, Additional history exists Albumin/Creatinine Ratio 06/07/202406/07/2 024, 12/26/2021, 01/10/2019, Additional history exists CKD HGB USE SMARTSET 67596 06/07/202406/07, 06/08/2023, 10/14/2022, Additional history exists CKD PHOS USE SMARTSET 68483 06/07/2024 04/, 12/26/2021, 07/17/2020, Additional history exists [...]
--- OUTSIDE RECORDS SUMMARY | 2023-09-23 04:46 | External Medical Summary | Summary of Care ---
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 Role Phone Unavailable Primary Care Provider Unavailabl e Reason for Referral * Evaluate & Treat - Unlimited Visits (Within 10 days (routine)) - Pending Review Specialty Diagnoses / Procedures Referred By Contact Referred To Contact Cardiovascular Medicine / Cardiology Diagnoses Abnormal stress test Deanna Kim DO [address] [place] [address] Referral ID Status Reason Start Date Expiration Date Visits Requested Visits Authorized [id number] Pending Review Specialty Services Required 06/15/[phone] Question Answer Referral Priority Within 10 days (routine) Where should this appointment be scheduled? [facility] To which of the following clinics are you referring your patient? General Cardiology Clinic Reason for Visit * Reason Onset Date Comments Referral 06/15/2023 Cardio Encounter Details Date Type Department Care Team (Late Contact Info) Description 06/15/2023 [facility] [address] [place] [address] Deanna Kim DO [address] [place] [address] Referral (Cardio) Allergies Active Allergy Reactions Criticality [...] encounter Miscellaneous Notes * Telephone Encounter - Christie Parker OSA - 06/18/2023 10:45 AM EDT Per note on referral, pt declined to schedule * Telephone Encounter - Paloma Cordova LPN [...] or Tdap) 06/18/2021 06/19/2011 COVID-19 Vaccine ( season) 2022 Mammogram 07/22/2023 07/21/2022, 05/09, 08/26/2017, Additional history exists GFR 12/08/2023 06/08/2023, 09/07/2022, 12/26/2021, Additional history exists Albumin/Creatinine Ratio 06/07/2024 024, 12/26/2021, 01/10/2019, Additional history exists CKD HGB USE SMARTSET 89912 06/07/202406/07, 06/08/2023, 10/14/2022, Additional history exists CKD PHOS USE SMARTSET 28333 06/07/202405/11, 12/26/2021, 07/17/2020, Additional history exists Diabetes [...]
--- OUTSIDE RECORDS SUMMARY | 2023-09-23 04:47 | External Medical Summary ---
Author Name Unknown Address Unknown Organization [id number]:LABORATORY [facility] [place] - [address] [address] Laboratory Report Ordering Provider Test Date Status SWETHA MARELYLEY 06/08/2023 07:49:16 Final Observation Date Value Abnormality Reference (Units ) Status BUN 06/08/2023 07:49:16 12 6-20 (mg/dL) Final Creatinine 06/08/2023 07:49:16 0.8 0.5-1.0 (mg/dL) Final Glomerular filtration rate/1.73 sq M.predicted [Volume Rate/Area] in Serum, Plasma or Blood by Creatinine-based formula (CKD-EPI) 06/08/2023 07:49:16 79 >=60 (mL/min) Final eGFR is calculated based on the CKD-EPI 2020 equation Sodium 06/08/2023 07:49:16 139 135-146 (m mol/L) Final Potassium 06/08/2023 07:49:16 4.0 3.5-5.1 (m mol/L) Final Cl 06/08/2023 07:49:16 100 98-107 (mm ol/L) Final CO2 06/08/2023 07:49:16 27 22-32 (mmo l/L) Final Anion gap 06/08/2023 07:49:16 12 7-15 (mmol /L) Final Glucose 06/08/2023 07:49:16 102 70-120 (mg /dL) Final Albumin 06/08/2023 07:49:16 4.3 3.8-5.0 (g /dL) Final AST (Aspartate aminotransferase) 06/08/2023 07:49:16 23 10-35 (U/L) Final Alk Phos 06/08/2023 07:49:16 76 35-130 (U/ L) Final Bilirubin, Total 06/08/2023 07:49:16 0.8 <=1 .2 (mg/dL) Final Calcium 06/08/2023 07:49:16 9.5 8.4-10.2 ( mg/dL) Final Protein 06/08/2023 07:49:16 7.2 6.0-8.3 (g /dL) Final ALT (Alanine aminotransferase) 06/08/2023 07:49:16 28 10-35 (U/L) Final Performing Location LABORATORY [facility] [place] - [address] [facility] [address]
--- OUTSIDE RECORDS SUMMARY | 2023-09-23 04:47 | External Medical Summary ---
Author Name Unknown Address Unknown Organization [id number]:LABORATORY [facility] [place] - [address] [place] [address] Laboratory Report Ordering Provider Test Date Status CAROL MARLEY 06/08/2023 07:49:16 Final Observation Date Value Abnormality Reference (Units ) Status TSH 06/08/2023 07:49:16 3.46 0.27-4.20 (uIU/mL) Final Performing Location LABORATORY [facility] - [address] [place] [address]
--- OUTSIDE RECORDS SUMMARY | 2023-09-23 04:47 | External Medical Summary ---
Author Name Unknown Address Unknown Organization [id number]:LABORATORY [facility] - [address] [address] Laboratory Report Ordering Provider Test Date Status CAROL MARLEY 06/08/2023 07:49:16 Final Observation Date Value Abnormality Reference (Units ) Status SYNC LEUKOCYTES IN BLOOD BY AUTOMATED COUNT 06/08/2023 07:49:16 8.04 4.00-10.80 (K/uL) Final Segs 06/08/2023 07:49:16 56.3 40.0-75.0 (%) Final Lymphs % 06/08/2023 07:49:16 33.8 18.0-42.0 (%) Final Monos 06/08/2023 07:49:16 5.8 1.0-11.0 (%) Final Eosinophils 06/08/2023 07:49:16 3.1 0.0-6.0 (%) Final Basos 06/08/2023 07:49:16 0.6 0.0-2.0 (%) Final Immature Granulocyte, Percent 06/08/2023 07:49:16 0.4 0.0-2.0 (%) Final Absolute Segs 06/08/2023 07:49:16 4.52 1.80-7.70 (K/uL) Final Lymphs, absolute 06/08/2023 07:49:16 2.72 1.00-4.80 (K/ul) Final Monos, Abs 06/08/2023 07:49:16 0.47 0.00-1.10 (K/uL) Final Eos, Abs 06/08/2023 07:49:16 0.25 0.00-0.70 (K/uL) Final Basos, Abs 06/08/2023 07:49:16 0.05 0.00-0.20 (K/uL) Final Immature Granulocytes, Number 06/08/2023 07:49:16 0.03 0.00-0.20 (K/uL) Final Performing Location LABORATORY [facility] - [address] [facility] [address]
--- OUTSIDE RECORDS SUMMARY | 2023-09-23 04:47 | External Medical Summary ---
Author Name Unknown Address Unknown Organization [id number]:[place] [place] [address] [place] [address] Laboratory Report Ordering Provider Test Date Status CAROL MARLEY 06/08/2023 07:49:16 Final Observation Date Value Abnormality Reference (Units ) Status WBC, Total 06/08/2023 07:49:16 8.04 4.00-10.80 (K/uL) Final RBC 06/08/2023 07:49:16 5.36 3.85-5.15 (M/uL) Final Hemoglobin 06/08/2023 07:49:16 15.0 12.0-15.3 (g/dL) Final HCT 06/08/2023 07:49:16 46.0 Above high normal 36.0-45.2 (%) Final MCV 06/08/2023 07:49:16 85.8 81.5-97.5 (fL) Final MCH 06/08/2023 07:49:16 28.0 27.0-34.0 (pg) Final MCHC 06/08/2023 07:49:16 32.6 32.0-36.0 (g/dL) Final RDW 06/08/2023 07:49:16 13.3 11.5-15.5 (%) Final Platelets 06/08/2023 07:49:16 307 140-400 (K/uL) Final MPV 06/08/2023 07:49:16 9.7 6.6-11.1 (fL) Final Nucleated erythrocytes/100 leukocytes [Ratio] in Blood by Automated count 06/08/2023 07:49:16 0 <=0 (/100 WBCs) Final Performing Location [facility] [facility] [place] [address] [place] [address]
--- OUTSIDE RECORDS SUMMARY | 2023-09-23 04:47 | External Medical Summary ---
Author Name Unknown Address Unknown Organization [id number]:[facility] [place] [address] [address] Laboratory Report Ordering Provider Test Date Status CAROL MARLEY 06/08/2023 07:49:16 Final Exclude Heart Failure: <300 pg/mL
Diagnose Heart Failure:
Age <50 yr: >450 pg/mL
50-75 yr: >900 pg/mL
>75 yr: >1800 pg/mL
GFR is 30-59 mL/min: >1200 pg/mL or Age- adjusted values
GFR <30 mL/min: do not use, not reliable

Prognostic threshold: 1000 pg/mL Observation Date Value Abnormality Reference (Units ) Status BNP, Pro-hormone 06/08/2023 07:49:16 174 <30 0 (pg/mL) Final Performing Location [facility] [place] [facility] [address] [address]
--- OUTSIDE RECORDS SUMMARY | 2023-09-23 04:47 | External Medical Summary ---
Author Name Unknown Address Unknown Organization K01:LABORATORY [facility] - [address] [place] [address] Laboratory Report Ordering Provider Test Date Status CAROL MARLEY 06/08/2023 07:49:16 Final Observation Date Value Abnormality Reference (Units ) Status Phosphate 06/08/2023 07:49:16 3.8 2.5-4.8 (m g/dL) Final Performing Location LABORATORY [facility] - [address] [place] [address]
[2023-09-23 05:01] LABS: Basophils # (auto) 0.05 K/uL (0.00-0.20); Basophils % (auto) 0.5 %; Eosinophils # (auto) 0.18 K/uL (0.00-0.50); Eosinophils % (auto) 1.8 %; Hematocrit (blood only) 44.2 % (37.0-47.0); Hemoglobin 14.3 g/dl (12.0-16.0); Immature Granulocytes # (auto) 0.02 K/uL (0.01-0.20); Immature Granulocytes % (auto) 0.2 %; Lymphocytes # (auto) 2.76 K/uL (1.20-3.40); Lymphocytes % (auto) 28.2 %; Mean Corpuscular Hemoglobin 27.6 pg (25.0-34.0); Mean Corpuscular Hgb Conc 32.4 g/dL (32.0-36.0); Mean Corpuscular Volume 85.2 fL (80.0-100.0); Mean Platelet Volume 9.4 fL (9.4-12.4); Monocytes # (auto) 0.63 K/uL (0.11-0.59); Monocytes % (auto) 6.4 %; Neutrophils # (auto) 6.13 K/uL (1.40-6.50); Neutrophils % (auto) 62.9 %; Platelet Count 255 K/uL (130-400); RDW Coefficient of Variation 13.7 % (11.5-14.5); RDW Standard Deviation 42.6 fL (36.4-46.3); Red Blood Count 5.19 M/uL (4.20-5.40); White Blood Count 9.77 K/ul (4.8-10.8)
[2023-09-23 05:43] LABS: BUN Creatinine Ratio 15.9 (10-20); Calcium 9.2 mg/dl (8.6-10.3); Chol HDL Ratio 4.2 (0-5); Creatinine Clr Calc Pharmacy 79.2 ml/min; Est GFR (African American) 82.2 ml/min; Est GFR (Non-African American) 70.9 ml/min; Potassium 3.5 mmol/L (3.5-5.1)
[2023-09-23 07:02] LABS: Estimated Average Glucose 120 mg/dl; Hemoglobin A1C 5.8 % (4.5-5.6)
--- NOTE | 2023-09-23 07:32 | XRay Report ---
XR chest 1V portable HISTORY: 63 years-old Female Chest pain, nonspecific COMPARISON: CTA chest of same day TECHNIQUE: AP view of the chest FINDINGS: Heart size is normal. Lungs are clear. No pneumothorax or pleural effusion. Bones appear grossly inta ct. IMPRESSION: No acute process. ACT 112: Negative or not required by law. The above report was generated using voice recognition software. It may contain grammatical, syntax o r spelling errors. Electronically signed by: Thien Silva M.D. 09/23/2023 7:30 AM
--- NOTE | 2023-09-23 09:08 | Cardiology Consultation ---
Date of Consultation September 23, 2023 Assessment & Plan (1) Chest pain at rest: (2) Palpitations: (3) Abnormal ECG: (4) Suspected sleep apnea: (5) HTN (hypertension): Plan 63-year-old female initially experiencing tachypalpitations followed by atypical chest discomfort. Symptoms reminiscent of prior discomfort leading to diagnostic cardiac catheterization in 2018 demonstrating angiographically normal coronary arteries. EKG with anterolateral STT wave abnormality similar to prior. High-sensitivity troponin negative. Imaging including chest x-ray and CT scan negative. Telemetry with occasional ventricular ectopy only. Resting echocardiography pending this admission, previously with preserved LV systolic function, mild concentric LVH. Blood pressure elevated at 164/90 on presentation. Options of management discussed with patient including doing nothing, medical management, referral for stress testing, cardiac CT, and repeat diagnostic cardiac catheterization. Await resting echocardiography. Trial low- dose beta-candie therapy. Recommend outpatient evaluation for suspected sleep apnea. Further recommendations to come. Supervising Physician Co-Signing Physician Notes Patient was seen and personally examined. Full assessment and plan as outlined above. Care and management discussed with advanced provider and personally endorsed Predominant complaint progress resulting in ER presentation a sense of heart pounding in chest and elevated heart rate. No signs of acute coronary syndrome by EKG and cardiac enzyme. Recent ischemic workup negative Recommend symptomatic treatment with metoprolol succinate 12.5 mg twice per day in addition to usual antihypertensive regimen, HCTZ. Would add potassium chloride 10 mg p.o. daily given mild hypokalemia present Will review echocardiogram as available History of Present Illness Reason for Consultation: Chest pain Requesting Physician: Dr. Cordon Attending Physician: Dr. [place] Lord MD History of Present Illness Mrs. Johnna Nicholas is a 63-year-old female with history of chest discomfort dating back many years. In 2018 patient presented with chest discomfort. At that time she underwent dobutamine stress echocardiography which was described as borderline positive with mild EKG changes, reproduction of chest pain, and subtle stress-induced wall motion abnormality. April 22, 2017 diagnostic cardiac catheterization by Dr. Bernal revealed angiographically normal coronaries, normal LV systolic function, normal intracardiac pressures. At the time of catheterization patient was noted to experience right arm discomfort secondary to radial artery spasm and transient chest discomfort on initial coronary angiography injection, without EKG changes or evidence of obstructive CAD. Due to ongoing chest discomfort patient was then tried on amlodipine and more recently isosorbide, both of which were poorly tolerated. In May 2023 the patient was evaluated by her PCP with complaints of exertional dyspnea. Patient referred for Lexiscan nuclear stress testing and resting echocardiography. Lexiscan nuclear stress testing was performed through [facility] [place] and interpreted as moderately abnormal, with low risk for ischemia. There was a medium size, mild to moderate intensity, fixed myocardial perfusion defect involving the apex, distal anterior, anteroseptal, and inferior myocardium. Findings were felt to reflect breast attenuation shadow but an infarct in LAD territory cannot be excluded. There was no evidence of significant myocardial ischemia. Over the last couple of days patient has been experiencing some racing heart rates. She notes checking her carotid pulse and feeling short pause suggestive of sensed ectopy. She then went on to have some uncomfortable pain and decided to get checked out. When walking back to the examination room in the ER the patient experienced sharp chest pain radiating into the right side of the neck and right upper extremity. Sublingual nitroglycerin was administered with improvement. Blood pressure notably 164/90 at that time. Initial EKG revealed normal sinus rhythm at 83 bpm with anterolateral STT wave abnormality similar to prior tracings. A second EKG revealed sinus rhythm at 91 bpm with occasional premature ventricular complexes, nonspecific STT wave abnormality. High- sensitivity troponin negative x 2 at 10.2 and then 9.0 pg/mL. Chest x-ray showed no acute process. CT scan of the chest was negative for acute findings, negative for PE, aortic dissection, or consolidation. Resting echocardiography pending. Continuous telemetry monitoring demonstrated sinus with heart rates in the 70s to 90s, with occasional PVCs. Blood pressures improved. Family History: Father in 2014 with lung cancer. He was in his 80s at that time. He had an WA at 1996. Mother had a history of CAD, passing with an WA at the age of 77. She also had hypertension, dyslipidemia, diabetes, and a history of CVA. One half sister with? CAD. Social History previously exposed to secondhand smoke via her father. She notes smoking socially in her 20s. No alcohol. No illegal drug use. . 3 children. Middle son with what sounds like sleep apnea. 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[place], [place] Allergies Allergy/AdvReac Type Severity Reaction Status Date / Time chocolate flavor Allergy Intermediate GI SYMPTOMS Verified 09/23/23 01:16 Beef Containing Products AdvReac Gastrointestinal Verified 09/23/23 01:18 Upset Pork/Porcine Containing AdvReac Gastrointestinal Verified 09/23/23 01:19 Products Upset ARTIFICIAL SWEETENERS AdvReac Severe HEADACHE, Uncoded 09/23/23 01:18 GI SYMPTOMS SOY, DAIRY, GLUTEN AdvReac Severe GI SYMPTOMS Uncoded 09/23/23 01:18 MOST FRUITS AdvReac Intermediate BLOATING,SHARP Uncoded 09/23/23 01:18 STOMACH PAINS MOST VEGETABLES AdvReac Intermediate GI SYMPTOMS Uncoded 09/23/23 01:18 Home Medications Medication Instructions Recorded Confirmed Type albuterol sulfate 90 mcg/actuation 2 puff inhalation Q6H PRN Wheezing 08/22/18 09/23/23 History aerosol inhaler aspirin 81 mg tablet,delayed 81 mg PO HS 08/22/18 09/23/23 History release (Laila Low Dose Aspirin) cyanocobalamin (vitamin B-12) 1,000 mcg subcut MONTHLY 08/22/18 09/23/23 History 1,000 mcg/mL injection solution hydrochlorothiazide 25 mg tablet 25 mg PO DAILY 08/22/18 09/23/23 History nitroglycerin 0.4 mg sublingual 0.4 mg sublingual UD 08/22/18 09/23/23 History tablet trazodone 100 mg tablet 100 mg PO HS 08/22/18 09/23/23 History cholecalciferol (vitamin D3) 250 250 mcg PO .EVERY OTHER WEEK 09/23/23 09/23/23 History mcg (10,000 unit) tablet polyethylene glycol 3350 17 17 g PO DAILY PRN Constipation 09/23/23 09/23/23 History gram/dose oral powder (Miralax) Patient History Surgical History Hx of cholecystectomy Family History Other Cancer Diabetes Gallbladder disease Heart disease Hypertension Social History Smoking Status: Never smoker Hx Alcohol Use: No Hx Substance Use: No Preferred Language: Polish Communication Ability: Effective Seafood Preparer Required: No Beliefs That Will Affect Care: None marital status: Current Living Situation: Family Current Living Situation Comment: and son current occupational status: employed 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 HEENT: Glasses. Cataracts. Glaucoma. Steroid eye drops. No macular degeneration. No history of amaurosis fugax. Pulmonary: Requires a fan blowing on her at night. Asthma. No history of PE. Cardiac: See above. GI/Abd: Fatty liver. IBS. Multiple food sensitivities. GERD. Nocturnal cough. No melena or hematochezia. CKD No history of pancreatic issues. Vascular: No history of carotid artery disease, AAA, or lower extremity claudication/PAD. Hematologic: No coagulation disorder, anemia, or abnormal bleeding. Musculoskeletal: Arthritis : Ovarian cyst. Neurologic: + Tremor. No history of TIA/CVA. No history of seizure disorder. Endocrine: No history of diabetes mellitus. No thyroid trouble. + B12 defi ciency. Vitamin D deficiency. Complete Review of Systems is as stated above, negative, or noncontributory Physical Exam Physical Exam: General: A&Ox3. NAD. Elevated BMI HENT: Normocephalic. Atraumatic. Eyes: PER. Conjunctiva pink, sclera clear. Neck: No carotid bruits. No JVD. Heart: RRR. No murmur. Lungs: Clear to auscultation. Abdomen: +BS. No organomegaly. Extremities: Thick, with lymphedematous changes. No pitting edema. No clubbing. No cyanosis Limited neurological examination is without focal deficits. Pulses: Posterior tibial=1/4. Results & Data Vital Signs (Past 12 Hours) Vital Signs Temp Pulse Pulse Resp BP BP BP 09/23/23 08:04 72 09/23/23 02:55 75 09/23/23 02:45 36.5 C 81 18 145/96 H 09/23/23 01:51 88 20 09/23/23 01:30 83 20 09/23/23 01:12 104 H 21 09/23/23 01:01 118/78 09/23/23 00:57 83 23 09/23/23 00:51 85 09/23/23 00:30 81 27 H 09/23/23 00:00 84 19 128/82 09/22/23 22:00 83 22 127/99 Pulse Ox O2 Del Method 09/23/23 08:04 09/23/23 02:55 09/23/23 02:45 96 Room Air 09/23/23 01:51 93 09/23/23 01:30 92 09/23/23 01:12 09/23/23 01:01 09/23/23 00:57 93 09/23/23 00:51 09/23/23 00:30 94 09/23/23 00:00 95 09/22/23 22:00 96 Room Air Laboratory Results Cardiac Enzymes 09/22/23 09/23/23 Range/Units 20:45 04:47 AST 25 (13-39) U/L Troponin I High Sens 10.2 9.0 (0-14) pg/ml Coagulation 09/22/23 Range/Units 20:45 PT 10.9 (9.0-12.0) Seconds APTT 25 (21-31) Seconds Lipids 09/23/23 Range/Units 04:47 Triglycerides 132 (0-150) mg/dl Cholesterol 182 (0-200) mg/dl HDL Cholesterol 43 mg/dl Cholesterol/HDL Ratio 4.2 (0-5) CBC 09/22/23 09/23/23 Range/Units 20:45 04:47 WBC 12.75 H 9.77 (4.8-10.8) K/ul RBC 5.55 H 5.19 (4.20-5.40) M/uL Hgb 15.3 14.3 (12.0-16.0) g/dl Hct 46.1 44.2 (37.0-47.0) % Plt Count 335 255 (130-400) K/uL Neut # (Auto) 8.30 H 6.13 (1.40-6.50) K/uL Lymph # (Auto) 3.48 H 2.76 (1.20-3.40) K/uL Davis # (Auto) 0.67 H 0.63 H (0.11-0.59) K/uL Eos # (Auto) 0.21 0.18 (0.00-0.50) K/uL Baso # (Auto) 0.06 0.05 (0.00-0.20) K/uL Comprehensive Metabolic Panel 09/22/23 09/23/23 Range/Units 20:45 04:47 Sodium 137 139 (136-145) mmol/L Potassium 3.5 3.5 (3.5-5.1) mmol/L Chloride 98 103 (98-107) mmol/L Carbon Dioxide 29 30 (21-32) mmol/L BUN 15 14 (6-23) mg/dl Creatinine 0.95 0.88 (0.6-1.2) mg/dl Glucose 133 H 105 H (70-99(Fasting)) mg/dl Calcium 10.4 H 9.2 (8.6-10.3) mg/dl AST 25 (13-39) U/L ALT 24 (7-52) U/L Alkaline Phosphatase 85 (34-104) U/L Total Protein 8.4 H (6.0-8.3) gm/dl Albumin 4.6 (3.4-5.0) gm/dl Intake and Output 09/22/23 09/23/23 09/23/23 22:59 06:59 14:59 Intake Total 0 / 0 Balance 0 / 0 Intake: Oral 0 / 0 Other: Other Intake Source NPO # Unmeasured Voids 0 Weight 122 kg 108.3 kg Weight Measurement Method Built in [facility] Diagnostic Findings Laboratory Results - last 24 hr 09/22/23 09/23/23 20:45 04:47 WBC 12.75 H 9.77 RBC 5.55 H 5.19 Hgb 15.3 14.3 Hct 46.1 44.2 MCV 83.1 85.2 MCH 27.6 27.6 MCHC 33.2 32.4 RDW Std Deviation 40.9 42.6 RDW Coeff of Vita 13.4 13.7 Plt Count 335 255 MPV 9.7 9.4 Immature Gran % (Auto) 0.2 0.2 Neut % (Auto) 65.1 62.9 Lymph % (Auto) 27.3 28.2 Davis % (Auto) 5.3 6.4 Eos % (Auto) 1.6 1.8 Baso % (Auto) 0.5 0.5 Neut # (Auto) 8.30 H 6.13 Lymph # (Auto) 3.48 H 2.76 Davis # (Auto) 0.67 H 0.63 H Eos # (Auto) 0.21 0.18 Baso # (Auto) 0.06 0.05 Immature Gran # (Auto) 0.03 0.02 PT 10.9 INR 1.0 APTT 25 PTT Ratio 0.9 Sodium 137 139 Potassium 3.5 3.5 Chloride 98 103 Carbon Dioxide 29 30 Anion Gap 10 6 BUN 15 14 Creatinine 0.95 0.88 Est Cr Clr Drug Dosing 81.5 79.2 Est GFR ( Amer) 74.9 82.2 Est GFR (Non-Af Amer) 64.6 70.9 BUN/Creatinine Ratio 15.8 15.9 Glucose 133 H 105 H Estimat Average Glucose 120 Hemoglobin A1c 5.8 H Calcium 10.4 H 9.2 Phosphorus 3.7 Magnesium 1.9 Total Bilirubin 0.7 AST 25 ALT 24 Alkaline Phosphatase 85 Troponin I High Sens 10.2 9.0 Total Protein 8.4 H Albumin 4.6 Globulin 3.8 Albumin/Globulin Ratio 1.2 Triglycerides 132 Cholesterol 182 LDL Cholesterol, Calc 113 VLDL Cholesterol, Calc 26 HDL Cholesterol 43 Cholesterol/HDL Ratio 4.2 Lipase 32 PTH Intact 74.3
[2023-09-23] MEDS: ENOXAPARIN INJ 40 MG/0.4 ML SYR SQ SCH (10:00)
[2023-09-23] MEDS: PANTOprazole 40 MG TAB PO SCH (10:00)
--- NOTE | 2023-09-23 12:02 | Hospitalist Progress Note ---
Date of Service September 23, 2023 Assessment & Plan (1) Chest pain: Plan: Rule out ACS Seems to have atypical chest pain Pain happened to be at rest with associated palpitation and nausea History of cholecystectomy and doubt any gallbladder disease causing the sym ptoms Also radiation of pain to the right shoulder area and right upper extremity Her EKG and serial troponins are unremarkable Awaiting echo for further evaluation by the signal operator Appreciate cardiology input and recommendation She may be discharged this afternoon following cardiac clearance Will add PPI with history of reflux disease . (2) HTN (hypertension): Plan: Blood pressure seems to be stable and will continue current medications (3) Asthma: Plan: History of asthma No wheezing or any exacerbation (4) Depression: Plan: Will continue current medications Does not have any acute depression/delirium (5) Morbid obesity with BMI of 40.0-44.9, adult: Plan: Needs counseling Plan Other significant medical conditions remained stable as below: Hyperglycemia with DM Mood disorder, stable P past ast tobacco abuse yes. DVT prophylaxis. Lovenox subcu Full code Admission and Anticipated Discharge Date Admission Date: September 23, 2023 Subjective 09/23/2023 The patient was seen and examined in telemetry unit She denies any more abdominal pain, chest pain or palpitation She has been feeling much better since admission Denies any significant symptoms Review of Systems Review of Systems: All systems reviewed and are unremarkable except as noted below Physical Exam Physical Exam: Lying in bed without any acute distress Constitutional: well developed, well nourished and + obese; not ill appearing Eyes: PERRL, conjunctivae normal, anicteric sclerae ENMT: external ear and nose normal, oropharynx normal Neck: trachea midline, no thyromegaly Respiratory: no respiratory distress Auscultation: lungs clear to auscultation bilaterally Cardiovascular: Rate/Rhythm: regular rate and regular rhythm; not tachycardic Heart Sounds: normal S1 and normal S2; no murmur Extremities: + edema (Trace edema bilaterally) Gastrointestinal (Abdomen): Inspection/Auscultation: normal bowel sounds; abdomen not distended Percussion/Palpation: abdomen soft; abdomen nontender Musculoskeletal: No acute arthritis involving any of the joints Neurologic: normal touch/pain/proprioception and moves all extremities; no focal motor deficits Psychiatric: A+Ox3, euthymic affect Lymphatic: no cervical or axillary lymphadenopathy Results & Data Results & Data Vital Signs (Past 12 Hours) Vital Signs Temp Pulse Pulse Resp BP BP Pulse Ox 09/23/23 08:08 36.7 C 68 18 124/80 95 09/23/23 08:04 72 09/23/23 02:55 75 09/23/23 02:45 36.5 C 81 18 145/96 H 96 09/23/23 01:51 88 20 93 09/23/23 01:30 83 20 92 09/23/23 01:12 104 H 21 09/23/23 01:01 118/78 09/23/23 00:57 83 23 93 09/23/23 00:51 85 09/23/23 00:30 81 27 H 94 09/23/23 00:00 84 19 128/82 95 O2 Del Method 09/23/23 08:08 Room Air 09/23/23 08:04 09/23/23 02:55 09/23/23 02:45 Room Air 09/23/23 01:51 09/23/23 01:30 09/23/23 01:12 09/23/23 01:01 09/23/23 00:57 09/23/23 00:51 09/23/23 00:30 09/23/23 00:00 Laboratory Results Short CBC 09/22/23 09/23/23 Range/Units 20:45 04:47 WBC 12.75 H 9.77 (4.8-10.8) K/ul Hgb 15.3 14.3 (12.0-16.0) g/dl Hct 46.1 44.2 (37.0-47.0) % Plt Count 335 255 (130-400) K/uL BMP 09/22/23 09/23/23 20:45 04:47 Sodium 137 139 Potassium 3.5 3.5 Chloride 98 103 Carbon Dioxide 29 30 BUN 15 14 Creatinine 0.95 0.88 Glucose 133 H 105 H Calcium 10.4 H 9.2 Liver Function 09/22/23 Range/Units 20:45 Total Bilirubin 0.7 (0.2-1.0) mg/dl AST 25 (13-39) U/L ALT 24 (7-52) U/L Alkaline Phosphatase 85 (34-104) U/L Albumin 4.6 (3.4-5.0) gm/dl Medications Administered Current Inpatient Medications Aspirin (Aspirin 81 Mg Ectab) 81 mg PO HS YOUSUF Stop: 10/23/23 20:59 Enoxaparin Sodium (Enoxaparin Inj 40 Mg/0.4 Ml Syr) 40 mg SQ QAM [facility] Stop: 10/23/23 08:59 Last Admin: 09/23/23 10:00 Dose: 40 mg Promethazine HCl (Phenergan) 12.5 mg in 50.5 mls @ 202 mls/hr IV Q6H PRN PRN Reason: Nausea And Vomiting Stop: 10/23/23 01:30 Lorazepam (Lorazepam 0.5 Mg Tab) 0.5 mg PO TID PRN PRN Reason: Anxiety Stop: 10/23/23 01:30 Morphine Sulfate (Morphine Sulfate 4 Mg/Ml 1 Ml Carp\Vial) 4 mg IV Q4H PRN PRN Reason: Pain Stop: 10/07/23 01:30 Oxycodone HCl (Oxycodone Hcl Ir 5 Mg Tab (Immediate Release)) 5 - 10 mg PO QID PRN PRN Reason: Pain Stop: 10/07/23 01:30 Pantoprazole Sodium (Pantoprazole 40 Mg Tab) 40 mg PO QAM [facility] Stop: 10/23/23 09:29 Last Admin: 09/23/23 10:00 Dose: 40 mg Polyethylene Glycol (Polyethylene (Miralax) 17 Gm Pack) 17 gm PO DAILY PRN PRN Reason: Constipation Stop: 10/23/23 02:42 Trazodone HCl (Trazodone Hcl 100 Mg Tab) 100 mg PO [facility] Stop: 10/23/23 20:59
--- NOTE | 2023-09-23 12:02 | Electrocardiogram Report ---
Test Reason : Blood Pressure : */* mmHG Vent. Rate : 91 BPM Atrial Rate : 91 BPM P-R Int : 150 ms QRS Dur : 80 ms QT Int : 366 ms P-R-T Axes : 69 22 75 degrees QTcB Int : 450 ms Sinus rhythm with occasional Premature ventricular complexes Nonspecific ST and T wave abnormality Abnormal ECG When compared with ECG of 18-Sep-2021 08:27, Premature ventricular complexes are now Present Vent. rate has increased by 31 bpm T wave inversion now evident in Lateral leads Confirmed by Efe Gramajo ([id number]) on 09/23/2023 12:02:24 PM Referred By: REFERRED SELF Confirmed By: fEe Gramajo
--- NOTE | 2023-09-23 12:04 | Electrocardiogram Report ---
Test Reason : Blood Pressure : */* mmHG Vent. Rate : 83 BPM Atrial Rate : 83 BPM P-R Int : 148 ms QRS Dur : 80 ms QT Int : 392 ms P-R-T Axes : 62 21 121 degrees QTcB Int : 460 ms Normal sinus rhythm Abnormal ECG When compared with ECG of 22-Sep-2023 20:38, (unconfirmed) Premature ventricular complexes are no longer Present T wave inversion now evident in Anterior leads Confirmed by Efe Gramajo ([id number]) on 09/23/2023 12:03:43 PM Referred By: REFERRED SELF Confirmed By: Efe Gramajo
[2023-09-23] MEDS: POTASSIUM CHLORIDE 10 MEQ TABCR PO SCH (15:22)
[2023-09-23] MEDS: ASPIRIN 81 MG ECTAB PO SCH (21:09)
[2023-09-23] MEDS: METOPROLOL SUCC 25MG EXT REL TAB PO SCH (21:09)
[2023-09-23] MEDS: traZODone HCL 100 MG TAB PO SCH (21:10)
[2023-09-24 08:05] VITALS: TEMP 98.1; O2SAT 95
[2023-09-24] MEDS: ACETAMINOPHEN 325 MG TAB PO PRN (10:15)
--- NOTE | 2023-09-24 11:05 | Cardiology Progress Note ---
Date of Service September 24, 2023 Assessment & Plan (1) Chest pain at rest: (2) Palpitations: (3) Abnormal ECG: (4) Suspected sleep apnea: (5) HTN (hypertension): Plan 63-year-old female admitted after initially experiencing tachypalpitations followed by atypical chest discomfort. Symptoms reminiscent of those previously leading to diagnostic cardiac catheterization in 2018 with angiographically normal coronary arteries observed at that time. No evidence of acute coronary syndrome by EKG, cardiac enzymes, resting echocardiography. Recent outpatient ischemic workup negative. Recommend symptomatic treatment with metoprolol succinate. Supplement supplemental potassium added to HCTZ noting borderline levels this admission, with additional supplement ordered today. Recommend outpatient evaluation for suspected sleep apnea. Cardiology will sign off; please contact with any questions or concerns. Admission and Anticipated Discharge Date Admission Date: September 23, 2023 Supervising Physician Co-Signing Physician Notes Patient seen and examined, assessment and plan as outlined above Current complaints predominantly of sense of palpitation and heart pounding. Addition of low-dose beta-candie as noted recommended as well as potassium supplement given relatively low potassium on presentation No further further recommendation Contact with question Subjective Patient seen and examined. Chart, medications, and telemetry reviewed Feeling better. Quick short-lived flutter sensation overnight. No chest pain or discomfort. Telemetry: Sinus in the 50s and 60s September 23, 2023 TTE Interpretation Summary ([facility], Dr. Dailey): Compared to prior study, there is no significant change. Normal size LV. Mild concentric LVH. Normal LV wall motion. EF 60 to 65%. Grade 1 diastolic dysfunction. Normal left atrial size. No valvular disease. Review of Systems Review of Systems: Complete Review of Systems is as stated in the initial consultation, negative, or noncontributory Physical Exam Physical Exam: General: A&Ox3. NAD. Elevated BMI HENT: Normocephalic. Atraumatic. Eyes: PER. Conjunctiva pink, sclera clear. Neck: No carotid bruits. No JVD. Heart: RRR. No murmur. Lungs: Clear to auscultation. Abdomen: +BS. No organomegaly. Extremities: Thick, with lymphedematous changes. No pitting edema. No clubbing. No cyanosis Limited neurological examination is without focal deficits. Pulses: Posterior tibial=1/4. Results & Data Vital Signs (Past 12 Hours) Vital Signs Temp Pulse Resp BP BP Pulse Ox O2 Del Method 09/24/23 07:13 36.7 C 60 19 132/84 95 Room Air 09/24/23 03:32 36.5 C 65 18 118/80 92 Room Air 09/23/23 23:14 36.6 C 74 19 138/87 94 Room Air Laboratory Results Intake and Output 09/23/23 09/24/23 09/24/23 22:59 06:59 14:59 Intake Total 510 / 1246.667 Balance 510 / 1246.667 Intake: Oral 510 / 510 Other: Weight 101.3 kg Weight Measurement Method Built in [facility]
[2023-09-24] MEDS: POTASSIUM CHLORIDE 10 MEQ TABCR PO ONE (11:29)
[2023-09-24 11:46] VITALS: PULSE 63; RESP 18
--- NOTE | 2023-09-24 12:11 | Hospitalist Progress Note ---
Date of Service September 24, 2023 Assessment & Plan (1) Chest pain: Plan: Chest pain Palpitations S/P cardiac catheterization in 2018 with angiographically normal coronary arteries per record Troponins negative ECHO: No wall motion abnormality on echo Continue metoprolol Appreciate cardiology input Needs outpatient sleep study Also added PPI Plan to be discharged home today (2) HTN (hypertension): Plan: Continue metoprolol Monitor BP (3) Asthma: Plan: History of asthma No wheezing or any exacerbation (4) Depression: Plan: Mood disorder Continue current medications (5) Morbid obesity with BMI of 40.0-44.9, adult: Plan: Needs counseling BMI 39 Prediabetes HbA1c 5.8 Plan Other significant medical conditions remained stable as below: DVT Px: Lovenox SQ CODE STATUS Full code Admission and Anticipated Discharge Date Admission Date: September 23, 2023 Subjective Patient is seen and examined at bedside States having headache this morning No other complaints today Denies any chest pain, dyspnea, nausea, vomiting, abdominal pain Plan to be discharged home today Review of Systems Review of Systems: All systems reviewed & are unremarkable except as noted in Subjective Physical Exam Physical Exam: Physical Exam: Vitals signs as noted above General Appearance:Obese, no apparent distress Head: normocephalic, Atraumatic Eyes: normal inspection, EOMI Neck: supple, Trachea midline Respiratory/Chest: Normal breath sounds, CTA, No accessory muscle use Cardiovascular: S1, S2, No murmur Abdomen/GI:Soft, Non tender, Bowel sounds present Extremities/Musculoskeletal:normal inspection, no edema Neurologic/Psych:AAOX3, grossly no focal neurological deficits Skin: normal color, warm Results & Data Results & Data Vital Signs (Past 12 Hours) Vital Signs Temp Pulse Pulse Resp BP BP Pulse Ox 09/24/23 11:41 59 L 09/24/23 11:17 36.7 C 63 18 137/82 95 09/24/23 07:13 36.7 C 60 19 132/84 95 09/24/23 03:32 36.5 C 65 18 118/80 92 O2 Del Method 09/24/23 11:41 09/24/23 11:17 Room Air 09/24/23 07:13 Room Air 09/24/23 03:32 Room Air
--- NOTE | 2023-09-24 12:15 | Discharge Summary ---
Date of Service September 24, 2023 Admission HPI Per Admitting Provider History obtained from patient, family, and records. Medical history significant for bronchial asthma, GERD, NAFLD, IBS, mood disorder, past tobacco abuse. Last confinement 2021 for chest pain. Patient discharged with Imdur trial. Few months ago, patient noted exertional SOB symptoms with some fluid retention. Outpatient Lexiscan stress test 3 months ago moderately abnormal but low risk for ischemia as per report Patient had sudden onset substernal achy chest pain going to her right neck and right arm last night with some shortness of breath. No cough symptoms. SBP 160s upon arrival at the ER. Discomfort relieved by nitroglycerin at the ER. 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 Admission Exam Per Admitting Provider GENERAL: Comfortable, pleasant, morbidly obese, no respiratory distress SKIN: Normal color, warm HEENT: [place] palpebral conjunctivae, no ptosis, dry buccal mucosa NECK : Supple, short neck, no tenderness CHEST : CTA, no tenderness HEART : RRR, no obvious murmurs ABDOMEN: Some distention, nontender EXTREMITIES : Minimal LE swelling, no LE tenderness, no other conspicuous deformities noted NEUROLOGIC : Coherent, no facial asymmetry, no other gross focality Principal Diagnosis Atypical chest pain Palpitations Discharge Data Allergies Allergy/AdvReac Type Severity Reaction Status Date / Time chocolate flavor Allergy Intermediate GI SYMPTOMS Verified 09/23/23 01:16 Beef Containing Products AdvReac Gastrointestinal Verified 09/23/23 01:18 Upset Pork/Porcine Containing AdvReac Gastrointestinal Verified 09/23/23 01:19 Products Upset ARTIFICIAL SWEETENERS AdvReac Severe HEADACHE, Uncoded 09/23/23 01:18 GI SYMPTOMS SOY, DAIRY, GLUTEN AdvReac Severe GI SYMPTOMS Uncoded 09/23/23 01:18 MOST FRUITS AdvReac Intermediate BLOATING,SHARP Uncoded 09/23/23 01:18 STOMACH PAINS MOST VEGETABLES AdvReac Intermediate GI SYMPTOMS Uncoded 09/23/23 01:18 Consultations 09/23/23 00:34 ED Decision to Admit Stat 09/23/23 02:43 Consult Cardiology Routine Procedures Performed Laboratory Results WBC 9.77 K/ul (4.8-10.8) 09/23/23 04:47 RBC 5.19 M/uL (4.20-5.40) 09/23/23 04:47 Hgb 14.3 g/dl (12.0-16.0) 09/23/23 04:47 Hct 44.2 % (37.0-47.0) 09/23/23 04:47 MCV 85.2 fL (80.0-100.0) 09/23/23 04:47 MCH 27.6 pg (25.0-34.0) 09/23/23 04:47 MCHC 32.4 g/dL (32.0-36.0) 09/23/23 04:47 RDW Std Deviation 42.6 fL (36.4-46.3) 09/23/23 04:47 RDW Coeff of Vita 13.7 % (11.5-14.5) 09/23/23 04:47 Plt Count 255 K/uL (130-400) 09/23/23 04:47 MPV 9.4 fL (9.4-12.4) 09/23/23 04:47 Immature Gran % (Auto) 0.2 % 09/23/23 04:47 Neut % (Auto) 62.9 % 09/23/23 04:47 Lymph % (Auto) 28.2 % 09/23/23 04:47 [place] % (Auto) 6.4 % 09/23/23 04:47 Eos % (Auto) 1.8 % 09/23/23 04:47 Baso % (Auto) 0.5 % 09/23/23 04:47 Neut # (Auto) 6.13 K/uL (1.40-6.50) 09/23/23 04:47 Lymph # (Auto) 2.76 K/uL (1.20-3.40) 09/23/23 04:47 [place] # (Auto) 0.63 K/uL (0.11-0.59) H 09/23/23 04:47 Eos # (Auto) 0.18 K/uL (0.00-0.50) 09/23/23 04:47 Baso # (Auto) 0.05 K/uL (0.00-0.20) 09/23/23 04:47 Immature Gran # (Auto) 0.02 K/uL (0.01-0.20) 09/23/23 04:47 PT 10.9 Seconds (9.0-12.0) 09/22/23 20:45 INR 1.0 (0.9-1.1) 09/22/23 20:45 APTT 25 Seconds (21-31) 09/22/23 20:45 PTT Ratio 0.9 09/22/23 20:45 Sodium 139 mmol/L (136-145) 09/23/23 04:47 Potassium 3.5 mmol/L (3.5-5.1) 09/23/23 04:47 Chloride 103 mmol/L (98-107) 09/23/23 04:47 Carbon Dioxide 30 mmol/L (21-32) 09/23/23 04:47 Anion Gap 6 (3-11) 09/23/23 04:47 BUN 14 mg/dl (6-23) 09/23/23 04:47 Creatinine 0.88 mg/dl (0.6-1.2) 09/23/23 04:47 Est Cr Clr Drug Dosing 79.2 ml/min 09/23/23 04:47 Est GFR ( Amer) 82.2 ml/min 09/23/23 04:47 Est GFR (Non-Af Amer) 70.9 ml/min 09/23/23 04:47 BUN/Creatinine Ratio 15.9 (10-20) 09/23/23 04:47 Glucose 105 mg/dl (70-99(Fasting)) H 09/23/23 04:47 Estimat Average Glucose 120 mg/dl 09/22/23 20:45 Hemoglobin A1c 5.8 % (4.5-5.6) H 09/22/23 20:45 Calcium 9.2 mg/dl (8.6-10.3) 09/23/23 04:47 Phosphorus 3.7 mg/dl (2.5-4.9) 09/22/23 20:45 Magnesium 1.9 mg/dl (1.7-2.4) 09/22/23 20:45 Total Bilirubin 0.7 mg/dl (0.2-1.0) 09/22/23 20:45 AST 25 U/L (13-39) 09/22/23 20:45 ALT 24 U/L (7-52) 09/22/23 20:45 Alkaline Phosphatase 85 U/L (34-104) 09/22/23 20:45 Troponin I High Sens 9.0 pg/ml (0-14) 09/23/23 04:47 Total Protein 8.4 gm/dl (6.0-8.3) H 09/22/23 20:45 Albumin 4.6 gm/dl (3.4-5.0) 09/22/23 20:45 Globulin 3.8 gm/dl (2.5-4.0) 09/22/23 20:45 Albumin/Globulin Ratio 1.2 (0.9-2) 09/22/23 20:45 Triglycerides 132 mg/dl (0-150) 09/23/23 04:47 Cholesterol 182 mg/dl (0-200) 09/23/23 04:47 LDL Cholesterol, Calc 113 mg/dl 09/23/23 04:47 VLDL Cholesterol, Calc 26 mg/dl (0-30) 09/23/23 04:47 HDL Cholesterol 43 mg/dl 09/23/23 04:47 Cholesterol/HDL Ratio 4.2 (0-5) 09/23/23 04:47 Lipase 32 U/L (11-82) 09/22/23 20:45 PTH Intact 74.3 pg/ml (12.0-88.0) 09/23/23 04:47 Impressions Chest X-Ray 09/22/23 20:44 XR chest 1V portable HISTORY: 63 years-old Female Chest pain, nonspecific COMPARISON: CTA chest of same day TECHNIQUE: AP view of the chest FINDINGS: Heart size is normal. Lungs are clear. No pneumothorax or pleural effusion. Bones appear grossly intact. IMPRESSION: No acute process. ACT 112: Negative or not required by law. The above report was generated using voice recognition software. It may contain grammatical, syntax or spelling errors. Electronically signed by: Thien Silva M.D. 09/23/2023 7:30 AM Chest CTA 09/22/23 21:20 Exam(s): CTA CHEST IV Amt: 92 ml opti 320 EXAM: CT Angiography Chest With Intravenous Contrast CLINICAL HISTORY: Evaluate for PE. TECHNIQUE: Axial computed tomographic angiography images of the chest with intravenous contrast. CTDI is 40 mGy and DLP is 945.67 mGy-cm. Automated exposure control was utilized for the study. A dose lowering technique was utilized adhering to the principles of ALARA. MIP reconstructed images were created and reviewed. COMPARISON: CTA chest dated 10/01/2017 FINDINGS: Limitations: There is mild respiratory artifact, which minimally degrades image quality on multiple image slices. Pulmonary arteries: No evidence for pulmonary embolism. Aorta: No acute findings. No thoracic aortic aneurysm or dissection. Lungs: Unremarkable. No mass. No consolidation. Pleural space: Unremarkable. No significant effusion. No pneumothorax. Heart: Unremarkable. No cardiomegaly. No significant pericardial effusion. Bones/joints: No acute fracture. No dislocation. Soft tissues: Unremarkable. Lymph nodes: Unremarkable. No enlarged lymph nodes. IMPRESSION: Negative examination. No evidence for pulmonary embolism. Electronically signed by: Aamir Garcia MD 09/22/23 22:44 PM Ordered Studies 09/22/23 21:20 CT for pulmonary embolism PE [CT angio chest PE protocol] Stat Hospital Course (1) Chest pain: Chest pain Palpitations S/P cardiac catheterization in 2018 with angiographically normal coronary arteries per record Troponins negative ECHO: No wall motion abnormality on echo Continue metoprolol Appreciate cardiology input Needs outpatient sleep study Also added PPI Plan to be discharged home today (2) HTN (hypertension): Continue metoprolol Monitor BP (3) Asthma: History of asthma No wheezing or any exacerbation (4) Depression: Mood disorder Continue current medications (5) Morbid obesity with BMI of 40.0-44.9, adult: Needs counseling BMI 39 Prediabetes HbA1c 5.8 Plan Other significant medical conditions remained stable as below: DVT Px: Lovenox SQ CODE STATUS Full code Total Time Total Time Spent Total Time Spent (In Minutes): 43 minutes Discharge Plan Discharge Items Patient Disposition: Home - Self-Care Reason For Visit: CP Discharge Diagnosis: Atypical chest pain Palpitations Activity: Per Instructions section Exercise/Sports: Gradually increase as tolerated Non-emergency contact: Primary Care Provider Call non-emergency contact if: you have any medication questions, your symptoms worsen, your pain is concerning for you and you have a fever Follow-up/Referrals: Deanna Kim DO [Primary Care Provider] - (Date & Time 09/27/2023 2:20 PM Provider Deanna Kim DO [facility] ) Diet: Heart Healthy Add Attending Provider Instructions: Follow-up with your primary care physician on 09/27/2023 2:20 PM as scheduled Follow-up with your photographer finish as needed --Get sleep study to rule out obstructive sleep apnea as recommended by your photographer finish. -- Get blood work (basic metabolic panel) to monitor your potassium levels in 1 week and follow-up with your physician for further recommendations Seek immediate medical attention if your symptoms reoccur or worsen Please take all medications as instructed on discharge list below. Please call if you have any questions or problems. You can reach a [facility] hospitalist on duty at [facility] 24 hours a day by calling [phone] Pending Studies at Discharge: No Stand-Alone Forms: My [facility] [employer], Smoking Cessation Medications and DC Order Prescriptions: New pantoprazole 40 mg Tablet,Delayed Release (Dr/Ec) 40 mg PO QAM Qty: 30 0RF metoprolol succinate 25 mg Tablet Extended Release 24 Hr 12.5 mg PO BID Qty: 30 1RF potassium chloride 10 mEq Tablet,Er Particles/Crystals 10 meq PO DAILY Qty: 30 0RF Continued aspirin [Laila Low Dose Aspirin] 81 mg Tablet,Delayed Release (Dr/Ec) 81 mg PO HS trazodone 100 mg tablet 100 mg PO HS cyanocobalamin (vitamin B-12) 1,000 mcg/mL solution 1,000 mcg subcut MONTHLY nitroglycerin 0.4 mg Tablet, Sublingual 0.4 mg sublingual UD hydrochlorothiazide 25 mg tablet 25 mg PO DAILY albuterol sulfate 90 mcg/actuation Hfa Aerosol Inhaler 2 puff INHALATION Q6H PRN (Reason: Wheezing) polyethylene glycol 3350 [Miralax] 17 gram/dose Powder 17 g PO DAILY PRN (Reason: Constipation) cholecalciferol (vitamin D3) 250 mcg (10,000 unit) Tablet 250 mcg PO .EVERY OTHER WEEK Discharge Orders: Discharge Order (Routine); Ordered 09/24/23 Ordered By: Bennie Michaels Admission Data Admit Date/Time: 09/23/23 01:29 Attending Provider: Bennie Michaels Admit Provider: Rebel Cordon Primary Care Provider: Deanna Kim Other Providers: Rebel Cordon; Summer Sanchez; Aki Hernandez; Abhishek Dailey; Tristan Bernal; Tom Yeh.; Bc Donahue; Sylvia Currie; Laurie Woods; Mari Gautam; Summer Carrillo; Jan English; Quinn Conroy; Ashlyn Lombardo; Symone Banuelos; Chacha Garcia; Rosio Ulloa; Bernabe Echeverria; Mis Guillen
[2023-09-24 13:01] VITALS: BP 132/84
== END 2023-09-24 13:21 | disposition home or self-care (01) ==
LOC: 2S 20:25 → ED 20:25 → SUATTDRO 09-23 01:29 → 2S 09-23 01:56